=== PATIENT | female | born 1930 | race Caucasian/White ===

== ENCOUNTER 2018-07-12 09:43 | Inpatient (IN) | payer OTHER ==
[2018-07-12] MEDS ORDERED: NA CHLORIDE 0.9% 1,000 ML ONE (10:12)
[2018-07-12] MEDS ORDERED: FENTANYL CITR 100 MCG/2 ML ONE (10:12)
[2018-07-12] MEDS ORDERED: ONDANSETRON 4 MG/2 ML VIAL ONE (10:13)
--- NOTE | 2018-07-12 10:37 | RAD REPORT ---
EXAM DESCRIPTION: CT - Head C Spine Cap Wo Con - 07/12/2018 10:21 am CLINICAL HISTORY: Trauma, head and neck injury. Chest, abdomen and pelvis pain. PAIN COMPARISON: Abdomen Pelvis W Contrast dated 11/04/2017; CT ABDOMEN PELVIS WO CONTRAST dated 5 TECHNIQUE: CT head without contrast. CT cervical spine without contrast with coronal and sagittal reformatted images. CT chest, abdomen and pelvis without contrast with coronal and sagittal reformatted images of the spi ne. All CT scans are performed using dose optimization technique as appropriate and may include automated exposure control or mA/KV adjustment according to patient size. FINDINGS: CT HEAD WITHOUT CONTRAST: No intracranial hemorrhage, hydrocephalus or extra-axial fluid collection. Advanced generalized brai n atrophy is present with advanced periventricular and deep white matter chronic microvascular ischem ic changes. Gliosis is present in the left posterior parietal lobe compatible with remote infarct. Ad ditional gliosis medial right cerebellum also seen likely related to additional area previous infarct ion. The paranasal sinuses and mastoids are clear. The calvarium is intact. CT CERVICAL SPINE WITHOUT CONTRAST: No fracture or subluxation. Multilevel degenerative changes are present. Findings are most prominent at C3-4 and C5-6. The prevertebral soft tissues are normal in thickness. CT CHEST, ABDOMEN, PELVIS WITHOUT CONTRAST: NOTE: Lack of contrast is a significant limitation in the assessment of trauma related findings. Spec ifically, solid organ, vascular and bowel evaluation is significantly limited. Emphysematous changes are present throughout the lungs. 17 x 16 mm right lower lobe pulmonary nodule is seen.No pneumothorax or pericardial/pleural fluid. No evidence of intra-abdominal visceral injury, free fluid or free air is seen within the above detai led limitations. Large irregular mass is again noted in the cecum measuring 5.5 x 4.2 cm, almost certainly neoplastic in origin. Sigmoid diverticulosis is present. Significant fecal retention in the rectum seen. Intratrochanteric fracture of the proximal left femur is seen with mild varus angulation. IMPRESSION: Intratrochanteric fracture of proximal left femur is noted. Large mass in the cecum is again noted, similar to comparative study, and likely neoplastic in origin . 17 mm spiculated right lower lobe nodule is present likely also neoplastic in origin. PET-CT follow-u p could be obtained if further assessment is clinically desired.
[2018-07-12 11:13] LABS: Protime INR 1.12
--- NOTE | 2018-07-12 11:25 | ER ---
Nurse's Notes [facility] Name: Destinee Dickinson Age: 88 yrs Sex: Female : 1930 Arrival Date: 07/12/2018 Time: 09:46 Bed 4 Private MD: Jonathan Santos V Diagnosis: Fall due to bumping against object;Displaced intertrochanteric fracture of left femur;Abdominal tenderness-large 5.5x 4.2 cm cecal mass;Solitary pulmonary nodule-17 mm , spiculated;End stage renal disease Presentation: 07/12 09:47 Presenting complaint: EMS states: pt had a fall last night, unknown time, crawled into iw the bathroom and laid there throughout the night, pt denies hitting head, A\T\OX3, left leg is shortened with outward rotation. Care prior to arrival: Mechanism of Injury: Fall from standing position. Trauma event details: Injury occurred in the [facility], Injury occurred: at home. Injury occurred: July 11, 2018. 09:47 Acuity: CLEMENT 2 iw 09:47 Method Of Arrival: EMS: [facility] iw 09:54 Transition of care: patient was not received from another setting of care. Onset of iw symptoms was July 12, 2018. Risk Assessment: Do you want to hurt yourself or someone else? Patient reports no desire to harm self or others. Initial Sepsis Screen: Does the patient meet any 2 criteria? No. Patient's initial sepsis screen is negative. Does the patient have a suspected source of infection? No. Patient's initial sepsis screen is negative. Trauma Activation: Alert Physician: ED Physician; Name: Dr. Mckeon; Notified At: 09:40; Arrived At: 09:40 Physician: General Surgeon; Name: N/A; Notified At: 09:39; Arrived At: Specialty not needed Physician: Radiology; Name: Rachel; Notified At: 09:39; Arrived At: 09:40 Physician: Respiratory; Name: N/A; Notified At: 09:39; Arrived At: Specialty not needed Physician: Lab; Name: N/A; Notified At: 09:39; Arrived At: Specialty not needed Historical: - Allergies: 09:53 No Known Allergies; iw - PMHx: 09:52 GERD; Hyperlipidemia; Hypertension; Hypothyroidism; Renal Disease; Dialysis; iw 09:53 CVA; stomach cancer; iw - PSHx: 09:52 Cholecystectomy; Hysterectomy; iw - Immunization history: Last tetanus immunization: unknown. - Ebola Screening: : Patient negative for fever greater than or equal to 101.5 degrees Fahrenheit, and additional compatible Ebola Virus Disease symptoms Patient denies exposure to infectious person Patient denies travel to an Ebola-affected area in the 21 days before illness onset No symptoms or risks identified at this time. - Social history:: Smoking status: Patient/guardian denies using tobacco. Screenin:54 Abuse screen: Denies threats or abuse. Denies injuries from another. Tuberculosis iw screening: No symptoms or risk factors identified. 10:16 Nutritional screening: No deficits noted. Fall Risk Fall in past 12 months (25 points). ch Secondary diagnosis (15 points) IV access (20 points). Ambulatory Aid- Crutches/Cane/Walker (15 pts). Gait- Weak (10 pts.). Mental Status- Overestimates/Forgets Limitations (15 pts.). Total Lezama Fall Scale indicates High Risk Score (45 or more points). Fall prevention measures have been instituted. Side Rails Up X 2 Frequent Obs/Assessments Occuring Family Present and informed to notify staff if the need to leave the bedside As available patient and family educated on Fall Prevention Program and Strategies. Primary Survey: 09:51 A: Airway: patent. Breathing/Chest: Respiratory pattern: regular. Circulation: Cardiac iw rhythm: Heart tones present. Pulses: palpable right radial artery, right dorsalis pedis artery, left radial artery, left dorsalis pedis artery, left carotid pulse and right carotid pulse. Skin color: pink. Disability Alert. 10:12 Reassessment Airway Airway Patent Breathing/Chest Respiratory pattern Regular ch Respiratory effort Spontaneous Unlabored Breath sounds Clear Chest inspection Symmetrical. Secondary Survey: 10:12 HEENT: Head Other pt c/o headache, has bruising on her neck. : No signs and/or ch symptoms were reported regarding the genitourinary system. Musculoskeletal: Capillary refill < 3 seconds, in bilateral fingers. toes. Range of motion: limited in left hip and left knee pt L leg is shortened and externally rotated Reports pain in left leg and left upper thigh and left inner thigh and left gluteal fold and left hip. Assessment: 10:12 General: Appears in no apparent distress. comfortable, Behavior is calm, cooperative, ch appropriate for age. Pain: Complains of pain in left leg and left upper thigh and left inner thigh and left hip Pain currently is 8 out of 10 on a pain scale. Pain began suddenly, 1 day ago. Neuro: Level of Consciousness is awake, alert, obeys commands, confused, Oriented to person. Respiratory: Airway is patent Respiratory effort is even, unlabored. 10:16 Reassessment: Patient appears in no apparent distress at this time. 11:27 Reassessment: Patient appears in no apparent distress at this time. No changes from previously documented assessment. Patient and/or family updated on plan of care and expected duration. Pain level reassessed. pt still oriented to person only. pt verb understanding of fx of hip. awaiting family return to review results with family. family not found in the lobby. awaiting lab results. 12:24 Reassessment: Patient appears in no apparent distress at this time. No changes from previously documented assessment. Patient and/or family updated on plan of care and expected duration. Pain level reassessed. 12:25 Reassessment: Patient appears in no apparent distress at this time. ALL ER ORDERS COMPLETED, AWAITING FLOOR ROOM ASSIGNMENT. DR GUTIERREZ HAS BEEN CONTACTED BY DR MCKEON, BUT HAS NOT SEEN THE PT YET. ORDERS ARE IN THE COMPUTER. 12:42 Reassessment: Patient appears in no apparent distress at this time. Patient is alert/active/playful, equal unlabored respirations, skin warm/dry/pink. DR GUTIERREZ AT BEDSIDE. 12:48 Reassessment: Patient appears in no apparent distress at this time. No changes from previously documented assessment. Patient and/or family updated on plan of care and expected duration. Pain level reassessed. Patient is alert/active/playful, equal unlabored respirations, skin warm/dry/pink. i ATTEMPT TO CALL REPORT NOW. . 13:01 Reassessment: Patient appears in no apparent distress at this time. REPORT GIVEN TO layla LÓPEZ, AWAITING DR BINGHAM TO SEE PT PRIOR TO TRANSFER. Vital Signs: 09:52 Pulse 81; Resp 19; Pulse Ox 100% on R/A; iw 10:16 BP 133 / 57; Pulse 76; Resp 14 S; ch 11:27 BP 129 / 56; Pulse 74; Resp 16; Temp 98.3; Pulse Ox 97% on R/A; Pain 4/10; ch 12:24 BP 126 / 78; Pulse 80; Resp 18; Temp 98.8; Pulse Ox 99% on R/A; ch Deyvi Coma Score: 09:53 Eye Response: spontaneous(4). Verbal Response: oriented(5). Motor Response: obeys iw commands(6). Total: 15. Trauma Score (Adult): 09:53 Eye Response: spontaneous(1); Verbal Response: oriented(1); Motor Response: obeys iw commands(2); Systolic BP: > 89 mm Hg(4); Respiratory Rate: 10 to 29 per min(4); Boxford Score: 15; Trauma Score: 12 10:12 Eye Response: spontaneous(1); Verbal Response: confused(1); Motor Response: obeys ch commands(2); Systolic BP: > 89 mm Hg(4); Respiratory Rate: 10 to 29 per min(4); Deyvi Score: 14; Trauma Score: 12 ED Course: 09:46 Patient arrived in ED. iw 09:48 Dm Mckeon MD is Attending Physician. echo 09:51 Triage completed. iw 09:51 Izabel Fine, RN is Primary Nurse. ch 09:54 Patient has correct armband on for positive identification. Placed in gown. Bed in low iw position. 09:54 Arm band placed on. iw 10:12 Patient maintains SpO2 saturation greater than 95% on room air. ch 10:12 Inserted saline lock: 22 gauge in right wrist, using aseptic technique. Missed ch attempt(s): 22 gauge in right forearm. Patient maintains SpO2 saturation greater than 95% on room air. Thermoregulation: warm blanket given to patient. 10:16 CT completed. Patient tolerated procedure well. Patient moved to CT via stretcher. sj 10:16 No apparent distress. Resting quietly. ch 10:16 nurse monitoring on. Pulse ox on. NIBP on. Warm blanket given. ch 10:17 Patient moved to radiology. sj 10:21 CT Traumagram (Head C Spine CAP wo con) In Process Unspecified. EDMS 10:45 XRAY Chest (1 view) In Process Unspecified. EDMS 10:45 Pelvis XRAY In Process Unspecified. EDMS 10:45 Hip Left 2 View XRAY In Process Unspecified. EDMS 10:53 Initial lab(s) drawn, by me, sent to lab. Inserted saline lock: 22 gauge in right dh3 antecubital area, using aseptic technique. Blood collected. 10:57 EKG done, by industrial electrical technician. reviewed by Dm Mckeon MD. at1 11:14 Chou cath inserted, using sterile technique, 16 Fr., by me, balloon inflated, returned dh3 clear yellow urine. Patient tolerated well. 11:22 Jonathan Santos MD is Private Physician. bd 11:22 Jimmie Jean-Baptiste MD is Hospitalizing Provider. echo 11:24 Hospitalizing Provider role handed off by Jimmie Jean-Baptiste MD echo 11:24 Jonathan Santos MD is Hospitalizing Provider. echo 11:40 Urine collected: Chou catheter specimen, clear. dh3 12:35 EKG done, by industrial electrical technician. reviewed by Dm Mckeon MD. 3 19:26 No provider procedures requiring assistance completed. Patient admitted, IV remains in ch place. Administered Medications: 10:10 Drug: fentaNYL (PF) 25 mcg Route: IVP; Site: right wrist; ch 12:04 Follow up: Response: No adverse reaction ch 10:10 Drug: Zofran 4 mg Route: IVP; Site: right forearm; ch 12:03 Follow up: Response: No adverse reaction ch 11:25 Drug: NS 0.9% 1000 ml Route: IV; Rate: 125 ml/hr; Site: right wrist; ch 12:04 Follow up: IV Status: Infusion continued upon admission; IV Intake: 250ml Intake: 10:12 PO: 0ml; Total: 0ml. ch 12:04 IV: 250ml; Total: 250ml. Outcome: 11:24 Decision to Hospitalize by Provider. echo 13:40 Admitted to Med/surg accompanied by nurse, via stretcher. 13:40 Condition: stable 13:40 Instructed on the need for admit. 13:51 Patient left the ED. Signatures: Dispatcher [employer] EDMS Stefany Olea Christina, RN RN ch Anderson, Corey, MD MD cha Jones, Susan sj Williams, Irene, RN RN iw Gonzales, Amanda, associate teacher EKG Tat1 Sams, Lita 3 Martha Hope sm3 Corrections: (The following items were deleted from the chart) 11:25 11:24 Chou cath inserted, using sterile technique, 16 Fr., by ks, balloon inflated, dh3 returned clear yellow urine. Patient tolerated well. 3
--- NOTE | 2018-07-12 11:25 | EDPHYS ---
Physician Documentation [facility] Name: Destinee Dickinson Age: 88 yrs Sex: Female : 1930 Arrival Date: 07/12/2018 Time: 09:46 Bed 4 Private MD: Jonathan Santos V ED Physician Dm Miguel HPI: 07/12 09:53 This 88 yrs old Female presents to ER via EMS with complaints of Fall Injury, echo Hip Injury. 09:53 Details of fall: The patient fell from an upright position, while walking. Onset: The echo symptoms/episode began/occurred last night. Associated injuries: The patient sustained left hip, left gluteal fold, left inner thigh and left upper thigh, decreased range of motion, obvious fracture. Severity of symptoms: At their worst the symptoms were moderate, in the emergency department the symptoms are unchanged. Unable to obtain HPI due to baseline dementia. The patient has not experienced similar symptoms in the past. Historical: - Allergies: 09:53 No Known Allergies; iw - PMHx: 09:52 GERD; Hyperlipidemia; Hypertension; Hypothyroidism; Renal Disease; Dialysis; iw 09:53 CVA; stomach cancer; iw - PSHx: 09:52 Cholecystectomy; Hysterectomy; iw - Immunization history: Last tetanus immunization: unknown. - Ebola Screening: : Patient negative for fever greater than or equal to 101.5 degrees Fahrenheit, and additional compatible Ebola Virus Disease symptoms Patient denies exposure to infectious person Patient denies travel to an Ebola-affected area in the 21 days before illness onset No symptoms or risks identified at this time. - Social history:: Smoking status: Patient/guardian denies using tobacco. ROS: 09:54 Constitutional: Negative for fever, chills, and weight loss, Eyes: Negative for injury, echo pain, redness, and discharge, ENT: Negative for injury, pain, and discharge, Neck: Negative for injury, pain, and swelling, Cardiovascular: Negative for chest pain, palpitations, and edema, Respiratory: Negative for shortness of breath, cough, wheezing, and pleuritic chest pain, Abdomen/GI: Negative for abdominal pain, nausea, vomiting, diarrhea, and constipation, Back: Negative for injury and pain, : Negative for injury, bleeding, discharge, and swelling, Skin: Negative for injury, rash, and discoloration, Neuro: Negative for headache, weakness, numbness, tingling, and seizure, Psych: Negative for depression, anxiety, suicide ideation, homicidal ideation, and hallucinations, Allergy/Immunology: Negative for hives, rash, and allergies, Endocrine: Negative for neck swelling, polydipsia, polyuria, polyphagia, and marked weight changes, Hematologic/Lymphatic: Negative for swollen nodes, abnormal bleeding, and unusual bruising. 09:54 MS/extremity: Positive for injury or acute deformity, decreased range of motion, pain, of the left hip, left gluteal fold, left inner thigh and left upper thigh. Exam: 09:54 Constitutional: This is a well developed, well nourished patient who is awake, alert, echo and in no acute distress. Head/Face: Normocephalic, atraumatic. Eyes: Pupils equal round and reactive to light, extra-ocular motions intact. Lids and lashes normal. Conjunctiva and sclera are non-icteric and not injected. Cornea within normal limits. Periorbital areas with no swelling, redness, or edema. ENT: Nares patent. No nasal discharge, no septal abnormalities noted. Tympanic membranes are normal and external auditory canals are clear. Oropharynx with no redness, swelling, or masses, exudates, or evidence of obstruction, uvula midline. Mucous membranes moist. Neck: Trachea midline, no thyromegaly or masses palpated, and no cervical lymphadenopathy. Supple, full range of motion without nuchal rigidity, or vertebral point tenderness. No Meningismus. Chest/axilla: Normal chest wall appearance and motion. Nontender with no deformity. No lesions are appreciated. Cardiovascular: Regular rate and rhythm with a normal S1 and S2. No gallops, murmurs, or rubs. Normal PMI, no JVD. No pulse deficits. Respiratory: Lungs have equal breath sounds bilaterally, clear to auscultation and percussion. No rales, rhonchi or wheezes noted. No increased work of breathing, no retractions or nasal flaring. Abdomen/GI: Soft, non-tender, with normal bowel sounds. No distension or tympany. No guarding or rebound. No evidence of tenderness throughout. Back: No spinal tenderness. No costovertebral tenderness. Full range of motion. Skin: Warm, dry with normal turgor. Normal color with no rashes, no lesions, and no evidence of cellulitis. Neuro: Awake and alert, GCS 15, oriented to person, place, time, and situation. Cranial nerves II-XII grossly intact. Motor strength 5/5 in all extremities. Sensory grossly intact. Cerebellar exam normal. Normal gait. Psych: Awake, alert, with orientation to person, place and time. Behavior, mood, and affect are within normal limits. 09:54 Musculoskeletal/extremity: ROM: limited active range of motion, limited passive range of motion, limited active range of motion due to pain, limited passive range of motion due to pain, Circulation is intact in all extremities. Compartment Syndrome exam of affected extremity: is normal. DVT Exam: no swelling, negative Homans' sign noted on exam, no appreciated bluish discoloration, no erythema, no increased warmth, pain, tenderness. Vital Signs: 09:52 Pulse 81; Resp 19; Pulse Ox 100% on R/A; iw 10:16 BP 133 / 57; Pulse 76; Resp 14 S; ch 11:27 BP 129 / 56; Pulse 74; Resp 16; Temp 98.3; Pulse Ox 97% on R/A; Pain 4/10; ch 12:24 BP 126 / 78; Pulse 80; Resp 18; Temp 98.8; Pulse Ox 99% on R/A; ch Coleman Coma Score: 09:53 Eye Response: spontaneous(4). Verbal Response: oriented(5). Motor Response: obeys iw commands(6). Total: 15. Trauma Score (Adult): 09:53 Eye Response: spontaneous(1); Verbal Response: oriented(1); Motor Response: obeys iw commands(2); Systolic BP: > 89 mm Hg(4); Respiratory Rate: 10 to 29 per min(4); Deyvi Score: 15; Trauma Score: 12 10:12 Eye Response: spontaneous(1); Verbal Response: confused(1); Motor Response: obeys commands(2); Systolic BP: > 89 mm Hg(4); Respiratory Rate: 10 to 29 per min(4); Deyvi Score: 14; Trauma Score: 12 MDM: 09:48 Patient medically screened. [facility] 09:55 Data reviewed: vital signs, nurses notes, lab test result(s), EKG, radiologic studies, [facility] CT scan, plain films. 07/12 09:49 Order name: Basic Metabolic Panel [facility] 07/12 09:49 Order name: CBC with Diff [facility] 07/12 09:49 Order name: LFT's [facility] 07/12 09:49 Order name: Magnesium; Complete Time: 11:32 [facility] 07/12 09:49 Order name: NT PRO-BNP; Complete Time: 11:32 [facility] 07/12 09:49 Order name: PT-INR [facility] 07/12 09:49 Order name: Troponin (emerg Dept Use Only); Complete Time: 11:32 [facility] 07/12 09:50 Order name: Basic Metabolic Panel; Complete Time: 11:32 EDNM 07/12 09:50 Order name: CBC with Automated Diff EDNM 07/12 09:50 Order name: Liver (Hepatic) Function; Complete Time: 11:32 EDNM 07/12 09:52 Order name: Urine Culture [facility] 07/12 11:49 Order name: Basic Metabolic Panel EDNM 07/12 11:49 Order name: Basic Metabolic Panel [facility] 07/12 11:50 Order name: CBC with Automated Diff EDNM 07/12 09:49 Order name: XRAY Chest (1 view) [facility] 07/12 09:49 Order name: EKG; Complete Time: 09:50 [facility] 07/12 09:49 Order name: Pelvis XRAY [facility] 07/12 09:49 Order name: Hip Left 2 View XRAY [facility] 07/12 09:52 Order name: CT Traumagram (Head C Spine CAP wo con); Complete Time: 11:17 [facility] 07/12 11:50 Order name: CBC with Automated Diff [facility] 07/12 11:50 Order name: Chest Single View EDNM 07/12 11:50 Order name: Chest Single View [facility] 07/12 12:08 Order name: Urine Dipstick--Ancillary (enter results) 07/12 12:44 Order name: Urine Dipstick-Ancillary [facility] 07/12 12:51 Order name: CBC Smear Scan EDNM 07/12 12:53 Order name: Type And Screen iw 07/12 09:49 Order name: Cardiac monitoring; Complete Time: 10:11 [facility] 07/12 09:49 Order name: EKG - Nurse/Tech; Complete Time: 10:59 [facility] 07/12 09:49 Order name: IV Saline Lock; Complete Time: 10:11 [facility] 07/12 09:49 Order name: Labs collected and sent; Complete Time: 10:11 [facility] 07/12 09:49 Order name: O2 Per Protocol; Complete Time: 10:11 [facility] 07/12 09:49 Order name: O2 Sat Monitoring; Complete Time: 10:11 [facility] 07/12 09:52 Order name: Chou; Complete Time: 11:25 [facility] 07/12 09:53 Order name: Urine Dipstick-Ancillary (obtain specimen); Complete Time: 11:40 [facility] 07/12 11:49 Order name: CONS Physician Consult [facility] 07/12 11:49 Order name: CONS Physician Consult [facility] 07/12 11:49 Order name: NPO [facility] 07/12 11:49 Order name: EKG Electrocardiogram [facility] 07/12 11:49 Order name: EKG Electrocardiogram [facility] 07/12 12:27 Order name: Diet Renal; Complete Time: 12:27 ch Administered Medications: 10:10 Drug: fentaNYL (PF) 25 mcg Route: IVP; Site: right wrist; ch 12:04 Follow up: Response: No adverse reaction ch 10:10 Drug: Zofran 4 mg Route: IVP; Site: right forearm; ch 12:03 Follow up: Response: No adverse reaction 11:25 Drug: NS 0.9% 1000 ml Route: IV; Rate: 125 ml/hr; Site: right wrist; ch 12:04 Follow up: IV Status: Infusion continued upon admission; IV Intake: 250ml ch Disposition: 07/12/18 11:24 Hospitalization ordered by Jonathan Santos for Inpatient Admission. Preliminary diagnosis are Fall due to bumping against object, Displaced intertrochanteric fracture of left femur, Abdominal tenderness - large 5.5x 4.2 cm cecal mass, Solitary pulmonary nodule - 17 mm , spiculated, End stage renal disease. - Bed requested for Telemetry/MedSurg (observation). - Status is Inpatient Admission. ch - Condition is Stable. - Problem is new. - Symptoms have improved. UTI on Admission? No Signatures: Dispatcher [employer] EDNM Izabel Fine RN RN ch Anderson, Corey, MD MD cha Williams, Irene, RN RN iw Fitzgerald, Diane, RN RN df Corrections: (The following items were deleted from the chart) 11:24 11:24 Hospitalization Ordered by Jimmie Jean-Baptiste MD for Inpatient Admission. Preliminary [facility] diagnosis is Fall due to bumping against object; Displaced intertrochanteric fracture of left femur. Bed requested for Telemetry/MedSurg (observation). Status is Inpatient Admission. Condition is Stable. Problem is new. Symptoms have improved. UTI on Admission? No. echo 11:25 11:24 07/12/2018 11:24 Hospitalization Ordered by Jonathan Santos MD for Inpatient echo Admission. Preliminary diagnosis is Fall due to bumping against object; Displaced intertrochanteric fracture of left femur. Bed requested for Telemetry/MedSurg (observation). Status is Inpatient Admission. Condition is Stable. Problem is new. Symptoms have improved. UTI on Admission? No. echo 11:35 11:25 07/12/2018 11:24 Hospitalization Ordered by Jonathan Santos MD for Inpatient echo Admission. Preliminary diagnosis is Fall due to bumping against object; Displaced intertrochanteric fracture of left femur; Abdominal tenderness - large 17 cm pelvic mass. Bed requested for Telemetry/MedSurg (observation). Status is Inpatient Admission. Condition is Stable. Problem is new. Symptoms have improved. UTI on Admission? No. echo 11:36 11:35 07/12/2018 11:24 Hospitalization Ordered by Jonathan Santos MD for Inpatient echo Admission. Preliminary diagnosis is Fall due to bumping against object; Displaced intertrochanteric fracture of left femur; Abdominal tenderness - large 5.5x 4.2 cm cecal mass; Solitary pulmonary nodule. Bed requested for Telemetry/MedSurg (observation). Status is Inpatient Admission. Condition is Stable. Problem is new. Symptoms have improved. UTI on Admission? No. [facility] 12:29 11:36 07/12/2018 11:24 Hospitalization Ordered by Jonathna Santos MD for Inpatient echo Admission. Preliminary diagnosis is Fall due to bumping against object; Displaced intertrochanteric fracture of left femur; Abdominal tenderness - large 5.5x 4.2 cm cecal mass; Solitary pulmonary nodule - 17 mm , spiculated. Bed requested for Telemetry/MedSurg (observation). Status is Inpatient Admission. Condition is Stable. Problem is new. Symptoms have improved. UTI on Admission? No. echo 12:36 12:29 07/12/2018 11:24 Hospitalization Ordered by Jonathan Santos MD for Inpatient df Admission. Preliminary diagnosis is Fall due to bumping against object; Displaced intertrochanteric fracture of left femur; Abdominal tenderness - large 5.5x 4.2 cm cecal mass; Solitary pulmonary nodule - 17 mm , spiculated; End stage renal disease. Bed requested for Telemetry/MedSurg (observation). Status is Inpatient Admission. Condition is Stable. Problem is new. Symptoms have improved. UTI on Admission? No. echo 13:51 12:36 07/12/2018 11:24 Hospitalization Ordered by Jonathan Santos MD for Inpatient Admission. Preliminary diagnosis is Fall due to bumping against object; Displaced intertrochanteric fracture of left femur; Abdominal tenderness - large 5.5x 4.2 cm cecal mass; Solitary pulmonary nodule - 17 mm , spiculated; End stage renal disease. Bed requested for Telemetry/MedSurg (observation). Status is Inpatient Admission. Condition is Stable. Problem is new. Symptoms have improved. UTI on Admission? No. df
[2018-07-12 11:29] LABS: Albumin 3.1 g/dL (3.4-5.0); Bilirubin Direct 0.2 mg/dL (0-0.2); Bilirubin Total 0.5 mg/dL (0.2-1.0); Magnesium 2.2 mg/dL (1.8-2.4); Protein, Total 7.2 g/dL (6.4-8.2); Troponin (Emerg Dept Use Only) 0.05 ng/mL (0.0-0.045)
[2018-07-12 11:44] LABS: Absolute Lymphocytes (CBC) 0.9 K/uL (0.7-4.9); Basophils % 0.9 % (0-1.3); Hematocrit 28.2 % (36.0-45.0); Lymphocytes % 6.5 % (15.3-44.8); MCH 30.5 pg (27.0-35.0); MCV 91.4 fL (80-100); MPV 8.7 fL (7.6-11.3); Monocytes % 7.2 % (3.3-12.3); RBC Red Blood Cell Count 3.08 M/uL (3.86-4.86)
[2018-07-12] MEDS ORDERED: ACETAMINOPHEN 500 MG TAB PO PRN (11:45)
--- NOTE | 2018-07-12 11:53 | RAD REPORT ---
EXAM DESCRIPTION: RAD - Pelvis - 07/12/2018 10:44 am CLINICAL HISTORY: PAIN Fall COMPARISON: Pelvis dated 12/14/2015; Hip Left 2 View dated 07/12/2018 FINDINGS: Intratrochanteric fracture the proximal left femur is noted with varus angulation. No disl ocation is evident.
--- NOTE | 2018-07-12 11:54 | RAD REPORT ---
EXAM DESCRIPTION: RAD - Chest Single View - 07/12/2018 10:43 am CLINICAL HISTORY: COUGH Chest pain. COMPARISON: Chest Single View dated 12/14/2015; CHEST PA AND LAT 2 VIEW dated 06/15/2015; CHEST SINGL E VIEW dated 04/25/2015; CHEST SINGLE VIEW dated 06/30/2013 FINDINGS: Portable technique limits examination quality. The lungs are grossly clear. The heart is normal in size. No displaced fractures.Cholecystectomy clip s. IMPRESSION: No acute intrathoracic process suspected.
[2018-07-12] MEDS: NA CHLORIDE 0.9% 1,000 ML IV SCH ×2 (12:00→20:56)
--- NOTE | 2018-07-12 12:40 | RAD REPORT ---
EXAM DESCRIPTION: RAD - Hip Left 2 View - 07/12/2018 10:44 am CLINICAL HISTORY: PAIN Fall COMPARISON: Pelvis dated 12/14/2015; Hip Left 2 View dated 07/12/2018 FINDINGS: Intratrochanteric fracture the proximal left femur is noted with varus angulation. No disl ocation is evident.
[2018-07-12 12:44] LABS: Urine Blood 2+ (NEG); Urine Glucose TRACE (NEG); Urine Protein 2+ (NEG); Urine Specific Gravity 1.015 (1.005-1.030); Urine pH 8.5 (5.0-7.0)
[2018-07-12 12:50] LABS: Blood Morphology Comment NOT SEEN (NOT SEEN); Platelet Estimate ADEQ; Urine White Blood Cell Casts OK
[2018-07-12] MEDS: MORPHINE 2 MG/ML SYR IV PRN (14:32)
--- NOTE | 2018-07-12 21:22 | P.HP ---
Certification for Inpatient Patient admitted to: Inpatient With expected LOS: >2 Midnights Practitioner: I am a practitioner with admitting privileges, knowledge of patient current condition, hospital course, and medical plan of care. 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 SHE AT NIGHT FELL IN BATHROOM AND BROKE HER L HIP. FAMILY AND I HAD DISCUSSION ABOUT THIS BEFORE THAT I DON'T FEEL COMFORTABLE LETTING HER LIVE ALONE WITH PARTIAL HELP BUT SHE DID NOT WANT TO LEAVE HER HOME. SHE HAS A PELVIC MASS ALSO FOR WHICH SHE HAS DECIDED NOT TO ANYTHING. Allergies No Known Allergies Allergy (Verified 07/12/18 21:56) Home Medications: Clopidogrel Bisulfate [Plavix*] 75 mg PO DAILY 07/12/18 Levothyroxine [Synthroid*] 0.125 mg PO DAILY 07/12/18 Omeprazole [Prilosec] 40 mg PO DAILY 07/12/18 Simvastatin 40 mg PO BEDTIME 07/12/18 - Past Medical/Surgical History Has patient received pneumonia vaccine in the past: No Diabetic: No -: HTN -: Hyperlipidemia -: Hx of mild stroke -: Kidney Disease -: CVA -: 3 strokes ([id number]) -: Anemia/bleeding ulcer, 2006 -: Hysterectomy, 1973 -: Tummy tuck (elective), 1998 -: Fistula(left arm) - Family History Mother -: Hypertension, Diabetes Father -: Cancer - Social History Smoking Status: Former smoker Alcohol use: No CD- Drugs: No Caffeine use: Yes Place of Residence: Home Review of Systems 10-point ROS is otherwise unremarkable General: Weakness, Malaise Musculoskeletal: As per HPI Physical Examination - Vital Signs Temperature: 99 F Blood Pressure: 130/64 Pulse: 75 Respirations: 18 Pulse Ox (%): 99 - Physical Exam General: Alert, Cachectic, Moderate distress HEENT: Atraumatic, PERRLA, Mucous membr. moist/pink, EOMI, Sclerae nonicteric Neck: Supple, 2+ carotid pulse no bruit, No LAD, Without JVD or thyroid abnormality Respiratory: Clear to auscultation bilaterally, Normal air movement Cardiovascular: Regular rate/rhythm, Normal S1 S2 Gastrointestinal: Normal bowel sounds, No tenderness Musculoskeletal: Other (L HIP PAIN) Integumentary: No rashes Neurological: Normal gait, Normal speech, Normal strength at 5/5 x4 extr, Normal tone, Normal affect Lymphatics: No axilla or inguinal lymphadenopathy - Studies Laboratory Data (last 24 hrs) 07/12/18 10:53: PT 13.2 H, INR 1.12 07/12/18 10:53: WBC 14.1 H, Hgb 9.4 L, Hct 28.2 L, Plt Count 242 07/12/18 10:53: Sodium 138, Potassium 4.0, BUN 34 H, Creatinine 2.70 H, Glucose 120 H, Magnesium 2.2, Total Bilirubin 0.5, AST 28, ALT 18, Alkaline Phosphatase 99 Assessment and Plan - Problems (Diagnosis) (1) Closed left hip fracture Current Visit: Yes Status: Acute (2) CKD (chronic kidney disease) requiring chronic dialysis Current Visit: Yes Status: Chronic Plan: 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 (3) GI malignancy Current Visit: Yes Status: Chronic Plan: DR. SONG HAS DONE THE TESTING. HE HAS NOT SENT ME ANY REPORTS. PATIENT HAS DECIDED NOT TO DO ANY CHEMO OR SURGERY FOR THIS MASS SHE IS FRAIL ON HD AND CACHECTIC. - Advance Directives Does patient have a Living Will: Yes Does patient have a Durable POA for Healthcare: Yes
[2018-07-12] MEDS ORDERED: NA CHLORIDE 0.9% 1,000 ML IV SCH (22:00)
--- NOTE | 2018-07-12 22:07 | EKG ---
Test Date: 2018-07-12 Test Time: 10:44:05 Real Time Analyst: YANET MEASUREMENT RESULTS: Intervals: Rate: 74 SC: 138 QRSD: 70 QT: 402 QTc: 446 [place]: P: 42 SC: 138 QRS: -6 T: 22 INTERPRETIVE STATEMENTS: Sinus rhythm with premature atrial complexes Nonspecific ST and T wave abnormality Abnormal ECG Compared to ECG 12/14/2015 13:05:40 Atrial premature complex(es) now present ST (T wave) deviation now present T-wave abnormality no longer present Electronically Signed On 07-12-18 22:06:42 IT SUPPORT MANAGER by Willy Boone
--- NOTE | 2018-07-12 22:09 | RAD REPORT ---
EXAM DESCRIPTION: RAD - Femur Left - 07/12/2018 9:53 pm CLINICAL HISTORY: pain, preop planning Trauma, fracture COMPARISON: No comparisons FINDINGS: Intratrochanteric fracture the proximal left femur is seen with varus angulation. No dislo cation evident.
--- NOTE | 2018-07-12 23:37 | CON ---
Date of Consultation: 07/12/2018 Additional Consulting Physician: Emanuel Swanson MD Reason For Consultation: Left hip pain. History Of Present Illness: Ms. Dickinson is an 88-year-old female who presented to the ER after sustaining a fall onto her left side. She reports immediate pain to her left hip and inability to bear weight. Prior to the fall, patient states that she was mobilizing without the use of assist devices. The patient does report history of GI cancer. The patient and her son stated this time that she has not undergone any treatment for her cancer based on her personal preference. Past Medical History: Gastroesophageal reflux disease, hyperlipidemia, hypertension, hypothyroidism, end-stage renal disease, history of stroke, and GI cancer. Past Surgical History: Includes cholecystectomy, hysterectomy. Allergies: NO KNOWN DRUG ALLERGIES. Medications: Plavix, Synthroid, Prilosec, Simvastatin Physical Examination: General: No apparent distress. HEENT: Normocephalic, atraumatic. Neck: Supple. Cardiovascular: Brisk cap refill to all digits. Chest: Nonlabored breathing. Abdomen: Nondistended. Psychiatric: Responds to exam. Musculoskeletal: Bilateral upper extremities functional range of motion without pain. No gross deformities. No obvious dislocations. Right lower extremity functional range of motion without pain. No gross deformities. No obvious dislocations. Left lower extremity pain with range of motion of the left hip. Tenderness to palpation over the left hip. No skin abrasions noted. No tenderness to palpation over the knee, tibia, or ankle. Neurovascularly intact distally. X-rays: X-rays of the left hip demonstrate a left intertrochanteric femur fracture. I discussed with the patient at length risks and benefits associated with operative and nonoperative treatment. She expressed understanding. We will proceed with intramedullary nailing of her left intertrochanteric femur fracture. With her history of GI cancer, I discussed with the patient that we will obtain reamings of her left hip intraoperatively to rule out any metastatic disease process. Dr. Santos will admit the patient and the patient will likely have dialysis prior to surgery tomorrow if she is cleared medically. CV/MODL Voice ID: [id number] Report ID: [id number] VERONICA
--- NOTE | 2018-07-13 00:05 | CON ---
Date of Consultation: 07/12/2018 Chief Complaint: End-stage renal disease on dialysis 3 times per week. History Of Present Illness: The patient is on dialysis for end-stage renal disease. She has been di alyzed on Thursday. The patient came to the hospital because of status post fall. She was found to have hip fracture and needs to have a surgery. She had the hip fracture sustained today fall and pre viously she was found to have pelvic mass, but she decided not to do any procedure for pelvic mass. Review of Systems: Constitutional: Denies fever, chills. Eyes: Denies vision changes. Ears, Nose, Mouth, and Throat: Denies sore throat, earache. Respiratory: Denies PND, orthopnea. Cardiovascular: Denies chest pain, palpitation. GI: Denies nausea, vomiting. : Denies dysuria, hematuria. Musculoskeletal: Denies muscle pain. The patient is complaining of hip pain. All other systems reviewed and all are negative. Past Medical History: End-stage renal disease, hypertension, hyperlipidemia, history of TIA, CVA. S he developed 3 strokes over 2002 and 2003 year, anemia secondary to ulcer bleeding in 2006, hysterect susan. Family History: Mother hypertension, diabetes. Father cancer. Social History: Denies tobacco, alcohol, illicit drugs. Physical Examination: Vital Signs: Blood pressure 130/64, heart rate 75, temperature 99, respiratory rate 18, SpO2 99%. General: The patient is awake, alert, follows commands. Eyes: Anicteric sclerae. EOMI. Ears, Nose, Mouth, and Throat: Oral mucosa moist. No pallor. Neck: Supple. No JVD. No bruits. Lungs: Clear to auscultation bilaterally. Heart: S1, S2. No pericardial friction rub. Abdomen: Soft, benign, nontender. Extremities: No edema, no clubbing, no cyanosis. Laboratory Work: Hemoglobin 9.4, WBC 14.1, platelet count is 242,000. Sodium 138, potassium 4.0, ch loride 102, CO2 25, BUN 34, creatinine 2.7, calcium 8.9, magnesium 2.2, total bilirubin normal. Impression And Plan: 1.End-stage renal disease. The patient is to have a surgery for hip fracture and procedure is sched uled for tomorrow. Plan is to provide dialysis first thing in the morning. I discussed case with juliocesar kapoor nurse. 2.Anemia in chronic kidney disease. Continue FANI. 3.Renal osteodystrophy. Continue renal diet and binders. 4.Hypertension. Blood pressure control. Continue blood pressure medication. ONEAL/KJ Voice ID: [id number] Report ID: [id number]
[2018-07-13] MEDS: D5 0.9 NS 1,000 ML IV SCH (05:36)
[2018-07-13 06:04] LABS: Absolute Lymphocytes (CBC) 1.4 K/uL (0.7-4.9); Absolute Monocytes 1.1 K/uL (0.1-1.3); Absolute Neutrophil 12.3 K/uL (1.8-8.0); Basophils % 0.3 % (0-1.3); Eosinophils % 0.3 % (0-4.4); Lymphocytes % 9.7 % (15.3-44.8); MCH 30.5 pg (27.0-35.0); MCV 93.1 fL (80-100); MPV 8.5 fL (7.6-11.3); Monocytes % 7.1 % (3.3-12.3); Potassium 4.3 mmol/L (3.5-5.1); RBC Red Blood Cell Count 3.01 M/uL (3.86-4.86)
--- NOTE | 2018-07-13 09:01 | RAD REPORT ---
EXAM DESCRIPTION: RAD - Chest Single View - 07/13/2018 6:27 am CLINICAL HISTORY: Follow up admission chest Xray Chest pain. COMPARISON: Chest Single View dated 07/12/2018; Chest Single View dated 12/14/2015; CHEST PA AND LAT 2 VIEW dated 06/15/2015; CHEST SINGLE VIEW dated 04/25/2015 FINDINGS: Portable technique limits examination quality. The lungs are grossly clear. The heart is normal in size. No displaced fractures. IMPRESSION: No acute intrathoracic process suspected.
[2018-07-13] MEDS: MORPHINE 2 MG/ML SYR IV PRN (16:04)
[2018-07-13] MEDS: ONDANSETRON 4 MG/2 ML VIAL IV PRN (16:06)
--- NOTE | 2018-07-13 16:16 | P.PN ---
Subjective Date of Service: 07/13/18 Chief Complaint: left hip pain pain controlled; received dialysis this morning Physical Examination - Vital Signs Temperature: 98.8 F Blood Pressure: 134/62 Pulse: 100 Respirations: 20 Pulse Ox (%): 96 - Physical Exam General: Alert, In no apparent distress Musculoskeletal: Other (LLE: NVI distally; pain with ROM of the left hip; ttp over the left hip) Assessment And Plan - Plan January is an 88 yo female with a left IT femur fracture -will plan on surgery for 07/14 as patient last received Plavix on 07/11 to minimize bleeding risk -NPO p MN -PT to mobilize postoperatively
--- NOTE | 2018-07-13 19:51 | P.PN ---
Subjective Date of Service: 07/13/18 Chief Complaint: left hip pain SURGERY IN AM. Review of Systems 10-point ROS is otherwise unremarkable Physical Examination - Vital Signs Temperature: 98.8 F Blood Pressure: 134/62 Pulse: 100 Respirations: 20 Pulse Ox (%): 96 - Physical Exam General: Cachectic, Moderate distress, Confused HEENT: Atraumatic, PERRLA, EOMI Neck: Supple, JVD not distended Respiratory: Clear to auscultation bilaterally, Normal air movement Cardiovascular: Regular rate/rhythm, Normal S1 S2 Gastrointestinal: Normal bowel sounds, No tenderness Musculoskeletal: No tenderness Integumentary: No rashes Neurological: Normal speech, Normal tone, Normal affect Lymphatics: No axilla or inguinal lymphadenopathy - Studies Medications List Reviewed: Yes Assessment And Plan - Current Problems (Diagnosis) (1) Closed left hip fracture Onset Date: 07/13/18 Current Visit: Yes Status: Acute Plan: SURGERY IN AM DR GUTIERREZ MEDICALLY POOR RISK. NO OTHER CHOICE FAMILY IS AWARE MAY QUALIFY FOR HOSPICE IF DOES NOT RECOVER FROM SURGERY. 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 (3) GI malignancy Onset Date: 07/13/18 Current Visit: Yes Status: Chronic Plan: DR. SONG HAS DONE THE TESTING. HE HAS NOT SENT ME ANY REPORTS. PATIENT HAS DECIDED NOT TO DO ANY CHEMO OR SURGERY FOR THIS MASS SHE IS FRAIL ON HD AND CACHECTIC.
--- NOTE | 2018-07-13 20:02 | P.PN ---
Subjective Date of Service: 07/13/18 Chief Complaint: left hip pain Subjective: No new changes pt wit ESRD TTsat , S/P fall found to have Lt hip fractute plan for surgery tomorrow Physical Examination - Vital Signs Temperature: 98.8 F Blood Pressure: 134/62 Pulse: 100 Respirations: 20 Pulse Ox (%): 96 - Physical Exam General: Alert HEENT: Atraumatic Neck: Without JVD or thyroid abnormality Respiratory: Clear to auscultation bilaterally, Normal air movement Cardiovascular: No edema, Regular rate/rhythm, Normal S1 S2, No murmurs Gastrointestinal: Normal bowel sounds, Soft and benign - Studies Medications List Reviewed: Yes Assessment And Plan - Current Problems (Diagnosis) (1) ESRD (end stage renal disease) Current Visit: Yes Status: Chronic (2) GI malignancy Onset Date: 07/13/18 Current Visit: Yes Status: Chronic - Plan Impression And Plan: 1.End-stage renal disease. HD TTsat renal diet renal dose all meds 2.Anemia in chronic kidney disease. Continue FANI. 3.Renal osteodystrophy. Continue renal diet and binders. 4.Hypertension. Blood pressure control. Continue blood pressure medication. 5. Lt hip Fracture Plan for surgery 07/14 6.Leuckocytosis Likely stress induced 7.hypothyrodism restart synthroid 8.colon Ca followed by GI as an OP not candidate for chemo or surgical intervention
[2018-07-14] MEDS: D5 0.9 NS 1,000 ML IV SCH ×2 (00:19→21:20)
[2018-07-14] MEDS: MORPHINE 2 MG/ML SYR IV PRN ×3 (01:02→21:20)
[2018-07-14] MEDS ORDERED: PNEUMOCOCCAL VACCINE 0.5 ML IMVAC ONE (07:00)
[2018-07-14] MEDS ORDERED: NA CHLORIDE 0.9% 1,000 ML ONE (08:43)
[2018-07-14] MEDS ORDERED: FENTANYL CITR 100 MCG/2 ML ONE (08:51)
[2018-07-14] MEDS ORDERED: PROPOFOL 200 MG/20 ML VIAL IV ONE (08:51)
[2018-07-14] MEDS ORDERED: LIDOCAINE 2% MPF 5 ML VIAL ONE (08:51)
[2018-07-14] MEDS ORDERED: CEFAZOLIN/SWI 1gm 1 GM/10 ML SYR ONE (09:51)
[2018-07-14] MEDS ORDERED: EPHEDRINE SULF 50 MG/10 ML SYR ONE (10:13)
--- NOTE | 2018-07-14 11:40 | P.BOP ---
Preoperative diagnosis: left intertrochanteric femur fracture Postoperative diagnosis: same Primary procedure: cephalomedullary fixation of the left intertrochanteric femur fracture Secondary procedure: none Safety Spec: NONE,NONE Estimated blood loss: 50 cc Specimen: left femur reamings Findings: see dictation Anesthesia: General Complications: None Drain(s): Urinary catheter Implants: [id number] 130 degree biomet hip nail; 80 mm lag screw Fluids & blood products: per anesthesia Transferred to: Recovery Room Condition: Good
[2018-07-14] MEDS ORDERED: DOCUSATE NA 100 MG CAP PO PRN (12:00)
[2018-07-14 12:26] LABS: Hematocrit 30.2 % (36.0-45.0)
--- NOTE | 2018-07-14 12:32 | RAD REPORT ---
EXAM DESCRIPTION: RAD - Hip In Or - 07/14/2018 12:25 pm CLINICAL HISTORY: Left femoral fracture FINDINGS: Multiple intraoperative fluoroscopic spot image is submitted. Compression screw and intramedullary cindy affix a femoral fracture in good alignment. Procedure perfor med by Dr. Swanson. Fluoroscopy time 1 minutes 8 seconds. Fifteen fluoroscopic spot images obtained
--- NOTE | 2018-07-14 13:05 | RAD REPORT ---
EXAM DESCRIPTION: RAD - Femur Left - 07/14/2018 12:59 pm CLINICAL HISTORY: post op Femur pain COMPARISON: Femur Left dated 07/12/2018 FINDINGS: Intramedullary rodding is noted in the left femur. Hardware positioning and alignment is i s suspected. Mild soft tissue gas is present laterally. Skin chip are noted.
--- NOTE | 2018-07-14 13:41 | P.PN ---
Subjective Date of Service: 07/14/18 Chief Complaint: SURGERY L HIP DONE Subjective: Improving SURGERY IN AM. STABLE AFTER SURGERY. Review of Systems 10-point ROS is otherwise unremarkable General: Weakness, Malaise Physical Examination - Vital Signs Temperature: 97.4 F Blood Pressure: 129/50 Pulse: 90 Respirations: 16 Pulse Ox (%): 93 - Physical Exam General: Alert, Cachectic, Mild distress, Confused HEENT: Atraumatic, PERRLA, EOMI Neck: Supple, JVD not distended Respiratory: Clear to auscultation bilaterally, Normal air movement Cardiovascular: Regular rate/rhythm, Normal S1 S2 Gastrointestinal: Normal bowel sounds, No tenderness Musculoskeletal: No tenderness Integumentary: No rashes Neurological: Normal speech, Normal tone, Normal affect Lymphatics: No axilla or inguinal lymphadenopathy - Studies Microbiology Data (last 24 hrs): 07/12/18 11:36 Catheterized Urine [place] Count - Final <10,000 CFU/ML. 07/12/18 11:36 Catheterized Urine - Final Medications List Reviewed: Yes Assessment And Plan - Current Problems (Diagnosis) (1) Closed left hip fracture Onset Date: 07/13/18 Current Visit: Yes Status: Acute Plan: SURGERY IN AM DR GUTIERREZ MEDICALLY POOR RISK. NO OTHER CHOICE FAMILY IS AWARE MAY QUALIFY FOR HOSPICE IF DOES NOT RECOVER FROM SURGERY. [facility] FOR PT AND HD. SHE WILL NOT QUALIFY FOR INTENSIVE INPATIENT REHAB. 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 (3) GI malignancy Onset Date: 07/13/18 Current Visit: Yes Status: Chronic Plan: DR. SONG HAS DONE THE TESTING. HE HAS NOT SENT ME ANY REPORTS. PATIENT HAS DECIDED NOT TO DO ANY CHEMO OR SURGERY FOR THIS MASS SHE IS FRAIL ON HD AND CACHECTIC.
[2018-07-14] MEDS: CEFAZOLIN/SWI 1gm 1 GM/10 ML SYR IV SCH ×3 (14:16→23:57)
--- NOTE | 2018-07-14 22:58 | OP ---
Date of Procedure: 07/14/2018 Surgeon: Emanuel Swanson MD Preoperative Diagnosis: Left intertrochanteric femur fracture. Postoperative Diagnosis: Left intertrochanteric femur fracture. Procedure Performed: Cephalomedullary fixation of left intertrochanteric femur fracture. Anesthesia: General LMA. Fluids: Per Anesthesia record. Ebl: 50 cc. Implants: A 9 x 320 mm 130 degree Biomet hip nail with an 80 mm lag screw. Complications: None. Indication For Procedure: Destinee is an 88-year-old female who presented to the ER after sustaining a fall onto her left side with subsequent pain and inability to bear weight. X-rays in the emergency room demonstrated left intertrochanteric femur fracture. Risks and benefits associated with procedure were discussed with the patient and the family at length and they expressed understanding and elected to proceed with operative treatment. Description Of Procedure: After informed consent was obtained, the patient was identified in the preoperative holding area. The left lower extremity was marked. The patient was then taken back to the operating room, transferred to the operating table in supine fashion, placed under general LMA anesthesia. She was placed on the fracture table with her extremities well padded, and placed on the fracture table where the left hip was reduced. Fluoroscopy was used to confirm reduction of the intertrochanteric femur fracture. Once reduction was obtained, the left lower extremity was then prepped and draped in usual sterile fashion. A time-out was initiated. The correct patient and procedure were confirmed and identified. The patient had received her preoperative prophylactic antibiotics and approximately a 5 cm longitudinal incision was made just proximal to the greater trochanter. Dissection was taken down the greater trochanter. Guide pin was then introduced on the tip of the greater trochanter, was placed in a center-center position, and the tip of the greater trochanter was confirmed using fluoroscopy. It was passed down the proximal femur in antegrade fashion, and once in proper position, it was over- reamed with an entry reamer. A ball-tipped guidewire was then placed down the femoral canal in an antegrade fashion to the physeal scar distally. Proper position was confirmed using fluoroscopy at the knee. Length of the nail was then selected to 320 mm. Preoperatively, using x-rays, size of the nail was selected to be 9 mm. Over the guidewire, a canal reamer was then placed beginning at a size 8 mm to a size 10.5 mm with good chatter noted at 10.5. Reamings were sent to pathology to rule out metastatic disease given her history of GI cancer. A size 9 mm nail was confirmed. It was then placed down the femoral shaft in an antegrade fashion into proper position and proper length and position was confirmed using fluoroscopy. Using the jig, a triple sleeve was placed through the jig for placement of the guide pin into the femoral head. Guide pin was placed in a center-center position and measured to a size 80 mm lag screw. The drill was drilled over the guide wire and a size 80 mm lag screw was placed. There was some mild distraction of the fracture site and it was compressed using the jig. There was good overall compression noted at the fracture site. The screw was locked into position using perfect chemehuevi technique distally. A single interlocking screw was placed in a bicortical fashion. Proper position of the screw was then confirmed using fluoroscopy. The wounds were then irrigated thoroughly with normal saline. Subcutaneous tissue was approximated using a 2-0 Vicryl. Skin was approximated using chip. The patient was awakened and transferred to PACU in stable condition. Postoperative Plan: She will be weightbearing as tolerated. Physical therapy was consulted to aid with mobilization. MIGUEL/KJ Voice ID: [id number] Report ID: [id number] VERONICA
--- NOTE | 2018-07-14 23:43 | PN ---
Date of Progress Note: 07/14/2018 History Of Present Illness: The patient underwent hip replacement. The patient tolerated the proced ure. Physical Examination: Vital Signs: Blood pressure 129/50, pulse of 90, afebrile. Chest: Clear to auscultation. Heart: S1, S2. Regular. Abdomen: Soft, nontender. Extremities: No edema. Laboratory Data: H and H 06/22.2. Sodium 136, potassium , bicarb 22, BUN 40, creatinine 3 .5, calcium 8.3. Current Medications: The patient on include hydrocodone, cefazolin, Lovenox, Epogen, Zofran. Assessment And Plan: 1.End-stage renal disease stable hemodynamically, status post dialysis yesterday. I am going to go ahead and arrange for dialysis tomorrow. 2.Hypertension, controlled, optimal. Continue current treatment. 3.Anemia of chronic kidney disease. We will resume Epogen. 4.Secondary hyperparathyroidism, stable. Continue current medication. 5.Hip fracture, status post repair. We will follow up with Ortho. FERDINAND/KJ Voice ID: [id number] Report ID: [id number]
[2018-07-15] MEDS: MORPHINE 2 MG/ML SYR IV PRN ×4 (04:08→22:35)
[2018-07-15 05:33] LABS: Absolute Lymphocytes (CBC) 0.8 K/uL (0.7-4.9); Absolute Monocytes 1.3 K/uL (0.1-1.3); Absolute Neutrophil 9.4 K/uL (1.8-8.0); Basophils % 0.4 % (0-1.3); Eosinophils % 1.4 % (0-4.4); Hematocrit 27.2 % (36.0-45.0); Lymphocytes % 7.1 % (15.3-44.8); MCH 30.6 pg (27.0-35.0); MPV 8.5 fL (7.6-11.3); Monocytes % 10.9 % (3.3-12.3); RBC Red Blood Cell Count 2.93 M/uL (3.86-4.86)
[2018-07-15 05:50] LABS: Potassium 4.3 mmol/L (3.5-5.1)
[2018-07-15] MEDS: ENOXAPARIN 30 MG/0.3 ML SQ SCH (08:39)
--- NOTE | 2018-07-15 09:42 | P.PN ---
Subjective Date of Service: 07/15/18 Chief Complaint: SURGERY L HIP DONE Subjective: Improving SURGERY IN AM. STABLE AFTER SURGERY. NO CHEST PAIN, NO FEVER SHE HAS SIGNIFICANT PAIN ON SITTING, FIRST TIME TODAY WITH HELP OF THERAPISTS. Review of Systems 10-point ROS is otherwise unremarkable General: Weakness Musculoskeletal: As per HPI Physical Examination - Vital Signs Temperature: 97.9 F Blood Pressure: 125/60 Pulse: 102 Respirations: 16 Pulse Ox (%): 95 - Physical Exam General: Alert, Moderate distress HEENT: Atraumatic, PERRLA, EOMI Neck: Supple, JVD not distended Respiratory: Clear to auscultation bilaterally, Normal air movement Cardiovascular: Regular rate/rhythm, Normal S1 S2 Gastrointestinal: Normal bowel sounds, No tenderness Musculoskeletal: Tenderness (HIP) Integumentary: No rashes Neurological: Normal speech, Normal tone, Normal affect Lymphatics: No axilla or inguinal lymphadenopathy - Studies Microbiology Data (last 24 hrs): 07/12/18 11:36 Catheterized Urine [place] Count - Final <10,000 CFU/ML. 07/12/18 11:36 Catheterized Urine - Final Medications List Reviewed: Yes Assessment And Plan - Current Problems (Diagnosis) (1) Closed left hip fracture Onset Date: 07/13/18 Current Visit: Yes Status: Acute Plan: SURGERY IN AM DR GUTIERREZ MEDICALLY POOR RISK. NO OTHER CHOICE FAMILY IS AWARE MAY QUALIFY FOR HOSPICE IF DOES NOT RECOVER FROM SURGERY. [facility] FOR PT AND HD. SHE WILL NOT QUALIFY FOR INTENSIVE INPATIENT REHAB. STABLE AND I TALKED TO FAMILY TO LOOK FOR NH BY THURSDAY. SHE SHOULD BE READY FOR NH. 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 (3) GI malignancy Onset Date: 07/13/18 Current Visit: Yes Status: Chronic Plan: DR. SONG HAS DONE THE TESTING. HE HAS NOT SENT ME ANY REPORTS. PATIENT HAS DECIDED NOT TO DO ANY CHEMO OR SURGERY FOR THIS MASS SHE IS FRAIL ON HD AND CACHECTIC.
[2018-07-15] MEDS ORDERED: EPOETIN ALFA 10,000 UNIT/ML VIAL SQ SCH (10:00)
--- NOTE | 2018-07-15 10:08 | P.PN ---
Subjective Date of Service: 07/15/18 Chief Complaint: s/p IMN left hip pain controlled; stood with PT this AM Physical Examination - Vital Signs Temperature: 97.9 F Blood Pressure: 125/60 Pulse: 102 Respirations: 16 Pulse Ox (%): 95 - Physical Exam General: Alert, In no apparent distress Musculoskeletal: Other (LLE: dressing c/d/i; +NVI distally) - Studies Microbiology Data (last 24 hrs): 07/12/18 11:36 Catheterized Urine [place] Count - Final <10,000 CFU/ML. 07/12/18 11:36 Catheterized Urine - Final Medications List Reviewed: Yes Assessment And Plan - Plan January is an 88 yo female with a left IT femur fracture s/p IMN POD #1 -PT to mobilize; WBAT LLE -lovenox for DVT prophylaxis
[2018-07-15] MEDS ORDERED: EPOETIN ALFA 4000 UNIT/1 ML VIAL SQ SCH (15:00)
[2018-07-15] MEDS: ONDANSETRON 4 MG/2 ML VIAL IV PRN (15:35)
[2018-07-15] MEDS ORDERED: NA CHLORIDE 0.9% 1,000 ML IV PRN (19:24)
[2018-07-15] MEDS ORDERED: ALBUMIN HUMAN 25% 50 ML IV ONE (20:30)
[2018-07-15] MEDS: ALBUMIN HUMAN 25% 50 ML IV SCH (20:38)
--- NOTE | 2018-07-15 20:58 | P.PN ---
Subjective Date of Service: 07/15/18 Chief Complaint: s/p IMN left hip Subjective: No new changes pt wit ESRD TTsat , S/P fall found to have Lt hip fractute S/P surgical intervention HD TTsat Physical Examination - Vital Signs Temperature: 98.2 F Blood Pressure: 136/68 Pulse: 96 Respirations: 20 Pulse Ox (%): 100 - Physical Exam General: Alert HEENT: Atraumatic Neck: Supple, Without JVD or thyroid abnormality Respiratory: Clear to auscultation bilaterally Cardiovascular: No edema, Regular rate/rhythm, Normal S1 S2, Abnormal S3 Gastrointestinal: Normal bowel sounds - Studies Medications List Reviewed: Yes Assessment And Plan - Current Problems (Diagnosis) (1) ESRD (end stage renal disease) Current Visit: Yes Status: Chronic (2) GI malignancy Onset Date: 07/13/18 Current Visit: Yes Status: Chronic - Plan Impression And Plan: 1.End-stage renal disease. HD TTsat renal diet renal dose all meds 2.Anemia in chronic kidney disease. Continue FANI. 3.Renal osteodystrophy. Continue renal diet and binders. 4.Hypertension. Blood pressure control. Continue blood pressure medication. 5. Lt hip Fracture S/P Surgical intervention 6.Leuckocytosis Likely stress induced 7.hypothyrodism restart synthroid 8.colon Ca followed by GI as an OP not candidate for chemo or surgical intervention
[2018-07-16 04:44] LABS: Absolute Lymphocytes (CBC) 0.8 K/uL (0.7-4.9); Absolute Monocytes 1.2 K/uL (0.1-1.3); Absolute Neutrophil 8.7 K/uL (1.8-8.0); Basophils % 0.4 % (0-1.3); Eosinophils % 1.9 % (0-4.4); Hematocrit 24.6 % (36.0-45.0); Lymphocytes % 7.5 % (15.3-44.8); MCH 30.7 pg (27.0-35.0); MCV 91.1 fL (80-100); MPV 8.5 fL (7.6-11.3); Monocytes % 10.7 % (3.3-12.3); RBC Red Blood Cell Count 2.69 M/uL (3.86-4.86)
[2018-07-16] MEDS: MORPHINE 2 MG/ML SYR IV PRN ×2 (05:10→21:44)
[2018-07-16 05:12] LABS: Potassium 3.4 mmol/L (3.5-5.1)
[2018-07-16] MEDS: ENOXAPARIN 30 MG/0.3 ML SQ SCH (08:56)
[2018-07-16] MEDS ORDERED: EPOETIN ALFA 4000 UNIT/1 ML VIAL SQ SCH (09:15)
--- NOTE | 2018-07-16 10:55 | P.PN ---
Subjective Date of Service: 07/16/18 Chief Complaint: s/p IMN left hip pt wit ESRD TTsat , S/P fall found to have Lt hip fractute S/P surgical intervention Hb dropped , vitals stable Cont to monitor CBC and F/U with Ortho Restart Synthroid Physical Examination - Vital Signs Temperature: 98.9 F Blood Pressure: 122/58 Pulse: 96 Respirations: 20 Pulse Ox (%): 97 - Physical Exam General: Alert HEENT: Atraumatic Neck: Without JVD or thyroid abnormality Respiratory: Clear to auscultation bilaterally Cardiovascular: No edema, Normal S1 S2, No murmurs Integumentary: No rashes - Studies Medications List Reviewed: Yes Assessment And Plan - Current Problems (Diagnosis) (1) ESRD (end stage renal disease) Current Visit: Yes Status: Chronic (2) GI malignancy Onset Date: 07/13/18 Current Visit: Yes Status: Chronic - Plan Impression And Plan: 1.End-stage renal disease. HD TTsat renal diet renal dose all meds 2.Anemia in chronic kidney disease. Continue FANI. Hb dropped Need Ortho f/u to evaluate surgical site 3.Renal osteodystrophy. Continue renal diet and binders. 4.Hypertension. BP med on hold as BP was on borderline 5. Lt hip Fracture S/P Surgical intervention 6.Leuckocytosis Likely stress induced 7.hypothyrodism restart synthroid 8.colon Ca followed by GI as an OP not candidate for chemo or surgical intervention
[2018-07-16] MEDS: ONDANSETRON 4 MG/2 ML VIAL IV PRN (11:23)
[2018-07-16] MEDS: HYDROCODONE/APAP 7.5/325 MG TAB PO PRN ×2 (13:08→17:08)
--- NOTE | 2018-07-16 13:28 | P.PN ---
Subjective Date of Service: 07/16/18 Chief Complaint: s/p IMN left hip Subjective: No new changes SURGERY IN AM. STABLE AFTER SURGERY. NO CHEST PAIN, NO FEVER SHE HAS SIGNIFICANT PAIN ON SITTING, FIRST TIME TODAY WITH HELP OF THERAPISTS. SHE HAS TOO MUCH PAIN AND HAS BEEN STIFF EVEN BEFORE SHE FELL. FAMILY WANTS TO SEE IF SHE CAN COME HERE FOR REHAB ON . Review of Systems 10-point ROS is otherwise unremarkable General: Weakness, Malaise Musculoskeletal: As per HPI Physical Examination - Vital Signs Temperature: 98.9 F Blood Pressure: 122/58 Pulse: 96 Respirations: 20 Pulse Ox (%): 97 - Physical Exam General: Alert, Cachectic HEENT: Atraumatic, PERRLA, EOMI Neck: Supple, JVD not distended Respiratory: Clear to auscultation bilaterally, Normal air movement Cardiovascular: Regular rate/rhythm, Normal S1 S2 Gastrointestinal: Normal bowel sounds, No tenderness Musculoskeletal: Other (SEVERE PAIN WITH ANY MOVEMENT OF THE LEG.) Integumentary: No rashes Neurological: Normal speech, Normal tone, Normal affect Lymphatics: No axilla or inguinal lymphadenopathy - Studies Medications List Reviewed: Yes Assessment And Plan - Current Problems (Diagnosis) (1) Closed left hip fracture Onset Date: 07/13/18 Current Visit: Yes Status: Acute Plan: SURGERY IN AM DR GUTIERREZ MEDICALLY POOR RISK. NO OTHER CHOICE FAMILY IS AWARE MAY QUALIFY FOR HOSPICE IF DOES NOT RECOVER FROM SURGERY. [facility] FOR PT AND HD. SHE WILL NOT QUALIFY FOR INTENSIVE INPATIENT REHAB. STABLE AND I TALKED TO FAMILY TO LOOK FOR NH BY THURSDAY. SHE SHOULD BE READY FOR NH. FAMILY WANTING REHAB EVAL. I SUSPECT 3 HOURS OF INTENSE THERAPY WHAT IS NEEDED FOR MEDICARE TO APPROVE REHAB STAY IS NOT POSSIBLE. SHE CAN BARELY SIT AT THIS POINT. HOTEL BREAKFAST ATTENDANT ON THE CASE GUIDING THE FAMILY. 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 (3) GI malignancy Onset Date: 07/13/18 Current Visit: Yes Status: Chronic Plan: DR. SONG HAS DONE THE TESTING. HE HAS NOT SENT ME ANY REPORTS. PATIENT HAS DECIDED NOT TO DO ANY CHEMO OR SURGERY FOR THIS MASS SHE IS FRAIL ON HD AND CACHECTIC.
[2018-07-17] MEDS: HYDROCODONE/APAP 7.5/325 MG TAB PO PRN ×3 (01:06→23:52)
[2018-07-17 04:15] LABS: HBsAG Nonreactive (Nonreactive)
[2018-07-17 05:43] LABS: Absolute Lymphocytes (CBC) 1.4 K/uL (0.7-4.9); Absolute Monocytes 1.1 K/uL (0.1-1.3); Absolute Neutrophil 6.8 K/uL (1.8-8.0); Basophils % 0.7 % (0-1.3); Eosinophils % 2.7 % (0-4.4); Hematocrit 24.5 % (36.0-45.0); Lymphocytes % 14.3 % (15.3-44.8); MCH 30.3 pg (27.0-35.0); MCV 91.7 fL (80-100); MPV 8.7 fL (7.6-11.3); Monocytes % 11.7 % (3.3-12.3); RBC Red Blood Cell Count 2.67 M/uL (3.86-4.86)
[2018-07-17 05:48] LABS: Potassium 3.5 mmol/L (3.5-5.1)
[2018-07-17] MEDS: ENOXAPARIN 30 MG/0.3 ML SQ SCH (08:44)
--- NOTE | 2018-07-17 09:42 | P.PN ---
Subjective Date of Service: 07/17/18 Chief Complaint: s/p IMN left hip pain controlled; ambulating with PT this AM Physical Examination - Vital Signs Temperature: 96.5 F Blood Pressure: 90/52 Pulse: 71 Respirations: 16 Pulse Ox (%): 99 - Physical Exam General: Alert, In no apparent distress Musculoskeletal: Other (ambulating with PT during visit; NVI distally) - Studies Medications List Reviewed: Yes Assessment And Plan - Plan January is an 88 yo female with a left IT femur fracture s/p IMN POD #3 -H/H stabilizing; acute expected blood loss anemia on top of chronic anemia -PT to mobilize; WBAT LLE -lovenox for DVT prophylaxis
[2018-07-17] MEDS ORDERED: EPOETIN ALFA 10,000 UNIT/ML VIAL SQ SCH (12:30)
--- NOTE | 2018-07-17 12:37 | P.PN ---
Subjective Date of Service: 07/17/18 Chief Complaint: s/p IMN left hip Subjective: No C/O voiced SURGERY IN AM. STABLE AFTER SURGERY. NO CHEST PAIN, NO FEVER SHE HAS SIGNIFICANT PAIN ON SITTING, FIRST TIME TODAY WITH HELP OF THERAPISTS. SHE HAS TOO MUCH PAIN AND HAS BEEN STIFF EVEN BEFORE SHE FELL. FAMILY WANTS TO SEE IF SHE CAN COME HERE FOR REHAB ON . ON HD TODAY. NO CHEST PAIN, NO BLEEDING ETC. Review of Systems 10-point ROS is otherwise unremarkable General: Weakness, Malaise Physical Examination - Vital Signs Temperature: 96.2 F Blood Pressure: 106/53 Pulse: 74 Respirations: 16 Pulse Ox (%): 97 - Physical Exam General: Alert, Cachectic, Mild distress HEENT: Atraumatic, PERRLA, EOMI Neck: Supple, JVD not distended Respiratory: Clear to auscultation bilaterally, Normal air movement Cardiovascular: Regular rate/rhythm, Normal S1 S2 Gastrointestinal: Normal bowel sounds, No tenderness Musculoskeletal: Other (HIP FRACTURE SP SURGERY) Integumentary: No rashes Neurological: Normal speech, Normal tone, Normal affect Lymphatics: No axilla or inguinal lymphadenopathy - Studies Medications List Reviewed: Yes Assessment And Plan - Current Problems (Diagnosis) (1) Closed left hip fracture Onset Date: 07/13/18 Current Visit: Yes Status: Acute Plan: SURGERY IN AM DR GUTIERREZ MEDICALLY POOR RISK. NO OTHER CHOICE FAMILY IS AWARE MAY QUALIFY FOR HOSPICE IF DOES NOT RECOVER FROM SURGERY. ADVISE [facility] FOR PT AND HD. SHE WILL NOT QUALIFY FOR INTENSIVE INPATIENT REHAB. STABLE AND I TALKED TO FAMILY TO LOOK FOR NH BY THURSDAY. SHE SHOULD BE READY FOR NH. FAMILY WANTING REHAB EVAL. I SUSPECT 3 HOURS OF INTENSE THERAPY WHAT IS NEEDED FOR MEDICARE TO APPROVE REHAB STAY IS NOT POSSIBLE. SHE CAN BARELY SIT AT THIS POINT. DAY CARE DIRECTOR ON THE CASE GUIDING THE FAMILY. WAITING FOR REHAB ANSWER. 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 (3) GI malignancy Onset Date: 07/13/18 Current Visit: Yes Status: Chronic Plan: DR. SONG HAS DONE THE TESTING. HE HAS NOT SENT ME ANY REPORTS. PATIENT HAS DECIDED NOT TO DO ANY CHEMO OR SURGERY FOR THIS MASS SHE IS FRAIL ON HD AND CACHECTIC. (4) Anemia Current Visit: Yes Status: Chronic Plan: POST OP. MAY NEED BLOOD IF LOWER THAN 8. TODAY IS 8.1 GM
[2018-07-17] MEDS: ALBUMIN HUMAN 25% 50 ML IV SCH ×2 (12:51→13:42)
--- NOTE | 2018-07-17 13:52 | P.PN ---
Subjective Date of Service: 07/17/18 Chief Complaint: s/p IMN left hip pt wit ESRD TTsat , S/P fall found to have Lt hip fractute S/P surgical intervention seen and examined in HD unit today Hb dropped but stable now , vitals stable Seen by ortho HD today Bp was low earlier but ok now leg edema will aim for more UF Restart Synthroid Physical Examination - Vital Signs Temperature: 96.2 F Blood Pressure: 106/53 Pulse: 74 Respirations: 16 Pulse Ox (%): 97 - Physical Exam HEENT: Atraumatic Neck: Supple, Without JVD or thyroid abnormality Respiratory: Clear to auscultation bilaterally Cardiovascular: Edema - Studies Medications List Reviewed: Yes Assessment And Plan - Current Problems (Diagnosis) (1) ESRD (end stage renal disease) Current Visit: Yes Status: Chronic (2) GI malignancy Onset Date: 07/13/18 Current Visit: Yes Status: Chronic - Plan Impression And Plan: 1.End-stage renal disease. HD TTsat renal diet renal dose all meds 2.Anemia in chronic kidney disease. Continue FANI. Hb dropped but stable now evaluated by ortho 3.Renal osteodystrophy. Continue renal diet and binders. 4.Hypertension. BP med on hold as BP was on borderline 5. Lt hip Fracture S/P Surgical intervention 6.Leuckocytosis Likely stress induced 7.hypothyrodism restart synthroid 8.colon Ca followed by GI as an OP not candidate for chemo or surgical intervention
[2018-07-17] MEDS: MORPHINE 2 MG/ML SYR IV PRN (21:32)
[2018-07-18 05:29] LABS: Absolute Lymphocytes (CBC) 0.7 K/uL (0.7-4.9); Absolute Neutrophil 7.2 K/uL (1.8-8.0); Basophils % 0.4 % (0-1.3); Eosinophils % 2.9 % (0-4.4); Hematocrit 23.7 % (36.0-45.0); Lymphocytes % 8.1 % (15.3-44.8); MCH 30.4 pg (27.0-35.0); MPV 8.4 fL (7.6-11.3); Monocytes % 11.2 % (3.3-12.3); RBC Red Blood Cell Count 2.55 M/uL (3.86-4.86)
[2018-07-18 05:41] LABS: Potassium 3.6 mmol/L (3.5-5.1)
[2018-07-18] MEDS: ENOXAPARIN 30 MG/0.3 ML SQ SCH (08:56)
[2018-07-18] MEDS ORDERED: EPOETIN ALFA 10,000 UNIT/ML VIAL SQ SCH (09:45)
[2018-07-18] MEDS ORDERED: NA CHLORIDE 0.9% 250 ML ONE (09:58)
[2018-07-18 10:10] LABS: Urine Appearance CLOUDY; Urine Bilirubin NEGATIVE (NEG); Urine Blood 3+ (NEG); Urine Color YELLOW; Urine Glucose TRACE (NEG); Urine Protein 2+ (NEG); Urine Specific Gravity 1.015 (1.005-1.030)
[2018-07-18 10:17] LABS: Urine Microscopic Reflex ORDER UMIC
[2018-07-18 10:25] LABS: Urine Bacteria >50 /HPF (<20); Urine Culture Reflex Order NOT NEEDED; Urine RBC <5 /HPF (NONE SEEN)
--- NOTE | 2018-07-18 11:32 | P.PN ---
Subjective Date of Service: 07/18/18 Chief Complaint: s/p IMN left hip pt wit ESRD TTsat , S/P fall found to have Lt hip fractute S/P surgical intervention seen and examined in HD unit today Hb slightly dropping, 7.8 today transfuse 1 PRBC Seen by ortho PT/OT Physical Examination - Vital Signs Temperature: 97.4 F Blood Pressure: 135/63 Pulse: 75 Respirations: 16 Pulse Ox (%): 100 - Physical Exam General: Alert, In no apparent distress HEENT: Atraumatic Neck: Supple, Without JVD or thyroid abnormality Respiratory: Clear to auscultation bilaterally Cardiovascular: No edema, Regular rate/rhythm, Normal S1 S2, No rubs, No murmurs , Edema - Studies Medications List Reviewed: Yes Assessment And Plan - Current Problems (Diagnosis) (1) ESRD (end stage renal disease) Current Visit: Yes Status: Chronic (2) GI malignancy Onset Date: 07/13/18 Current Visit: Yes Status: Chronic - Plan Assessment And Plan: 1.End-stage renal disease. HD TTsat renal diet renal dose all meds 2.Anemia in chronic kidney disease. Continue FANI. Hb trending down after the surgery evaluated by ortho will transfuse 1 PRBC today 3.Renal osteodystrophy. Continue renal diet and binders. 4.Hypertension. BP med on hold as BP was on borderline 5. Lt hip Fracture S/P Surgical intervention 6.Leuckocytosis , resolved Likely stress induced 7.hypothyrodism synthroid 8.colon Ca followed by GI as an OP not candidate for chemo or surgical intervention
[2018-07-18] MEDS: HYDROCODONE/APAP 7.5/325 MG TAB PO PRN ×3 (12:16→20:56)
[2018-07-18 14:46] LABS: Hematocrit 30.9 % (36.0-45.0)
[2018-07-19 06:35] LABS: Absolute Lymphocytes (CBC) 1.1 K/uL (0.7-4.9); Absolute Monocytes 1.1 K/uL (0.1-1.3); Absolute Neutrophil 8.1 K/uL (1.8-8.0); Basophils % 0.7 % (0-1.3); Eosinophils % 2.2 % (0-4.4); Hematocrit 33.1 % (36.0-45.0); Lymphocytes % 10.3 % (15.3-44.8); MCH 30.1 pg (27.0-35.0); MCV 91.3 fL (80-100); MPV 8.3 fL (7.6-11.3); Monocytes % 10.5 % (3.3-12.3); RBC Red Blood Cell Count 3.63 M/uL (3.86-4.86)
[2018-07-19 06:45] LABS: Phosphorus 3.1 mg/dL (2.5-4.9); Potassium 3.6 mmol/L (3.5-5.1)
[2018-07-19 06:50] VITALS: BMI 22.4
[2018-07-19] MEDS: ENOXAPARIN 30 MG/0.3 ML SQ SCH (08:48)
[2018-07-19] MEDS: HYDROCODONE/APAP 7.5/325 MG TAB PO PRN ×2 (08:49→22:06)
[2018-07-19] MEDS ORDERED: SODIUM CHLORIDE 0.9% 10ML INJ IV PRN (11:26)
[2018-07-19] MEDS: PANTOPRAZOLE 40 MG INJ IVP SCH (11:38)
[2018-07-19] MEDS: ONDANSETRON 4 MG/2 ML VIAL IV PRN (11:40)
--- NOTE | 2018-07-19 14:00 | RAD REPORT ---
EXAM DESCRIPTION: RAD - Abdomen W Erect - 07/19/2018 1:45 pm CLINICAL HISTORY: Abdominal pain, vomiting COMPARISON: None. TECHNIQUE: Supine and upright views of the abdomen were obtained. FINDINGS: Multiple air filled nondilated small bowel loops are present. Colon is mostly decompressed . No free air or pneumatosis. No suspicious calcifications. There is no free air under the diaphragm. IMPRESSION: Prominent small bowel pattern favoring ileus over obstruction. No free air or other emergent finding.
--- NOTE | 2018-07-19 14:01 | RAD REPORT ---
EXAM DESCRIPTION: RAD - Chest Single View - 07/19/2018 1:45 pm CLINICAL HISTORY: Abdominal pain, vomiting COMPARISON: July 13 TECHNIQUE: AP portable chest image was obtained 1256 hours . FINDINGS: No focal lung parenchymal process. Lung markings are not substantially different from comp arison. Right hemidiaphragm elevation is present. Heart and vasculature are normal. No measurable ple ural effusion and no pneumothorax. No acute bony abnormality seen. No acute aortic findings suspected . IMPRESSION: No acute lung parenchymal process. Right hemidiaphragm elevation.
--- NOTE | 2018-07-19 16:28 | RAD REPORT ---
EXAM DESCRIPTION: CT - Abdomen W Contrast - 07/19/2018 4:01 pm CLINICAL HISTORY: Abdominal pain, nausea and vomiting COMPARISON: CT abdomen and pelvis October 2017 TECHNIQUE: Biphasic, helical CT imaging of the abdomen was performed following 100 ml non-ionic IV c ontrast. All CT scans are performed using dose optimization technique as appropriate and may include automated exposure control or mA/KV adjustment according to patient size. FINDINGS: Small right pleural effusion and right base atelectasis are present not fully assessed on this study. No pericardial thickening or effusion. Small pleural fluid in the medial left base. The liver, spleen, and pancreas show no suspicious findings. Cholecystectomy clips are present. No bi liary tree dilatation. Renal function is symmetric but delayed. This is believed to be from cardiac function. No hydronephro sis. No obstructive process seen. There is no pyelonephritis or acute renal parenchymal process. No a drenal abnormalities. No dilated bowel loops or bowel wall thickening. No free air, free fluid or inflammatory stranding. No hernia, mass or bulky lymphadenopathy. Bony degenerative changes are present. Vascular calcifications are seen. October 2017 imaging showed a large mass of the cecum. That portion of the pelvis was not imaged on thi s CT abdomen study. IMPRESSION: CT abdomen imaging shows no suspicious finding. Small bilateral pleural effusions and right base atelectasis. October 2017 imaging showed a large mass of the cecum. This portion of the pelvis is not imaged on this study.
--- NOTE | 2018-07-19 17:50 | P.PN ---
Subjective Date of Service: 07/19/18 Chief Complaint: ABDOMEN PAIN. SURGERY IN AM. STABLE AFTER SURGERY. NO CHEST PAIN, NO FEVER SHE HAS SIGNIFICANT PAIN ON SITTING, FIRST TIME TODAY WITH HELP OF THERAPISTS. SHE HAS TOO MUCH PAIN AND HAS BEEN STIFF EVEN BEFORE SHE FELL. FAMILY WANTS TO SEE IF SHE CAN COME HERE FOR REHAB ON . ON HD TODAY. NO CHEST PAIN, NO BLEEDING ETC. MS. WALSH HAD VOMITNG TODAY PER NURSE IT WAS LIKE FECAL MATERIAL. SHE HAS NO FEVER. Review of Systems 10-point ROS is otherwise unremarkable General: Weakness, Malaise Gastrointestinal: Abdominal Pain, No Distention Physical Examination - Vital Signs Temperature: 98 F Blood Pressure: 144/64 Pulse: 83 Respirations: 18 Pulse Ox (%): 100 - Physical Exam General: Alert, Mild distress HEENT: Atraumatic, PERRLA, EOMI Neck: Supple, JVD not distended Respiratory: Clear to auscultation bilaterally, Normal air movement Cardiovascular: Regular rate/rhythm, Normal S1 S2 Gastrointestinal: Normal bowel sounds, Non-distended, No tenderness Musculoskeletal: No tenderness Integumentary: No rashes Neurological: Normal speech, Normal tone, Normal affect Lymphatics: No axilla or inguinal lymphadenopathy - Studies Medications List Reviewed: Yes Assessment And Plan - Current Problems (Diagnosis) (1) Closed left hip fracture Onset Date: 07/13/18 Current Visit: Yes Status: Acute Plan: SURGERY IN AM DR GUTIERREZ MEDICALLY POOR RISK. NO OTHER CHOICE FAMILY IS AWARE MAY QUALIFY FOR HOSPICE IF DOES NOT RECOVER FROM SURGERY. [facility]ISE [facility] FOR PT AND HD. SHE WILL NOT QUALIFY FOR INTENSIVE INPATIENT REHAB. STABLE AND I TALKED TO FAMILY TO LOOK FOR NH BY THURSDAY. SHE SHOULD BE READY FOR NH. FAMILY WANTING REHAB EVAL. I SUSPECT 3 HOURS OF INTENSE THERAPY WHAT IS NEEDED FOR MEDICARE TO APPROVE REHAB STAY IS NOT POSSIBLE. SHE CAN BARELY SIT AT THIS POINT. JUMPBASTING CANVAS BASTER ON THE CASE GUIDING THE FAMILY. WAITING FOR REHAB ANSWER. (2) CKD (chronic kidney disease) requiring chronic dialysis Onset Date: 07/13/18 Current Visit: Yes Status: Chronic Plan: RENAL MD STABLE HAND. 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 (3) GI malignancy Onset Date: 07/13/18 Current Visit: Yes Status: Chronic Plan: DR. SONG HAS DONE THE TESTING. HE HAS NOT SENT ME ANY REPORTS. PATIENT HAS DECIDED NOT TO DO ANY CHEMO OR SURGERY FOR THIS MASS SHE IS FRAIL ON HD AND CACHECTIC. (4) Anemia Current Visit: Yes Status: Resolved Plan: POST OP. MAY NEED BLOOD IF LOWER THAN 8. TODAY IS 8.1 GM (5) Abdominal pain Onset Date: 04/26/15 Current Visit: No Status: Acute Plan: ABD AND PELVIS WITH CONTRAST CT SCAN. ORDER GIVEN TO ZUNILDA. THEY DID ONLY ABDOMEN. I CALLED SECOND FLOOR TALKED TO JARRETT TO CALL TO RADIOLOGY AND FINISH PELVIS ALSO.
--- NOTE | 2018-07-19 19:17 | RAD REPORT ---
EXAM DESCRIPTION: CT - Pelvis Wo Cont - 07/19/2018 6:44 pm CLINICAL HISTORY: Abdominal pain, pelvic pain, history of fracture left femur, history of mass of th e cecum COMPARISON: CT abdomen imaging same date, CT trauma study July 12, 2018, CT abdomen and pelvis arch 2017 TECHNIQUE: Axial 5 millimeter thick images of the pelvis were obtained. No oral or IV contrast admin istered. Patient received IV contrast earlier in the day. FINDINGS: Finding in the abdomen are separately reported on earlier study. Bowel loops from mid abdomen into the pelvis show no obstructive dilatation. Patient has prominent si gmoid diverticulosis. No diverticulitis findings. Previously detailed 5 centimeter mass at the cecum has not changed. No evidence for perforation or obstruction. There are several small adjacent lymph n odes. Moderate stool volume is present in the colon. Rectum is mildly dilated by retained stool. Urinary bladder is fully contracted limiting assessment. No free air or pneumatosis. Air densities in the subcutaneous fat of the abdomen related to medication administration. There is c ontusion or fluid retention changes in the subcutaneous fatty tissues. More prominent stranding of th e subcu fat is present related to left femur fracture repair. No abnormal hematoma or soft tissue fin ding. No sacral ala fracture. No new or unexpected fracture finding. IMPRESSION: Known large cecum mass has not changed in size. There is no bowel obstruction related to this mass. No abscess, extravasation of contrast or other surgically emergent finding. Postsurgical changes are present related to left femur fracture repair. No unexpected hematoma or mas s.
[2018-07-19 19:48] LABS: Potassium 3.8 mmol/L (3.5-5.1)
--- NOTE | 2018-07-19 20:21 | P.PN ---
Subjective Date of Service: 07/19/18 Chief Complaint: s/p IMN left hip Subjective: Working w/ PT pain controlled; ambulating with PT Physical Examination - Vital Signs Temperature: 98 F Blood Pressure: 144/64 Pulse: 83 Respirations: 18 Pulse Ox (%): 100 - Physical Exam General: Alert, In no apparent distress Musculoskeletal: Other (LLE: dressing c/d/i; NVI distally) - Studies Medications List Reviewed: Yes Assessment And Plan - Plan January is an 88 yo female with a left IT femur fracture s/p IMN POD #5 -H/H stabilized post transfusion; acute expected blood loss anemia on top of chronic anemia -PT to mobilize; WBAT LLE -reamings from left femur negative for metastatic disease -lovenox for DVT prophylaxis
[2018-07-19] MEDS ORDERED: ATORVASTATIN 20 MG TAB PO SCH (21:00)
[2018-07-19] MEDS ORDERED: POLYETHYL GLY 3350 17 GM/DOSE PO PRN (21:44)
--- NOTE | 2018-07-20 03:40 | PN ---
Date of Progress Note: 07/19/2018 Chief Complaint: End-stage renal disease, on dialysis. Subjective: The patient had dialysis done on Thursday. The patient developed some nausea and vomiting and she is to have CT scan with IV contrast. Subsequently potassium level will be re-evaluated after IV contrast exposure and the patient will have dialysis afterwards tomorrow morning. If potassium is unstable, the patient will need emergent dialysis. Review of Systems: The patient is lethargic, cannot provide review of systems. She denies fever, syncope. She is complaining of abdominal pain. No abdominal distention. The patient does not remember if she had bowel movement. Physical Examination: Lungs: Clear to auscultation bilaterally. Heart: S1, S2. Abdomen: Somewhat this distended. There is no tenderness. Normal bowel sounds. Vital Signs: Blood pressure 144/64, heart rate 83, respiratory rate 18, and SpO2 100%. Lab Work: Hemoglobin is 10.9, WBC 10.7, and platelet count is 234,000. Sodium is 136, potassium 3.6, chloride 99, CO2 26, BUN 36, creatinine 3.2, calcium 8.2 , and phosphorus 3.1. After IV contrast exposure, potassium 3.8, sodium 136, chloride 98, BUN is 39 and CO2 27, creatinine 3.8. Impression And Plan: End-stage renal disease. Dialysis will be done tomorrow. Potassium level is stable. CT scan of the abdomen and pelvis was ordered with IV contrast in view of persistent abdominal pain, nausea, and vomiting. It showed large cecal mass has not changed in size. There is no bowel obstruction. There is prominent sigmoid diverticulosis. Previously, the 5-cm mass at the cecum has not changed. There is no evidence of obstruction or perforation. 1. End-stage renal disease. Dialysis will be done tomorrow. 2. Status post surgery. The patient had surgery for left femur fracture, underwent repair. A CT scan did not show hematoma or mass. 3. Abdominal pain, cecal mass. Recommend further workup with GI and Surgery. 4. Renal osteodystrophy. Monitor phosphorus level. 5. Malnutrition. The patient may need TPN. 6. Anemia in chronic kidney disease. Monitor hemoglobin level and adjust FANI. I spent total 36 min including 25 min to coordinate care plan. ONEAL/KJ Voice ID: [id number] Report ID: [id number] MTDD
[2018-07-20] MEDS ORDERED: LEVOTHYROXINE SOD 0.125 MG TAB PO SCH (06:30)
[2018-07-20 07:03] LABS: Potassium 3.8 mmol/L (3.5-5.1)
[2018-07-20 07:51] LABS: Absolute Lymphocytes (CBC) 0.9 K/uL (0.7-4.9); Absolute Monocytes 1.2 K/uL (0.1-1.3); Basophils % 0.5 % (0-1.3); Eosinophils % 2.1 % (0-4.4); Hematocrit 31.6 % (36.0-45.0); Lymphocytes % 8.4 % (15.3-44.8); MCH 30.7 pg (27.0-35.0); MPV 8.7 fL (7.6-11.3); Monocytes % 11.6 % (3.3-12.3); RBC Red Blood Cell Count 3.44 M/uL (3.86-4.86)
[2018-07-20] MEDS: PANTOPRAZOLE 40 MG INJ IVP SCH (08:21)
[2018-07-20] MEDS: ENOXAPARIN 30 MG/0.3 ML SQ SCH (08:21)
[2018-07-20] MEDS ORDERED: CLOPIDOGREL 75 MG TABLET PO SCH (09:00)
[2018-07-20 09:05] VITALS: O2SAT 97
[2018-07-20 13:44] VITALS: BP 129/55; TEMP 97
--- NOTE | 2018-07-20 20:57 | P.DS ---
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 SHE AT NIGHT FELL IN BATHROOM AND BROKE HER L HIP. FAMILY AND I HAD DISCUSSION ABOUT THIS BEFORE THAT I DON'T FEEL COMFORTABLE LETTING HER LIVE ALONE WITH PARTIAL HELP BUT SHE DID NOT WANT TO LEAVE HER HOME. SHE HAS A PELVIC MASS ALSO FOR WHICH SHE HAS DECIDED NOT TO ANYTHING. MS. WALSH HAS RENAL FAILURE , A LARGE CECAL MASS FOR WHICH FAMILY HAS AVOIDED SURGERY SHE IS VERY FRAIL. SHE BROKE HER HIP AND REHAB HAS ACCEPTED HER. SHE MOST LIKELY WILL NOT BE ABLE TO DO 3 HOURS OF PT. Vital Signs/Physical Exam: Temp Pulse Resp BP Pulse Ox 97.0 F 66 18 129/55 L 92 07/20/18 12:00 07/20/18 12:00 07/20/18 12:00 07/20/18 12:00 07/20/18 12:00 Laboratory Data at Discharge: WBC 10.3 K/uL (4.3-10.9) 07/20/18 06:05 Hgb 10.6 g/dL (12.0-15.0) L 07/20/18 06:05 Hct 31.6 % (36.0-45.0) L 07/20/18 06:05 Plt Count 266 K/uL (152-406) 07/20/18 06:05 PT 13.2 SECONDS (9.5-12.5) H 07/12/18 10:53 INR 1.12 07/12/18 10:53 Sodium 135 mmol/L (136-145) L 07/20/18 06:05 Potassium 3.8 mmol/L (3.5-5.1) 07/20/18 06:05 BUN 43 mg/dL (7-18) H 07/20/18 06:05 Creatinine 3.90 mg/dL (0.55-1.3) H 07/20/18 06:05 Glucose 79 mg/dL (74-106) 07/20/18 06:05 Phosphorus 3.1 mg/dL (2.5-4.9) 07/19/18 06:10 Magnesium 2.2 mg/dL (1.8-2.4) 07/12/18 10:53 Total Bilirubin 0.5 mg/dL (0.2-1.0) 07/12/18 10:53 AST 28 U/L (15-37) 07/12/18 10:53 ALT 18 U/L (12-78) 07/12/18 10:53 Alkaline Phosphatase 99 U/L (45-117) 07/12/18 10:53 Home Medications: Clopidogrel Bisulfate [Plavix*] 75 mg PO DAILY 07/12/18 Levothyroxine [Synthroid*] 0.125 mg PO DAILY 07/12/18 Omeprazole [Prilosec] 40 mg PO DAILY 07/12/18 Simvastatin 40 mg PO BEDTIME 07/12/18
--- NOTE | 2018-07-21 01:23 | PN ---
Date of Progress Note: 07/20/2018 Subjective: The patient was admitted with hip fracture, status post repair. Tolerated the procedure very well. The patient seen on dialysis. Physical Examination: Vital Signs: When I saw the patient, blood pressure 129/55, pulse of 66. Chest: Clear to auscultation. Heart: S1, S2. Systolic murmur. Abdomen: Soft, nontender. Extremities: No edema. Laboratory Data: H and H 10.6/31.6. Sodium 135, potassium 3.8, bicarb 21, BUN 23, creatinine 3.9, c alcium 8.4. PTH of 95. Assessment And Plan: 1.End-stage renal disease. Normal volume. We will continue dialysis Thursday, Thursday, Thursday and including today. 2.Hypertension, controlled, optimal. Continue current treatment. 3.Anemia of chronic kidney disease. Continue Epogen, status post transfusion. 4.Secondary hyperparathyroidism, stable on the goal. No need for binder. 5.Hip fracture, status post repair. We will follow up with the primary. RIVAS Voice ID: [id number] Report ID: [id number]
[2018-07-21] MEDS ORDERED: PANTOPRAZOLE 40MG TABLET PO SCH (06:30)
--- NOTE | 2018-07-22 13:05 | P.PN ---
Subjective Date of Service: 07/22/18 Chief Complaint: s/p IMN left hip pt wit ESRD TTsat , S/P fall found to have Lt hip fractute S/P surgical intervention Hb stable for now HD Ttsat PT/OT Physical Examination - Vital Signs Temperature: 97.0 F Blood Pressure: 129/55 Pulse: 66 Respirations: 18 Pulse Ox (%): 92 - Physical Exam General: Alert HEENT: Atraumatic Neck: Supple, Without JVD or thyroid abnormality Respiratory: Clear to auscultation bilaterally, Normal air movement Cardiovascular: No edema, Regular rate/rhythm, Normal S1 S2, Edema (Trcae Rt leg edema ) - Studies Medications List Reviewed: Yes Assessment And Plan - Current Problems (Diagnosis) (1) ESRD (end stage renal disease) Status: Chronic (2) GI malignancy Onset Date: 07/13/18 Status: Chronic - Plan Assessment And Plan: 1.End-stage renal disease. HD TTsat renal diet renal dose all meds 2.Anemia in chronic kidney disease. Continue FANI. 3.Renal osteodystrophy. Continue renal diet and binders. 4.Hypertension. BP med on hold as BP was on borderline 5. Lt hip Fracture S/P Surgical intervention 6.colon Ca followed by GI as an OP not candidate for chemo or surgical intervention
[2018-07-23] MEDS ORDERED: EPOETIN ALFA 10,000 UNIT/ML VIAL SQ SCH (10:00)
== END 2018-07-20 14:56 | DRG 480 ==
LOC: ER 09:43 → ERHOLD 11:37 → 2ND 13:06
PROVIDERS: ADMIT Internal Medicine; ATTEND Internal Medicine
PROC: 0T9B70Z Drainage of Bladder with Drainage Device, Via Natural or Artificial Opening (ICD-10-PCS; 2018-07-12)
PROC: 5A1D70Z Performance of Urinary Filtration, Intermittent, Less than 6 Hours Per Day (ICD-10-PCS; 2018-07-13)
PROC: 0QS736Z Reposition Left Upper Femur with Intramedullary Internal Fixation Device, Percutaneous Approach (ICD-10-PCS; principal; 2018-07-14 09:45)
PROC: 5A1D70Z Performance of Urinary Filtration, Intermittent, Less than 6 Hours Per Day (ICD-10-PCS; 2018-07-15)
PROC: 5A1D70Z Performance of Urinary Filtration, Intermittent, Less than 6 Hours Per Day (ICD-10-PCS; 2018-07-17)
PROC: 5A1D70Z Performance of Urinary Filtration, Intermittent, Less than 6 Hours Per Day (ICD-10-PCS; 2018-07-20)
DX: S72.142A Displaced intertrochanteric fracture of left femur, initial encounter for closed fracture (principal); N18.6 End stage renal disease; I12.0 Hypertensive chronic kidney disease with stage 5 chronic kidney disease or end stage renal disease; R64 Cachexia; C18.9 Malignant neoplasm of colon, unspecified; N25.81 Secondary hyperparathyroidism of renal origin; D62 Acute posthemorrhagic anemia; E46 Unspecified protein-calorie malnutrition; E78.5 Hyperlipidemia, unspecified; K21.9 Gastro-esophageal reflux disease without esophagitis; D63.1 Anemia in chronic kidney disease; N25.0 Renal osteodystrophy; Z99.2 Dependence on renal dialysis; Z87.891 Personal history of nicotine dependence; Z68.22 Body mass index [BMI] 22.0-22.9, adult; Z28.21 Immunization not carried out because of patient refusal
CPT/HCPCS: 36415; 51702; 70450; 71045; 71250; 72125; 72170; 72192; 73530; 74019; 74160; 80048; 80076; 81003; 81015; 83735; 83880; 83970; 84100; 84484; 85014; 85018; 85025; 85610; 86317; 86850; 86900; 86901; 87086; 87088; 87340; 88304; 90935; 93005; 97163; 99285; C9113; J0690; J1650; J2270; J2405; J2704; J3010; J7030; P9016; P9047; Q4081; Q9967

== ENCOUNTER 2018-07-19 13:08 | Inpatient (IN) | payer OTHER ==
--- NOTE | 2018-07-19 14:50 | R.PREADM ---
SCREENING DATE AND TIME 07/19/2018 13:12 (RESPITE COORDINATOR) ANTICIPATED REHAB ADMISSION DATE 07/21/2018 REFERRING FACILITY [facility] REFERRAL DATE AND TIME 07/19/2018 13:12 (RESPITE COORDINATOR) REFERRAL ROOM# 206 ACUTE ADMIT DATE 07/12/2018 Previous Rehabilitation(s): No. ACUTE MALARIOLOGIST/DC TIER LIFT OPERATOR Kezia De Leon REFERRING PHYSICIAN Jonathan Santos REHAB FACILITY [facility] CLINICAL LIAISON Brendan Clay PHYSICIAN REVIEWER Dr. Joselo Diaz M.D. MR# [id number] NAME NICO, JANUARY ADDRESS [address] [place] [address] PHONE [facility] [id number] DATE OF 1930 AGE 88 SSN# [id number] GENDER female MARITAL STATUS RACE white ADMIT FROM 02 - [facility] PRE-HOSPITAL LIVING SETTING 01 - Home (private home/apt. board/care, assisted living, retirement, transitional living) HOME TYPE AND DETAILS Type of home: single family house # of levels in the residence: 1 # of steps within the residence: 0 # of steps to enter the residence: 0 PRE-HOSPITAL LIVING WITH Alone FAMILY SUPPORT Yes PRIMARY FAMILY CONTACT NAME JORGE CHAPARRO PRIMARY FAMILY CONTACT PHONE PRIMARY FAMILY CONTACT RELATIONSHIP Daughter PHONE PRIMARY FAMILY CONTACT ON ADM.? no IS PRIMARY FAMILY CONTACT AUTH. REP.? no 1ST EMERGENCY CONTACT JORGE CHAPARRO 1ST CONTACT PHONE 1ST CONTACT RELATIONSHIP Daughter PHONE 1ST CONTACT ON ADM. no IS 1ST CONTACT AUTH. REP.? no PHONE 2ND CONTACT ON ADM.? no PATIENT EMPLOYMENT STATUS Retired (for age) PATIENT EMPLOYER No Employer PAYOR INFORMATION: 1ST PAYOR NAME MEDICARE 1ST PAYOR PHONE [phone] 1ST PAYOR INJURY/ILLNESS DUE TO ACCIDENT? No ANOTHER [employer] RESPONSIBLE? No PRIMARY REHAB/ACUTE DIAGNOSIS: LEFT INTERTROCHANTERIC FEMUR FRACTURE ONSET DATE 07/12/2018 REHAB IMPAIRMENT CATEGORY (CARO): 07 Fracture of LE (FracLE) MEETS 60% rule AFFECTED EXTREMITIES: LLE PRIMARY DIAGNOSIS-RELATED SURGERIES: CEPHALOMEDULLARY FIXATION OF LEFT INTERTROCHANTERIC FEMUR FRACTURE - performed by CHARLIE GUTIERREZ on 09/13/2017 COMORBID REHAB/ACUTE DIAGNOSES: - Tier 1 Dependence on renal dialysis (Z99.2) - N/A HYPERTENSION HYPERLIPIDEMIA MILD STROKE CHRONIC KIDNEY DISEASE CVA ANEMIA INTERVENTIONS: - Hypertension Fluid management Medications VS RISK FOR COMPLICATIONS: - Hypertension CVA Hypotension MN TIA SUMMARY OF ACUTE HOSPITALIZATION: Pt. is a 88 yo Right-handed white female. Her impairment category is Orthopaedic Disorders 08 - Unilateral Hip Fracture (08.11). Pre-morbidly, Pt. was independent/mod-I in Transfers Control, Communication, Social Cognition, Self-C are, Locomotion, and Sphincter Control; and she had good Sphincter Control. Currently, she has deficits of Transfers Control, Balance, Self-Care, Locomotion, Endurance, and Safe ty Awareness. Pt. is now referred to [facility] for acute in-patient rehabilitation in order to maximize patient's functional independence in activities of daily living, strength, ROM, and mobi lity. Patient has realistic goal of being discharged at assistance level 6-[place] to reside at Home with Fam kinjal/Relatives. Ms Destinee Dickinson is an 88 year old female that lives in a 1 dot house. She goes to dialysis [facility] times a week. On 07/12/2018, Ms Dickinson fell and had left intertrochanteric femur fracture and was admitted to [facility] and treated. She is now medically stable but in need of 24-hour nursing, doctor supervision and oversite while receiving acti ve and ongoing intensive (PT, reasonably expected to participate in 3hours of therapy a day/15 hours per week and receive care with an intensive interdisciplinary approach. PAST MEDICAL HISTORY ANEMIA CVA Dependence on renal dialysis (Z99.2) HYPERLIPIDEMIA HYPERTENSION CHRONIC KIDNEY DISEASE MILD STROKE PAST SURGICAL HISTORY: Hysterectomy TUMMY TUCK FISTULA LEFT ARM MEDICATION ALLERGIES: No Known Drug Allergies (NKDA) ENVIRONMENTAL ALLERGIES: None Known - Substance Allergies None Known - Other Allergies None Known CODE STATUS: Full code WEIGHT/HEIGHT/BMI: WEIGHT 111 lbs HEIGHT 4' 11" BMI 22.4 DIET: - Diet Type Regular - Diet - Solid Texture Regular - Diet - Liquid Texture Regular - Tube Feed N/A SKIN DIAGRAM: Incision on Left upper leg; extent - small; stage - NS(Not Stageable). Treatment - Per Physician's Or ders. REVIEW OF SYSTEMS: - Gen Alert and awake Lying in bed No apparent distress Oriented to: person, time, and place - Vital Signs Temperature: 97.6 F SBP/DBP: 156/70 Pulse: 73 Resp: 18 Vital signs stable, afebrile - CVS RRR VITAL SIGNS Temperature: 97.6 F SBP/DBP: 156/70 Pulse: 73 Resp: 18 Vital signs stable, afebrile CURRENT SPHINCTER CONTROL: Pre-hospital bladder status: continent # of bladder accidents in the last 7 days prior to screenin Pre-hospital bowel status: continent # of bowel accidents in the last 7 days prior to screenin Last Bowel Movement Date: 07/19/2018 DETAILED CURRENT FUNCTIONAL STATUS: - Bladder accident frequency: Ind - No accidents in the past 7 days - Bowel accident frequency: Ind - No accidents in the past 7 days - Walking score based on distance walked: 1(<=50ft) - Wheelchair score based on distance traveled: 0(N/A) FUNCTIONAL STATUS: - Self-Care A. Eating Ind sup B. Grooming Ind sup C. Bathing Ind Jackie D. Dressing - Upper Ind Jackie E. Dressing - Lower Ind Jackie F. Toileting Ind Jackie - Sphincter Control G: Bladder control Ind Ind H: Bowel control Ind Ind - Transfers Control I. Bed/Chair/Wheelchair Ind maxA J. Toilet Ind maxA K. Tub/Shower Ind Ind - Locomotion L. Walk/Wheelchair (C) Ind modA L. Walk/Wheelchair (W) Ind modA M. Stairs Ind ADNO - Communication N. Comprehension (B) Ind Malika O. Expression (B) Ind Malika - Social Cognition P. Social Interaction Ind Malika Q. Problem Solving Ind Malika R. Memory Ind Malika - Endurance Fair - Balance Fair - Safety Awareness Fair CURRENT FUNC. DEFICITS: Transfers Control, Balance, Self-Care, Locomotion, Endurance, and Safety Awareness THERAPY NOTES FROM ACUTE CARE: Attached. SPECIAL NEEDS: - Safety Concerns Skin breakdown precautions needed due to skin breakdown risk PRECAUTIONS: - Posterior Hip Precaution No adduction across midline No external rotation No hip flexion >90 degrees No internal rotation No wheel chair propulsion - Weight Bearing Precaution WBAT left LE PATIENT NEEDS ACTIVE AND ONGOING THERAPEUTIC INTERVENTION OF MULTIPLE THERAPY DISCIPLINES, INCLUDING: - Occupational Therapy Evaluate and Treat. - Physical Therapy Evaluate and Treat. PATIENT NEEDS CLOSE MEDICAL SUPERVISION BY A REHABILITATION PHYSICIAN FOR: Bowel and Bladder Management Coordination of Treatment Team Medical and Co-Morbidity Management Wound Care Pain Management DVT Management PATIENT REQUIRES 24X7 REHAB NURSING FOR MEDICAL AND FUNCTIONAL MGT. OF THE FOLLOWING DEFICITS: ADL's Ambulation Bowel and Bladder Management Cognition Communication Disease Management Medication Management Patient/Family Education Providing Safe Environment Skin Integrity Transfers Pain Management PATIENT REQUIRES INTENSIVE, COORDINATED INTERDISCIPLINARY APPROACH TO REHAB: Arranging Home Equipment/Services Discharge Planning Family Intervention/Training Visualization Developer/Case Management PATIENT REHAB POTENTIAL: Expected level of measurable improvement will be of a practical value to patient's functional capacit y or adaptations to impairments Has a viable Discharge Plan Medically appropriate; condition is sufficiently stable to participate in intensive rehab program Patient is able and expected to receive 3 hours of individualized therapy daily on at least 5 of ever y 7 days Patient's prognosis for significant practical improvement within a reasonable period of time appears Good DISCHARGE PLAN: - Estimated Length of Stay (days) 14. - Consensus on plan Discharge plan has been discussed with primary caregiver. Patient/Family is in agreement with the christiano n. Primary caregiver is in agreement with the plan. - Patient/Family Goals Return home with assistance. - Planned Living Setting Upon Discharge Home, to live with Family/Relatives. RECOMMENDED CARE LEVEL: IRF RECOMMENDATION DETAILS: Recommended Admission to Comprehensive Rehabilitation Program to Increase Functional Britt SCREENER'S COMPLETENESS CONFIRMATION: - Screening Confirmation The patient data collection on this preadmission screening form is finished PHYSICIANS REVIEW AND ADMISSION DETERMINATION Admit - Based on my review of the Pre-Admission Screening results, in my medical judgment and experie nce, I concur with the findings and recommend admission to [facility], as this patient requires an IRF level of care. SIGNATURE PANEL: Clinical Liaison - [electronically] signed by Brendan Clay on 07/19/2018 at 13:52 (RESPITE COORDINATOR) Physician Reviewer - [electronically] signed by Dr. Joselo Diaz M.D. on 07/19/2018 at 14:50 (RESPITE COORDINATOR )
[2018-07-20] MEDS ORDERED: DOCUSATE NA/SENNA CONC 1 TAB PO PRN (15:15)
[2018-07-20 15:19] VITALS: BMI 22.4
[2018-07-20] MEDS ORDERED: APIXABAN 2.5 MG TABLET PO SCH (20:00)
[2018-07-20] MEDS: ATORVASTATIN 20 MG TAB PO SCH (20:15)
[2018-07-20] MEDS: GABAPENTIN 100 MG CAP PO SCH (20:15)
[2018-07-20] MEDS: HEPARIN 5000 UNIT/ML 1 ML VIAL SQ SCH (20:15)
[2018-07-21 01:07] LABS: Urine Appearance CLOUDY; Urine Bilirubin NEGATIVE (NEG); Urine Blood 2+ (NEG); Urine Color YELLOW; Urine Glucose TRACE (NEG); Urine Protein 2+ (NEG); Urine Urobilinogen 0.2 mg/dL (0.2-1.0)
--- NOTE | 2018-07-21 01:49 | FAST ---
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 Joselo Diaz M.D. ADMISSION DIAGNOSIS: - Orthopaedic Disorders 08 - Unilateral Hip Fracture (08.11) LEFT INTERTROCHANTERIC FEMUR FRACTURE. EATING: Activity did not occur on this shift EATING - SCORE: 0-UNK GROOMING: Activity did not occur on this shift GROOMING - SCORE: 0-UNK BATHING: Activity did not occur on this shift BATHING - SCORE: 0-UNK DRESSING - UPPER BODY: Patient is not dressing in public clothing ARTICLES SCORE Total number of steps: 0 DRESSING - UPPER BODY - SCORE: 0-UNK DRESSING - LOWER BODY: Patient is not dressing in public clothing ARTICLES SCORE Total number of steps: 0 DRESSING - LOWER BODY - SCORE: 0-UNK TOILETING: TOILETING - STEP 1: Does the patient require the assistance of a person or device, or need extra time with toileting? Yes . TOILETING - STEP 2: Does the patient require the assistance of a helper? Yes. TOILETING - STEP 3: How much assistance does the patient require from the helper? Hands-on assistance from the helper TOILETING - STEP 4: Of the 3 tasks: 1) Adjusting clothing prior to use, 2) Cleansing of perineal area, 3) Adjusting clot luz marina after use; How many tasks does the patient perform WITHOUT assistance of the helper? No tasks; h elper performs all three tasks TOILETING - SCORE: 1-DEP BLADDER MANAGEMENT: [place] removes incontinent device (Depends, pull ups, etc.); cleans the patient after accident / inco ntinent episode; and, applies new incontinent device. BLADDER MANAGEMENT - SCORE: 1-DEP BLADDER MANAGEMENT - FREQUENCY OF ACCIDENTS: BLADDER MANAGEMENT(FA) - STEP 1: How many accidents has the patient had during the current shift? 1 BOWEL MANAGEMENT: Activity did not occur on this shift BOWEL MANAGEMENT - SCORE: 7-IND TRANSFERS: BED, CHAIR, WHEELCHAIR: TRANSFERS: BED, CHAIR, WHEELCHAIR - STEP 1: Does the patient require assitance of a person or device, or need extra time with bed, chair, or whee lchair transfers? Yes. TRANSFERS: BED, CHAIR, WHEELCHAIR - STEP 2: Does the patient require the assistance of a helper? Yes. TRANSFERS: BED, CHAIR, WHEELCHAIR - STEP 3: How much assistance does the patient require from the helper? Lifting of the patient TRANSFERS: BED, CHAIR, WHEELCHAIR - STEP 4: Does the helper lift the patient ONLY up? ONLY down? Up AND Down? ONLY up. TRANSFERS: BED, CHAIR, WHEELCHAIR - SCORE: 3-MOD TRANSFERS: TOILET: TRANSFERS: TOILET - STEP 1: Does the patient require the assistance of a person or device, or need extra time with toilet transfe rs? Yes. TRANSFERS: TOILET - STEP 2: Does the patient require the assistance of a helper? Yes. TRANSFERS: TOILET - STEP 3: How much assistance does the patient require from the helper? Patient performs less than half of the transferring tasks TRANSFERS: TOILET - STEP 4: Does the patient require total assistance for the toilet transfer such as the helper doing basically all the lifting? Yes. TRANSFERS: TOILET - SCORE: 1-DEP TRANSFERS: SHOWER: Activity did not occur on this shift TRANSFERS: SHOWER - SCORE: 0-UNK TRANSFERS: TUB: Activity did not occur on this shift TRANSFERS: TUB - SCORE: 0-UNK LOCOMOTION: WALK: Activity did not occur on this shift LOCOMOTION: WALK - SCORE: 0-UNK LOCOMOTION: WHEELCHAIR: Activity did not occur on this shift LOCOMOTION: WHEELCHAIR - SCORE: 0-UNK COMPREHENSION: COMPREHENSION: TYPE: Both COMPREHENSION - STEP 1: Does the patient require help from a person or device, or need extra time to understand complex and a bstract ideas (such as current events, finances, discharge planning, medical issues, relationships, e tc)? Yes. COMPREHENSION - STEP 2: Does the patient require help to understand questions or statements about basic needs or ideas (such as hunger, thirst, sleep, safety, daily schedule, room location, or discomfort) half or more of the t chris? Yes. COMPREHENSION - STEP 3: Is the patient basically able to understand and respond appropriately and consistently? No, patient i s basically UNABLE to understand, OR responds inappropriately/inconsistently despite prompting COMPREHENSION - SCORE: 1-DEP EXPRESSION EXPRESSION: TYPE: Both EXPRESSION - STEP 1: Does the patient require help from a person or device, or need extra time expressing complex and abst ract ideas (such as current events, finances, discharge planning, medical issues, relationships, etc) ? Yes. EXPRESSION - STEP 2: Does the patient require help to express basic necessities or ideas (such as hunger, thirst, sleep, s afety, daily schedule, room location, or discomfort) half or more of the time? Yes. EXPRESSION - STEP 3: Is the patient basically unable to express or does s/he express inappropriately or inconsistently nida pite prompting? Yes. Patient is basically unable to express. EXPRESSION - SCORE: 1-DEP SOCIAL INTERACTION: SOCIAL INTERACTION - STEP 1: Does the patient require a helper to interact with others in social and therapeutic situations? Yes. SOCIAL INTERACTION - STEP 2: Does the patient interact appropriately half or more of the time? No. SOCIAL INTERACTION - STEP 3: How often does the patient interact appropriately? Less than 25% of the time SOCIAL INTERACTION - SCORE: 1-DEP PROBLEM SOLVING: PROBLEM SOLVING - STEP 1: Does the patient need help from a person or device, or need extra time to solve complex problems such as managing a checking account or confronting interpersonal problems? Yes. PROBLEM SOLVING - STEP 2: Does the patient solve basic routine problems half or more of the time? No. PROBLEM SOLVING - STEP 3: Does the patient need help to solve problems all the time or is s/he unable to solve problems? Yes. P atient needs help to solve problems all the time or is unable to solve problems PROBLEM SOLVING - SCORE: 1-DEP MEMORY: MEMORY - STEP 1: Does the patient need help from a person or device, or need extra time to remember frequently encount ered people, daily routines, and executing requests? Yes. MEMORY - STEP 2: How often does the patient need help to remember frequently encountered people, daily routines, and e xecuting requests? More than 50% of the time MEMORY - STEP 3: Does the patient need help to remember all of the time OR does s/he not effectively recognize and rem ember? Yes. Patient needs help to remember ALL the time OR does not effectively recognize and remembe r MEMORY - SCORE: 1-DEP SIGNATURE PANEL: The following modified sections: Eating - Score, Grooming - Score, Dressing - Upper Body - Score, Sameer ssing - Lower Body - Score, Toileting - Score, Bladder Management - Score, Bowel Management - Score, Transfers: Bed, Chair, Wheelchair - Score, Transfers: Toilet - Score, Transfers: Shower - Score, Bustillo sfers: Tub - Score, Locomotion: Walk - Score, Locomotion: Wheelchair - Score, Comprehension - Score, Expression - Score, Social Interaction - Score, Problem Solving - Score, Memory - Score were [electro nically] signed by Shaunna Jennings CNA on ThuJul 21 2018 01:48:26 GMT-0600 (Central Standard Time)
[2018-07-21 03:55] LABS: Urine Amorphous Sediment 1+ /HPF (NONE SEEN); Urine Bacteria 20-50 /HPF (<20); Urine Culture Reflex Order NOT NEEDED; Urine RBC <5 /HPF (NONE SEEN)
[2018-07-21] MEDS: HYDROCODONE/APAP 5/325 MG TAB PO PRN ×2 (05:39→14:18)
[2018-07-21 06:29] LABS: Absolute Monocytes 1.1 K/uL (0.1-1.3); Absolute Neutrophil 6.3 K/uL (1.8-8.0); Basophils % 0.5 % (0-1.3); Eosinophils % 1.9 % (0-4.4); Lymphocytes % 11.8 % (15.3-44.8); MCV 91.5 fL (80-100); MPV 8.3 fL (7.6-11.3); Monocytes % 12.7 % (3.3-12.3); RBC Red Blood Cell Count 3.28 M/uL (3.86-4.86)
[2018-07-21 06:34] LABS: Albumin 2.3 g/dL (3.4-5.0); Magnesium 2.2 mg/dL (1.8-2.4); Potassium 3.7 mmol/L (3.5-5.1); Prealbumin 11.1 mg/dL (20-40)
[2018-07-21] MEDS: LEVOTHYROXINE SOD 0.125 MG TAB PO SCH (07:26)
[2018-07-21] MEDS: PANTOPRAZOLE 40MG TABLET PO SCH (08:05)
[2018-07-21] MEDS: CLOPIDOGREL 75 MG TABLET PO SCH (08:05)
[2018-07-21] MEDS: GABAPENTIN 100 MG CAP PO SCH (08:05)
[2018-07-21] MEDS: HEPARIN 5000 UNIT/ML 1 ML VIAL SQ SCH ×2 (08:52→21:00)
[2018-07-21] MEDS: TRAMADOL HCL 50 MG TAB PO PRN (10:49)
[2018-07-21] MEDS ORDERED: FORMULATION-R RECTAL 30GM PR PRN (11:18)
--- NOTE | 2018-07-21 13:32 | FAST ---
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 Joselo Diaz M.D. ADMISSION DIAGNOSIS: - Orthopaedic Disorders 08 - Unilateral Hip Fracture (08.11) LEFT INTERTROCHANTERIC FEMUR FRACTURE. EATING: Activity did not occur on this shift EATING - SCORE: 0-UNK GROOMING: Activity did not occur on this shift GROOMING - SCORE: 0-UNK BATHING: Activity did not occur on this shift BATHING - SCORE: 0-UNK DRESSING - UPPER BODY: Activity did not occur on this shift Patient is not dressing in public clothing ARTICLES SCORE Total number of steps: 0 DRESSING - UPPER BODY - SCORE: 0-UNK DRESSING - LOWER BODY: Activity did not occur on this shift Patient is not dressing in public clothing ARTICLES SCORE Total number of steps: 0 DRESSING - LOWER BODY - SCORE: 0-UNK TOILETING: Activity did not occur on this shift TOILETING - SCORE: 0-UNK BLADDER MANAGEMENT: Activity did not occur on this shift BLADDER MANAGEMENT - SCORE: 7-IND BOWEL MANAGEMENT: Activity did not occur on this shift BOWEL MANAGEMENT - SCORE: 7-IND TRANSFERS: BED, CHAIR, WHEELCHAIR: TRANSFERS: BED, CHAIR, WHEELCHAIR - STEP 1: Does the patient require assitance of a person or device, or need extra time with bed, chair, or whee lchair transfers? Yes. TRANSFERS: BED, CHAIR, WHEELCHAIR - STEP 2: Does the patient require the assistance of a helper? Yes. TRANSFERS: BED, CHAIR, WHEELCHAIR - STEP 3: How much assistance does the patient require from the helper? Lifting of the legs TRANSFERS: BED, CHAIR, WHEELCHAIR - STEP 4: How many legs does the patient require the helper to lift? both legs TRANSFERS: BED, CHAIR, WHEELCHAIR - SCORE: 3-MOD TRANSFERS: TOILET: Activity did not occur on this shift TRANSFERS: TOILET - SCORE: 0-UNK TRANSFERS: SHOWER: Activity did not occur on this shift TRANSFERS: SHOWER - SCORE: 0-UNK TRANSFERS: TUB: Activity did not occur on this shift TRANSFERS: TUB - SCORE: 0-UNK LOCOMOTION: WALK: LOCOMOTION: WALK - STEP 1: Does the patient need help from a person or device, or need extra time to walk 150 feet? Yes. LOCOMOTION: WALK - STEP 2: How much assistance does the patient require to walk a minimum of 150 feet? Patient walks less than 1 50 feet - but more than 50 feet - with the assistance of only one helper LOCOMOTION: WALK - SCORE: 2-MAX LOCOMOTION: WHEELCHAIR: LOCOMOTION: WHEELCHAIR - STEP 1: Does the patient need help to go 150 feet in a wheelchair? Yes. LOCOMOTION: WHEELCHAIR - STEP 2: How much assistance does the patient need from the helper? Patient goes less than 150 feet - but more than 50 feet - with the assistance of only one helper LOCOMOTION: WHEELCHAIR - SCORE: 2-MAX LOCOMOTION: STAIRS: Activity did not occur on this shift LOCOMOTION: STAIRS - SCORE: 0-UNK COMPREHENSION: COMPREHENSION - SCORE: 0-UNK EXPRESSION EXPRESSION - SCORE: 0-UNK SOCIAL INTERACTION: SOCIAL INTERACTION - SCORE: 0-UNK PROBLEM SOLVING: PROBLEM SOLVING - SCORE: 0-UNK MEMORY: MEMORY - SCORE: 0-UNK SIGNATURE PANEL: The following modified sections: Transfers: Bed, Chair, Wheelchair - Score, Transfers: Toilet - Score , Locomotion: Walk - Score, Locomotion: Wheelchair - Score, Locomotion: Stairs - Score were [electron akosua] signed by Ross Gottlieb PT on ThuJul 21 2018 13:31:53 GMT-0600 (Central Standard Time)
--- NOTE | 2018-07-21 14:05 | FAST ---
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 Joselo Diaz M.D. ADMISSION DIAGNOSIS: - Orthopaedic Disorders 08 - Unilateral Hip Fracture (08.11) LEFT INTERTROCHANTERIC FEMUR FRACTURE. EATING: EATING - STEP 1: Does the patient require the assistance of a person or device, or need extra time when eating? Yes. EATING - STEP 2: Does the patient require the assistance of a helper? Yes. EATING - STEP 3: Does the patient perform half or more of the eating tasks? Yes. EATING - STEP 4: Does the patient need only supervision, cuing, coaxing OR help to apply an orthosis OR help to cut fo od, open containers, pour liquids, or butter bread? Yes. EATING - SCORE: 5-SUP GROOMING: Comb/brush hair Wash, rinse, and dry face Wash, rinse, and dry hands GROOMING - STEP 1: Does the patient require the assistance of a person or device, or need extra time when grooming? Yes. GROOMING - STEP 2: Does the patient require the assistance of a helper? Yes. GROOMING - STEP 3: How much assistance does the patient require from the helper? Only prior equipment preparation/set up from the helper GROOMING - SCORE: 5-SUP BATHING: Activity did not occur on this shift BATHING - SCORE: 0-UNK DRESSING - UPPER BODY: Patient is not dressing in public clothing ARTICLES SCORE Total number of steps: 0 DRESSING - UPPER BODY - SCORE: 0-UNK DRESSING - LOWER BODY: Patient is not dressing in public clothing ARTICLES SCORE Total number of steps: 0 DRESSING - LOWER BODY - SCORE: 0-UNK TOILETING: TOILETING - STEP 1: Does the patient require the assistance of a person or device, or need extra time with toileting? Yes . TOILETING - STEP 2: Does the patient require the assistance of a helper? Yes. TOILETING - STEP 3: How much assistance does the patient require from the helper? Hands-on assistance from the helper TOILETING - STEP 4: Of the 3 tasks: 1) Adjusting clothing prior to use, 2) Cleansing of perineal area, 3) Adjusting clot luz marina after use; How many tasks does the patient perform WITHOUT assistance of the helper? No tasks; h elper performs all three tasks TOILETING - SCORE: 1-DEP BLADDER MANAGEMENT: [place] removes incontinent device (Depends, pull ups, etc.); cleans the patient after accident / inco ntinent episode; and, applies new incontinent device. BLADDER MANAGEMENT - SCORE: 1-DEP BLADDER MANAGEMENT - FREQUENCY OF ACCIDENTS: BLADDER MANAGEMENT(FA) - STEP 1: How many accidents has the patient had during the current shift? 1 BOWEL MANAGEMENT: BOWEL MANAGEMENT - STEP 1: Does the patient control bowels completely and intentionally without equipment devices or medications AND is always continent? No. BOWEL MANAGEMENT - STEP 2: Does the patient require the assistance of a helper? Yes. BOWEL MANAGEMENT - STEP 3: How much assistance does the patient require from the helper? Patient requires moderate assistance - performs 50% to 74% of bowel management tasks BOWEL MANAGEMENT - SCORE: 3-MOD BOWEL MANAGEMENT - FREQUENCY OF ACCIDENTS: BOWEL MANAGEMENT(FA) - STEP 1: How many accidents has the patient had during the current shift? 0 TRANSFERS: BED, CHAIR, WHEELCHAIR: TRANSFERS: BED, CHAIR, WHEELCHAIR - STEP 1: Does the patient require assitance of a person or device, or need extra time with bed, chair, or whee lchair transfers? Yes. TRANSFERS: BED, CHAIR, WHEELCHAIR - STEP 2: Does the patient require the assistance of a helper? Yes. TRANSFERS: BED, CHAIR, WHEELCHAIR - STEP 3: How much assistance does the patient require from the helper? Steadying/guiding assistance TRANSFERS: BED, CHAIR, WHEELCHAIR - SCORE: 4-MIN TRANSFERS: TOILET: TRANSFERS: TOILET - STEP 1: Does the patient require the assistance of a person or device, or need extra time with toilet transfe rs? Yes. TRANSFERS: TOILET - STEP 2: Does the patient require the assistance of a helper? Yes. TRANSFERS: TOILET - STEP 3: How much assistance does the patient require from the helper? Patient performs half or more of the tr ansferring tasks TRANSFERS: TOILET - STEP 4: Does the patient need only incidental help such as contact guard or steadying during toilet transfer? Yes. TRANSFERS: TOILET - SCORE: 4-MIN TRANSFERS: SHOWER: Activity did not occur on this shift TRANSFERS: SHOWER - SCORE: 0-UNK TRANSFERS: TUB: Activity did not occur on this shift TRANSFERS: TUB - SCORE: 0-UNK LOCOMOTION: WALK: Activity did not occur on this shift LOCOMOTION: WALK - SCORE: 0-UNK LOCOMOTION: WHEELCHAIR: Activity did not occur on this shift LOCOMOTION: WHEELCHAIR - SCORE: 0-UNK COMPREHENSION: COMPREHENSION: TYPE: Both COMPREHENSION - STEP 1: Does the patient require help from a person or device, or need extra time to understand complex and a bstract ideas (such as current events, finances, discharge planning, medical issues, relationships, e tc)? Yes. COMPREHENSION - STEP 2: Does the patient require help to understand questions or statements about basic needs or ideas (such as hunger, thirst, sleep, safety, daily schedule, room location, or discomfort) half or more of the t chris? No. COMPREHENSION - STEP 3: How often does the patient need help to understand directions and conversation about basic needs? Les s than 10% of the time COMPREHENSION - SCORE: 5-SUP EXPRESSION EXPRESSION: TYPE: Both EXPRESSION - STEP 1: Does the patient require help from a person or device, or need extra time expressing complex and abst ract ideas (such as current events, finances, discharge planning, medical issues, relationships, etc) ? No. EXPRESSION - STEP 2: Does the patient need extra time, require an assistive device (such as augmentive communication syste m or a communication board), OR does s/he have mild difficulty expressing complex and abstract ideas (including mild dysarthria or mild word-find problems)? Yes. EXPRESSION - SCORE: 6-SAMREEN SOCIAL INTERACTION: SOCIAL INTERACTION - STEP 1: Does the patient require a helper to interact with others in social and therapeutic situations? No. SOCIAL INTERACTION - STEP 2: Does the patient need extra time in social situations, OR does s/he interact with staff, other patien ts, and family members ONLY in structured environments, OR does s/he require medication for social in teraction? No. SOCIAL INTERACTION - SCORE: 7-IND PROBLEM SOLVING: PROBLEM SOLVING - STEP 1: Does the patient need help from a person or device, or need extra time to solve complex problems such as managing a checking account or confronting interpersonal problems? No. PROBLEM SOLVING - STEP 2: Does the patient require extra time to make decisions or solve problems, OR does s/he have slight dif ficulty reading, initiating, or self-correcting in unfamiliar situations? Yes, patient needs extra ti me. PROBLEM SOLVING - SCORE: 6-SAMREEN MEMORY: MEMORY - STEP 1: Does the patient need help from a person or device, or need extra time to remember frequently encount ered people, daily routines, and executing requests? No. MEMORY - STEP 2: Does the patient have slight difficulty recognizing frequently encountered people, daily routines, or executing requests without the need for repetition or using self-initiated or environmental cues to remember? Yes. MEMORY - SCORE: 6-SAMREEN SIGNATURE PANEL: The following modified sections: Eating - Score, Grooming - Score, Bathing - Score, Dressing - Upper Body - Score, Dressing - Lower Body - Score, Toileting - Score, Bladder Management - Score, Bowel Man agement - Score, Transfers: Bed, Chair, Wheelchair - Score, Transfers: Toilet - Score, Transfers: Mora wer - Score, Transfers: Tub - Score, Locomotion: Walk - Score, Locomotion: Wheelchair - Score, Compre hension - Score, Expression - Score, Social Interaction - Score, Problem Solving - Score, Memory - Sc ore were [electronically] signed by Neha Sanderson C.N.A. on ThuJul 21 2018 14:04:17 GMT-0600 (Cent[place] Standard Time)
--- NOTE | 2018-07-21 16:31 | R.HP ---
FACILITY: [facility] ENCOUNTER DATE AND TIME: 07/21/2018 16:23 (REINFORCER) MR#: [id number] NAME DESTINEE WALSH ADDRESS: [address] [place] [address] CITY: [place] ZIP [id number] PHONE: DATE OF : 1930 AGE: 88 SSN# [id number] GENDER: Female DEXTERITY Right-handed MARITAL STATUS RACE White PRE-HOSPITAL LIVING SETTING 01 - Home (private home/apt. board/care, assisted living, fci, transitional living) PRE-HOSPITAL LIVING WITH Alone ENCOUNTER PHYSICIAN: Dr. Joselo Diaz M.D. 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 is a 88 yo Right-handed white female. Her impairment category is Orthopaedic Disorders 08 - Unilateral Hip Fracture (08.11). Pre-morbidly, Pt. was independent/mod-I in Transfers Control, Communication, Social Cognition, Self-C are, Locomotion, and Sphincter Control; and she had good Sphincter Control. Currently, she has deficits of Transfers Control, Balance, Self-Care, Locomotion, Endurance, and Safe ty Awareness. Pt. is now referred to [facility] for acute in-patient rehabilitation in order to maximize patient's functional independence in activities of daily living, strength, ROM, and mobi lity. Patient has realistic goal of being discharged at assistance level 6-Malika to reside at Home with Fam kinjal/Relatives. Ms Destinee Walsh is an 88 year old female that lives in a 1 dot house. She goes to dialysis [facility] times a week. On 07/12/2018, Ms Walsh fell and had left intertrochanteric femur fracture and was admitted to [facility] and treated. She is now medically stable but in need of 24-hour nursing, doctor supervision and oversite while receiving acti ve and ongoing intensive (PT, reasonably expected to participate in 3hours of therapy a day/15 hours per week and receive care with an intensive interdisciplinary approach. MEDICATION ALLERGIES: No Known Drug Allergies (NKDA) ENVIRONMENTAL ALLERGIES: None Known - Substance Allergies None Known - Other Allergies None Known PAST MEDICAL HISTORY: ANEMIA CVA Dependence on renal dialysis (Z99.2) HYPERLIPIDEMIA HYPERTENSION CHRONIC KIDNEY DISEASE MILD STROKE PAST SURGICAL HISTORY: Hysterectomy TUMMY TUCK FISTULA LEFT ARM FAMILY HISTORY: Family history is not contributory. SOCIAL HISTORY: - Home Living Alone REVIEW OF SYSTEMS: - Gen No Chills Fatigue No Fever - Eyes No Double Vision No itchiness - ENMT No Difficulty Swallowing - CVS No Chest Discomfort No Chest Pain Fatigue No Weight Gain - Resp No Cough No Shortness of Breath - GI Continent No Abdominal Pain No Constipation No Diarrhea - Continent No Kidney Pain No Painful Urination No Urinary Urgency - MSK Joint Pain Muscle Cramps Stiffness - Skin No Itching No Rash No Suspicious Lesions - Neuro Coordination Difficulty No Difficulty with Concentration No Memory Loss No Seizures Weakness - Psych No Anxiety No Depression No HIV Exposure No Persistent Infections No Seasonal Allergies - Endo No Cold/Heat Intolerance No Excessive Hunger No Excessive Thirst No Excessive Urination PHYSICAL EXAM - Gen Alert and awake Lying in bed No apparent distress Oriented to: person, time, and place - Skin No breakdown No abnormalities - Eyes No abnormalities - ENMT No abnormalities - Neck No abnormalities - CVS RRR - Chest Clear - Abd + bowel sounds - GI nondistended Deferred - No abnormalities - Ext Left hip surgical site has good hemostasis. - MSK 4+/5 weakness in left lower extremity - Neuro 4/5 strength left lower extremity. - Psych No abnormalities VITAL SIGNS Temperature: 97.6 F SBP/DBP: 140/79 Pulse: 73 Resp: 18 NURSING: - Shower allowing shower - Skin care per protocol PRECAUTIONS: - Posterior Hip Precaution No adduction across midline No external rotation No hip flexion >90 degrees No internal rotation No wheel chair propulsion - Weight Bearing Precaution WBAT left LE ACTIVITIES OOB only with supervision FUNCTIONAL STATUS: - Self-Care A. Eating Ind sup B. Grooming Ind sup C. Bathing Ind Jackie D. Dressing - Upper Ind Jackie E. Dressing - Lower Ind Jackie F. Toileting Ind Jackie - Sphincter Control G: Bladder control Ind Ind H: Bowel control Ind Ind - Transfers Control I. Bed/Chair/Wheelchair Ind maxA J. Toilet Ind maxA K. Tub/Shower Ind Ind - Locomotion L. Walk/Wheelchair (C) Ind modA L. Walk/Wheelchair (W) Ind modA M. Stairs Ind ADNO - Communication N. Comprehension (B) Ind Malika O. Expression (B) Ind Malika - Social Cognition P. Social Interaction Ind Malika Q. Problem Solving Ind Mlaika R. Memory Ind Malika - Endurance Fair - Balance Fair - Safety Awareness Fair CURRENT FUNC. DEFICITS: Transfers Control, Balance, Self-Care, Locomotion, Endurance, and Safety Awareness ASSESSMENT: Pt. is a 88 yo Right-handed white female.Her impairment category is Orthopaedic Disorders 08 - Unila teral Hip Fracture (04.03).Pre-morbidly, Pt. was independent/mod-I in Transfers Control, Communicatio n, Social Cognition, Self-Care, Locomotion, and Sphincter Control; and she had good Sphincter Control .Currently, she has deficits of Transfers Control, Balance, Self-Care, Locomotion, Endurance, and Saf ety Awareness.Pt. is now referred to [facility] for acute in-patient rehabilit ation in order to maximize patient's functional independence in activities of daily living, strength, ROM, and mobility.- Rehab Goal Patient has realistic goal of being discharged at assistance level 6-Malika to reside at Home with Fam kinjal/Relatives. Ms Destinee Walsh is an 88 year old female that lives in a 1 dot house. She goes to dialysis [facility] times a week. On 07/12/2018, Ms Walsh fell and had left intertrochanteric femur fracture and was admitted to [facility] and treated. She is now medically stable but in need of 24-hour nursing, doctor supervision and oversite while receiving acti ve and ongoing intensive (PT, reasonably expected to participate in 3hours of therapy a day/15 hours per week and receive care with an intensive interdisciplinary approach.REHAB PLAN: - Physical Therapy Decreased range of motion - to improve, our physical therapists will perform initial evaluation of pt 's status upon admission and devise an individualized program for increasing patient's Range of Motio n. Gait dysfunction - to improve, our physical therapists will perform initial evaluation of pt's status upon admission and devise an individualized program for Gait Training, and Wheel Chair mobility Inability to transfer - to improve, our physical therapists will perform initial evaluation of pt's s tatus upon admission and devise an individualized program for Bed mobility Need for home safety evaluation - to improve, our physical therapists will perform initial evaluation of pt's status upon admission and devise an individualized program for Home Evaluation Need in caregiver upon discharge - to improve, our physical therapists will perform initial evaluatio n of pt's status upon admission and devise an individualized program for Caregiver Training New precaution - to improve, our physical therapists will perform initial evaluation of pt's status u kavon admission and devise an individualized program for Patient precaution education Poor balance - to improve, our physical therapists will perform initial evaluation of pt's status upo n admission and devise an individualized program for Balance Training Poor endurance - to improve, our physical therapists will perform initial evaluation of pt's status u kavon admission and devise an individualized program for Endurance Training Weakness - to improve, our physical therapists will perform initial evaluation of pt's status upon ad mission and devise an individualized program for Aquatic Therapy, Neuromuscular Reeducation, and Stre ngthening Achieving independence - to improve, our physical therapists will perform initial evaluation of pt's status upon admission and devise an individualized program for Community Reintegration Activities - Occupational Therapy ADL deficits - to improve, our occupation therapists will perform initial evaluation of pt's status u kavon admission and devise an individualized program for Bathing, Bed mobility, Community Reintegration , Cooking, Dressing, Eating, Fine Motor Skills, Grooming, Homemaking, Kitchen Mobility, Laundry, Erin ent Education, Safety Awareness, Splinting - Positioning, Transfers(Toilet, Tub, Shower), and Wheel C hair Management Need for healthcare science specialist - to improve, our occupation therapists will perform initial evaluation of pt's s tatus upon admission and devise an individualized program for Caregiver Training Weakness - to improve, our occupation therapists will perform initial evaluation of pt's status upon admission and devise an individualized program for Aquatic Therapy, Balance, Endurance, UE ROM, and U E strengthening MEDICAL PLAN: - Anterior Hip Precaution No abduction No active extension No adduction across midline No external rotation No hip flexion >90 degrees No internal rotation - Diet - Liquid Texture Start Regular - Tube Feed Start N/A - Diet Type Start Regular - Posterior Hip Precaution No adduction across midline No external rotation No hip flexion >90 degrees No internal rotation No wheel chair propulsion - Weight Bearing Precaution WBAT left LE - Skin care per protocol - Diet - Solid Texture Regular - Shower shower DISCHARGE PLAN: - Estimated Length of Stay (days) 14. - Consensus on plan Discharge plan has been discussed with primary caregiver. Patient/Family is in agreement with the christiano n. Primary caregiver is in agreement with the plan. - Patient/Family Goals Return home with assistance. - Planned Living Setting Upon Discharge Home, to live with Family/Relatives. SIGNATURE PANEL: (REINFORCER)
--- NOTE | 2018-07-21 16:33 | PAPE ---
PATIENT: [facility] MR# [id number] REFERRING DOCTOR wanda Santos EVALUATION DATE AND TIME 07/21/2018 16:30 (SOCIOLOGY PROFESSOR) NAME LOGNA WALSH DATE OF 1930 AGE 88 PHONE N# [id number] GENDER female EVALUATING PHYSICIAN Dr. Joselo Diaz M.D. 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 PATIENT NEEDS CLOSE MEDICAL SUPERVISION BY A REHABILITATION PHYSICIAN FOR: Bowel and Bladder Management Coordination of Treatment Team Medical and Co-Morbidity Management Wound Care Pain Management DVT Management PATIENT REQUIRES 24X7 REHAB NURSING FOR MEDICAL AND FUNCTIONAL MGT. OF THE FOLLOWING DEFICITS: ADL's Ambulation Bowel and Bladder Management Cognition Communication Disease Management Medication Management Patient/Family Education Providing Safe Environment Skin Integrity Transfers Pain Management PATIENT REQUIRES INTENSIVE, COORDINATED INTERDISCIPLINARY APPROACH TO REHAB: Arranging Home Equipment/Services Discharge Planning Family Intervention/Training Tool Maker Apprentice/Case Management LIST OF IDENTIFIED AND POTENTIAL PROBLEMS: Alteration in leisure activities Bladder, Incontinence Blood Pressure, Hypertension/hypotension Issues Bowel, Incontinence Infection, Actual or Potential Mobility Impaired Pain, Alteration in Comfort Self Care Deficit Skin Integrity, Actual or Potential Urinary Tract Infection (UTI), Actual or Potential RISK FOR COMPLICATIONS - Hypertension CVA. Hypotension. FL. TIA. INTERVENTIONS - Hypertension PATIENT COULD BE AT RISK FOR COMPLICATIONS FROM ADVERSE MEDICAL CONDITIONS DUE TO HIS/HER COMORBIDITI ES AND THE RIGORS OF THE INTENSIVE REHABILLITATION PROGRAM. METHODS OR INTERVENTIONS TO AVOID COMPLIC ATIONS INCLUDE: - Deep Vein Thrombosis (DVT) Prophylaxis therapy for prevention . Sequential Compression Device (SCD). TE D Hose. - Bleeding Assess lab values and manage abnormalities. Nursing to teach precautions for anti-coagulation therapy . Stroke patients assessed for lethargy or change in status. Wound to be assessed every shift. - Infection Clinical staff to assess and manage the signs and symptoms of infection including fever, redness, war mth, etc. - Urinary Tract Infection - Aspiration Clinical staff will assess and manage coughing, drooling, congestion. - Falls Patient will be evaluated for Fall Precautions and will be placed on Fall Precautions as indicated pe r protocol. - Skin Breakdown Nursing will assess skin daily using assessment tool and will place on Skin Breakdown Precautions as indicated per protocol. - Pain Clinical staff may employ non-medication methods such as massage, distraction, decrease stimulus, etc . as needed. Clinical staff will assess patient's pain level every shift per protocol to assess and e nsure pain management effectiveness. Medications will be given and the pain level re-assessed. PRELIMINARY PLAN OF CARE: - Physical Therapy Patient needs Physical Therapy for a daily minimum of 1.5 hours at least 5 out of 7 days, to improve: Mobility, Strengthening, Transfers, Stretching, ROM, Endurance, Ability to manage stairs, Gait, and Balance. - Speech Therapy Patient needs Speech Therapy for a daily minimum of 0.5 hours at least 5 out of 7 days, to improve: S wallowing, Cognition, Language Skills, and Compensatory Strategies. - Rehabilitation Nursing Patient requires 24x7 Rehabilitation Nursing for: Pain Issues, Identifying and preventing risk factor s, Monitoring and reporting current medical conditions, Assisting with ambulation and transfer, [place] ting with all ADL-s, Teaching patients about disease process and medications, Family teaching, Provid ing safe environment, Bowel and Bladder Issues, Skin Integrity, and Medication Management. Patient needs Tool Maker Apprentice and/or Case Management for: Discharge Planning, Arranging Home Equipmen t or Services, and Family Interventions. - Dietary and Nutrition Services Patient needs Dietary and Nutrition Services for: Adequate Nutrition, Nutritional Supplements, and Nu tritional Education. - Occupational Therapy Patient needs Occupational Therapy for a daily minimum of 1.5 hours at least 5 out of 7 days, to impr ove Activities of Daily Living, including: Eating, Grooming, Bathing, Dressing, Toileting, Toilet Tra nsfers, Community Reintegration, Higher functional activities, Adaptive Equipment, Splinting, Househo ld Tasks, and Other activities as determined. POTENTIAL FUNCTIONAL GOALS FOR PATIENT TO ACHIEVE BY DISCHARGE: - Safety Precaution Patient will remain free from falls or injury at time of discharge. - Bed Mobility Patient will perform bed mobility at 4-Jackie level of assistance. - Transfers Patient will complete transfers from bed to chair at 4-Jackie level of assistance. - Mobility Patient will ambulate 150 ft with 4-Jackie level of assistance with RW. PATIENT REHAB POTENTIAL Expected level of measurable improvement will be of a practical value to patient's functional capacit y or adaptations to impairments Has a viable Discharge Plan Medically appropriate; condition is sufficiently stable to participate in intensive rehab program Patient is able and expected to receive 3 hours of individualized therapy daily on at least 5 of ever y 7 days Patient's prognosis for significant practical improvement within a reasonable period of time appears Good DISCHARGE PLAN: - Estimated Length of Stay (days) 14. - Consensus on plan Discharge plan has been discussed with primary caregiver. Patient/Family is in agreement with the christiano n. Primary caregiver is in agreement with the plan. - Patient/Family Goals Return home with assistance. - Planned Living Setting Upon Discharge Home, to live with Family/Relatives. CONCLUSION ON REHABILITATION NECESSITY: I have evaluated patient's pre-admission functional status and, comparing it to the patient's post-ad mission functional status now, I conclude that the pre-admission assessment was accurate. Patient's c ondition on admission supports the medical necessity of admission to IRF. It is safe to proceed with patient's therapy program. 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
[2018-07-21] MEDS: LIDOCAINE 5% PATCH TOP SCH (16:58)
[2018-07-21] MEDS: ATORVASTATIN 20 MG TAB PO SCH (21:23)
[2018-07-21] MEDS: GABAPENTIN 300 MG CAP PO SCH (21:23)
[2018-07-21] MEDS: DOCUSATE NA/SENNA CONC 1 TAB PO SCH (21:23)
[2018-07-21] MEDS: MELATONIN 3 MG TABLET PO PRN (21:23)
[2018-07-21] MEDS: NEPRO SHAKE 237 ML CAN PO SCH (21:24)
[2018-07-21] MEDS: PROMOD 30 ML DOSE PO SCH (21:24)
--- NOTE | 2018-07-21 21:49 | P.PN ---
Subjective Date of Service: 07/21/18 Chief Complaint: HIP FRACTURE Subjective: Improving FRAIL LADY WITH ESRD ON HD, AND WITH A LARGE CECUM MASS, BROKE HER HIP. SHE IS NOW IN REHAB FOR PT. Review of Systems 10-point ROS is otherwise unremarkable General: Weakness, Malaise Physical Examination - Vital Signs Temperature: 97.0 F Blood Pressure: 138/53 Pulse: 64 Respirations: 16 Pulse Ox (%): 96 - Physical Exam General: Alert, Cachectic, Moderate distress HEENT: Atraumatic, PERRLA, EOMI Neck: Supple, JVD not distended Respiratory: Clear to auscultation bilaterally, Normal air movement Cardiovascular: Regular rate/rhythm, Normal S1 S2 Gastrointestinal: Normal bowel sounds, No tenderness Musculoskeletal: Tenderness Integumentary: No rashes Neurological: Normal speech, Normal tone, Normal affect Lymphatics: No axilla or inguinal lymphadenopathy - Studies Laboratory Data (last 24 hrs) 07/21/18 06:00: Sodium 137, Potassium 3.7, BUN 20 H D, Creatinine 2.50 H D, Glucose 86, Magnesium 2.2 07/21/18 06:00: WBC 8.6 D, Hgb 10.2 L, Hct 30.0 L, Plt Count 273 Medications List Reviewed: Yes Assessment And Plan - Current Problems (Diagnosis) (1) Closed left hip fracture Onset Date: 07/13/18 Current Visit: No Status: Acute Plan: PT CONSULT DVT PROPHYLAXIS HAD ANEMIA SP SURGERY WILL TRY ORAL AC AGAIN. Qualifiers: Encounter type: subsequent encounter (2) Renal failure Onset Date: 04/26/15 Current Visit: No Status: Acute Qualifiers: Renal failure chronicity: chronic Chronic kidney disease stage: on chronic dialysis Qualified Code(s): N18.6 - End stage renal disease; Z99.2 - Dependence on renal dialysis
[2018-07-22] MEDS: HYDROCODONE/APAP 5/325 MG TAB PO PRN ×2 (02:27→12:34)
--- NOTE | 2018-07-22 02:53 | CON ---
Date of Consultation: 07/21/2018 Additional Consulting Physician: Joselo Diaz M.D. Reason For Consultation: Elevated BUN and creatinine, hemodialysis, hypertension. History Of Present Illness: This is a pleasant 88-year-old female, well known to me from the [facility] with significant past medical history of end-stage renal disease, patient on dialysis at [facility] on Hemod[facility] Center TTS through AV fistula; hypertension; hyperlipidemia; CVA; TIA. The patient c tisha to the hospital with hip fracture, status post repair. The patient was transferred to the rehab to continue PT and OT. The patient was dialyzed yesterday, tolerated the dialysis very well. Past Medical History: Include, 1.Hypertension. 2.Hyperlipidemia. 3.CVA. 4.TIA. 5.Hip fracture. 6.End-stage renal disease, on hemodialysis, TTS. Family History: Positive for hypertension, diabetes, and cancer. Social History: Lives alone. Denies smoking. Denies drinking. Denies drug abuse. Past Surgical History: Include, 1.Hysterectomy. 2.AV fistula creation. 3.PermaCath placement. 4.Hip replacement. Review of Systems: Head and Neck: No red eye. No ear pain. GI: No nausea, no vomiting. : No polyuria, no dysuria, no hematuria. DROP WORKER: No vaginal discharge. Respiratory: No shortness of breath. Cardiovascular: No chest pain. Endocrine: No polydipsia. Skin: No rash. Neuro: Has neuropathy. Musculoskeletal: Has hip pain. Physical Examination: General: When I saw the patient, the patient was sitting in chair. Vital Signs: Blood pressure 138/53, pulse of 64. Chest: Clear to auscultation. Heart: S1, S2 regular. Abdomen: Soft, nontender. Extremities: No edema. Laboratory Data: H and H 10./30. Sodium 137, potassium 3.7, bicarb 26, BUN 20, creatinine 2.5, jonnathan cium 8.1, magnesium 2.2. Current Medications: Current medications the patient is on include, 1.Plavix. 2.Ferrous sulfate. 3.Atorvastatin. 4.Gabapentin. 5.Levothyroxine. 6.Pantoprazole. 7.Melatonin. 8.Tramadol. 9.Hydrocodone. Laboratory Data: Sodium 137, potassium 3.7, bicarb 26, BUN 20, creatinine 2.5, calcium 8.2, H and H 10.2/30. Physical Examination: Vital Signs: Blood pressure of 138/53, pulse of 64. Chest: Clear to auscultation. Heart: S1, S2. Systolic murmur. Abdomen: Soft, nontender. Extremities: No edema. Neurological: Alert and oriented. Nonfocal. Assessment And Plan: 1.End-stage renal disease. We will continue the patient on dialysis. We will arrange for dialysis tomorrow. 2.Hypertension, controlled, optimal, continue current medication. 3.Anemia of chronic kidney disease. We will resume Epogen. 4.Secondary hyperparathyroid, stable. We will follow up phosphor level. 5.Hip fracture. Continue PT/OT. FERDINAND/KJ Voice ID: [id number] Report ID: [id number]
[2018-07-22] MEDS: LEVOTHYROXINE SOD 0.125 MG TAB PO SCH (05:29)
[2018-07-22 06:54] LABS: Albumin 2.3 g/dL (3.4-5.0); Potassium 3.4 mmol/L (3.5-5.1); Prealbumin 10.5 mg/dL (20-40)
[2018-07-22 07:05] LABS: Absolute Lymphocytes (CBC) 0.9 K/uL (0.7-4.9); Absolute Neutrophil 4.8 K/uL (1.8-8.0); Basophils % 0.7 % (0-1.3); Eosinophils % 2.3 % (0-4.4); Hematocrit 28.2 % (36.0-45.0); Lymphocytes % 13.4 % (15.3-44.8); MCH 30.8 pg (27.0-35.0); MCV 91.4 fL (80-100); MPV 8.7 fL (7.6-11.3); Monocytes % 14.4 % (3.3-12.3); RBC Red Blood Cell Count 3.08 M/uL (3.86-4.86)
[2018-07-22] MEDS: CLOPIDOGREL 75 MG TABLET PO SCH (08:04)
[2018-07-22] MEDS: PANTOPRAZOLE 40MG TABLET PO SCH (08:04)
[2018-07-22] MEDS: FE SULF/FA/VIT B COMP & C TAB PO SCH (08:04)
[2018-07-22] MEDS: LIDOCAINE 5% PATCH TOP SCH (08:04)
[2018-07-22] MEDS: PROMOD 30 ML DOSE PO SCH ×2 (08:05→20:11)
[2018-07-22] MEDS: GABAPENTIN 300 MG CAP PO SCH ×2 (08:05→20:11)
[2018-07-22] MEDS: FERROUS SULFATE 325 MG TAB PO SCH (08:05)
[2018-07-22] MEDS: TRAMADOL HCL 50 MG TAB PO PRN (08:05)
[2018-07-22] MEDS: NEPRO SHAKE 237 ML CAN PO SCH ×2 (08:06→20:12)
[2018-07-22] MEDS: HEPARIN 5000 UNIT/ML 1 ML VIAL SQ SCH ×2 (08:11→20:10)
--- NOTE | 2018-07-22 13:49 | FAST ---
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 Joselo Diaz M.D. ADMISSION DIAGNOSIS: - Orthopaedic Disorders 08 - Unilateral Hip Fracture (08.11) LEFT INTERTROCHANTERIC FEMUR FRACTURE. EATING: Activity did not occur on this shift EATING - SCORE: 0-UNK GROOMING: Activity did not occur on this shift GROOMING - SCORE: 0-UNK BATHING: Activity did not occur on this shift BATHING - SCORE: 0-UNK DRESSING - UPPER BODY: Activity did not occur on this shift Patient is not dressing in public clothing ARTICLES SCORE Total number of steps: 0 DRESSING - UPPER BODY - SCORE: 0-UNK DRESSING - LOWER BODY: Activity did not occur on this shift Patient is not dressing in public clothing ARTICLES SCORE Total number of steps: 0 DRESSING - LOWER BODY - SCORE: 0-UNK TOILETING: Activity did not occur on this shift TOILETING - SCORE: 0-UNK BLADDER MANAGEMENT: Activity did not occur on this shift BLADDER MANAGEMENT - SCORE: 7-IND BOWEL MANAGEMENT: Activity did not occur on this shift BOWEL MANAGEMENT - SCORE: 7-IND TRANSFERS: BED, CHAIR, WHEELCHAIR: TRANSFERS: BED, CHAIR, WHEELCHAIR - STEP 1: Does the patient require assitance of a person or device, or need extra time with bed, chair, or whee lchair transfers? Yes. TRANSFERS: BED, CHAIR, WHEELCHAIR - STEP 2: Does the patient require the assistance of a helper? Yes. TRANSFERS: BED, CHAIR, WHEELCHAIR - STEP 3: How much assistance does the patient require from the helper? Lifting of the patient TRANSFERS: BED, CHAIR, WHEELCHAIR - STEP 4: Does the helper lift the patient ONLY up? ONLY down? Up AND Down? ONLY up. TRANSFERS: BED, CHAIR, WHEELCHAIR - SCORE: 3-MOD TRANSFERS: TOILET: Activity did not occur on this shift TRANSFERS: TOILET - SCORE: 0-UNK TRANSFERS: SHOWER: Activity did not occur on this shift TRANSFERS: SHOWER - SCORE: 0-UNK TRANSFERS: TUB: Activity did not occur on this shift TRANSFERS: TUB - SCORE: 0-UNK LOCOMOTION: WALK: LOCOMOTION: WALK - STEP 1: Does the patient need help from a person or device, or need extra time to walk 150 feet? Yes. LOCOMOTION: WALK - STEP 2: How much assistance does the patient require to walk a minimum of 150 feet? Patient walks less than 1 50 feet - but more than 50 feet - with the assistance of only one helper LOCOMOTION: WALK - SCORE: 2-MAX LOCOMOTION: WHEELCHAIR: Patient propels wheelchair less than 50 ft LOCOMOTION: WHEELCHAIR - SCORE: 1-DEP LOCOMOTION: STAIRS: Activity did not occur on this shift LOCOMOTION: STAIRS - SCORE: 0-UNK COMPREHENSION: COMPREHENSION - SCORE: 0-UNK EXPRESSION EXPRESSION - SCORE: 0-UNK SOCIAL INTERACTION: SOCIAL INTERACTION - SCORE: 0-UNK PROBLEM SOLVING: PROBLEM SOLVING - SCORE: 0-UNK MEMORY: MEMORY - SCORE: 0-UNK SIGNATURE PANEL: The following modified sections: Transfers: Bed, Chair, Wheelchair - Score, Transfers: Toilet - Score , Locomotion: Walk - Score, Locomotion: Wheelchair - Score, Locomotion: Stairs - Score were [electron akosua] signed by Ross Gottlieb PT on ThuJul 22 2018 13:49:11 GMT-0600 (Central Standard Time)
--- NOTE | 2018-07-22 14:44 | FAST ---
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 Joselo Diaz M.D. ADMISSION DIAGNOSIS: - Orthopaedic Disorders 08 - Unilateral Hip Fracture (08.11) LEFT INTERTROCHANTERIC FEMUR FRACTURE. EATING: EATING - STEP 1: Does the patient require the assistance of a person or device, or need extra time when eating? Yes. EATING - STEP 2: Does the patient require the assistance of a helper? Yes. EATING - STEP 3: Does the patient perform half or more of the eating tasks? Yes. EATING - STEP 4: Does the patient need only supervision, cuing, coaxing OR help to apply an orthosis OR help to cut fo od, open containers, pour liquids, or butter bread? Yes. EATING - SCORE: 5-SUP GROOMING: Comb/brush hair Wash, rinse, and dry face Wash, rinse, and dry hands GROOMING - STEP 1: Does the patient require the assistance of a person or device, or need extra time when grooming? Yes. GROOMING - STEP 2: Does the patient require the assistance of a helper? No. The patient only requires an assistive devic e, OR takes more than reasonable time to groom, OR there is a concern for safety as the patient groom s GROOMING - SCORE: 6-SAMREEN BATHING: Activity did not occur on this shift BATHING - SCORE: 0-UNK DRESSING - UPPER BODY: T-shirt/pullover shirt (four steps) ARTICLES SCORE Total number of steps: 4 DRESSING - UPPER BODY - STEP 1: Does the patient require help from a person or device, or need extra time when dressing above the concepcion st? Yes. DRESSING - UPPER BODY - STEP 2: Does the patient require the assistance of a helper? Yes. DRESSING - UPPER BODY - STEP 3: Does the helper touch the patient while dressing? No. DRESSING - UPPER BODY - SCORE: 5-SUP DRESSING - LOWER BODY: Elastic waist pants (three steps) ARTICLES SCORE Total number of steps: 3 DRESSING - LOWER BODY - STEP 1: Does the patient require help from a person or device, or need extra time when dressing below the concepcion st? Yes. DRESSING - LOWER BODY - STEP 2: Does the patient require the assistance of a helper? Yes. DRESSING - LOWER BODY - STEP 3: Does the helper touch the patient while dressing? Yes. DRESSING - LOWER BODY - STEP 4: How many of the total steps does the patient complete on his/her own? 0 DRESSING - LOWER BODY - STEP 5: Does patient require total assistance for dressing below the waist such as the helper holding clothin g and performing basically all the activities? Yes. DRESSING - LOWER BODY - SCORE: 1-DEP TOILETING: TOILETING - STEP 1: Does the patient require the assistance of a person or device, or need extra time with toileting? Yes . TOILETING - STEP 2: Does the patient require the assistance of a helper? Yes. TOILETING - STEP 3: How much assistance does the patient require from the helper? Hands-on assistance from the helper TOILETING - STEP 4: Of the 3 tasks: 1) Adjusting clothing prior to use, 2) Cleansing of perineal area, 3) Adjusting clot luz marina after use; How many tasks does the patient perform WITHOUT assistance of the helper? No tasks; h ashleyper performs all three tasks TOILETING - SCORE: 1-DEP BLADDER MANAGEMENT: Kyburz removes incontinent device (Depends, pull ups, etc.); cleans the patient after accident / inco ntinent episode; and, applies new incontinent device. BLADDER MANAGEMENT - SCORE: 1-DEP BLADDER MANAGEMENT - FREQUENCY OF ACCIDENTS: BLADDER MANAGEMENT(FA) - STEP 1: How many accidents has the patient had during the current shift? 1 BOWEL MANAGEMENT: BOWEL MANAGEMENT - STEP 1: Does the patient control bowels completely and intentionally without equipment devices or medications AND is always continent? No. BOWEL MANAGEMENT - STEP 2: Does the patient require the assistance of a helper? Yes. BOWEL MANAGEMENT - STEP 3: How much assistance does the patient require from the helper? Patient requires moderate assistance - performs 50% to 74% of bowel management tasks BOWEL MANAGEMENT - SCORE: 3-MOD BOWEL MANAGEMENT - FREQUENCY OF ACCIDENTS: BOWEL MANAGEMENT(FA) - STEP 1: How many accidents has the patient had during the current shift? 0 TRANSFERS: BED, CHAIR, WHEELCHAIR: TRANSFERS: BED, CHAIR, WHEELCHAIR - STEP 1: Does the patient require assitance of a person or device, or need extra time with bed, chair, or whee lchair transfers? Yes. TRANSFERS: BED, CHAIR, WHEELCHAIR - STEP 2: Does the patient require the assistance of a helper? Yes. TRANSFERS: BED, CHAIR, WHEELCHAIR - STEP 3: How much assistance does the patient require from the helper? Lifting of the legs TRANSFERS: BED, CHAIR, WHEELCHAIR - STEP 4: How many legs does the patient require the helper to lift? both legs TRANSFERS: BED, CHAIR, WHEELCHAIR - SCORE: 3-MOD TRANSFERS: TOILET: TRANSFERS: TOILET - STEP 1: Does the patient require the assistance of a person or device, or need extra time with toilet transfe rs? Yes. TRANSFERS: TOILET - STEP 2: Does the patient require the assistance of a helper? Yes. TRANSFERS: TOILET - STEP 3: How much assistance does the patient require from the helper? Patient performs half or more of the tr ansferring tasks TRANSFERS: TOILET - STEP 4: Does the patient need only incidental help such as contact guard or steadying during toilet transfer? Yes. TRANSFERS: TOILET - SCORE: 4-MIN TRANSFERS: SHOWER: Activity did not occur on this shift TRANSFERS: SHOWER - SCORE: 0-UNK TRANSFERS: TUB: Activity did not occur on this shift TRANSFERS: TUB - SCORE: 0-UNK LOCOMOTION: WALK: Activity did not occur on this shift LOCOMOTION: WALK - SCORE: 0-UNK LOCOMOTION: WHEELCHAIR: Activity did not occur on this shift LOCOMOTION: WHEELCHAIR - SCORE: 0-UNK COMPREHENSION: COMPREHENSION: TYPE: Both COMPREHENSION - STEP 1: Does the patient require help from a person or device, or need extra time to understand complex and a bstract ideas (such as current events, finances, discharge planning, medical issues, relationships, e tc)? Yes. COMPREHENSION - STEP 2: Does the patient require help to understand questions or statements about basic needs or ideas (such as hunger, thirst, sleep, safety, daily schedule, room location, or discomfort) half or more of the t chris? No. COMPREHENSION - STEP 3: How often does the patient need help to understand directions and conversation about basic needs? Les s than 10% of the time COMPREHENSION - SCORE: 5-SUP EXPRESSION EXPRESSION: TYPE: Both EXPRESSION - STEP 1: Does the patient require help from a person or device, or need extra time expressing complex and abst ract ideas (such as current events, finances, discharge planning, medical issues, relationships, etc) ? No. EXPRESSION - STEP 2: Does the patient need extra time, require an assistive device (such as augmentive communication syste m or a communication board), OR does s/he have mild difficulty expressing complex and abstract ideas (including mild dysarthria or mild word-find problems)? Yes. EXPRESSION - SCORE: 6-SAMREEN SOCIAL INTERACTION: SOCIAL INTERACTION - STEP 1: Does the patient require a helper to interact with others in social and therapeutic situations? No. SOCIAL INTERACTION - STEP 2: Does the patient need extra time in social situations, OR does s/he interact with staff, other patien ts, and family members ONLY in structured environments, OR does s/he require medication for social in teraction? No. SOCIAL INTERACTION - SCORE: 7-IND PROBLEM SOLVING: PROBLEM SOLVING - STEP 1: Does the patient need help from a person or device, or need extra time to solve complex problems such as managing a checking account or confronting interpersonal problems? No. PROBLEM SOLVING - STEP 2: Does the patient require extra time to make decisions or solve problems, OR does s/he have slight dif ficulty reading, initiating, or self-correcting in unfamiliar situations? Yes, patient needs extra ti me. PROBLEM SOLVING - SCORE: 6-SAMREEN MEMORY: MEMORY - STEP 1: Does the patient need help from a person or device, or need extra time to remember frequently encount ered people, daily routines, and executing requests? No. MEMORY - STEP 2: Does the patient have slight difficulty recognizing frequently encountered people, daily routines, or executing requests without the need for repetition or using self-initiated or environmental cues to remember? Yes. MEMORY - SCORE: 6-SAMREEN SIGNATURE PANEL: The following modified sections: Eating - Score, Grooming - Score, Bathing - Score, Dressing - Upper Body - Score, Toileting - Score, Bladder Management - Score, Bowel Management - Score, Transfers: Bed , Chair, Wheelchair - Score, Transfers: Toilet - Score, Transfers: Shower - Score, Transfers: Tub - S core, Locomotion: Walk - Score, Locomotion: Wheelchair - Score, Comprehension - Score, Expression - S core, Social Interaction - Score, Problem Solving - Score, Memory - Score, Dressing - Lower Body - Sc ore were [electronically] signed by Neha Sanderson C.N.A. on ThuJul 22 2018 14:42:58 GMT-0600 (Cent[place] Standard Time)
--- NOTE | 2018-07-22 15:38 | RAD REPORT ---
EXAM DESCRIPTION: [facility]07/22/2018 3:08 pm CLINICAL HISTORY: left leg pain. COMPARISON: None. FINDINGS: Left common femoral, superficial femoral, popliteal and posterior tibial veins are compre ssible and demonstrate augmentation. Doppler demonstrates good flow. IMPRESSION: No evidence of deep venous thrombosis involving the left lower extremity.
--- NOTE | 2018-07-22 17:50 | P.PN ---
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 SHE IS NOW IN REHAB FOR PT. CHR PAIN. HIP FRACTURE. Review of Systems 10-point ROS is otherwise unremarkable Physical Examination - Vital Signs Temperature: 96.5 F Blood Pressure: 123/58 Pulse: 64 Respirations: 16 Pulse Ox (%): 98 - Physical Exam General: Alert, Mild distress HEENT: Atraumatic, PERRLA, EOMI Neck: Supple, JVD not distended Respiratory: Clear to auscultation bilaterally, Normal air movement Cardiovascular: Regular rate/rhythm, Normal S1 S2 Gastrointestinal: Normal bowel sounds, No tenderness Musculoskeletal: No tenderness Integumentary: No rashes Neurological: Normal speech, Normal tone, Normal affect Lymphatics: No axilla or inguinal lymphadenopathy - Studies Laboratory Data (last 24 hrs) 07/22/18 06:00: Sodium 136, Potassium 3.4 L, BUN 31 H, Creatinine 3.20 H, Glucose 121 H 07/22/18 06:00: WBC 7.0 D, Hgb 9.5 L, Hct 28.2 L, Plt Count 270 Medications List Reviewed: Yes Assessment And Plan - Current Problems (Diagnosis) (1) Closed left hip fracture Onset Date: 07/13/18 Current Visit: No Status: Acute Plan: PT CONSULT DVT PROPHYLAXIS HAD ANEMIA SP SURGERY WILL TRY ORAL AC AGAIN. PT RESUME. 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 STABLE HD TEAM BUSY IN ICU. HD WILL BE DONE TODAY. FAMILY AWARE. Qualifiers: Renal failure chronicity: chronic Chronic kidney disease stage: on chronic dialysis Qualified Code(s): N18.6 - End stage renal disease; Z99.2 - Dependence on renal dialysis
--- NOTE | 2018-07-22 18:03 | R.PN ---
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 SUBJECTIVE: Pt denied any depression. Pt denied any Shortness of Breath. Ambulated 200' with contact guard assistance using a rolling walker. VITAL SIGNS Temperature: 97.6 F SBP/DBP: 123/58 Pulse: 64 Resp: 16 MEDICATION ALLERGIES: No Known Drug Allergies (NKDA) ENVIRONMENTAL ALLERGIES: None Known - Substance Allergies None Known - Other Allergies None Known NURSING: - Shower allowing shower - Skin care per protocol PRECAUTIONS: - Posterior Hip Precaution No adduction across midline No external rotation No hip flexion >90 degrees No internal rotation No wheel chair propulsion - Weight Bearing Precaution WBAT left LE ACTIVITIES OOB only with supervision THERAPIES: - Occupational Therapy Evaluate and Treat. - Physical Therapy Evaluate and Treat. PHYSICAL EXAM - Gen Alert and awake Lying in bed No apparent distress Oriented to: person, time, and place - Skin No breakdown No abnormalities - Eyes No abnormalities - ENMT No abnormalities - Neck No abnormalities - CVS RRR - Chest Clear - Abd + bowel sounds - GI nondistended Deferred - No abnormalities - Ext Left hip surgical site has good hemostasis. - MSK 4+/5 weakness in left lower extremity - Neuro 4/5 strength left lower extremity. - Psych No abnormalities ASSESSMENT: Pt. is a 88 yo Right-handed white female.Her impairment category is Orthopaedic Disorders 08 - Unila teral Hip Fracture (08.11).Pre-morbidly, Pt. was independent/mod-I in Transfers Control, Communicatio n, Social Cognition, Self-Care, Locomotion, and Sphincter Control; and she had good Sphincter Control .Currently, she has deficits of Transfers Control, Balance, Self-Care, Locomotion, Endurance, and Saf ety Awareness.Pt. is now referred to [facility] for acute in-patient rehabilit ation in order to maximize patient's functional independence in activities of daily living, strength, ROM, and mobility.- Rehab Goal Patient has realistic goal of being discharged at assistance level 6-Malika to reside at Home with Fam kinjal/Relatives. MDM/PLAN: - Physical Therapy Decreased range of motion - to improve, our physical therapists will perform initial evaluation of p t's status upon admission and devise an individualized program for increasing patient's Range of Luis Manuel on. Gait dysfunction - to improve, our physical therapists will perform initial evaluation of pt's statu s upon admission and devise an individualized program for Gait Training, and Wheel Chair mobility Inability to transfer - to improve, our physical therapists will perform initial evaluation of pt's status upon admission and devise an individualized program for Bed mobility Need for home safety evaluation - to improve, our physical therapists will perform initial evaluatio n of pt's status upon admission and devise an individualized program for Home Evaluation Need in caregiver upon discharge - to improve, our physical therapists will perform initial evaluati on of pt's status upon admission and devise an individualized program for Caregiver Training New precaution - to improve, our physical therapists will perform initial evaluation of pt's status upon admission and devise an individualized program for Patient precaution education Poor balance - to improve, our physical therapists will perform initial evaluation of pt's status up on admission and devise an individualized program for Balance Training Poor endurance - to improve, our physical therapists will perform initial evaluation of pt's status upon admission and devise an individualized program for Endurance Training Weakness - to improve, our physical therapists will perform initial evaluation of pt's status upon a dmission and devise an individualized program for Aquatic Therapy, Neuromuscular Reeducation, and Str engthening Achieving independence - to improve, our physical therapists will perform initial evaluation of pt's status upon admission and devise an individualized program for Community Reintegration Activities - Occupational Therapy ADL deficits - to improve, our occupation therapists will perform initial evaluation of pt's status upon admission and devise an individualized program for Bathing, Bed mobility, Community Reintegratio n, Cooking, Dressing, Eating, Fine Motor Skills, Grooming, Homemaking, Kitchen Mobility, Laundry, Pat ient Education, Safety Awareness, Splinting - Positioning, Transfers(Toilet, Tub, Shower), and Wheel Chair Management Need for managed care coordinator - to improve, our occupation therapists will perform initial evaluation of pt's status upon admission and devise an individualized program for Caregiver Training Weakness - to improve, our occupation therapists will perform initial evaluation of pt's status upon admission and devise an individualized program for Aquatic Therapy, Balance, Endurance, UE ROM, and UE strengthening - Anterior Hip Precaution No abduction No active extension No adduction across midline No external rotation No hip flexion >90 degrees No internal rotation - Diet - Liquid Texture Continue Regular - Tube Feed Continue N/A - Diet Type Continue Regular - Posterior Hip Precaution No adduction across midline No external rotation No hip flexion >90 degrees No internal rotation No wheel chair propulsion - Weight Bearing Precaution WBAT left LE - Skin care per protocol - Diet - Solid Texture Continue Regular - Shower allowing shower FUNCTIONAL STATUS: UPDATED AT WEEKLY TEAM CONFERENCE - Bladder Same accident frequency: 7-Ind - No accidents in the past 7 days - Bowel Same accident frequency: 7-Ind - No accidents in the past 7 days - Walking Same score based on distance walked: 1(<=50ft) - Wheelchair Same score based on distance traveled: 0(N/A) FUNCTIONAL STATUS: - Self-Care A. Eating sup B. Grooming sup C. Bathing Jackie D. Dressing - Upper Jackie E. Dressing - Lower Jackie F. Toileting Jackie - Sphincter Control G: Bladder control Ind H: Bowel control Ind - Transfers Control I. Bed/Chair/Wheelchair maxA J. Toilet maxA K. Tub/Shower Ind - Locomotion L. Walk/Wheelchair (C) modA L. Walk/Wheelchair (W) modA M. Stairs ADNO - Communication N. Comprehension (B) Malika O. Expression (B) Malika - Social Cognition P. Social Interaction Malika Q. Problem Solving Malika R. Memory Malika - Endurance Fair - Balance Fair - Safety Awareness Fair CURRENT FUNC. 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
[2018-07-22] MEDS: DOCUSATE NA/SENNA CONC 1 TAB PO SCH (20:10)
[2018-07-22] MEDS: MELATONIN 3 MG TABLET PO PRN (20:11)
[2018-07-22] MEDS: ATORVASTATIN 20 MG TAB PO SCH (20:11)
[2018-07-23] MEDS: HYDROCODONE/APAP 5/325 MG TAB PO PRN ×2 (03:42→08:16)
[2018-07-23] MEDS: LEVOTHYROXINE SOD 0.125 MG TAB PO SCH (05:39)
[2018-07-23] MEDS: LIDOCAINE 5% PATCH TOP SCH (08:15)
[2018-07-23] MEDS: HEPARIN 5000 UNIT/ML 1 ML VIAL SQ SCH ×2 (08:16→20:00)
[2018-07-23] MEDS: NEPRO SHAKE 237 ML CAN PO SCH ×2 (08:17→19:28)
[2018-07-23] MEDS: CLOPIDOGREL 75 MG TABLET PO SCH (08:17)
[2018-07-23] MEDS: FERROUS SULFATE 325 MG TAB PO SCH (08:17)
[2018-07-23] MEDS: FE SULF/FA/VIT B COMP & C TAB PO SCH (08:17)
[2018-07-23] MEDS: PANTOPRAZOLE 40MG TABLET PO SCH (08:17)
[2018-07-23] MEDS: GABAPENTIN 300 MG CAP PO SCH ×2 (08:17→19:27)
[2018-07-23] MEDS: PROMOD 30 ML DOSE PO SCH ×2 (08:18→19:28)
--- NOTE | 2018-07-23 09:27 | P.RH.PN ---
Estimated Length of Stay: 14 Expected Discharge Date: 08/02/18 Discharge Disposition Plan: Home Family Support: Yes Fdc Goal: Mobility, Transfers, Self Care Vital Signs: Last Vital Signs Temp 97 F 07/23/18 06:43 Pulse 69 07/23/18 06:43 Resp 16 07/23/18 06:43 BP 133/64 07/23/18 06:43 Pulse Ox 97 07/23/18 06:43 Laboratory: Laboratory Last Values WBC 7.0 K/uL (4.3-10.9) D 07/22/18 06:00 RBC 3.08 M/uL (3.86-4.86) L 07/22/18 06:00 Hgb 9.5 g/dL (12.0-15.0) L 07/22/18 06:00 Hct 28.2 % (36.0-45.0) L 07/22/18 06:00 MCV 91.4 fL (80-100) 07/22/18 06:00 MCH 30.8 pg (27.0-35.0) 07/22/18 06:00 MCHC 33.7 g/dL (32.0-36.0) 07/22/18 06:00 RDW 15.3 % (12.1-15.2) H 07/22/18 06:00 Plt Count 270 K/uL (152-406) 07/22/18 06:00 MPV 8.7 fL (7.6-11.3) 07/22/18 06:00 Neutrophils % 69.2 % (41.7-73.7) 07/22/18 06:00 Lymphocytes % 13.4 % (15.3-44.8) L 07/22/18 06:00 Monocytes % 14.4 % (3.3-12.3) H 07/22/18 06:00 Eosinophils % 2.3 % (0-4.4) 07/22/18 06:00 Basophils % 0.7 % (0-1.3) 07/22/18 06:00 Absolute Neutrophils 4.8 K/uL (1.8-8.0) 07/22/18 06:00 Absolute Lymphocytes 0.9 K/uL (0.7-4.9) 07/22/18 06:00 Absolute Monocytes 1.0 K/uL (0.1-1.3) 07/22/18 06:00 Absolute Eosinophils 0.2 K/uL (0-0.5) 07/22/18 06:00 Absolute Basophils 0.0 K/uL (0-0.5) 07/22/18 06:00 Sodium 136 mmol/L (136-145) 07/22/18 06:00 Potassium 3.4 mmol/L (3.5-5.1) L 07/22/18 06:00 Chloride 100 mmol/L (98-107) 07/22/18 06:00 Carbon Dioxide 26 mmol/L (21-32) 07/22/18 06:00 BUN 31 mg/dL (7-18) H 07/22/18 06:00 Creatinine 3.20 mg/dL (0.55-1.3) H 07/22/18 06:00 Estimated GFR 14 mL/min (=/>90) L 07/22/18 06:00 Glucose 121 mg/dL (74-106) H 07/22/18 06:00 Calcium 8.0 mg/dL (8.5-10.1) L 07/22/18 06:00 Magnesium 2.2 mg/dL (1.8-2.4) 07/21/18 06:00 Albumin 2.3 g/dL (3.4-5.0) L 07/22/18 06:00 Prealbumin 10.5 mg/dL (20-40) L 07/22/18 06:00 Urine Color Yellow 07/21/18 00:10 Urine Appearance Cloudy 07/21/18 00:10 Urine pH 8.0 (5.0-7.0) H 07/21/18 00:10 Ur Specific [place] 1.010 (1.005-1.030) 07/21/18 00:10 Urine Ketones 1+ (NEG) H 07/21/18 00:10 Urine Blood 2+ (NEG) H 07/21/18 00:10 Urine Nitrite Negative (NEG) 07/21/18 00:10 Urine Bilirubin Negative (NEG) 07/21/18 00:10 Urine Urobilinogen 0.2 mg/dL (0.2-1.0) 07/21/18 00:10 Ur Leukocyte Esterase 3+ (NEG) H 07/21/18 00:10 Urine RBC <5 /HPF (NONE SEEN) 07/21/18 00:10 Urine WBC 5-10 /HPF (<5) H 07/21/18 00:10 Ur Squamous Epith Cells <5 /HPF (NONE SEEN) 07/21/18 00:10 Amorphous Sediment 1+ /HPF (NONE SEEN) 07/21/18 00:10 Urine Bacteria 20-50 /HPF (<20) H 07/21/18 00:10 Urine Culture Reflexed Not needed 07/21/18 00:10 Urine Glucose Trace (NEG) 07/21/18 00:10 Urine Total Protein 2+ (NEG) H 07/21/18 00:10 Weight: 111 lb Wound Present: No Closed Surgical Incision Present: Yes Negative Pressure Wound Therapy Present: No Physician Update: Her labs have been reviewed. Hgb 9.5, prelabumin 10.5. Her UA and urine cultures appear positive, taken on admission. She has significant cognitive symptoms of confusion, disorientation for date, month, year, location suggesting a clinical UTI. Increase fluids, cranberry 400 mg twice daily, Cipro 500 mg bid for 7 days. She is doing poorly with speech, occupational and physical therapy. She was up all last night due to late dialysis. Medication Issues: DVT Prophylaxis - Heparin 5,000 unit SQ Q12H Pain Issues: [place]re 5/325mg Q4H PRN. Lidoderm patch 5% Daily. Tramadol 50mg Q6H PRN Functional Improvement Occupational Therapy: CONTINUES WITH SHORT TERM MEMORY DIFFICULTIES AND WORD FINDING. Summary: Patient's care plan and fdc goals have been reviewed and revised as necessary. Please see the Rehabilitation Signature page for all necessary signatures.
[2018-07-23] MEDS: TRAMADOL HCL 50 MG TAB PO PRN (11:36)
[2018-07-23] MEDS ORDERED: BISACODYL 10 MG RECTAL SUPP PR PRN (13:21)
--- NOTE | 2018-07-23 13:24 | FAST ---
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 Joselo Diaz M.D. ADMISSION DIAGNOSIS: - Orthopaedic Disorders 08 - Unilateral Hip Fracture (08.11) LEFT INTERTROCHANTERIC FEMUR FRACTURE. EATING: EATING - STEP 1: Does the patient require the assistance of a person or device, or need extra time when eating? Yes. EATING - STEP 2: Does the patient require the assistance of a helper? Yes. EATING - STEP 3: Does the patient perform half or more of the eating tasks? Yes. EATING - STEP 4: Does the patient need only supervision, cuing, coaxing OR help to apply an orthosis OR help to cut fo od, open containers, pour liquids, or butter bread? Yes. EATING - SCORE: 5-SUP GROOMING: Comb/brush hair Wash, rinse, and dry face GROOMING - STEP 1: Does the patient require the assistance of a person or device, or need extra time when grooming? Yes. GROOMING - STEP 2: Does the patient require the assistance of a helper? No. The patient only requires an assistive devic e, OR takes more than reasonable time to groom, OR there is a concern for safety as the patient groom s GROOMING - SCORE: 6-SAMREEN BATHING: Activity did not occur on this shift BATHING - SCORE: 0-UNK DRESSING - UPPER BODY: Sweater (four steps) ARTICLES SCORE Total number of steps: 4 DRESSING - UPPER BODY - STEP 1: Does the patient require help from a person or device, or need extra time when dressing above the concepcion st? Yes. DRESSING - UPPER BODY - STEP 2: Does the patient require the assistance of a helper? Yes. DRESSING - UPPER BODY - STEP 3: Does the helper touch the patient while dressing? Yes. DRESSING - UPPER BODY - STEP 4: How many of the total steps does the patient complete on his/her own? 4 DRESSING - UPPER BODY - SCORE: 4-MIN DRESSING - LOWER BODY: Elastic waist pants (three steps) ARTICLES SCORE Total number of steps: 3 DRESSING - LOWER BODY - STEP 1: Does the patient require help from a person or device, or need extra time when dressing below the concepcion st? Yes. DRESSING - LOWER BODY - STEP 2: Does the patient require the assistance of a helper? Yes. DRESSING - LOWER BODY - STEP 3: Does the helper touch the patient while dressing? Yes. DRESSING - LOWER BODY - STEP 4: How many of the total steps does the patient complete on his/her own? 0 DRESSING - LOWER BODY - STEP 5: Does patient require total assistance for dressing below the waist such as the helper holding clothin g and performing basically all the activities? Yes. DRESSING - LOWER BODY - SCORE: 1-DEP TOILETING: TOILETING - STEP 1: Does the patient require the assistance of a person or device, or need extra time with toileting? Yes . TOILETING - STEP 2: Does the patient require the assistance of a helper? Yes. TOILETING - STEP 3: How much assistance does the patient require from the helper? Hands-on assistance from the helper TOILETING - STEP 4: Of the 3 tasks: 1) Adjusting clothing prior to use, 2) Cleansing of perineal area, 3) Adjusting clot luz marina after use; How many tasks does the patient perform WITHOUT assistance of the helper? No tasks; h sharath performs all three tasks TOILETING - SCORE: 1-DEP BLADDER MANAGEMENT: [place] removes incontinent device (Depends, pull ups, etc.); cleans the patient after accident / inco ntinent episode; and, applies new incontinent device. BLADDER MANAGEMENT - SCORE: 1-DEP BLADDER MANAGEMENT - FREQUENCY OF ACCIDENTS: BLADDER MANAGEMENT(FA) - STEP 1: How many accidents has the patient had during the current shift? 1 BOWEL MANAGEMENT: Activity did not occur on this shift BOWEL MANAGEMENT - SCORE: 7-IND BOWEL MANAGEMENT - FREQUENCY OF ACCIDENTS: BOWEL MANAGEMENT(FA) - STEP 1: How many accidents has the patient had during the current shift? 0 TRANSFERS: BED, CHAIR, WHEELCHAIR: TRANSFERS: BED, CHAIR, WHEELCHAIR - STEP 1: Does the patient require assitance of a person or device, or need extra time with bed, chair, or whee lchair transfers? Yes. TRANSFERS: BED, CHAIR, WHEELCHAIR - STEP 2: Does the patient require the assistance of a helper? Yes. TRANSFERS: BED, CHAIR, WHEELCHAIR - STEP 3: How much assistance does the patient require from the helper? Lifting of the patient TRANSFERS: BED, CHAIR, WHEELCHAIR - STEP 4: Does the helper lift the patient ONLY up? ONLY down? Up AND Down? Up AND Down. TRANSFERS: BED, CHAIR, WHEELCHAIR - SCORE: 2-MAX TRANSFERS: TOILET: TRANSFERS: TOILET - STEP 1: Does the patient require the assistance of a person or device, or need extra time with toilet transfe rs? Yes. TRANSFERS: TOILET - STEP 2: Does the patient require the assistance of a helper? Yes. TRANSFERS: TOILET - STEP 3: How much assistance does the patient require from the helper? Patient performs half or more of the tr ansferring tasks TRANSFERS: TOILET - STEP 4: Does the patient need only incidental help such as contact guard or steadying during toilet transfer? No. Patient needs more than incidental help TRANSFERS: TOILET - SCORE: 3-MOD TRANSFERS: SHOWER: Activity did not occur on this shift TRANSFERS: SHOWER - SCORE: 0-UNK TRANSFERS: TUB: Activity did not occur on this shift TRANSFERS: TUB - SCORE: 0-UNK LOCOMOTION: WALK: Activity did not occur on this shift LOCOMOTION: WALK - SCORE: 0-UNK LOCOMOTION: WHEELCHAIR: Activity did not occur on this shift LOCOMOTION: WHEELCHAIR - SCORE: 0-UNK COMPREHENSION: COMPREHENSION: TYPE: Both COMPREHENSION - STEP 1: Does the patient require help from a person or device, or need extra time to understand complex and a bstract ideas (such as current events, finances, discharge planning, medical issues, relationships, e tc)? Yes. COMPREHENSION - STEP 2: Does the patient require help to understand questions or statements about basic needs or ideas (such as hunger, thirst, sleep, safety, daily schedule, room location, or discomfort) half or more of the t chris? Yes. COMPREHENSION - STEP 3: Is the patient basically able to understand and respond appropriately and consistently? Yes. COMPREHENSION - SCORE: 2-MAX EXPRESSION EXPRESSION: TYPE: Both EXPRESSION - STEP 1: Does the patient require help from a person or device, or need extra time expressing complex and abst ract ideas (such as current events, finances, discharge planning, medical issues, relationships, etc) ? Yes. EXPRESSION - STEP 2: Does the patient require help to express basic necessities or ideas (such as hunger, thirst, sleep, s afety, daily schedule, room location, or discomfort) half or more of the time? No. EXPRESSION - STEP 3: How often does the patient need help to express directions and conversation about basic needs? 10-24% of the time EXPRESSION - SCORE: 4-MIN SOCIAL INTERACTION: SOCIAL INTERACTION - STEP 1: Does the patient require a helper to interact with others in social and therapeutic situations? No. SOCIAL INTERACTION - STEP 2: Does the patient need extra time in social situations, OR does s/he interact with staff, other patien ts, and family members ONLY in structured environments, OR does s/he require medication for social in teraction? Yes, patient needs extra time SOCIAL INTERACTION - SCORE: 6-SAMREEN PROBLEM SOLVING: PROBLEM SOLVING - STEP 1: Does the patient need help from a person or device, or need extra time to solve complex problems such as managing a checking account or confronting interpersonal problems? Yes. PROBLEM SOLVING - STEP 2: Does the patient solve basic routine problems half or more of the time? Yes. PROBLEM SOLVING - STEP 3: How often does the patient need help to solve basic routine problems? 10%-24% of the time PROBLEM SOLVING - SCORE: 4-MIN MEMORY: MEMORY - STEP 1: Does the patient need help from a person or device, or need extra time to remember frequently encount ered people, daily routines, and executing requests? Yes. MEMORY - STEP 2: How often does the patient need help to remember frequently encountered people, daily routines, and e xecuting requests? 10% - 24% of the time MEMORY - SCORE: 4-MIN SIGNATURE PANEL: The following modified sections: Eating - Score, Grooming - Score, Bathing - Score, Dressing - Upper Body - Score, Dressing - Lower Body - Score, Toileting - Score, Bladder Management - Score, Bowel Man agement - Score, Transfers: Bed, Chair, Wheelchair - Score, Transfers: Toilet - Score, Transfers: Mora wer - Score, Transfers: Tub - Score, Locomotion: Walk - Score, Locomotion: Wheelchair - Score, Compre hension - Score, Expression - Score, Social Interaction - Score, Problem Solving - Score, Memory - Sc ore were [electronically] signed by Neha Sanderson C.N.A. on ThuJul 23 2018 13:23:55 T-0600 (Cent[facility] Standard Time)
--- NOTE | 2018-07-23 13:28 | P.PN ---
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 SHE IS NOW IN REHAB FOR PT. CHR PAIN. HIP FRACTURE. BILAT SWELLING. CONSTIPATION BETTER. Review of Systems 10-point ROS is otherwise unremarkable General: Weakness, Malaise Physical Examination - Vital Signs Temperature: 97 F Blood Pressure: 133/64 Pulse: 69 Respirations: 16 Pulse Ox (%): 97 - Physical Exam General: Alert, Mild distress HEENT: Atraumatic, PERRLA, EOMI Neck: Supple, JVD not distended Respiratory: Clear to auscultation bilaterally, Normal air movement Cardiovascular: Edema Gastrointestinal: Normal bowel sounds, No tenderness Musculoskeletal: No tenderness Integumentary: No rashes Neurological: Normal speech, Normal tone, Normal affect Lymphatics: No axilla or inguinal lymphadenopathy - Studies Microbiology Data (last 24 hrs): 07/21/18 00:10 Clean Catch Urine [place] Count - Final >100,000 CFU/ML. 07/21/18 00:10 Clean Catch Urine - Final Escherichia Coli Medications List Reviewed: Yes Assessment And Plan - Current Problems (Diagnosis) (1) Closed left hip fracture Onset Date: 07/13/18 Current Visit: No Status: Acute Plan: PT CONSULT DVT PROPHYLAXIS HAD ANEMIA SP SURGERY WILL TRY ORAL AC AGAIN. PT RESUME. 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 STABLE HD TEAM BUSY IN ICU. HD WILL BE DONE TODAY. FAMILY AWARE. HD DONE LATE LAST NIGHT. Qualifiers: Renal failure chronicity: chronic Chronic kidney disease stage: on chronic dialysis Qualified Code(s): N18.6 - End stage renal disease; Z99.2 - Dependence on renal dialysis
[2018-07-23] MEDS: CIPROFLOXACIN HCL 500 MG TAB PO SCH (19:27)
[2018-07-23] MEDS: CRANBERRY FRUIT EXTRACT 200 MG CAP PO SCH (19:28)
[2018-07-23] MEDS ORDERED: MAGNESIUM OXIDE 400 MG TAB PO SCH (20:00)
[2018-07-23] MEDS: DOCUSATE NA/SENNA CONC 1 TAB PO SCH (20:16)
[2018-07-23] MEDS: ATORVASTATIN 20 MG TAB PO SCH (20:16)
--- NOTE | 2018-07-23 20:38 | P.PN ---
Subjective Date of Service: 07/22/18 Chief Complaint: HIP FRACTURE Subjective: No new changes, Improving No new complaints participating in PT/OT pain control Cont HD ttsat Physical Examination - Vital Signs Temperature: 97.6 F Blood Pressure: 127/61 Pulse: 74 Respirations: 16 Pulse Ox (%): 95 - Physical Exam General: Oriented x3 HEENT: Atraumatic Neck: Supple, Without JVD or thyroid abnormality Respiratory: Clear to auscultation bilaterally, Normal air movement Cardiovascular: Edema Gastrointestinal: Normal bowel sounds, Soft and benign, Non-distended - Studies Microbiology Data (last 24 hrs): 07/21/18 00:10 Clean Catch Urine [place] Count - Final >100,000 CFU/ML. 07/21/18 00:10 Clean Catch Urine - Final Escherichia Coli Medications List Reviewed: Yes Assessment And Plan - Current Problems (Diagnosis) (1) Closed left hip fracture Onset Date: 07/13/18 Current Visit: No Status: Acute Qualifiers: Encounter type: subsequent encounter (2) ESRD (end stage renal disease) Current Visit: No Status: Chronic (3) GI malignancy Onset Date: 07/13/18 Current Visit: No Status: Chronic - Plan 1.End-stage renal disease. HD TTsat renal diet renal dose all meds 2.Anemia in chronic kidney disease. Continue FANI. 3.Renal osteodystrophy. Continue renal diet and binders. 4.Hypertension. BP med on hold as BP was on borderline 5. Lt hip Fracture S/P Surgical intervention 6.hypothyrodism restart synthroid 7.colon Ca followed by GI as an OP not candidate for chemo or surgical intervention
--- NOTE | 2018-07-23 20:44 | P.PN ---
Subjective Date of Service: 07/22/18 Chief Complaint: HIP FRACTURE No new complaints participating in PT/OT will cont HD TTsat Cont FANI Physical Examination - Vital Signs Temperature: 97.6 F Blood Pressure: 127/61 Pulse: 74 Respirations: 16 Pulse Ox (%): 95 - Physical Exam General: Oriented x3 HEENT: Atraumatic Neck: Without JVD or thyroid abnormality Respiratory: Clear to auscultation bilaterally, Normal air movement Cardiovascular: No edema, Normal S1 S2 Gastrointestinal: Normal bowel sounds - Studies Microbiology Data (last 24 hrs): 07/21/18 00:10 Clean Catch Urine [place] Count - Final >100,000 CFU/ML. 07/21/18 00:10 Clean Catch Urine - Final Escherichia Coli Medications List Reviewed: Yes Assessment And Plan - Current Problems (Diagnosis) (1) Closed left hip fracture Onset Date: 07/13/18 Current Visit: No Status: Acute Qualifiers: Encounter type: subsequent encounter (2) ESRD (end stage renal disease) Current Visit: No Status: Chronic (3) GI malignancy Onset Date: 07/13/18 Current Visit: No Status: Chronic - Plan 1.End-stage renal disease. HD TTsat renal diet renal dose all meds 2.Anemia in chronic kidney disease. Continue FANI. 3.Renal osteodystrophy. Continue renal diet and binders. 4.Hypertension. BP med on hold as BP was on borderline 5. Lt hip Fracture S/P Surgical intervention 6.hypothyrodism restart synthroid 7.colon Ca followed by GI as an OP not candidate for chemo or surgical intervention
[2018-07-24] MEDS: PANTOPRAZOLE 40MG TABLET PO SCH (07:17)
[2018-07-24] MEDS: LEVOTHYROXINE SOD 0.125 MG TAB PO SCH (07:19)
[2018-07-24] MEDS: FE SULF/FA/VIT B COMP & C TAB PO SCH (08:14)
[2018-07-24] MEDS: POLYETHYL GLY 3350 17 GM/DOSE PO SCH (08:14)
[2018-07-24] MEDS: CIPROFLOXACIN HCL 500 MG TAB PO SCH ×2 (08:14→22:30)
[2018-07-24] MEDS: LIDOCAINE 5% PATCH TOP SCH (08:14)
[2018-07-24] MEDS: GABAPENTIN 300 MG CAP PO SCH ×2 (08:14→22:30)
[2018-07-24] MEDS: CLOPIDOGREL 75 MG TABLET PO SCH (08:14)
[2018-07-24] MEDS: CRANBERRY FRUIT EXTRACT 200 MG CAP PO SCH ×2 (08:14→22:30)
[2018-07-24] MEDS: FERROUS SULFATE 325 MG TAB PO SCH (08:14)
[2018-07-24] MEDS: HYDROCODONE/APAP 5/325 MG TAB PO PRN ×2 (08:14→22:29)
[2018-07-24] MEDS: NEPRO SHAKE 237 ML CAN PO SCH ×2 (08:15→20:00)
[2018-07-24] MEDS: PROMOD 30 ML DOSE PO SCH ×2 (08:15→22:29)
[2018-07-24] MEDS: HEPARIN 5000 UNIT/ML 1 ML VIAL SQ SCH ×2 (08:39→22:30)
--- NOTE | 2018-07-24 09:29 | FAST ---
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 Joselo Diaz M.D. ADMISSION DIAGNOSIS: - Orthopaedic Disorders 08 - Unilateral Hip Fracture (08.11) LEFT INTERTROCHANTERIC FEMUR FRACTURE. EATING: EATING - STEP 1: Does the patient require the assistance of a person or device, or need extra time when eating? Yes. EATING - STEP 2: Does the patient require the assistance of a helper? Yes. EATING - STEP 3: Does the patient perform half or more of the eating tasks? Yes. EATING - STEP 4: Does the patient need only supervision, cuing, coaxing OR help to apply an orthosis OR help to cut fo od, open containers, pour liquids, or butter bread? Yes. EATING - SCORE: 5-SUP GROOMING: Comb/brush hair Oral care Wash, rinse, and dry face Wash, rinse, and dry hands GROOMING - STEP 1: Does the patient require the assistance of a person or device, or need extra time when grooming? Yes. GROOMING - STEP 2: Does the patient require the assistance of a helper? Yes. GROOMING - STEP 3: How much assistance does the patient require from the helper? Only prior equipment preparation/set up from the helper GROOMING - SCORE: 5-SUP BATHING: Activity did not occur on this shift BATHING - SCORE: 0-UNK DRESSING - UPPER BODY: Bra (three steps) T-shirt/pullover shirt (four steps) ARTICLES SCORE Total number of steps: 7 DRESSING - UPPER BODY - STEP 1: Does the patient require help from a person or device, or need extra time when dressing above the concepcion st? Yes. DRESSING - UPPER BODY - STEP 2: Does the patient require the assistance of a helper? Yes. DRESSING - UPPER BODY - STEP 3: Does the helper touch the patient while dressing? Yes. DRESSING - UPPER BODY - STEP 4: How many of the total steps does the patient complete on his/her own? 4 DRESSING - UPPER BODY - SCORE: 3-MOD DRESSING - LOWER BODY: ARTICLES SCORE Total number of steps: 3 DRESSING - LOWER BODY - STEP 1: Does the patient require help from a person or device, or need extra time when dressing below the concepcion st? Yes. DRESSING - LOWER BODY - STEP 2: Does the patient require the assistance of a helper? Yes. DRESSING - LOWER BODY - STEP 3: Does the helper touch the patient while dressing? Yes. DRESSING - LOWER BODY - STEP 4: How many of the total steps does the patient complete on his/her own? 2 DRESSING - LOWER BODY - SCORE: 3-MOD TOILETING: TOILETING - STEP 1: Does the patient require the assistance of a person or device, or need extra time with toileting? Yes . TOILETING - STEP 2: Does the patient require the assistance of a helper? Yes. TOILETING - STEP 3: How much assistance does the patient require from the helper? Hands-on assistance from the helper TOILETING - STEP 4: Of the 3 tasks: 1) Adjusting clothing prior to use, 2) Cleansing of perineal area, 3) Adjusting clot luz marina after use; How many tasks does the patient perform WITHOUT assistance of the helper? One task TOILETING - SCORE: 2-MAX BLADDER MANAGEMENT: BLADDER MANAGEMENT - STEP 1: Does the patient control the bladder completely and intentionally without equipment or devices or med ications, and is always continent? No. BLADDER MANAGEMENT - STEP 2: Does the patient require the assistance of a helper? No, patient requires and independently uses an a ssistive device, such as a urinal, bedpan, bedside commode, catheter, absorbent pad, or collecting de vice BLADDER MANAGEMENT - SCORE: 6-SAMREEN BLADDER MANAGEMENT - FREQUENCY OF ACCIDENTS: BLADDER MANAGEMENT(FA) - STEP 1: How many accidents has the patient had during the current shift? 1 BOWEL MANAGEMENT: Activity did not occur on this shift BOWEL MANAGEMENT - SCORE: 7-IND TRANSFERS: BED, CHAIR, WHEELCHAIR: TRANSFERS: BED, CHAIR, WHEELCHAIR - STEP 1: Does the patient require assitance of a person or device, or need extra time with bed, chair, or whee lchair transfers? Yes. TRANSFERS: BED, CHAIR, WHEELCHAIR - STEP 2: Does the patient require the assistance of a helper? Yes. TRANSFERS: BED, CHAIR, WHEELCHAIR - STEP 3: How much assistance does the patient require from the helper? Lifting of the patient TRANSFERS: BED, CHAIR, WHEELCHAIR - STEP 4: Does the helper lift the patient ONLY up? ONLY down? Up AND Down? Up AND Down. TRANSFERS: BED, CHAIR, WHEELCHAIR - SCORE: 2-MAX TRANSFERS: TOILET: TRANSFERS: TOILET - STEP 1: Does the patient require the assistance of a person or device, or need extra time with toilet transfe rs? Yes. TRANSFERS: TOILET - STEP 2: Does the patient require the assistance of a helper? Yes. TRANSFERS: TOILET - STEP 3: How much assistance does the patient require from the helper? Patient performs less than half of the transferring tasks TRANSFERS: TOILET - STEP 4: Does the patient require total assistance for the toilet transfer such as the helper doing basically all the lifting? No. TRANSFERS: TOILET - SCORE: 2-MAX TRANSFERS: SHOWER: Activity did not occur on this shift TRANSFERS: SHOWER - SCORE: 0-UNK TRANSFERS: TUB: Activity did not occur on this shift TRANSFERS: TUB - SCORE: 0-UNK LOCOMOTION: WALK: Activity did not occur on this shift LOCOMOTION: WALK - SCORE: 0-UNK LOCOMOTION: WHEELCHAIR: Activity did not occur on this shift LOCOMOTION: WHEELCHAIR - SCORE: 0-UNK COMPREHENSION: COMPREHENSION: TYPE: Both COMPREHENSION - STEP 1: Does the patient require help from a person or device, or need extra time to understand complex and a bstract ideas (such as current events, finances, discharge planning, medical issues, relationships, e tc)? Yes. COMPREHENSION - STEP 2: Does the patient require help to understand questions or statements about basic needs or ideas (such as hunger, thirst, sleep, safety, daily schedule, room location, or discomfort) half or more of the t chris? No. COMPREHENSION - STEP 3: How often does the patient need help to understand directions and conversation about basic needs? 25% - 49% of the time COMPREHENSION - SCORE: 3-MOD EXPRESSION EXPRESSION: TYPE: Both EXPRESSION - STEP 1: Does the patient require help from a person or device, or need extra time expressing complex and abst ract ideas (such as current events, finances, discharge planning, medical issues, relationships, etc) ? Yes. EXPRESSION - STEP 2: Does the patient require help to express basic necessities or ideas (such as hunger, thirst, sleep, s afety, daily schedule, room location, or discomfort) half or more of the time? No. EXPRESSION - STEP 3: How often does the patient need help to express directions and conversation about basic needs? 25-49% of the time EXPRESSION - SCORE: 3-MOD SOCIAL INTERACTION: SOCIAL INTERACTION - STEP 1: Does the patient require a helper to interact with others in social and therapeutic situations? Yes. SOCIAL INTERACTION - STEP 2: Does the patient interact appropriately half or more of the time? Yes. SOCIAL INTERACTION - STEP 3: How often does the patient need help to interact appropriately? 25-49% of the time SOCIAL INTERACTION - SCORE: 3-MOD PROBLEM SOLVING: PROBLEM SOLVING - STEP 1: Does the patient need help from a person or device, or need extra time to solve complex problems such as managing a checking account or confronting interpersonal problems? Yes. PROBLEM SOLVING - STEP 2: Does the patient solve basic routine problems half or more of the time? No. PROBLEM SOLVING - STEP 3: Does the patient need help to solve problems all the time or is s/he unable to solve problems? No. Emiliano sandoval can sometimes solve problems PROBLEM SOLVING - SCORE: 2-MAX MEMORY: MEMORY - STEP 1: Does the patient need help from a person or device, or need extra time to remember frequently encount ered people, daily routines, and executing requests? Yes. MEMORY - STEP 2: How often does the patient need help to remember frequently encountered people, daily routines, and e xecuting requests? More than 50% of the time MEMORY - STEP 3: Does the patient need help to remember all of the time OR does s/he not effectively recognize and rem ember? No. Patient does not need help all the time MEMORY - SCORE: 2-MAX SIGNATURE PANEL: The following modified sections: Eating - Score, Grooming - Score, Bathing - Score, Dressing - Upper Body - Score, Dressing - Lower Body - Score, Toileting - Score, Bladder Management - Score, Bowel Man agement - Score, Transfers: Bed, Chair, Wheelchair - Score, Transfers: Toilet - Score, Transfers: Mora wer - Score, Transfers: Tub - Score, Locomotion: Walk - Score, Locomotion: Wheelchair - Score, Compre hension - Score, Expression - Score, Social Interaction - Score, Problem Solving - Score, Memory - Sc ore were [electronically] signed by Skyler Novak on Sat Jul 24 2018 09:28:35 GMT-0600 (Central Standard Time)
--- NOTE | 2018-07-24 10:03 | FAST ---
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 Joselo Diaz M.D. ADMISSION DIAGNOSIS: - Orthopaedic Disorders 08 - Unilateral Hip Fracture (08.) LEFT INTERTROCHANTERIC FEMUR FRACTURE. EATING: EATING - STEP 1: Does the patient require the assistance of a person or device, or need extra time when eating? No. EATING - SCORE: 7-IND GROOMING: GROOMING - STEP 1: Does the patient require the assistance of a person or device, or need extra time when grooming? Yes. GROOMING - STEP 2: Does the patient require the assistance of a helper? Yes. GROOMING - STEP 3: How much assistance does the patient require from the helper? Only prior equipment preparation/set up from the helper GROOMING - SCORE: 5-SUP BATHING: Abdomen Buttocks Chest Left arm Left lower leg and foot Left upper leg Perineal area Right arm Right lower leg and foot Right upper leg BATHING - STEP 1: Does the patient require the assistance of a person or device, or need extra time when bathing? Yes. BATHING - STEP 2: Does the patient require the assistance of a helper? Yes. BATHING - STEP 3: How much assistance does the patient require from the helper? More than just incidental help BATHING - STEP 4: What percent of the body parts did the patient bathe WITHOUT the helper? Half or more of the body par ts BATHING - SCORE: 3-MOD DRESSING - UPPER BODY: T-shirt/pullover shirt (four steps) ARTICLES SCORE Total number of steps: 4 DRESSING - UPPER BODY - STEP 1: Does the patient require help from a person or device, or need extra time when dressing above the concepcion st? Yes. DRESSING - UPPER BODY - STEP 2: Does the patient require the assistance of a helper? Yes. DRESSING - UPPER BODY - STEP 3: Does the helper touch the patient while dressing? No. DRESSING - UPPER BODY - SCORE: 5-SUP DRESSING - LOWER BODY: Elastic waist pants (three steps) Sock - Left foot (one step) Sock - Right foot (one step) Underwear (three steps) ARTICLES SCORE Total number of steps: 8 DRESSING - LOWER BODY - STEP 1: Does the patient require help from a person or device, or need extra time when dressing below the concepcion st? Yes. DRESSING - LOWER BODY - STEP 2: Does the patient require the assistance of a helper? Yes. DRESSING - LOWER BODY - STEP 3: Does the helper touch the patient while dressing? Yes. DRESSING - LOWER BODY - STEP 4: How many of the total steps does the patient complete on his/her own? 0 DRESSING - LOWER BODY - STEP 5: Does patient require total assistance for dressing below the waist such as the helper holding clothin g and performing basically all the activities? Yes. DRESSING - LOWER BODY - SCORE: 1-DEP TOILETING: Activity did not occur on this shift TOILETING - SCORE: 0-UNK BLADDER MANAGEMENT: Activity did not occur on this shift BLADDER MANAGEMENT - SCORE: 7-IND BOWEL MANAGEMENT: Activity did not occur on this shift BOWEL MANAGEMENT - SCORE: 7-IND TRANSFERS: BED, CHAIR, WHEELCHAIR: Activity did not occur on this shift TRANSFERS: BED, CHAIR, WHEELCHAIR - SCORE: 0-UNK TRANSFERS: TOILET: Activity did not occur on this shift TRANSFERS: TOILET - SCORE: 0-UNK TRANSFERS: SHOWER: TRANSFERS: SHOWER - STEP 1: Does the patient require the assistance of a person or device, or need extra time with shower transfe rs? Yes. TRANSFERS: SHOWER - STEP 2: Does the patient require the assistance of a helper? Yes. TRANSFERS: SHOWER - STEP 3: How much assistance does the patient require from the helper? More than incidental help TRANSFERS: SHOWER - STEP 4: How much more help does the patient require from the helper? Lifting the patient up AND down from the wheelchair onto the shower chair TRANSFERS: SHOWER - SCORE: 2-MAX TRANSFERS: TUB: Activity did not occur on this shift TRANSFERS: TUB - SCORE: 0-UNK LOCOMOTION: WALK: Activity did not occur on this shift LOCOMOTION: WALK - SCORE: 0-UNK LOCOMOTION: WHEELCHAIR: Activity did not occur on this shift LOCOMOTION: WHEELCHAIR - SCORE: 0-UNK LOCOMOTION: STAIRS: Activity did not occur on this shift LOCOMOTION: STAIRS - SCORE: 0-UNK COMPREHENSION: COMPREHENSION: TYPE: Both COMPREHENSION - STEP 1: Does the patient require help from a person or device, or need extra time to understand complex and a bstract ideas (such as current events, finances, discharge planning, medical issues, relationships, e tc)? Yes. COMPREHENSION - STEP 2: Does the patient require help to understand questions or statements about basic needs or ideas (such as hunger, thirst, sleep, safety, daily schedule, room location, or discomfort) half or more of the t chris? No. COMPREHENSION - STEP 3: How often does the patient need help to understand directions and conversation about basic needs? 25% - 49% of the time COMPREHENSION - SCORE: 3-MOD EXPRESSION EXPRESSION: TYPE: Both EXPRESSION - STEP 1: Does the patient require help from a person or device, or need extra time expressing complex and abst ract ideas (such as current events, finances, discharge planning, medical issues, relationships, etc) ? Yes. EXPRESSION - STEP 2: Does the patient require help to express basic necessities or ideas (such as hunger, thirst, sleep, s afety, daily schedule, room location, or discomfort) half or more of the time? No. EXPRESSION - STEP 3: How often does the patient need help to express directions and conversation about basic needs? 25-49% of the time EXPRESSION - SCORE: 3-MOD SOCIAL INTERACTION: SOCIAL INTERACTION - STEP 1: Does the patient require a helper to interact with others in social and therapeutic situations? Yes. SOCIAL INTERACTION - STEP 2: Does the patient interact appropriately half or more of the time? Yes. SOCIAL INTERACTION - STEP 3: How often does the patient need help to interact appropriately? Less than 10% of the time SOCIAL INTERACTION - SCORE: 5-SUP PROBLEM SOLVING: PROBLEM SOLVING - STEP 1: Does the patient need help from a person or device, or need extra time to solve complex problems such as managing a checking account or confronting interpersonal problems? Yes. PROBLEM SOLVING - STEP 2: Does the patient solve basic routine problems half or more of the time? Yes. PROBLEM SOLVING - STEP 3: How often does the patient need help to solve basic routine problems? 25%-49% of the time PROBLEM SOLVING - SCORE: 3-MOD MEMORY: MEMORY - STEP 1: Does the patient need help from a person or device, or need extra time to remember frequently encount ered people, daily routines, and executing requests? Yes. MEMORY - STEP 2: How often does the patient need help to remember frequently encountered people, daily routines, and e xecuting requests? 25% - 49% of the time MEMORY - SCORE: 3-MOD SIGNATURE PANEL: The following modified sections: Eating - Score, Grooming - Score, Bathing - Score, Dressing - Upper Body - Score, Dressing - Lower Body - Score, Toileting - Score, Transfers: Bed, Chair, Wheelchair - S core, Transfers: Toilet - Score, Transfers: Tub - Score, Transfers: Shower - Score, Comprehension - S core, Expression - Score, Social Interaction - Score, Problem Solving - Score, Memory - Score were [e lectronically] signed by Alexandra Diamond OT on ThuJul 24 2018 10:02:52 GMT-0600 (Central Standard T chris)
--- NOTE | 2018-07-24 10:20 | P.PN ---
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 SHE IS NOW IN REHAB FOR PT. CHR PAIN. HIP FRACTURE. BILAT SWELLING. CONSTIPATION BETTER. STABLE IN REHAB. NO NEW ISSUES. Review of Systems 10-point ROS is otherwise unremarkable General: Weakness, Malaise Cardiovascular: Edema, Other Physical Examination - Vital Signs Temperature: 97.6 F Blood Pressure: 153/74 Pulse: 91 Respirations: 16 Pulse Ox (%): 96 - Physical Exam General: Alert, Mild distress HEENT: Atraumatic, PERRLA, EOMI Neck: Supple, JVD not distended Respiratory: Clear to auscultation bilaterally, Normal air movement Cardiovascular: Edema Gastrointestinal: Normal bowel sounds, No tenderness Musculoskeletal: No tenderness Integumentary: No rashes Neurological: Normal speech, Normal tone, Normal affect Lymphatics: No axilla or inguinal lymphadenopathy - Studies Microbiology Data (last 24 hrs): 07/21/18 00:10 Clean Catch Urine [place] Count - Final >100,000 CFU/ML. 07/21/18 00:10 Clean Catch Urine - Final Escherichia Coli Medications List Reviewed: Yes Assessment And Plan - Current Problems (Diagnosis) (1) Closed left hip fracture Onset Date: 07/13/18 Current Visit: No Status: Acute Plan: PT CONSULT DVT PROPHYLAXIS HAD ANEMIA SP SURGERY WILL TRY ORAL AC AGAIN. PT RESUME. 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 STABLE HD TEAM BUSY IN ICU. HD WILL BE DONE TODAY. FAMILY AWARE. HD DONE LATE LAST NIGHT. LOW K MANAGED BY RENAL MD. Qualifiers: Renal failure chronicity: chronic Chronic kidney disease stage: on chronic dialysis Qualified Code(s): N18.6 - End stage renal disease; Z99.2 - Dependence on renal dialysis (3) Edema Current Visit: Yes Status: Chronic Plan: VENOUS DOPPLER NEGATIVE. RESUME COMPRESSION.
[2018-07-24] MEDS: DOCUSATE NA/SENNA CONC 1 TAB PO SCH (22:30)
[2018-07-24] MEDS: MELATONIN 3 MG TABLET PO PRN (22:30)
[2018-07-24] MEDS: ATORVASTATIN 20 MG TAB PO SCH (22:30)
--- NOTE | 2018-07-25 01:18 | PN ---
Date of Progress Note: 07/24/2018 Subjective: Patient status post repair. Tolerated the surgery. Patient in rehab. Patient is statu s post dialysis. Objective: VITAL SIGNS: Blood pressure 153/74, pulse of 91. CHEST: Clear to auscultation. HEART: S1, S2. Systolic murmur. ABDOMEN: Soft, nontender. EXTREMITIES: No edema. Laboratory Data: H and H 9.5/28. Sodium 136, potassium 3.4, bicarb 26, BUN 31, creatinine 3.2, calc ium 8. Current Medications: 1.Hydrocodone. 2.Plavix. 3.Cipro. 4.Ferrous sulfate. 5.Levothyroxine. 6.Multivitamin. 7.Tramadol. Assessment And Plan: 1.End-stage renal disease. Normal volume. We will continue the patient on dialysis Thursday, , and Thursday. 2.Secondary hyperparathyroid, stable. No need for binder. 3.Anemia of chronic kidney disease. Continue Epogen. 4.Hip fracture. Continue PT, OT. 5.Hypertension, controlled, optimal. Continue current treatment. RIVAS Voice ID: [id number] Report ID: [id number]
--- NOTE | 2018-07-25 01:21 | FAST ---
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 Joselo Diaz M.D. ADMISSION DIAGNOSIS: - Orthopaedic Disorders 08 - Unilateral Hip Fracture (08.11) LEFT INTERTROCHANTERIC FEMUR FRACTURE. EATING: Activity did not occur on this shift EATING - SCORE: 0-UNK GROOMING: Activity did not occur on this shift GROOMING - SCORE: 0-UNK BATHING: Activity did not occur on this shift BATHING - SCORE: 0-UNK DRESSING - UPPER BODY: Patient is not dressing in public clothing ARTICLES SCORE Total number of steps: 0 DRESSING - UPPER BODY - SCORE: 0-UNK DRESSING - LOWER BODY: Patient is not dressing in public clothing ARTICLES SCORE Total number of steps: 0 DRESSING - LOWER BODY - SCORE: 0-UNK TOILETING: TOILETING - STEP 1: Does the patient require the assistance of a person or device, or need extra time with toileting? Yes . TOILETING - STEP 2: Does the patient require the assistance of a helper? Yes. TOILETING - STEP 3: How much assistance does the patient require from the helper? Hands-on assistance from the helper TOILETING - STEP 4: Of the 3 tasks: 1) Adjusting clothing prior to use, 2) Cleansing of perineal area, 3) Adjusting clot luz marina after use; How many tasks does the patient perform WITHOUT assistance of the helper? One task TOILETING - SCORE: 2-MAX BLADDER MANAGEMENT: [place] removes incontinent device (Depends, pull ups, etc.); cleans the patient after accident / inco ntinent episode; and, applies new incontinent device. BLADDER MANAGEMENT - SCORE: 1-DEP BOWEL MANAGEMENT: Activity did not occur on this shift BOWEL MANAGEMENT - SCORE: 7-IND TRANSFERS: BED, CHAIR, WHEELCHAIR: TRANSFERS: BED, CHAIR, WHEELCHAIR - STEP 1: Does the patient require assitance of a person or device, or need extra time with bed, chair, or whee lchair transfers? Yes. TRANSFERS: BED, CHAIR, WHEELCHAIR - STEP 2: Does the patient require the assistance of a helper? Yes. TRANSFERS: BED, CHAIR, WHEELCHAIR - STEP 3: How much assistance does the patient require from the helper? Lifting of the legs TRANSFERS: BED, CHAIR, WHEELCHAIR - STEP 4: How many legs does the patient require the helper to lift? both legs TRANSFERS: BED, CHAIR, WHEELCHAIR - SCORE: 3-MOD TRANSFERS: TOILET: TRANSFERS: TOILET - STEP 1: Does the patient require the assistance of a person or device, or need extra time with toilet transfe rs? Yes. TRANSFERS: TOILET - STEP 2: Does the patient require the assistance of a helper? Yes. TRANSFERS: TOILET - STEP 3: How much assistance does the patient require from the helper? Patient performs half or more of the tr ansferring tasks TRANSFERS: TOILET - STEP 4: Does the patient need only incidental help such as contact guard or steadying during toilet transfer? No. Patient needs more than incidental help TRANSFERS: TOILET - SCORE: 3-MOD TRANSFERS: SHOWER: Activity did not occur on this shift TRANSFERS: SHOWER - SCORE: 0-UNK TRANSFERS: TUB: Activity did not occur on this shift TRANSFERS: TUB - SCORE: 0-UNK LOCOMOTION: WALK: Activity did not occur on this shift LOCOMOTION: WALK - SCORE: 0-UNK LOCOMOTION: WHEELCHAIR: Activity did not occur on this shift LOCOMOTION: WHEELCHAIR - SCORE: 0-UNK COMPREHENSION: COMPREHENSION: TYPE: Both COMPREHENSION - STEP 1: Does the patient require help from a person or device, or need extra time to understand complex and a bstract ideas (such as current events, finances, discharge planning, medical issues, relationships, e tc)? Yes. COMPREHENSION - STEP 2: Does the patient require help to understand questions or statements about basic needs or ideas (such as hunger, thirst, sleep, safety, daily schedule, room location, or discomfort) half or more of the t chris? Yes. COMPREHENSION - STEP 3: Is the patient basically able to understand and respond appropriately and consistently? No, patient i s basically UNABLE to understand, OR responds inappropriately/inconsistently despite prompting COMPREHENSION - SCORE: 1-DEP EXPRESSION EXPRESSION: TYPE: Both EXPRESSION - STEP 1: Does the patient require help from a person or device, or need extra time expressing complex and abst ract ideas (such as current events, finances, discharge planning, medical issues, relationships, etc) ? Yes. EXPRESSION - STEP 2: Does the patient require help to express basic necessities or ideas (such as hunger, thirst, sleep, s afety, daily schedule, room location, or discomfort) half or more of the time? Yes. EXPRESSION - STEP 3: Is the patient basically unable to express or does s/he express inappropriately or inconsistently nida pite prompting? Yes. Patient is basically unable to express. EXPRESSION - SCORE: 1-DEP SOCIAL INTERACTION: SOCIAL INTERACTION - STEP 1: Does the patient require a helper to interact with others in social and therapeutic situations? Yes. SOCIAL INTERACTION - STEP 2: Does the patient interact appropriately half or more of the time? No. SOCIAL INTERACTION - STEP 3: How often does the patient interact appropriately? More than 25% of the time SOCIAL INTERACTION - SCORE: 2-MAX PROBLEM SOLVING: PROBLEM SOLVING - STEP 1: Does the patient need help from a person or device, or need extra time to solve complex problems such as managing a checking account or confronting interpersonal problems? Yes. PROBLEM SOLVING - STEP 2: Does the patient solve basic routine problems half or more of the time? No. PROBLEM SOLVING - STEP 3: Does the patient need help to solve problems all the time or is s/he unable to solve problems? No. Emiliano sandoval can sometimes solve problems PROBLEM SOLVING - SCORE: 2-MAX MEMORY: MEMORY - STEP 1: Does the patient need help from a person or device, or need extra time to remember frequently encount ered people, daily routines, and executing requests? Yes. MEMORY - STEP 2: How often does the patient need help to remember frequently encountered people, daily routines, and e xecuting requests? More than 50% of the time MEMORY - STEP 3: Does the patient need help to remember all of the time OR does s/he not effectively recognize and rem ember? Yes. Patient needs help to remember ALL the time OR does not effectively recognize and remembe r MEMORY - SCORE: 1-DEP SIGNATURE PANEL: The following modified sections: Eating - Score, Grooming - Score, Dressing - Upper Body - Score, Sameer ssing - Lower Body - Score, Toileting - Score, Bladder Management - Score, Bowel Management - Score, Transfers: Bed, Chair, Wheelchair - Score, Transfers: Toilet - Score, Transfers: Shower - Score, Bustillo sfers: Tub - Score, Locomotion: Walk - Score, Locomotion: Wheelchair - Score, Comprehension - Score, Expression - Score, Social Interaction - Score, Problem Solving - Score, Memory - Score were [electro nically] signed by Shaunna Jennings CNA on ThuJul 25 2018 01:21:13 GMT-0600 (Central Standard Time)
[2018-07-25] MEDS: PANTOPRAZOLE 40MG TABLET PO SCH (06:53)
[2018-07-25] MEDS: LEVOTHYROXINE SOD 0.125 MG TAB PO SCH (06:53)
[2018-07-25] MEDS: HEPARIN 5000 UNIT/ML 1 ML VIAL SQ SCH (07:49)
[2018-07-25] MEDS: LIDOCAINE 5% PATCH TOP SCH (08:00)
[2018-07-25] MEDS: CLOPIDOGREL 75 MG TABLET PO SCH (08:32)
[2018-07-25] MEDS: GABAPENTIN 300 MG CAP PO SCH ×2 (08:32→19:58)
[2018-07-25] MEDS: CIPROFLOXACIN HCL 500 MG TAB PO SCH (08:32)
[2018-07-25] MEDS: CRANBERRY FRUIT EXTRACT 200 MG CAP PO SCH ×2 (08:32→19:58)
[2018-07-25] MEDS: FE SULF/FA/VIT B COMP & C TAB PO SCH (08:32)
[2018-07-25] MEDS: HYDROCODONE/APAP 5/325 MG TAB PO PRN ×2 (08:32→22:49)
[2018-07-25] MEDS: FERROUS SULFATE 325 MG TAB PO SCH (08:32)
[2018-07-25] MEDS: POLYETHYL GLY 3350 17 GM/DOSE PO SCH (08:32)
[2018-07-25] MEDS: NEPRO SHAKE 237 ML CAN PO SCH ×2 (08:33→19:58)
[2018-07-25] MEDS: PROMOD 30 ML DOSE PO SCH ×2 (08:33→19:57)
[2018-07-25] MEDS ORDERED: POLYETHYL GLY 3350 17 GM/DOSE PO PRN (10:11)
[2018-07-25 10:58] LABS: Absolute Lymphocytes (CBC) 1.2 K/uL (0.7-4.9); Absolute Neutrophil 6.4 K/uL (1.8-8.0); Basophils % 0.5 % (0-1.3); Eosinophils % 2.2 % (0-4.4); Hematocrit 29.5 % (36.0-45.0); Lymphocytes % 13.1 % (15.3-44.8); MCH 30.8 pg (27.0-35.0); MCV 92.5 fL (80-100); MPV 8.4 fL (7.6-11.3); Monocytes % 11.2 % (3.3-12.3); RBC Red Blood Cell Count 3.19 M/uL (3.86-4.86)
[2018-07-25 11:15] LABS: Potassium 4.2 mmol/L (3.5-5.1)
[2018-07-25 11:53] LABS: Urine Appearance CLEAR; Urine Bilirubin NEGATIVE (NEG); Urine Blood NEGATIVE (NEG); Urine Color YELLOW; Urine Glucose NEGATIVE (NEG); Urine Protein 1+ (NEG); Urine Specific Gravity <=1.005 (1.005-1.030); Urine Urobilinogen 0.2 mg/dL (0.2-1.0)
[2018-07-25 12:32] LABS: Urine Bacteria NONE SEEN /HPF (<20); Urine Culture Reflex Order NOT NEEDED; Urine RBC <5 /HPF (NONE SEEN)
--- NOTE | 2018-07-25 14:41 | P.PN ---
Subjective Date of Service: 07/25/18 Chief Complaint: FEELS WELL. 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 SHE IS NOW IN REHAB FOR PT. CHR PAIN. HIP FRACTURE. BILAT SWELLING. CONSTIPATION BETTER. STABLE IN REHAB. NO NEW ISSUES. SHE IS STABLE. NO CONSTIPATION. NO UTI SS. Review of Systems 10-point ROS is otherwise unremarkable Physical Examination - Vital Signs Temperature: 97.6 F Blood Pressure: 125/50 Pulse: 69 Respirations: 14 Pulse Ox (%): 100 - Physical Exam General: Alert, Mild distress HEENT: Atraumatic, PERRLA, EOMI Neck: Supple, JVD not distended Respiratory: Clear to auscultation bilaterally, Normal air movement Cardiovascular: Regular rate/rhythm, Normal S1 S2 Gastrointestinal: Normal bowel sounds, No tenderness Musculoskeletal: No tenderness Integumentary: No rashes Neurological: Normal speech, Normal tone, Normal affect Lymphatics: No axilla or inguinal lymphadenopathy - Studies Laboratory Data (last 24 hrs) 07/25/18 10:45: Sodium 136, Potassium 4.2, BUN 23 H, Creatinine 2.20 H D, Glucose 116 H 07/25/18 10:45: WBC 8.8 D, Hgb 9.8 L, Hct 29.5 L, Plt Count 280 Medications List Reviewed: Yes Assessment And Plan - Current Problems (Diagnosis) (1) Closed left hip fracture Onset Date: 07/13/18 Current Visit: No Status: Acute Plan: PT CONSULT DVT PROPHYLAXIS HAD ANEMIA SP SURGERY WILL TRY ORAL AC AGAIN. PT RESUME. 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 STABLE HD TEAM BUSY IN ICU. HD WILL BE DONE TODAY. FAMILY AWARE. HD DONE LATE LAST NIGHT. LOW K MANAGED BY RENAL MD. Qualifiers: Renal failure chronicity: chronic Chronic kidney disease stage: on chronic dialysis Qualified Code(s): N18.6 - End stage renal disease; Z99.2 - Dependence on renal dialysis (3) Edema Current Visit: Yes Status: Chronic Plan: VENOUS DOPPLER NEGATIVE. RESUME COMPRESSION. (4) Abnormal urinalysis Current Visit: Yes Status: Suspected Plan: SHE HAS NO SYMPTOMS. IGNORE ALL UA AND UCS SHE HAS NO SS. THIS IS THE GUIDELINE. REPEAT ST. CATH UA IS TOTALLY NORMAL. CIPRO STOPPED. UNNECESSARY USE OF ANTIBIOTICS IS HARMFUL TO PATIENT.
--- NOTE | 2018-07-25 14:45 | FAST ---
SHIFT START DATE/TIME: 07/25/2018 07:00 (ESL PROFESSOR) SHIFT END DATE/TIME: 07/25/2018 19:00 (ESL PROFESSOR) NAME LOGAN WALSH DATE OF : 1930 DATE OF ADMISSION: 07/20/2018 14:59 (ESL PROFESSOR) PHONE: AGE: 88 N# [id number] GENDER: Female ENCOUNTER PHYSICIAN: Dr. Joselo Diaz M.D. ADMISSION DIAGNOSIS: - Orthopaedic Disorders 08 - Unilateral Hip Fracture (08.11) LEFT INTERTROCHANTERIC FEMUR FRACTURE. EATING: EATING - STEP 1: Does the patient require the assistance of a person or device, or need extra time when eating? Yes. EATING - STEP 2: Does the patient require the assistance of a helper? Yes. EATING - STEP 3: Does the patient perform half or more of the eating tasks? Yes. EATING - STEP 4: Does the patient need only supervision, cuing, coaxing OR help to apply an orthosis OR help to cut fo od, open containers, pour liquids, or butter bread? Yes. EATING - SCORE: 5-SUP GROOMING: Activity did not occur on this shift GROOMING - SCORE: 0-UNK BATHING: Activity did not occur on this shift BATHING - SCORE: 0-UNK DRESSING - UPPER BODY: Activity did not occur on this shift ARTICLES SCORE Total number of steps: 0 DRESSING - UPPER BODY - SCORE: 0-UNK DRESSING - LOWER BODY: Activity did not occur on this shift ARTICLES SCORE Total number of steps: 0 DRESSING - LOWER BODY - SCORE: 0-UNK TOILETING: TOILETING - STEP 1: Does the patient require the assistance of a person or device, or need extra time with toileting? Yes . TOILETING - STEP 2: Does the patient require the assistance of a helper? Yes. TOILETING - STEP 3: How much assistance does the patient require from the helper? Hands-on assistance from the helper TOILETING - STEP 4: Of the 3 tasks: 1) Adjusting clothing prior to use, 2) Cleansing of perineal area, 3) Adjusting clot luz marina after use; How many tasks does the patient perform WITHOUT assistance of the helper? One task TOILETING - SCORE: 2-MAX BLADDER MANAGEMENT: BLADDER MANAGEMENT - STEP 1: Does the patient control the bladder completely and intentionally without equipment or devices or med ications, and is always continent? No. BLADDER MANAGEMENT - STEP 2: Does the patient require the assistance of a helper? No, patient requires and independently uses an a ssistive device, such as a urinal, bedpan, bedside commode, catheter, absorbent pad, or collecting de vice BLADDER MANAGEMENT - SCORE: 6-SAMREEN BOWEL MANAGEMENT: Activity did not occur on this shift BOWEL MANAGEMENT - SCORE: 7-IND TRANSFERS: BED, CHAIR, WHEELCHAIR: TRANSFERS: BED, CHAIR, WHEELCHAIR - STEP 1: Does the patient require assitance of a person or device, or need extra time with bed, chair, or whee lchair transfers? Yes. TRANSFERS: BED, CHAIR, WHEELCHAIR - STEP 2: Does the patient require the assistance of a helper? Yes. TRANSFERS: BED, CHAIR, WHEELCHAIR - STEP 3: How much assistance does the patient require from the helper? Lifting of the patient TRANSFERS: BED, CHAIR, WHEELCHAIR - STEP 4: Does the helper lift the patient ONLY up? ONLY down? Up AND Down? Up AND Down. TRANSFERS: BED, CHAIR, WHEELCHAIR - SCORE: 2-MAX TRANSFERS: TOILET: TRANSFERS: TOILET - STEP 1: Does the patient require the assistance of a person or device, or need extra time with toilet transfe rs? Yes. TRANSFERS: TOILET - STEP 2: Does the patient require the assistance of a helper? Yes. TRANSFERS: TOILET - STEP 3: How much assistance does the patient require from the helper? Patient performs less than half of the transferring tasks TRANSFERS: TOILET - STEP 4: Does the patient require total assistance for the toilet transfer such as the helper doing basically all the lifting? No. TRANSFERS: TOILET - SCORE: 2-MAX TRANSFERS: SHOWER: Activity did not occur on this shift TRANSFERS: SHOWER - SCORE: 0-UNK TRANSFERS: TUB: Activity did not occur on this shift TRANSFERS: TUB - SCORE: 0-UNK LOCOMOTION: WALK: Activity did not occur on this shift LOCOMOTION: WALK - SCORE: 0-UNK LOCOMOTION: WHEELCHAIR: Activity did not occur on this shift LOCOMOTION: WHEELCHAIR - SCORE: 0-UNK COMPREHENSION: COMPREHENSION: TYPE: Both COMPREHENSION - STEP 1: Does the patient require help from a person or device, or need extra time to understand complex and a bstract ideas (such as current events, finances, discharge planning, medical issues, relationships, e tc)? Yes. COMPREHENSION - STEP 2: Does the patient require help to understand questions or statements about basic needs or ideas (such as hunger, thirst, sleep, safety, daily schedule, room location, or discomfort) half or more of the t chris? No. COMPREHENSION - STEP 3: How often does the patient need help to understand directions and conversation about basic needs? 25% - 49% of the time COMPREHENSION - SCORE: 3-MOD EXPRESSION EXPRESSION: TYPE: Both EXPRESSION - STEP 1: Does the patient require help from a person or device, or need extra time expressing complex and abst ract ideas (such as current events, finances, discharge planning, medical issues, relationships, etc) ? Yes. EXPRESSION - STEP 2: Does the patient require help to express basic necessities or ideas (such as hunger, thirst, sleep, s afety, daily schedule, room location, or discomfort) half or more of the time? No. EXPRESSION - STEP 3: How often does the patient need help to express directions and conversation about basic needs? 25-49% of the time EXPRESSION - SCORE: 3-MOD SOCIAL INTERACTION: SOCIAL INTERACTION - STEP 1: Does the patient require a helper to interact with others in social and therapeutic situations? Yes. SOCIAL INTERACTION - STEP 2: Does the patient interact appropriately half or more of the time? Yes. SOCIAL INTERACTION - STEP 3: How often does the patient need help to interact appropriately? 10-24% of the time SOCIAL INTERACTION - SCORE: 4-MIN PROBLEM SOLVING: PROBLEM SOLVING - STEP 1: Does the patient need help from a person or device, or need extra time to solve complex problems such as managing a checking account or confronting interpersonal problems? Yes. PROBLEM SOLVING - STEP 2: Does the patient solve basic routine problems half or more of the time? Yes. PROBLEM SOLVING - STEP 3: How often does the patient need help to solve basic routine problems? 25%-49% of the time PROBLEM SOLVING - SCORE: 3-MOD MEMORY: MEMORY - STEP 1: Does the patient need help from a person or device, or need extra time to remember frequently encount ered people, daily routines, and executing requests? Yes. MEMORY - STEP 2: How often does the patient need help to remember frequently encountered people, daily routines, and e xecuting requests? 25% - 49% of the time MEMORY - SCORE: 3-MOD SIGNATURE PANEL: The following modified sections: Eating - Score, Grooming - Score, Bathing - Score, Dressing - Upper Body - Score, Dressing - Lower Body - Score, Toileting - Score, Bladder Management - Score, Bowel Man agement - Score, Transfers: Bed, Chair, Wheelchair - Score, Transfers: Toilet - Score, Transfers: Mora wer - Score, Transfers: Tub - Score, Locomotion: Walk - Score, Locomotion: Wheelchair - Score, Compre hension - Score, Expression - Score, Social Interaction - Score, Problem Solving - Score, Memory - Sc ore were [electronically] signed by Skyler Novak on ThuJul 25 2018 14:44:55 GMT-0600 (Central Standard Time)
[2018-07-25] MEDS: ATORVASTATIN 20 MG TAB PO SCH (19:59)
[2018-07-25] MEDS: MELATONIN 3 MG TABLET PO PRN (23:38)
--- NOTE | 2018-07-26 02:32 | FAST ---
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 Joselo Diaz M.D. ADMISSION DIAGNOSIS: - Orthopaedic Disorders 08 - Unilateral Hip Fracture (08.11) LEFT INTERTROCHANTERIC FEMUR FRACTURE. EATING: Activity did not occur on this shift EATING - SCORE: 0-UNK GROOMING: Activity did not occur on this shift GROOMING - SCORE: 0-UNK BATHING: Activity did not occur on this shift BATHING - SCORE: 0-UNK DRESSING - UPPER BODY: Patient is not dressing in public clothing ARTICLES SCORE Total number of steps: 0 DRESSING - UPPER BODY - SCORE: 0-UNK DRESSING - LOWER BODY: Patient is not dressing in public clothing ARTICLES SCORE Total number of steps: 0 DRESSING - LOWER BODY - SCORE: 0-UNK TOILETING: TOILETING - STEP 1: Does the patient require the assistance of a person or device, or need extra time with toileting? Yes . TOILETING - STEP 2: Does the patient require the assistance of a helper? Yes. TOILETING - STEP 3: How much assistance does the patient require from the helper? Hands-on assistance from the helper TOILETING - STEP 4: Of the 3 tasks: 1) Adjusting clothing prior to use, 2) Cleansing of perineal area, 3) Adjusting clot luz marina after use; How many tasks does the patient perform WITHOUT assistance of the helper? No tasks; h elper performs all three tasks TOILETING - SCORE: 1-DEP BLADDER MANAGEMENT: Lamar removes incontinent device (Depends, pull ups, etc.); cleans the patient after accident / inco ntinent episode; and, applies new incontinent device. BLADDER MANAGEMENT - SCORE: 1-DEP BOWEL MANAGEMENT: BOWEL MANAGEMENT - STEP 1: Does the patient control bowels completely and intentionally without equipment devices or medications AND is always continent? No. BOWEL MANAGEMENT - STEP 2: Does the patient require the assistance of a helper? No, patient requires medication for control such as stool softeners, suppositories, laxatives, enemas, or OTC medications BOWEL MANAGEMENT - SCORE: 6-SAMREEN TRANSFERS: BED, CHAIR, WHEELCHAIR: TRANSFERS: BED, CHAIR, WHEELCHAIR - STEP 1: Does the patient require assitance of a person or device, or need extra time with bed, chair, or whee lchair transfers? Yes. TRANSFERS: BED, CHAIR, WHEELCHAIR - STEP 2: Does the patient require the assistance of a helper? Yes. TRANSFERS: BED, CHAIR, WHEELCHAIR - STEP 3: How much assistance does the patient require from the helper? Lifting of the patient TRANSFERS: BED, CHAIR, WHEELCHAIR - STEP 4: Does the helper lift the patient ONLY up? ONLY down? Up AND Down? Up AND Down. TRANSFERS: BED, CHAIR, WHEELCHAIR - SCORE: 2-MAX TRANSFERS: TOILET: TRANSFERS: TOILET - STEP 1: Does the patient require the assistance of a person or device, or need extra time with toilet transfe rs? Yes. TRANSFERS: TOILET - STEP 2: Does the patient require the assistance of a helper? Yes. TRANSFERS: TOILET - STEP 3: How much assistance does the patient require from the helper? Patient performs half or more of the tr ansferring tasks TRANSFERS: TOILET - STEP 4: Does the patient need only incidental help such as contact guard or steadying during toilet transfer? No. Patient needs more than incidental help TRANSFERS: TOILET - SCORE: 3-MOD TRANSFERS: SHOWER: Activity did not occur on this shift TRANSFERS: SHOWER - SCORE: 0-UNK TRANSFERS: TUB: Activity did not occur on this shift TRANSFERS: TUB - SCORE: 0-UNK LOCOMOTION: WALK: Activity did not occur on this shift LOCOMOTION: WALK - SCORE: 0-UNK LOCOMOTION: WHEELCHAIR: Activity did not occur on this shift LOCOMOTION: WHEELCHAIR - SCORE: 0-UNK COMPREHENSION: COMPREHENSION: TYPE: Both COMPREHENSION - STEP 1: Does the patient require help from a person or device, or need extra time to understand complex and a bstract ideas (such as current events, finances, discharge planning, medical issues, relationships, e tc)? Yes. COMPREHENSION - STEP 2: Does the patient require help to understand questions or statements about basic needs or ideas (such as hunger, thirst, sleep, safety, daily schedule, room location, or discomfort) half or more of the t chris? Yes. COMPREHENSION - STEP 3: Is the patient basically able to understand and respond appropriately and consistently? No, patient i s basically UNABLE to understand, OR responds inappropriately/inconsistently despite prompting COMPREHENSION - SCORE: 1-DEP EXPRESSION EXPRESSION: TYPE: Both EXPRESSION - STEP 1: Does the patient require help from a person or device, or need extra time expressing complex and abst ract ideas (such as current events, finances, discharge planning, medical issues, relationships, etc) ? Yes. EXPRESSION - STEP 2: Does the patient require help to express basic necessities or ideas (such as hunger, thirst, sleep, s afety, daily schedule, room location, or discomfort) half or more of the time? Yes. EXPRESSION - STEP 3: Is the patient basically unable to express or does s/he express inappropriately or inconsistently nida pite prompting? Yes. Patient is basically unable to express. EXPRESSION - SCORE: 1-DEP SOCIAL INTERACTION: SOCIAL INTERACTION - STEP 1: Does the patient require a helper to interact with others in social and therapeutic situations? Yes. SOCIAL INTERACTION - STEP 2: Does the patient interact appropriately half or more of the time? No. SOCIAL INTERACTION - STEP 3: How often does the patient interact appropriately? Less than 25% of the time SOCIAL INTERACTION - SCORE: 1-DEP PROBLEM SOLVING: PROBLEM SOLVING - STEP 1: Does the patient need help from a person or device, or need extra time to solve complex problems such as managing a checking account or confronting interpersonal problems? Yes. PROBLEM SOLVING - STEP 2: Does the patient solve basic routine problems half or more of the time? No. PROBLEM SOLVING - STEP 3: Does the patient need help to solve problems all the time or is s/he unable to solve problems? Yes. P atient needs help to solve problems all the time or is unable to solve problems PROBLEM SOLVING - SCORE: 1-DEP MEMORY: MEMORY - STEP 1: Does the patient need help from a person or device, or need extra time to remember frequently encount ered people, daily routines, and executing requests? Yes. MEMORY - STEP 2: How often does the patient need help to remember frequently encountered people, daily routines, and e xecuting requests? More than 50% of the time MEMORY - STEP 3: Does the patient need help to remember all of the time OR does s/he not effectively recognize and rem ember? Yes. Patient needs help to remember ALL the time OR does not effectively recognize and remembe r MEMORY - SCORE: 1-DEP SIGNATURE PANEL: The following modified sections: Eating - Score, Grooming - Score, Dressing - Upper Body - Score, Sameer ssing - Lower Body - Score, Toileting - Score, Bladder Management - Score, Bowel Management - Score, Transfers: Bed, Chair, Wheelchair - Score, Transfers: Toilet - Score, Transfers: Shower - Score, Bustillo sfers: Tub - Score, Locomotion: Walk - Score, Locomotion: Wheelchair - Score, Comprehension - Score, Expression - Score, Social Interaction - Score, Problem Solving - Score, Memory - Score were [electro nically] signed by Shaunna Jennings CNA on ThuJul 26 2018 02:31:38 GMT-0600 (Central Standard Time)
[2018-07-26] MEDS: LEVOTHYROXINE SOD 0.125 MG TAB PO SCH (06:45)
[2018-07-26] MEDS: PANTOPRAZOLE 40MG TABLET PO SCH (06:45)
[2018-07-26 07:03] LABS: Absolute Lymphocytes (CBC) 1.8 K/uL (0.7-4.9); Absolute Monocytes 0.9 K/uL (0.1-1.3); Absolute Neutrophil 5.3 K/uL (1.8-8.0); Basophils % 0.7 % (0-1.3); Eosinophils % 2.7 % (0-4.4); Hematocrit 33.4 % (36.0-45.0); Lymphocytes % 21.6 % (15.3-44.8); MCH 30.7 pg (27.0-35.0); Monocytes % 11.2 % (3.3-12.3); RBC Red Blood Cell Count 3.56 M/uL (3.86-4.86)
[2018-07-26] MEDS: LIDOCAINE 5% PATCH TOP SCH (07:48)
[2018-07-26] MEDS: HYDROCODONE/APAP 5/325 MG TAB PO PRN ×2 (07:49→16:29)
[2018-07-26] MEDS: GABAPENTIN 300 MG CAP PO SCH ×2 (07:49→20:25)
[2018-07-26] MEDS: CLOPIDOGREL 75 MG TABLET PO SCH (07:49)
[2018-07-26] MEDS: FERROUS SULFATE 325 MG TAB PO SCH (07:49)
[2018-07-26] MEDS: POLYETHYL GLY 3350 17 GM/DOSE PO SCH (07:49)
[2018-07-26] MEDS: CRANBERRY FRUIT EXTRACT 200 MG CAP PO SCH ×2 (07:49→20:25)
[2018-07-26] MEDS: FE SULF/FA/VIT B COMP & C TAB PO SCH (07:49)
[2018-07-26] MEDS: HEPARIN 5000 UNIT/ML 1 ML VIAL SQ SCH ×2 (07:50→20:00)
[2018-07-26] MEDS: PROMOD 30 ML DOSE PO SCH ×2 (07:50→20:25)
[2018-07-26] MEDS: NEPRO SHAKE 237 ML CAN PO SCH ×2 (07:50→20:26)
--- NOTE | 2018-07-26 10:27 | FAST ---
ENCOUNTER DATE AND TIME: 07/26/2018 08:00 (REEL MAN) NAME NICO LOGAN DATE OF : 1930 DATE OF ADMISSION: 07/20/2018 14:59 (REEL MAN) PHONE: AGE: 88 N# [id number] GENDER: Female ENCOUNTER PHYSICIAN: Dr. Joselo Diaz M.D. ADMISSION DIAGNOSIS: - Orthopaedic Disorders 08 - Unilateral Hip Fracture (08.11) LEFT INTERTROCHANTERIC FEMUR FRACTURE. EATING: Activity did not occur on this shift EATING - SCORE: 0-UNK GROOMING: Comb/brush hair Wash, rinse, and dry face Wash, rinse, and dry hands GROOMING - STEP 1: Does the patient require the assistance of a person or device, or need extra time when grooming? Yes. GROOMING - STEP 2: Does the patient require the assistance of a helper? Yes. GROOMING - STEP 3: How much assistance does the patient require from the helper? Cuing, coaxing, instructions, or encour agement for completion of grooming GROOMING - SCORE: 5-SUP BATHING: Abdomen Buttocks Chest Left arm Left lower leg and foot Left upper leg Perineal area Right arm Right lower leg and foot Right upper leg BATHING - STEP 1: Does the patient require the assistance of a person or device, or need extra time when bathing? Yes. BATHING - STEP 2: Does the patient require the assistance of a helper? Yes. BATHING - STEP 3: How much assistance does the patient require from the helper? Only incidental help such as placement of a wash cloth in his/her hand a few times as s/he bathes OR help to bathe just one or two areas of the body BATHING - SCORE: 4-MIN DRESSING - UPPER BODY: Bra (three steps) T-shirt/pullover shirt (four steps) ARTICLES SCORE Total number of steps: 7 DRESSING - UPPER BODY - STEP 1: Does the patient require help from a person or device, or need extra time when dressing above the concepcion st? Yes. DRESSING - UPPER BODY - STEP 2: Does the patient require the assistance of a helper? Yes. DRESSING - UPPER BODY - STEP 3: Does the helper touch the patient while dressing? Yes. DRESSING - UPPER BODY - STEP 4: How many of the total steps does the patient complete on his/her own? 6 DRESSING - UPPER BODY - SCORE: 4-MIN DRESSING - LOWER BODY: Sock - Left foot (one step) Sock - Right foot (one step) Underwear (three steps) Zippered pants (four steps) ARTICLES SCORE Total number of steps: 9 DRESSING - LOWER BODY - STEP 1: Does the patient require help from a person or device, or need extra time when dressing below the concepcion st? Yes. DRESSING - LOWER BODY - STEP 2: Does the patient require the assistance of a helper? Yes. DRESSING - LOWER BODY - STEP 3: Does the helper touch the patient while dressing? Yes. DRESSING - LOWER BODY - STEP 4: How many of the total steps does the patient complete on his/her own? 2 DRESSING - LOWER BODY - STEP 5: Does patient require total assistance for dressing below the waist such as the helper holding clothin g and performing basically all the activities? No. DRESSING - LOWER BODY - SCORE: 2-MAX TOILETING: Activity did not occur on this shift TOILETING - SCORE: 0-UNK BLADDER MANAGEMENT: Activity did not occur on this shift BLADDER MANAGEMENT - SCORE: 7-IND BOWEL MANAGEMENT: Activity did not occur on this shift BOWEL MANAGEMENT - SCORE: 7-IND TRANSFERS: BED, CHAIR, WHEELCHAIR: Activity did not occur on this shift TRANSFERS: BED, CHAIR, WHEELCHAIR - SCORE: 0-UNK TRANSFERS: TOILET: Activity did not occur on this shift TRANSFERS: TOILET - SCORE: 0-UNK TRANSFERS: SHOWER: TRANSFERS: SHOWER - STEP 1: Does the patient require the assistance of a person or device, or need extra time with shower transfe rs? Yes. TRANSFERS: SHOWER - STEP 2: Does the patient require the assistance of a helper? Yes. TRANSFERS: SHOWER - STEP 3: How much assistance does the patient require from the helper? Only incidental help such as contact gu arding or steadying during shower transfers, or help to lift one leg into the shower TRANSFERS: SHOWER - SCORE: 4-MIN TRANSFERS: TUB: Activity did not occur on this shift TRANSFERS: TUB - SCORE: 0-UNK LOCOMOTION: WALK: Activity did not occur on this shift LOCOMOTION: WALK - SCORE: 0-UNK LOCOMOTION: WHEELCHAIR: Activity did not occur on this shift LOCOMOTION: WHEELCHAIR - SCORE: 0-UNK LOCOMOTION: STAIRS: Activity did not occur on this shift LOCOMOTION: STAIRS - SCORE: 0-UNK COMPREHENSION: COMPREHENSION: TYPE: Visual COMPREHENSION - STEP 1: Does the patient require help from a person or device, or need extra time to understand complex and a bstract ideas (such as current events, finances, discharge planning, medical issues, relationships, e tc)? Yes. COMPREHENSION - STEP 2: Does the patient require help to understand questions or statements about basic needs or ideas (such as hunger, thirst, sleep, safety, daily schedule, room location, or discomfort) half or more of the t chris? No. COMPREHENSION - STEP 3: How often does the patient need help to understand directions and conversation about basic needs? 10% - 24% of the time COMPREHENSION - SCORE: 4-MIN EXPRESSION EXPRESSION: TYPE: Non-Vocal EXPRESSION - STEP 1: Does the patient require help from a person or device, or need extra time expressing complex and abst ract ideas (such as current events, finances, discharge planning, medical issues, relationships, etc) ? Yes. EXPRESSION - STEP 2: Does the patient require help to express basic necessities or ideas (such as hunger, thirst, sleep, s afety, daily schedule, room location, or discomfort) half or more of the time? No. EXPRESSION - STEP 3: How often does the patient need help to express directions and conversation about basic needs? 10-24% of the time EXPRESSION - SCORE: 4-MIN SOCIAL INTERACTION: SOCIAL INTERACTION - STEP 1: Does the patient require a helper to interact with others in social and therapeutic situations? Yes. SOCIAL INTERACTION - STEP 2: Does the patient interact appropriately half or more of the time? Yes. SOCIAL INTERACTION - STEP 3: How often does the patient need help to interact appropriately? Less than 10% of the time SOCIAL INTERACTION - SCORE: 5-SUP PROBLEM SOLVING: PROBLEM SOLVING - STEP 1: Does the patient need help from a person or device, or need extra time to solve complex problems such as managing a checking account or confronting interpersonal problems? Yes. PROBLEM SOLVING - STEP 2: Does the patient solve basic routine problems half or more of the time? Yes. PROBLEM SOLVING - STEP 3: How often does the patient need help to solve basic routine problems? 25%-49% of the time PROBLEM SOLVING - SCORE: 3-MOD MEMORY: MEMORY - STEP 1: Does the patient need help from a person or device, or need extra time to remember frequently encount ered people, daily routines, and executing requests? Yes. MEMORY - STEP 2: How often does the patient need help to remember frequently encountered people, daily routines, and e xecuting requests? 25% - 49% of the time MEMORY - SCORE: 3-MOD SIGNATURE PANEL: The following modified sections: Eating - Score, Grooming - Score, Bathing - Score, Dressing - Upper Body - Score, Dressing - Lower Body - Score, Toileting - Score, Transfers: Bed, Chair, Wheelchair - S core, Transfers: Toilet - Score, Transfers: Shower - Score, Transfers: Tub - Score, Comprehension - S core, Expression - Score, Social Interaction - Score, Problem Solving - Score, Memory - Score were [e lectronically] signed by JOSEPH Pardo on ThuJul 26 2018 10:26:20 T-0600 (Central [place] Time)
--- NOTE | 2018-07-26 14:34 | FAST ---
SHIFT START DATE/TIME: 07/26/2018 07:00 (TONG SETTER) SHIFT END DATE/TIME: 07/26/2018 19:00 (TONG SETTER) NAME LOGAN WALSH DATE OF : 1930 DATE OF ADMISSION: 07/20/2018 14:59 (TONG SETTER) PHONE: AGE: 88 SSN# [id number] GENDER: Female ENCOUNTER PHYSICIAN: Dr. Joselo Diaz M.D. ADMISSION DIAGNOSIS: - Orthopaedic Disorders 08 - Unilateral Hip Fracture (08.11) LEFT INTERTROCHANTERIC FEMUR FRACTURE. EATING: EATING - STEP 1: Does the patient require the assistance of a person or device, or need extra time when eating? Yes. EATING - STEP 2: Does the patient require the assistance of a helper? Yes. EATING - STEP 3: Does the patient perform half or more of the eating tasks? Yes. EATING - STEP 4: Does the patient need only supervision, cuing, coaxing OR help to apply an orthosis OR help to cut fo od, open containers, pour liquids, or butter bread? Yes. EATING - SCORE: 5-SUP GROOMING: Comb/brush hair Wash, rinse, and dry face Wash, rinse, and dry hands GROOMING - STEP 1: Does the patient require the assistance of a person or device, or need extra time when grooming? Yes. GROOMING - STEP 2: Does the patient require the assistance of a helper? Yes. GROOMING - STEP 3: How much assistance does the patient require from the helper? Only prior equipment preparation/set up from the helper GROOMING - SCORE: 5-SUP BATHING: Activity did not occur on this shift BATHING - SCORE: 0-UNK DRESSING - UPPER BODY: T-shirt/pullover shirt (four steps) ARTICLES SCORE Total number of steps: 4 DRESSING - UPPER BODY - STEP 1: Does the patient require help from a person or device, or need extra time when dressing above the concepcion st? Yes. DRESSING - UPPER BODY - STEP 2: Does the patient require the assistance of a helper? Yes. DRESSING - UPPER BODY - STEP 3: Does the helper touch the patient while dressing? No. DRESSING - UPPER BODY - SCORE: 5-SUP DRESSING - LOWER BODY: Elastic waist pants (three steps) Sock - Left foot (one step) Sock - Right foot (one step) Underwear (three steps) ARTICLES SCORE Total number of steps: 8 DRESSING - LOWER BODY - STEP 1: Does the patient require help from a person or device, or need extra time when dressing below the concepcion st? Yes. DRESSING - LOWER BODY - STEP 2: Does the patient require the assistance of a helper? Yes. DRESSING - LOWER BODY - STEP 3: Does the helper touch the patient while dressing? Yes. DRESSING - LOWER BODY - STEP 4: How many of the total steps does the patient complete on his/her own? 0 DRESSING - LOWER BODY - STEP 5: Does patient require total assistance for dressing below the waist such as the helper holding clothin g and performing basically all the activities? Yes. DRESSING - LOWER BODY - SCORE: 1-DEP TOILETING: TOILETING - STEP 1: Does the patient require the assistance of a person or device, or need extra time with toileting? Yes . TOILETING - STEP 2: Does the patient require the assistance of a helper? Yes. TOILETING - STEP 3: How much assistance does the patient require from the helper? Hands-on assistance from the helper TOILETING - STEP 4: Of the 3 tasks: 1) Adjusting clothing prior to use, 2) Cleansing of perineal area, 3) Adjusting clot luz marina after use; How many tasks does the patient perform WITHOUT assistance of the helper? One task TOILETING - SCORE: 2-MAX BLADDER MANAGEMENT: BLADDER MANAGEMENT - STEP 1: Does the patient control the bladder completely and intentionally without equipment or devices or med ications, and is always continent? No. BLADDER MANAGEMENT - STEP 2: Does the patient require the assistance of a helper? Yes. BLADDER MANAGEMENT - STEP 3: How much assistance does the patient require from the helper? Only set-up of equipment - such as plac ing it within reach of the patient or emptying a device - to maintain either satisfactory voiding pat tern or managing an external device, such as an absorbent pad, ileal device, or catheter BLADDER MANAGEMENT - SCORE: 5-SUP BLADDER MANAGEMENT - FREQUENCY OF ACCIDENTS: BLADDER MANAGEMENT(FA) - STEP 1: How many accidents has the patient had during the current shift? 0 BOWEL MANAGEMENT: BOWEL MANAGEMENT - STEP 1: Does the patient control bowels completely and intentionally without equipment devices or medications AND is always continent? No. BOWEL MANAGEMENT - STEP 2: Does the patient require the assistance of a helper? No, patient requires medication for control such as stool softeners, suppositories, laxatives, enemas, or OTC medications BOWEL MANAGEMENT - SCORE: 6-SAMREEN BOWEL MANAGEMENT - FREQUENCY OF ACCIDENTS: BOWEL MANAGEMENT(FA) - STEP 1: How many accidents has the patient had during the current shift? 0 TRANSFERS: BED, CHAIR, WHEELCHAIR: TRANSFERS: BED, CHAIR, WHEELCHAIR - STEP 1: Does the patient require assitance of a person or device, or need extra time with bed, chair, or whee lchair transfers? Yes. TRANSFERS: BED, CHAIR, WHEELCHAIR - STEP 2: Does the patient require the assistance of a helper? Yes. TRANSFERS: BED, CHAIR, WHEELCHAIR - STEP 3: How much assistance does the patient require from the helper? Lifting of the patient TRANSFERS: BED, CHAIR, WHEELCHAIR - STEP 4: Does the helper lift the patient ONLY up? ONLY down? Up AND Down? Up AND Down. TRANSFERS: BED, CHAIR, WHEELCHAIR - SCORE: 2-MAX TRANSFERS: TOILET: TRANSFERS: TOILET - STEP 1: Does the patient require the assistance of a person or device, or need extra time with toilet transfe rs? Yes. TRANSFERS: TOILET - STEP 2: Does the patient require the assistance of a helper? Yes. TRANSFERS: TOILET - STEP 3: How much assistance does the patient require from the helper? Patient performs half or more of the tr ansferring tasks TRANSFERS: TOILET - STEP 4: Does the patient need only incidental help such as contact guard or steadying during toilet transfer? Yes. TRANSFERS: TOILET - SCORE: 4-MIN TRANSFERS: SHOWER: Activity did not occur on this shift TRANSFERS: SHOWER - SCORE: 0-UNK TRANSFERS: TUB: Activity did not occur on this shift TRANSFERS: TUB - SCORE: 0-UNK LOCOMOTION: WALK: Activity did not occur on this shift LOCOMOTION: WALK - SCORE: 0-UNK LOCOMOTION: WHEELCHAIR: Activity did not occur on this shift LOCOMOTION: WHEELCHAIR - SCORE: 0-UNK COMPREHENSION: COMPREHENSION: TYPE: Both COMPREHENSION - STEP 1: Does the patient require help from a person or device, or need extra time to understand complex and a bstract ideas (such as current events, finances, discharge planning, medical issues, relationships, e tc)? Yes. COMPREHENSION - STEP 2: Does the patient require help to understand questions or statements about basic needs or ideas (such as hunger, thirst, sleep, safety, daily schedule, room location, or discomfort) half or more of the t chris? No. COMPREHENSION - STEP 3: How often does the patient need help to understand directions and conversation about basic needs? 10% - 24% of the time COMPREHENSION - SCORE: 4-MIN EXPRESSION EXPRESSION: TYPE: Both EXPRESSION - STEP 1: Does the patient require help from a person or device, or need extra time expressing complex and abst ract ideas (such as current events, finances, discharge planning, medical issues, relationships, etc) ? Yes. EXPRESSION - STEP 2: Does the patient require help to express basic necessities or ideas (such as hunger, thirst, sleep, s afety, daily schedule, room location, or discomfort) half or more of the time? Yes. EXPRESSION - STEP 3: Is the patient basically unable to express or does s/he express inappropriately or inconsistently nida pite prompting? Yes. Patient is basically unable to express. EXPRESSION - SCORE: 1-DEP SOCIAL INTERACTION: SOCIAL INTERACTION - STEP 1: Does the patient require a helper to interact with others in social and therapeutic situations? Yes. SOCIAL INTERACTION - STEP 2: Does the patient interact appropriately half or more of the time? Yes. SOCIAL INTERACTION - STEP 3: How often does the patient need help to interact appropriately? 25-49% of the time SOCIAL INTERACTION - SCORE: 3-MOD PROBLEM SOLVING: PROBLEM SOLVING - STEP 1: Does the patient need help from a person or device, or need extra time to solve complex problems such as managing a checking account or confronting interpersonal problems? Yes. PROBLEM SOLVING - STEP 2: Does the patient solve basic routine problems half or more of the time? Yes. PROBLEM SOLVING - STEP 3: How often does the patient need help to solve basic routine problems? 25%-49% of the time PROBLEM SOLVING - SCORE: 3-MOD MEMORY: MEMORY - STEP 1: Does the patient need help from a person or device, or need extra time to remember frequently encount ered people, daily routines, and executing requests? Yes. MEMORY - STEP 2: How often does the patient need help to remember frequently encountered people, daily routines, and e xecuting requests? 25% - 49% of the time MEMORY - SCORE: 3-MOD SIGNATURE PANEL: The following modified sections: Eating - Score, Grooming - Score, Bathing - Score, Dressing - Upper Body - Score, Dressing - Lower Body - Score, Toileting - Score, Bladder Management - Score, Bowel Man agement - Score, Transfers: Bed, Chair, Wheelchair - Score, Transfers: Toilet - Score, Transfers: Mora wer - Score, Transfers: Tub - Score, Locomotion: Walk - Score, Locomotion: Wheelchair - Score, Compre hension - Score, Expression - Score, Social Interaction - Score, Problem Solving - Score, Memory - Sc ore were [electronically] signed by Jessica [email or web address] on ThuJul 26 2018 14:33:24 GMT-0600 ([place] Standard Time)
--- NOTE | 2018-07-26 17:26 | R.PN ---
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 SUBJECTIVE: Pt denied any depression. Pt denied any Shortness of Breath. Ambulated 200' with contact guard assistance using a rolling walker. VITAL SIGNS Temperature: 97.6 F SBP/DBP: 132/52 Pulse: 63 Resp: 16 MEDICATION ALLERGIES: No Known Drug Allergies (NKDA) ENVIRONMENTAL ALLERGIES: None Known - Substance Allergies None Known - Other Allergies None Known NURSING: - Shower allowing shower - Skin care per protocol PRECAUTIONS: - Posterior Hip Precaution No adduction across midline No external rotation No hip flexion >90 degrees No internal rotation No wheel chair propulsion - Weight Bearing Precaution WBAT left LE ACTIVITIES OOB only with supervision THERAPIES: - Occupational Therapy Evaluate and Treat. - Physical Therapy Evaluate and Treat. PHYSICAL EXAM - Gen Alert and awake Lying in bed No apparent distress Oriented to: person, time, and place - Skin No breakdown No abnormalities - Eyes No abnormalities - ENMT No abnormalities - Neck No abnormalities - CVS RRR - Chest Clear - Abd + bowel sounds - GI nondistended Deferred - No abnormalities - Ext Left hip surgical site has good hemostasis. - MSK 4+/5 weakness in left lower extremity - Neuro 4/5 strength left lower extremity. - Psych No abnormalities ASSESSMENT: Pt. is a 88 yo Right-handed white female.Her impairment category is Orthopaedic Disorders 08 - Unila teral Hip Fracture (08.11).Pre-morbidly, Pt. was independent/mod-I in Transfers Control, Communicatio n, Social Cognition, Self-Care, Locomotion, and Sphincter Control; and she had good Sphincter Control .Currently, she has deficits of Transfers Control, Balance, Self-Care, Locomotion, Endurance, and Saf ety Awareness.Pt. is now referred to [facility] for acute in-patient rehabilit ation in order to maximize patient's functional independence in activities of daily living, strength, ROM, and mobility.- Rehab Goal Patient has realistic goal of being discharged at assistance level 6-Malika to reside at Home with Fam kinjal/Relatives. MDM/PLAN: - Physical Therapy Decreased range of motion - to improve, our physical therapists will perform initial evaluation of p t's status upon admission and devise an individualized program for increasing patient's Range of Luis Manuel on. Gait dysfunction - to improve, our physical therapists will perform initial evaluation of pt's statu s upon admission and devise an individualized program for Gait Training, and Wheel Chair mobility Inability to transfer - to improve, our physical therapists will perform initial evaluation of pt's status upon admission and devise an individualized program for Bed mobility Need for home safety evaluation - to improve, our physical therapists will perform initial evaluatio n of pt's status upon admission and devise an individualized program for Home Evaluation Need in caregiver upon discharge - to improve, our physical therapists will perform initial evaluati on of pt's status upon admission and devise an individualized program for Caregiver Training New precaution - to improve, our physical therapists will perform initial evaluation of pt's status upon admission and devise an individualized program for Patient precaution education Poor balance - to improve, our physical therapists will perform initial evaluation of pt's status up on admission and devise an individualized program for Balance Training Poor endurance - to improve, our physical therapists will perform initial evaluation of pt's status upon admission and devise an individualized program for Endurance Training Weakness - to improve, our physical therapists will perform initial evaluation of pt's status upon a dmission and devise an individualized program for Aquatic Therapy, Neuromuscular Reeducation, and Str engthening Achieving independence - to improve, our physical therapists will perform initial evaluation of pt's status upon admission and devise an individualized program for Community Reintegration Activities - Occupational Therapy ADL deficits - to improve, our occupation therapists will perform initial evaluation of pt's status upon admission and devise an individualized program for Bathing, Bed mobility, Community Reintegratio n, Cooking, Dressing, Eating, Fine Motor Skills, Grooming, Homemaking, Kitchen Mobility, Laundry, Pat ient Education, Safety Awareness, Splinting - Positioning, Transfers(Toilet, Tub, Shower), and Wheel Chair Management Need for career advisor - to improve, our occupation therapists will perform initial evaluation of pt's status upon admission and devise an individualized program for Caregiver Training Weakness - to improve, our occupation therapists will perform initial evaluation of pt's status upon admission and devise an individualized program for Aquatic Therapy, Balance, Endurance, UE ROM, and UE strengthening - Anterior Hip Precaution No abduction No active extension No adduction across midline No external rotation No hip flexion >90 degrees No internal rotation - Diet - Liquid Texture Continue Regular - Tube Feed Continue N/A - Diet Type Continue Regular - Posterior Hip Precaution No adduction across midline No external rotation No hip flexion >90 degrees No internal rotation No wheel chair propulsion - Weight Bearing Precaution WBAT left LE - Skin care per protocol - Diet - Solid Texture Continue Regular - Shower allowing shower FUNCTIONAL STATUS: UPDATED AT WEEKLY TEAM CONFERENCE - Bladder Same accident frequency: 7-Ind - No accidents in the past 7 days - Bowel Same accident frequency: 7-Ind - No accidents in the past 7 days - Walking Same score based on distance walked: 1(<=50ft) - Wheelchair Same score based on distance traveled: 0(N/A) FUNCTIONAL STATUS: - Self-Care A. Eating sup B. Grooming sup C. Bathing Jackie D. Dressing - Upper Jackie E. Dressing - Lower Jackie F. Toileting Jackie - Sphincter Control G: Bladder control Ind H: Bowel control Ind - Transfers Control I. Bed/Chair/Wheelchair maxA J. Toilet maxA K. Tub/Shower Ind - Locomotion L. Walk/Wheelchair (C) modA L. Walk/Wheelchair (W) modA M. Stairs ADNO - Communication N. Comprehension (B) Malika O. Expression (B) Malika - Social Cognition P. Social Interaction Malika Q. Problem Solving Malika R. Memory [place] - Endurance Fair - Balance Fair - Safety Awareness Fair CURRENT FUNC. DEFICITS: Transfers Control, Balance, Self-Care, Locomotion, Endurance, and Safety Awareness SIGNATURE PANEL: (SUGAR SAMPLER)
--- NOTE | 2018-07-26 20:19 | P.PN ---
Subjective Date of Service: 07/26/18 Chief Complaint: FEELS WELL. 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 SHE IS NOW IN REHAB FOR PT. CHR PAIN. HIP FRACTURE. BILAT SWELLING. CONSTIPATION BETTER. STABLE IN REHAB. NO NEW ISSUES. SHE IS STABLE. NO CONSTIPATION. NO UTI SS. SHE IS STABLE, STILL HAS PAIN IN L LEG. Review of Systems 10-point ROS is otherwise unremarkable General: Weakness Physical Examination - Vital Signs Temperature: 97.8 F Blood Pressure: 158/65 Pulse: 83 Respirations: 18 Pulse Ox (%): 100 - Physical Exam General: Mild distress HEENT: Atraumatic, PERRLA, EOMI Neck: Supple, JVD not distended Respiratory: Clear to auscultation bilaterally, Normal air movement Cardiovascular: Regular rate/rhythm, Normal S1 S2, Edema Gastrointestinal: Normal bowel sounds, No tenderness Musculoskeletal: No tenderness Integumentary: No rashes Neurological: Normal speech, Normal tone, Normal affect Lymphatics: No axilla or inguinal lymphadenopathy - Studies Laboratory Data (last 24 hrs) 07/26/18 06:00: WBC 8.2, Hgb 10.9 L, Hct 33.4 L, Plt Count 325 Medications List Reviewed: Yes Assessment And Plan - Current Problems (Diagnosis) (1) Closed left hip fracture Onset Date: 07/13/18 Current Visit: No Status: Acute Plan: PT CONSULT DVT PROPHYLAXIS HAD ANEMIA SP SURGERY WILL TRY ORAL AC AGAIN. PT RESUME. 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 STABLE HD TEAM BUSY IN ICU. HD WILL BE DONE TODAY. FAMILY AWARE. HD DONE LATE LAST NIGHT. LOW K MANAGED BY RENAL MD. Qualifiers: Renal failure chronicity: chronic Chronic kidney disease stage: on chronic dialysis Qualified Code(s): N18.6 - End stage renal disease; Z99.2 - Dependence on renal dialysis (3) Edema Current Visit: Yes Status: Chronic Plan: VENOUS DOPPLER NEGATIVE. RESUME COMPRESSION. (4) Abnormal urinalysis Current Visit: Yes Status: Suspected Plan: SHE HAS NO SYMPTOMS. IGNORE ALL UA AND UCS SHE HAS NO SS. THIS IS THE GUIDELINE. REPEAT ST. CATH UA IS TOTALLY NORMAL. CIPRO STOPPED. UNNECESSARY USE OF ANTIBIOTICS IS HARMFUL TO PATIENT. SHE HAS NO UTI SYMPTOMS. UA IS CLEAR.
[2018-07-26] MEDS: ATORVASTATIN 20 MG TAB PO SCH (20:25)
[2018-07-27] MEDS: HYDROCODONE/APAP 5/325 MG TAB PO PRN ×2 (00:56→08:30)
--- NOTE | 2018-07-27 02:05 | FAST ---
SHIFT START DATE/TIME: 07/26/2018 19:00 (EXAMINING CHAIR ASSEMBLER) SHIFT END DATE/TIME: 07/27/2018 07:00 (EXAMINING CHAIR ASSEMBLER) NAME LOGAN WALSH DATE OF : 1930 DATE OF ADMISSION: 07/20/2018 14:59 (EXAMINING CHAIR ASSEMBLER) PHONE: AGE: 88 N# [id number] GENDER: Female ENCOUNTER PHYSICIAN: Dr. Joselo Diaz M.D. ADMISSION DIAGNOSIS: - Orthopaedic Disorders 08 - Unilateral Hip Fracture (08.11) LEFT INTERTROCHANTERIC FEMUR FRACTURE. EATING: Activity did not occur on this shift EATING - SCORE: 0-UNK GROOMING: Activity did not occur on this shift GROOMING - SCORE: 0-UNK BATHING: Activity did not occur on this shift BATHING - SCORE: 0-UNK DRESSING - UPPER BODY: Patient is not dressing in public clothing ARTICLES SCORE Total number of steps: 0 DRESSING - UPPER BODY - SCORE: 0-UNK DRESSING - LOWER BODY: Patient is not dressing in public clothing ARTICLES SCORE Total number of steps: 0 DRESSING - LOWER BODY - SCORE: 0-UNK TOILETING: TOILETING - STEP 1: Does the patient require the assistance of a person or device, or need extra time with toileting? Yes . TOILETING - STEP 2: Does the patient require the assistance of a helper? Yes. TOILETING - STEP 3: How much assistance does the patient require from the helper? Hands-on assistance from the helper TOILETING - STEP 4: Of the 3 tasks: 1) Adjusting clothing prior to use, 2) Cleansing of perineal area, 3) Adjusting clot luz marina after use; How many tasks does the patient perform WITHOUT assistance of the helper? No tasks; dorian early performs all three tasks TOILETING - SCORE: 1-DEP BLADDER MANAGEMENT: BLADDER MANAGEMENT - STEP 1: Does the patient control the bladder completely and intentionally without equipment or devices or med ications, and is always continent? No. BLADDER MANAGEMENT - STEP 2: Does the patient require the assistance of a helper? Yes. BLADDER MANAGEMENT - STEP 3: How much assistance does the patient require from the helper? Only set-up of equipment - such as plac ing it within reach of the patient or emptying a device - to maintain either satisfactory voiding pat tern or managing an external device, such as an absorbent pad, ileal device, or catheter BLADDER MANAGEMENT - SCORE: 5-SUP BOWEL MANAGEMENT: BOWEL MANAGEMENT - STEP 1: Does the patient control bowels completely and intentionally without equipment devices or medications AND is always continent? No. BOWEL MANAGEMENT - STEP 2: Does the patient require the assistance of a helper? Yes. BOWEL MANAGEMENT - STEP 3: How much assistance does the patient require from the helper? Patient requires supervision, stand by, cueing, coaxing, or setup of equipment - placing within reach of patient and emptying device / bedpa nd or BSC bucket - to maintain either satisfactory bowel pattern or managing an external device such as an absorbent pad, colostomy bag / ileostomy bag BOWEL MANAGEMENT - SCORE: 5-SUP TRANSFERS: BED, CHAIR, WHEELCHAIR: TRANSFERS: BED, CHAIR, WHEELCHAIR - STEP 1: Does the patient require assitance of a person or device, or need extra time with bed, chair, or whee lchair transfers? Yes. TRANSFERS: BED, CHAIR, WHEELCHAIR - STEP 2: Does the patient require the assistance of a helper? Yes. TRANSFERS: BED, CHAIR, WHEELCHAIR - STEP 3: How much assistance does the patient require from the helper? Lifting of the patient TRANSFERS: BED, CHAIR, WHEELCHAIR - STEP 4: Does the helper lift the patient ONLY up? ONLY down? Up AND Down? Up AND Down. TRANSFERS: BED, CHAIR, WHEELCHAIR - SCORE: 2-MAX TRANSFERS: TOILET: TRANSFERS: TOILET - STEP 1: Does the patient require the assistance of a person or device, or need extra time with toilet transfe rs? Yes. TRANSFERS: TOILET - STEP 2: Does the patient require the assistance of a helper? Yes. TRANSFERS: TOILET - STEP 3: How much assistance does the patient require from the helper? Patient performs half or more of the tr ansferring tasks TRANSFERS: TOILET - STEP 4: Does the patient need only incidental help such as contact guard or steadying during toilet transfer? No. Patient needs more than incidental help TRANSFERS: TOILET - SCORE: 3-MOD TRANSFERS: SHOWER: Activity did not occur on this shift TRANSFERS: SHOWER - SCORE: 0-UNK TRANSFERS: TUB: Activity did not occur on this shift TRANSFERS: TUB - SCORE: 0-UNK LOCOMOTION: WALK: Activity did not occur on this shift LOCOMOTION: WALK - SCORE: 0-UNK LOCOMOTION: WHEELCHAIR: Activity did not occur on this shift LOCOMOTION: WHEELCHAIR - SCORE: 0-UNK COMPREHENSION: COMPREHENSION: TYPE: Both COMPREHENSION - STEP 1: Does the patient require help from a person or device, or need extra time to understand complex and a bstract ideas (such as current events, finances, discharge planning, medical issues, relationships, e tc)? Yes. COMPREHENSION - STEP 2: Does the patient require help to understand questions or statements about basic needs or ideas (such as hunger, thirst, sleep, safety, daily schedule, room location, or discomfort) half or more of the t chris? Yes. COMPREHENSION - STEP 3: Is the patient basically able to understand and respond appropriately and consistently? No, patient i s basically UNABLE to understand, OR responds inappropriately/inconsistently despite prompting COMPREHENSION - SCORE: 1-DEP EXPRESSION EXPRESSION: TYPE: Both EXPRESSION - STEP 1: Does the patient require help from a person or device, or need extra time expressing complex and abst ract ideas (such as current events, finances, discharge planning, medical issues, relationships, etc) ? Yes. EXPRESSION - STEP 2: Does the patient require help to express basic necessities or ideas (such as hunger, thirst, sleep, s afety, daily schedule, room location, or discomfort) half or more of the time? Yes. EXPRESSION - STEP 3: Is the patient basically unable to express or does s/he express inappropriately or inconsistently nida pite prompting? Yes. Patient is basically unable to express. EXPRESSION - SCORE: 1-DEP SOCIAL INTERACTION: SOCIAL INTERACTION - STEP 1: Does the patient require a helper to interact with others in social and therapeutic situations? Yes. SOCIAL INTERACTION - STEP 2: Does the patient interact appropriately half or more of the time? No. SOCIAL INTERACTION - STEP 3: How often does the patient interact appropriately? Less than 25% of the time SOCIAL INTERACTION - SCORE: 1-DEP PROBLEM SOLVING: PROBLEM SOLVING - STEP 1: Does the patient need help from a person or device, or need extra time to solve complex problems such as managing a checking account or confronting interpersonal problems? Yes. PROBLEM SOLVING - STEP 2: Does the patient solve basic routine problems half or more of the time? Yes. PROBLEM SOLVING - STEP 3: How often does the patient need help to solve basic routine problems? 25%-49% of the time PROBLEM SOLVING - SCORE: 3-MOD MEMORY: MEMORY - STEP 1: Does the patient need help from a person or device, or need extra time to remember frequently encount ered people, daily routines, and executing requests? Yes. MEMORY - STEP 2: How often does the patient need help to remember frequently encountered people, daily routines, and e xecuting requests? More than 50% of the time MEMORY - STEP 3: Does the patient need help to remember all of the time OR does s/he not effectively recognize and rem ember? Yes. Patient needs help to remember ALL the time OR does not effectively recognize and remembe r MEMORY - SCORE: 1-DEP SIGNATURE PANEL: The following modified sections: Eating - Score, Grooming - Score, Dressing - Upper Body - Score, Sameer ssing - Lower Body - Score, Toileting - Score, Bladder Management - Score, Bowel Management - Score, Transfers: Bed, Chair, Wheelchair - Score, Transfers: Toilet - Score, Transfers: Shower - Score, Bustillo sfers: Tub - Score, Locomotion: Walk - Score, Locomotion: Wheelchair - Score, Comprehension - Score, Expression - Score, Social Interaction - Score, Problem Solving - Score, Memory - Score were [electro nically] signed by Shaunna Jennings CNA on ThuJul 27 2018 02:04:55 GMT-0600 (Central Standard Time)
--- NOTE | 2018-07-27 03:56 | PN ---
Date of Progress Note: 07/26/2018 Chief Complaint: End-stage renal disease, on dialysis. Subjective: The patient has multiple medical problems. Currently, she is undergoing rehab, advancin g with physical therapy. Review of Systems: The patient denies fever, chills. Physical Examination: Lungs: Clear to auscultation bilaterally, Heart: S1, S2. Abdomen: Soft, benign, and nontender. Extremities: Minimal edema. Lab Work: Sodium 136, potassium 3.4, bicarbonate 26, BUN 31, and creatinine 3.2. Impression And Plan: 1.End-stage renal disease. The patient is tolerating p.o. intake. The patient does not have overt fluid overload. Continue p.o. fluid restriction and renal diet. 2.The patient will continue dialysis 3 times per week. 3.Secondary hyperparathyroidism, stable. The patient has good control of phosphorus without binders . 4.Anemia of chronic kidney disease. Continue Epogen. 5.Hip fracture. Continue PT, OT. 6.Hypertension. Optimal blood pressure control. Monitor blood pressure and continue medication. ONEAL/KJ Voice ID: [id number] Report ID: [id number]
[2018-07-27] MEDS: LEVOTHYROXINE SOD 0.125 MG TAB PO SCH (06:50)
[2018-07-27] MEDS: PROMOD 30 ML DOSE PO SCH ×2 (08:00→21:13)
[2018-07-27] MEDS: NEPRO SHAKE 237 ML CAN PO SCH ×2 (08:00→21:13)
[2018-07-27] MEDS: HEPARIN 5000 UNIT/ML 1 ML VIAL SQ SCH ×2 (08:00→21:13)
[2018-07-27] MEDS: LIDOCAINE 5% PATCH TOP SCH (08:00)
[2018-07-27] MEDS: POLYETHYL GLY 3350 17 GM/DOSE PO SCH (08:29)
[2018-07-27] MEDS: FERROUS SULFATE 325 MG TAB PO SCH (08:30)
[2018-07-27] MEDS: FE SULF/FA/VIT B COMP & C TAB PO SCH (08:30)
[2018-07-27] MEDS: GABAPENTIN 300 MG CAP PO SCH ×2 (08:30→21:13)
[2018-07-27] MEDS: CRANBERRY FRUIT EXTRACT 200 MG CAP PO SCH ×2 (08:30→21:12)
[2018-07-27] MEDS: PANTOPRAZOLE 40MG TABLET PO SCH (08:30)
[2018-07-27] MEDS: CLOPIDOGREL 75 MG TABLET PO SCH (08:31)
--- NOTE | 2018-07-27 14:51 | FAST ---
ENCOUNTER DATE AND TIME: 07/27/2018 08:00 (CARDIAC CATH TECHNICIAN) NAME NICO JANUARY DATE OF : 1930 DATE OF ADMISSION: 07/20/2018 14:59 (CARDIAC CATH TECHNICIAN) PHONE: AGE: 88 N# [id number] GENDER: Female ENCOUNTER PHYSICIAN: Dr. Joselo Diaz M.D. ADMISSION DIAGNOSIS: - Orthopaedic Disorders 08 - Unilateral Hip Fracture (08.11) LEFT INTERTROCHANTERIC FEMUR FRACTURE. EATING: Activity did not occur on this shift EATING - SCORE: 0-UNK GROOMING: Activity did not occur on this shift GROOMING - SCORE: 0-UNK BATHING: Activity did not occur on this shift BATHING - SCORE: 0-UNK DRESSING - UPPER BODY: Activity did not occur on this shift Patient is not dressing in public clothing ARTICLES SCORE Total number of steps: 0 DRESSING - UPPER BODY - SCORE: 0-UNK DRESSING - LOWER BODY: Activity did not occur on this shift Patient is not dressing in public clothing ARTICLES SCORE Total number of steps: 0 DRESSING - LOWER BODY - SCORE: 0-UNK TOILETING: Activity did not occur on this shift TOILETING - SCORE: 0-UNK BLADDER MANAGEMENT: Activity did not occur on this shift BLADDER MANAGEMENT - SCORE: 7-IND BOWEL MANAGEMENT: Activity did not occur on this shift BOWEL MANAGEMENT - SCORE: 7-IND TRANSFERS: BED, CHAIR, WHEELCHAIR: TRANSFERS: BED, CHAIR, WHEELCHAIR - STEP 1: Does the patient require assitance of a person or device, or need extra time with bed, chair, or whee lchair transfers? Yes. TRANSFERS: BED, CHAIR, WHEELCHAIR - STEP 2: Does the patient require the assistance of a helper? Yes. TRANSFERS: BED, CHAIR, WHEELCHAIR - STEP 3: How much assistance does the patient require from the helper? Steadying/guiding assistance TRANSFERS: BED, CHAIR, WHEELCHAIR - SCORE: 4-MIN TRANSFERS: TOILET: Activity did not occur on this shift TRANSFERS: TOILET - SCORE: 0-UNK TRANSFERS: SHOWER: Activity did not occur on this shift TRANSFERS: SHOWER - SCORE: 0-UNK TRANSFERS: TUB: Activity did not occur on this shift TRANSFERS: TUB - SCORE: 0-UNK LOCOMOTION: WALK: LOCOMOTION: WALK - STEP 1: Does the patient need help from a person or device, or need extra time to walk 150 feet? Yes. LOCOMOTION: WALK - STEP 2: How much assistance does the patient require to walk a minimum of 150 feet? Patient walks less than 1 50 feet - but more than 50 feet - with the assistance of only one helper LOCOMOTION: WALK - SCORE: 2-MAX LOCOMOTION: WHEELCHAIR: Patient propels wheelchair less than 50 ft LOCOMOTION: WHEELCHAIR - SCORE: 1-DEP LOCOMOTION: STAIRS: Activity did not occur on this shift LOCOMOTION: STAIRS - SCORE: 0-UNK COMPREHENSION: COMPREHENSION - SCORE: 0-UNK EXPRESSION EXPRESSION - SCORE: 0-UNK SOCIAL INTERACTION: SOCIAL INTERACTION - SCORE: 0-UNK PROBLEM SOLVING: PROBLEM SOLVING - SCORE: 0-UNK MEMORY: MEMORY - SCORE: 0-UNK SIGNATURE PANEL: The following modified sections: Transfers: Bed, Chair, Wheelchair - Score, Transfers: Toilet - Score , Locomotion: Walk - Score, Locomotion: Wheelchair - Score, Locomotion: Stairs - Score were [electron ically] signed by Luis Werner PTA on ThuJul 27 2018 14:50:09 GMT-0600 (Central Standard Time)
--- NOTE | 2018-07-27 14:54 | FAST ---
ENCOUNTER DATE AND TIME: 07/26/2018 08:00 (STATISTICAL CONSULTANT) NAME NICO JANUARY DATE OF : 1930 DATE OF ADMISSION: 07/20/2018 14:59 (STATISTICAL CONSULTANT) PHONE: AGE: 88 N# [id number] GENDER: Female ENCOUNTER PHYSICIAN: Dr. Joselo Diaz M.D. ADMISSION DIAGNOSIS: - Orthopaedic Disorders 08 - Unilateral Hip Fracture (08.11) LEFT INTERTROCHANTERIC FEMUR FRACTURE. EATING: Activity did not occur on this shift EATING - SCORE: 0-UNK GROOMING: Activity did not occur on this shift GROOMING - SCORE: 0-UNK BATHING: Activity did not occur on this shift BATHING - SCORE: 0-UNK DRESSING - UPPER BODY: Activity did not occur on this shift Patient is not dressing in public clothing ARTICLES SCORE Total number of steps: 0 DRESSING - UPPER BODY - SCORE: 0-UNK DRESSING - LOWER BODY: Activity did not occur on this shift Patient is not dressing in public clothing ARTICLES SCORE Total number of steps: 0 DRESSING - LOWER BODY - SCORE: 0-UNK TOILETING: Activity did not occur on this shift TOILETING - SCORE: 0-UNK BLADDER MANAGEMENT: Activity did not occur on this shift BLADDER MANAGEMENT - SCORE: 7-IND BOWEL MANAGEMENT: Activity did not occur on this shift BOWEL MANAGEMENT - SCORE: 7-IND TRANSFERS: BED, CHAIR, WHEELCHAIR: TRANSFERS: BED, CHAIR, WHEELCHAIR - STEP 1: Does the patient require assitance of a person or device, or need extra time with bed, chair, or whee lchair transfers? Yes. TRANSFERS: BED, CHAIR, WHEELCHAIR - STEP 2: Does the patient require the assistance of a helper? Yes. TRANSFERS: BED, CHAIR, WHEELCHAIR - STEP 3: How much assistance does the patient require from the helper? Steadying/guiding assistance TRANSFERS: BED, CHAIR, WHEELCHAIR - SCORE: 4-MIN TRANSFERS: TOILET: Activity did not occur on this shift TRANSFERS: TOILET - SCORE: 0-UNK TRANSFERS: SHOWER: Activity did not occur on this shift TRANSFERS: SHOWER - SCORE: 0-UNK TRANSFERS: TUB: Activity did not occur on this shift TRANSFERS: TUB - SCORE: 0-UNK LOCOMOTION: WALK: LOCOMOTION: WALK - STEP 1: Does the patient need help from a person or device, or need extra time to walk 150 feet? Yes. LOCOMOTION: WALK - STEP 2: How much assistance does the patient require to walk a minimum of 150 feet? Patient walks less than 1 50 feet - but more than 50 feet - with the assistance of only one helper LOCOMOTION: WALK - SCORE: 2-MAX LOCOMOTION: WHEELCHAIR: LOCOMOTION: WHEELCHAIR - STEP 1: Does the patient need help to go 150 feet in a wheelchair? Yes. LOCOMOTION: WHEELCHAIR - STEP 2: How much assistance does the patient need from the helper? Patient goes less than 150 feet - but more than 50 feet - with the assistance of only one helper LOCOMOTION: WHEELCHAIR - SCORE: 2-MAX LOCOMOTION: STAIRS: Activity did not occur on this shift LOCOMOTION: STAIRS - SCORE: 0-UNK COMPREHENSION: COMPREHENSION - SCORE: 0-UNK EXPRESSION EXPRESSION - SCORE: 0-UNK SOCIAL INTERACTION: SOCIAL INTERACTION - SCORE: 0-UNK PROBLEM SOLVING: PROBLEM SOLVING - SCORE: 0-UNK MEMORY: MEMORY - SCORE: 0-UNK SIGNATURE PANEL: The following modified sections: Transfers: Bed, Chair, Wheelchair - Score, Transfers: Toilet - Score , Locomotion: Walk - Score, Locomotion: Wheelchair - Score, Locomotion: Stairs - Score were [electron icagamaliel] signed by Luis Werner PTA on ThuJul 27 2018 14:53:51 GMT-0600 (Central Standard Time)
[2018-07-27] MEDS: EPOETIN ALFA 10,000 UNIT/ML VIAL IV SCH (15:07)
--- NOTE | 2018-07-27 15:20 | FAST ---
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 Joselo Diaz M.D. ADMISSION DIAGNOSIS: - Orthopaedic Disorders 08 - Unilateral Hip Fracture (08.11) LEFT INTERTROCHANTERIC FEMUR FRACTURE. EATING: EATING - STEP 1: Does the patient require the assistance of a person or device, or need extra time when eating? Yes. EATING - STEP 2: Does the patient require the assistance of a helper? Yes. EATING - STEP 3: Does the patient perform half or more of the eating tasks? Yes. EATING - STEP 4: Does the patient need only supervision, cuing, coaxing OR help to apply an orthosis OR help to cut fo od, open containers, pour liquids, or butter bread? Yes. EATING - SCORE: 5-SUP GROOMING: Comb/brush hair Wash, rinse, and dry face Wash, rinse, and dry hands GROOMING - STEP 1: Does the patient require the assistance of a person or device, or need extra time when grooming? Yes. GROOMING - STEP 2: Does the patient require the assistance of a helper? Yes. GROOMING - STEP 3: How much assistance does the patient require from the helper? Only prior equipment preparation/set up from the helper GROOMING - SCORE: 5-SUP BATHING: Activity did not occur on this shift BATHING - SCORE: 0-UNK DRESSING - UPPER BODY: ARTICLES SCORE Total number of steps: 0 DRESSING - UPPER BODY - STEP 1: Does the patient require help from a person or device, or need extra time when dressing above the concepcion st? Yes. DRESSING - UPPER BODY - STEP 2: Does the patient require the assistance of a helper? Yes. DRESSING - UPPER BODY - STEP 3: Does the helper touch the patient while dressing? No. DRESSING - UPPER BODY - SCORE: 5-SUP DRESSING - LOWER BODY: Elastic waist pants (three steps) Underwear (three steps) ARTICLES SCORE Total number of steps: 6 DRESSING - LOWER BODY - STEP 1: Does the patient require help from a person or device, or need extra time when dressing below the concepcion st? Yes. DRESSING - LOWER BODY - STEP 2: Does the patient require the assistance of a helper? Yes. DRESSING - LOWER BODY - STEP 3: Does the helper touch the patient while dressing? Yes. DRESSING - LOWER BODY - STEP 4: How many of the total steps does the patient complete on his/her own? 0 DRESSING - LOWER BODY - STEP 5: Does patient require total assistance for dressing below the waist such as the helper holding clothin g and performing basically all the activities? Yes. DRESSING - LOWER BODY - SCORE: 1-DEP TOILETING: TOILETING - STEP 1: Does the patient require the assistance of a person or device, or need extra time with toileting? Yes . TOILETING - STEP 2: Does the patient require the assistance of a helper? Yes. TOILETING - STEP 3: How much assistance does the patient require from the helper? Hands-on assistance from the helper TOILETING - STEP 4: Of the 3 tasks: 1) Adjusting clothing prior to use, 2) Cleansing of perineal area, 3) Adjusting clot luz marina after use; How many tasks does the patient perform WITHOUT assistance of the helper? One task TOILETING - SCORE: 2-MAX BLADDER MANAGEMENT: BLADDER MANAGEMENT - STEP 1: Does the patient control the bladder completely and intentionally without equipment or devices or med ications, and is always continent? No. BLADDER MANAGEMENT - STEP 2: Does the patient require the assistance of a helper? Yes. BLADDER MANAGEMENT - STEP 3: How much assistance does the patient require from the helper? Only set-up of equipment - such as plac ing it within reach of the patient or emptying a device - to maintain either satisfactory voiding pat tern or managing an external device, such as an absorbent pad, ileal device, or catheter BLADDER MANAGEMENT - SCORE: 5-SUP BLADDER MANAGEMENT - FREQUENCY OF ACCIDENTS: BLADDER MANAGEMENT(FA) - STEP 1: How many accidents has the patient had during the current shift? 0 BOWEL MANAGEMENT: BOWEL MANAGEMENT - STEP 1: Does the patient control bowels completely and intentionally without equipment devices or medications AND is always continent? No. BOWEL MANAGEMENT - STEP 2: Does the patient require the assistance of a helper? No, patient requires extra time BOWEL MANAGEMENT - SCORE: 6-SAMREEN BOWEL MANAGEMENT - FREQUENCY OF ACCIDENTS: BOWEL MANAGEMENT(FA) - STEP 1: How many accidents has the patient had during the current shift? 0 TRANSFERS: BED, CHAIR, WHEELCHAIR: TRANSFERS: BED, CHAIR, WHEELCHAIR - STEP 1: Does the patient require assitance of a person or device, or need extra time with bed, chair, or whee lchair transfers? Yes. TRANSFERS: BED, CHAIR, WHEELCHAIR - STEP 2: Does the patient require the assistance of a helper? Yes. TRANSFERS: BED, CHAIR, WHEELCHAIR - STEP 3: How much assistance does the patient require from the helper? Lifting of the patient TRANSFERS: BED, CHAIR, WHEELCHAIR - STEP 4: Does the helper lift the patient ONLY up? ONLY down? Up AND Down? ONLY up. TRANSFERS: BED, CHAIR, WHEELCHAIR - SCORE: 3-MOD TRANSFERS: TOILET: TRANSFERS: TOILET - STEP 1: Does the patient require the assistance of a person or device, or need extra time with toilet transfe rs? Yes. TRANSFERS: TOILET - STEP 2: Does the patient require the assistance of a helper? Yes. TRANSFERS: TOILET - STEP 3: How much assistance does the patient require from the helper? Patient performs half or more of the tr ansferring tasks TRANSFERS: TOILET - STEP 4: Does the patient need only incidental help such as contact guard or steadying during toilet transfer? Yes. TRANSFERS: TOILET - SCORE: 4-MIN TRANSFERS: SHOWER: Activity did not occur on this shift TRANSFERS: SHOWER - SCORE: 0-UNK TRANSFERS: TUB: Activity did not occur on this shift TRANSFERS: TUB - SCORE: 0-UNK LOCOMOTION: WALK: Activity did not occur on this shift LOCOMOTION: WALK - SCORE: 0-UNK LOCOMOTION: WHEELCHAIR: Activity did not occur on this shift LOCOMOTION: WHEELCHAIR - SCORE: 0-UNK COMPREHENSION: COMPREHENSION: TYPE: Both COMPREHENSION - STEP 1: Does the patient require help from a person or device, or need extra time to understand complex and a bstract ideas (such as current events, finances, discharge planning, medical issues, relationships, e tc)? Yes. COMPREHENSION - STEP 2: Does the patient require help to understand questions or statements about basic needs or ideas (such as hunger, thirst, sleep, safety, daily schedule, room location, or discomfort) half or more of the t chris? No. COMPREHENSION - STEP 3: How often does the patient need help to understand directions and conversation about basic needs? Les s than 10% of the time COMPREHENSION - SCORE: 5-SUP EXPRESSION EXPRESSION: TYPE: Both EXPRESSION - STEP 1: Does the patient require help from a person or device, or need extra time expressing complex and abst ract ideas (such as current events, finances, discharge planning, medical issues, relationships, etc) ? Yes. EXPRESSION - STEP 2: Does the patient require help to express basic necessities or ideas (such as hunger, thirst, sleep, s afety, daily schedule, room location, or discomfort) half or more of the time? Yes. EXPRESSION - STEP 3: Is the patient basically unable to express or does s/he express inappropriately or inconsistently nida pite prompting? No. EXPRESSION - SCORE: 2-MAX SOCIAL INTERACTION: SOCIAL INTERACTION - STEP 1: Does the patient require a helper to interact with others in social and therapeutic situations? Yes. SOCIAL INTERACTION - STEP 2: Does the patient interact appropriately half or more of the time? Yes. SOCIAL INTERACTION - STEP 3: How often does the patient need help to interact appropriately? 25-49% of the time SOCIAL INTERACTION - SCORE: 3-MOD PROBLEM SOLVING: PROBLEM SOLVING - STEP 1: Does the patient need help from a person or device, or need extra time to solve complex problems such as managing a checking account or confronting interpersonal problems? Yes. PROBLEM SOLVING - STEP 2: Does the patient solve basic routine problems half or more of the time? Yes. PROBLEM SOLVING - STEP 3: How often does the patient need help to solve basic routine problems? 25%-49% of the time PROBLEM SOLVING - SCORE: 3-MOD MEMORY: MEMORY - STEP 1: Does the patient need help from a person or device, or need extra time to remember frequently encount ered people, daily routines, and executing requests? Yes. MEMORY - STEP 2: How often does the patient need help to remember frequently encountered people, daily routines, and e xecuting requests? 25% - 49% of the time MEMORY - SCORE: 3-MOD SIGNATURE PANEL: The following modified sections: Eating - Score, Grooming - Score, Bathing - Score, Dressing - Upper Body - Score, Dressing - Lower Body - Score, Toileting - Score, Bladder Management - Score, Bowel Man agement - Score, Transfers: Bed, Chair, Wheelchair - Score, Transfers: Toilet - Score, Transfers: Mora wer - Score, Transfers: Tub - Score, Locomotion: Walk - Score, Locomotion: Wheelchair - Score, Compre hension - Score, Expression - Score, Social Interaction - Score, Problem Solving - Score, Memory - Sc ore were [electronically] signed by Neha Sanderson C.N.A. on ThuJul 27 2018 15:19:05 GMT-0600 ([facility] Time)
--- NOTE | 2018-07-27 17:59 | P.PN ---
Subjective Date of Service: 07/27/18 Chief Complaint: FEELS WELL. 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 SHE IS NOW IN REHAB FOR PT. CHR PAIN. HIP FRACTURE. BILAT SWELLING. CONSTIPATION BETTER. STABLE IN REHAB. NO NEW ISSUES. SHE IS STABLE. NO CONSTIPATION. NO UTI SS. SHE IS STABLE, STILL HAS PAIN IN L LEG. Review of Systems 10-point ROS is otherwise unremarkable General: Malaise Physical Examination - Vital Signs Temperature: 97.6 F Blood Pressure: 133/60 Pulse: 68 Respirations: 16 Pulse Ox (%): 99 - Physical Exam General: Oriented x2, Mild distress HEENT: Atraumatic, PERRLA, EOMI Neck: Supple, JVD not distended Respiratory: Clear to auscultation bilaterally, Normal air movement Cardiovascular: Regular rate/rhythm, Normal S1 S2 Gastrointestinal: Normal bowel sounds, No tenderness Musculoskeletal: No tenderness Integumentary: No rashes Neurological: Normal speech, Normal tone, Normal affect Lymphatics: No axilla or inguinal lymphadenopathy - Studies Microbiology Data (last 24 hrs): 07/25/18 10:45 Catheterized Urine [place] Count - Final 07/25/18 10:45 Catheterized Urine - Final Medications List Reviewed: Yes Assessment And Plan - Current Problems (Diagnosis) (1) Closed left hip fracture Onset Date: 07/13/18 Current Visit: No Status: Acute Plan: PT CONSULT DVT PROPHYLAXIS HAD ANEMIA SP SURGERY WILL TRY ORAL AC AGAIN. PT RESUME. 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 STABLE HD TEAM BUSY IN ICU. HD WILL BE DONE TODAY. FAMILY AWARE. HD DONE LATE LAST NIGHT. LOW K MANAGED BY RENAL MD. Qualifiers: Renal failure chronicity: chronic Chronic kidney disease stage: on chronic dialysis Qualified Code(s): N18.6 - End stage renal disease; Z99.2 - Dependence on renal dialysis (3) Edema Current Visit: Yes Status: Chronic Plan: VENOUS DOPPLER NEGATIVE. RESUME COMPRESSION. (4) Abnormal urinalysis Current Visit: Yes Status: Suspected Plan: SHE HAS NO SYMPTOMS. IGNORE ALL UA AND UCS SHE HAS NO SS. THIS IS THE GUIDELINE. REPEAT ST. CATH UA IS TOTALLY NORMAL. CIPRO STOPPED. UNNECESSARY USE OF ANTIBIOTICS IS HARMFUL TO PATIENT. SHE HAS NO UTI SYMPTOMS. UA IS CLEAR.
[2018-07-27] MEDS: ATORVASTATIN 20 MG TAB PO SCH (21:13)
--- NOTE | 2018-07-28 04:00 | FAST ---
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 Joselo Diaz M.D. ADMISSION DIAGNOSIS: - Orthopaedic Disorders 08 - Unilateral Hip Fracture (08.11) LEFT INTERTROCHANTERIC FEMUR FRACTURE. EATING: Activity did not occur on this shift EATING - SCORE: 0-UNK GROOMING: Activity did not occur on this shift GROOMING - SCORE: 0-UNK BATHING: Activity did not occur on this shift BATHING - SCORE: 0-UNK DRESSING - UPPER BODY: Activity did not occur on this shift ARTICLES SCORE Total number of steps: 0 DRESSING - UPPER BODY - SCORE: 0-UNK DRESSING - LOWER BODY: Activity did not occur on this shift ARTICLES SCORE Total number of steps: 0 DRESSING - LOWER BODY - SCORE: 0-UNK TOILETING: TOILETING - STEP 1: Does the patient require the assistance of a person or device, or need extra time with toileting? Yes . TOILETING - STEP 2: Does the patient require the assistance of a helper? Yes. TOILETING - STEP 3: How much assistance does the patient require from the helper? Hands-on assistance from the helper TOILETING - STEP 4: Of the 3 tasks: 1) Adjusting clothing prior to use, 2) Cleansing of perineal area, 3) Adjusting clot luz marina after use; How many tasks does the patient perform WITHOUT assistance of the helper? One task TOILETING - SCORE: 2-MAX BLADDER MANAGEMENT: BLADDER MANAGEMENT - STEP 1: Does the patient control the bladder completely and intentionally without equipment or devices or med ications, and is always continent? No. BLADDER MANAGEMENT - STEP 2: Does the patient require the assistance of a helper? Yes. BLADDER MANAGEMENT - STEP 3: How much assistance does the patient require from the helper? Patient requires contact assistance fro m the helper BLADDER MANAGEMENT - STEP 4: How much contact assistance does the patient require from the helper? Patient requires maximal assist ance, and only performs 25% to 49% of bladder management tasks BLADDER MANAGEMENT - SCORE: 2-MAX BLADDER MANAGEMENT - FREQUENCY OF ACCIDENTS: BLADDER MANAGEMENT(FA) - STEP 1: How many accidents has the patient had during the current shift? 0 BOWEL MANAGEMENT: BOWEL MANAGEMENT - STEP 1: Does the patient control bowels completely and intentionally without equipment devices or medications AND is always continent? No. BOWEL MANAGEMENT - STEP 2: Does the patient require the assistance of a helper? Yes. BOWEL MANAGEMENT - STEP 3: How much assistance does the patient require from the helper? Patient requires maximal assistance - p erforms 25% to 49 % of bowel management tasks BOWEL MANAGEMENT - SCORE: 2-MAX BOWEL MANAGEMENT - FREQUENCY OF ACCIDENTS: BOWEL MANAGEMENT(FA) - STEP 1: How many accidents has the patient had during the current shift? 0 TRANSFERS: BED, CHAIR, WHEELCHAIR: TRANSFERS: BED, CHAIR, WHEELCHAIR - STEP 1: Does the patient require assitance of a person or device, or need extra time with bed, chair, or whee lchair transfers? Yes. TRANSFERS: BED, CHAIR, WHEELCHAIR - STEP 2: Does the patient require the assistance of a helper? Yes. TRANSFERS: BED, CHAIR, WHEELCHAIR - STEP 3: How much assistance does the patient require from the helper? Lifting of the legs TRANSFERS: BED, CHAIR, WHEELCHAIR - STEP 4: How many legs does the patient require the helper to lift? both legs TRANSFERS: BED, CHAIR, WHEELCHAIR - SCORE: 3-MOD TRANSFERS: TOILET: TRANSFERS: TOILET - STEP 1: Does the patient require the assistance of a person or device, or need extra time with toilet transfe rs? Yes. TRANSFERS: TOILET - STEP 2: Does the patient require the assistance of a helper? Yes. TRANSFERS: TOILET - STEP 3: How much assistance does the patient require from the helper? Patient performs half or more of the tr ansferring tasks TRANSFERS: TOILET - STEP 4: Does the patient need only incidental help such as contact guard or steadying during toilet transfer? No. Patient needs more than incidental help TRANSFERS: TOILET - SCORE: 3-MOD TRANSFERS: SHOWER: Activity did not occur on this shift TRANSFERS: SHOWER - SCORE: 0-UNK TRANSFERS: TUB: Activity did not occur on this shift TRANSFERS: TUB - SCORE: 0-UNK LOCOMOTION: WALK: Activity did not occur on this shift LOCOMOTION: WALK - SCORE: 0-UNK LOCOMOTION: WHEELCHAIR: Activity did not occur on this shift LOCOMOTION: WHEELCHAIR - SCORE: 0-UNK COMPREHENSION: COMPREHENSION: TYPE: Both COMPREHENSION - STEP 1: Does the patient require help from a person or device, or need extra time to understand complex and a bstract ideas (such as current events, finances, discharge planning, medical issues, relationships, e tc)? Yes. COMPREHENSION - STEP 2: Does the patient require help to understand questions or statements about basic needs or ideas (such as hunger, thirst, sleep, safety, daily schedule, room location, or discomfort) half or more of the t chris? Yes. COMPREHENSION - STEP 3: Is the patient basically able to understand and respond appropriately and consistently? Yes. COMPREHENSION - SCORE: 2-MAX EXPRESSION EXPRESSION: TYPE: Both EXPRESSION - STEP 1: Does the patient require help from a person or device, or need extra time expressing complex and abst ract ideas (such as current events, finances, discharge planning, medical issues, relationships, etc) ? Yes. EXPRESSION - STEP 2: Does the patient require help to express basic necessities or ideas (such as hunger, thirst, sleep, s afety, daily schedule, room location, or discomfort) half or more of the time? Yes. EXPRESSION - STEP 3: Is the patient basically unable to express or does s/he express inappropriately or inconsistently nida pite prompting? No. EXPRESSION - SCORE: 2-MAX SOCIAL INTERACTION: SOCIAL INTERACTION - STEP 1: Does the patient require a helper to interact with others in social and therapeutic situations? Yes. SOCIAL INTERACTION - STEP 2: Does the patient interact appropriately half or more of the time? Yes. SOCIAL INTERACTION - STEP 3: How often does the patient need help to interact appropriately? Less than 10% of the time SOCIAL INTERACTION - SCORE: 5-SUP PROBLEM SOLVING: Patient requires bed/chair alarms due to attempts to get up unassisted when helper is needed. PROBLEM SOLVING - STEP 1: How often do the bed/chair alarms go off? Occasionally - the alarms go off about 25% or less PROBLEM SOLVING - SCORE: 4-MIN MEMORY: MEMORY - STEP 1: How often do the bed/chair alarms go off? Occasionally - the alarms go off about 25% of the time or l ess MEMORY - SCORE: 4-MIN SIGNATURE PANEL: The following modified sections: Eating - Score, Grooming - Score, Bathing - Score, Dressing - Upper Body - Score, Dressing - Lower Body - Score, Toileting - Score, Bladder Management - Score, Bowel Man agement - Score, Transfers: Bed, Chair, Wheelchair - Score, Transfers: Toilet - Score, Transfers: Mora wer - Score, Transfers: Tub - Score, Locomotion: Walk - Score, Locomotion: Wheelchair - Score, Compre hension - Score, Expression - Score, Social Interaction - Score, Problem Solving - Score, Memory - Sc ore were [electronically] signed by Carey Syed on ThuJul 28 2018 03:59:20 GMT-0600 ([place])
[2018-07-28] MEDS: LEVOTHYROXINE SOD 0.125 MG TAB PO SCH (05:13)
[2018-07-28] MEDS: PANTOPRAZOLE 40MG TABLET PO SCH (05:13)
[2018-07-28] MEDS: HEPARIN 5000 UNIT/ML 1 ML VIAL SQ SCH ×2 (07:45→20:24)
[2018-07-28] MEDS: POLYETHYL GLY 3350 17 GM/DOSE PO SCH (07:45)
[2018-07-28] MEDS: LIDOCAINE 5% PATCH TOP SCH (07:45)
[2018-07-28] MEDS: PROMOD 30 ML DOSE PO SCH ×2 (07:46→20:23)
[2018-07-28] MEDS: HYDROCODONE/APAP 5/325 MG TAB PO PRN ×2 (07:46→14:59)
[2018-07-28] MEDS: FERROUS SULFATE 325 MG TAB PO SCH (07:46)
[2018-07-28] MEDS: GABAPENTIN 300 MG CAP PO SCH ×2 (07:46→20:24)
[2018-07-28] MEDS: NEPRO SHAKE 237 ML CAN PO SCH ×2 (07:46→20:23)
[2018-07-28] MEDS: FE SULF/FA/VIT B COMP & C TAB PO SCH (07:46)
[2018-07-28] MEDS: CRANBERRY FRUIT EXTRACT 200 MG CAP PO SCH ×2 (07:46→20:24)
[2018-07-28] MEDS: CLOPIDOGREL 75 MG TABLET PO SCH (07:46)
--- NOTE | 2018-07-28 14:52 | FAST ---
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 Joselo Diaz M.D. ADMISSION DIAGNOSIS: - Orthopaedic Disorders 08 - Unilateral Hip Fracture (08.11) LEFT INTERTROCHANTERIC FEMUR FRACTURE. EATING: Activity did not occur on this shift EATING - SCORE: 0-UNK GROOMING: Comb/brush hair Wash, rinse, and dry face Wash, rinse, and dry hands GROOMING - STEP 1: Does the patient require the assistance of a person or device, or need extra time when grooming? Yes. GROOMING - STEP 2: Does the patient require the assistance of a helper? No. The patient only requires an assistive devic e, OR takes more than reasonable time to groom, OR there is a concern for safety as the patient groom s GROOMING - SCORE: 6-SAMREEN BATHING: Abdomen Buttocks Chest Left arm Left lower leg and foot Left upper leg Perineal area Right arm Right lower leg and foot Right upper leg BATHING - STEP 1: Does the patient require the assistance of a person or device, or need extra time when bathing? Yes. BATHING - STEP 2: Does the patient require the assistance of a helper? Yes. BATHING - STEP 3: How much assistance does the patient require from the helper? Only incidental help such as placement of a wash cloth in his/her hand a few times as s/he bathes OR help to bathe just one or two areas of the body BATHING - SCORE: 4-MIN DRESSING - UPPER BODY: Bra (three steps) T-shirt/pullover shirt (four steps) ARTICLES SCORE Total number of steps: 7 DRESSING - UPPER BODY - STEP 1: Does the patient require help from a person or device, or need extra time when dressing above the concepcion st? Yes. DRESSING - UPPER BODY - STEP 2: Does the patient require the assistance of a helper? Yes. DRESSING - UPPER BODY - STEP 3: Does the helper touch the patient while dressing? Yes. DRESSING - UPPER BODY - STEP 4: How many of the total steps does the patient complete on his/her own? 6 DRESSING - UPPER BODY - SCORE: 4-MIN DRESSING - LOWER BODY: Elastic waist pants (three steps) Sock - Left foot (one step) Sock - Right foot (one step) Underwear (three steps) ARTICLES SCORE Total number of steps: 8 DRESSING - LOWER BODY - STEP 1: Does the patient require help from a person or device, or need extra time when dressing below the concepcion st? Yes. DRESSING - LOWER BODY - STEP 2: Does the patient require the assistance of a helper? Yes. DRESSING - LOWER BODY - STEP 3: Does the helper touch the patient while dressing? Yes. DRESSING - LOWER BODY - STEP 4: How many of the total steps does the patient complete on his/her own? 5 DRESSING - LOWER BODY - SCORE: 3-MOD TOILETING: Activity did not occur on this shift TOILETING - SCORE: 0-UNK BLADDER MANAGEMENT: Activity did not occur on this shift BLADDER MANAGEMENT - SCORE: 7-IND BOWEL MANAGEMENT: Activity did not occur on this shift BOWEL MANAGEMENT - SCORE: 7-IND TRANSFERS: BED, CHAIR, WHEELCHAIR: Activity did not occur on this shift TRANSFERS: BED, CHAIR, WHEELCHAIR - SCORE: 0-UNK TRANSFERS: TOILET: Activity did not occur on this shift TRANSFERS: TOILET - SCORE: 0-UNK TRANSFERS: SHOWER: TRANSFERS: SHOWER - STEP 1: Does the patient require the assistance of a person or device, or need extra time with shower transfe rs? Yes. TRANSFERS: SHOWER - STEP 2: Does the patient require the assistance of a helper? Yes. TRANSFERS: SHOWER - STEP 3: How much assistance does the patient require from the helper? Only supervision, cuing, coaxing, or he lp to set out transfer equipment or to lock brakes and/or lift foot rests TRANSFERS: SHOWER - SCORE: 5-SUP TRANSFERS: TUB: Activity did not occur on this shift TRANSFERS: TUB - SCORE: 0-UNK LOCOMOTION: WALK: Activity did not occur on this shift LOCOMOTION: WALK - SCORE: 0-UNK LOCOMOTION: WHEELCHAIR: Activity did not occur on this shift LOCOMOTION: WHEELCHAIR - SCORE: 0-UNK LOCOMOTION: STAIRS: Activity did not occur on this shift LOCOMOTION: STAIRS - SCORE: 0-UNK COMPREHENSION: COMPREHENSION: TYPE: Visual COMPREHENSION - STEP 1: Does the patient require help from a person or device, or need extra time to understand complex and a bstract ideas (such as current events, finances, discharge planning, medical issues, relationships, e tc)? Yes. COMPREHENSION - STEP 2: Does the patient require help to understand questions or statements about basic needs or ideas (such as hunger, thirst, sleep, safety, daily schedule, room location, or discomfort) half or more of the t chris? No. COMPREHENSION - STEP 3: How often does the patient need help to understand directions and conversation about basic needs? 10% - 24% of the time COMPREHENSION - SCORE: 4-MIN EXPRESSION EXPRESSION: TYPE: Non-Vocal EXPRESSION - STEP 1: Does the patient require help from a person or device, or need extra time expressing complex and abst ract ideas (such as current events, finances, discharge planning, medical issues, relationships, etc) ? Yes. EXPRESSION - STEP 2: Does the patient require help to express basic necessities or ideas (such as hunger, thirst, sleep, s afety, daily schedule, room location, or discomfort) half or more of the time? No. EXPRESSION - STEP 3: How often does the patient need help to express directions and conversation about basic needs? 10-24% of the time EXPRESSION - SCORE: 4-MIN SOCIAL INTERACTION: SOCIAL INTERACTION - STEP 1: Does the patient require a helper to interact with others in social and therapeutic situations? No. SOCIAL INTERACTION - STEP 2: Does the patient need extra time in social situations, OR does s/he interact with staff, other patien ts, and family members ONLY in structured environments, OR does s/he require medication for social in teraction? Yes, patient needs extra time SOCIAL INTERACTION - SCORE: 6-SAMREEN PROBLEM SOLVING: PROBLEM SOLVING - STEP 1: Does the patient need help from a person or device, or need extra time to solve complex problems such as managing a checking account or confronting interpersonal problems? Yes. PROBLEM SOLVING - STEP 2: Does the patient solve basic routine problems half or more of the time? Yes. PROBLEM SOLVING - STEP 3: How often does the patient need help to solve basic routine problems? 10%-24% of the time PROBLEM SOLVING - SCORE: 4-MIN MEMORY: MEMORY - STEP 1: Does the patient need help from a person or device, or need extra time to remember frequently encount ered people, daily routines, and executing requests? Yes. MEMORY - STEP 2: How often does the patient need help to remember frequently encountered people, daily routines, and e xecuting requests? 10% - 24% of the time MEMORY - SCORE: 4-MIN SIGNATURE PANEL: The following modified sections: Eating - Score, Grooming - Score, Bathing - Score, Dressing - Upper Body - Score, Dressing - Lower Body - Score, Toileting - Score, Transfers: Bed, Chair, Wheelchair - S core, Transfers: Toilet - Score, Transfers: Shower - Score, Transfers: Tub - Score, Comprehension - S core, Expression - Score, Social Interaction - Score, Problem Solving - Score, Memory - Score were [e lectronically] signed by JOSEPH Pardo on ThuJul 28 2018 14:51:28 T-0600 ([address] [facility])
--- NOTE | 2018-07-28 18:10 | R.PN ---
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 SUBJECTIVE: Pt denied any depression. Pt denied any Shortness of Breath. Ambulated 300' with standby assistance using a rolling walker. VITAL SIGNS Temperature: 97.6 F SBP/DBP: 117/53 Pulse: 82 Resp: 15 MEDICATION ALLERGIES: No Known Drug Allergies (NKDA) ENVIRONMENTAL ALLERGIES: None Known - Substance Allergies None Known - Other Allergies None Known NURSING: - Shower allowing shower - Skin care per protocol PRECAUTIONS: - Posterior Hip Precaution No adduction across midline No external rotation No hip flexion >90 degrees No internal rotation No wheel chair propulsion - Weight Bearing Precaution WBAT left LE ACTIVITIES OOB only with supervision THERAPIES: - Occupational Therapy Evaluate and Treat. - Physical Therapy Evaluate and Treat. PHYSICAL EXAM - Gen Alert and awake Lying in bed No apparent distress Oriented to: person, time, and place - Skin No breakdown No abnormalities - Eyes No abnormalities - ENMT No abnormalities - Neck No abnormalities - CVS RRR - Chest Clear - Abd + bowel sounds - GI nondistended Deferred - No abnormalities - Ext Left hip surgical site has good hemostasis. - MSK 4+/5 weakness in left lower extremity - Neuro 4/5 strength left lower extremity. - Psych No abnormalities ASSESSMENT: Pt. is a 88 yo Right-handed white female.Her impairment category is Orthopaedic Disorders 08 - Unila teral Hip Fracture (08.11).Pre-morbidly, Pt. was independent/mod-I in Transfers Control, Communicatio n, Social Cognition, Self-Care, Locomotion, and Sphincter Control; and she had good Sphincter Control .Currently, she has deficits of Transfers Control, Balance, Self-Care, Locomotion, Endurance, and Saf ety Awareness.Pt. is now referred to [facility] for acute in-patient rehabilit ation in order to maximize patient's functional independence in activities of daily living, strength, ROM, and mobility.- Rehab Goal Patient has realistic goal of being discharged at assistance level 6-Malika to reside at Home with Fam kinjal/Relatives. MDM/PLAN: - Physical Therapy Decreased range of motion - to improve, our physical therapists will perform initial evaluation of p t's status upon admission and devise an individualized program for increasing patient's Range of Luis Manuel on. Gait dysfunction - to improve, our physical therapists will perform initial evaluation of pt's statu s upon admission and devise an individualized program for Gait Training, and Wheel Chair mobility Inability to transfer - to improve, our physical therapists will perform initial evaluation of pt's status upon admission and devise an individualized program for Bed mobility Need for home safety evaluation - to improve, our physical therapists will perform initial evaluatio n of pt's status upon admission and devise an individualized program for Home Evaluation Need in caregiver upon discharge - to improve, our physical therapists will perform initial evaluati on of pt's status upon admission and devise an individualized program for Caregiver Training New precaution - to improve, our physical therapists will perform initial evaluation of pt's status upon admission and devise an individualized program for Patient precaution education Poor balance - to improve, our physical therapists will perform initial evaluation of pt's status up on admission and devise an individualized program for Balance Training Poor endurance - to improve, our physical therapists will perform initial evaluation of pt's status upon admission and devise an individualized program for Endurance Training Weakness - to improve, our physical therapists will perform initial evaluation of pt's status upon a dmission and devise an individualized program for Aquatic Therapy, Neuromuscular Reeducation, and Str engthening Achieving independence - to improve, our physical therapists will perform initial evaluation of pt's status upon admission and devise an individualized program for Community Reintegration Activities - Occupational Therapy ADL deficits - to improve, our occupation therapists will perform initial evaluation of pt's status upon admission and devise an individualized program for Bathing, Bed mobility, Community Reintegratio n, Cooking, Dressing, Eating, Fine Motor Skills, Grooming, Homemaking, Kitchen Mobility, Laundry, Pat ient Education, Safety Awareness, Splinting - Positioning, Transfers(Toilet, Tub, Shower), and Wheel Chair Management Need for urgent care technician - to improve, our occupation therapists will perform initial evaluation of pt's status upon admission and devise an individualized program for Caregiver Training Weakness - to improve, our occupation therapists will perform initial evaluation of pt's status upon admission and devise an individualized program for Aquatic Therapy, Balance, Endurance, UE ROM, and UE strengthening - Anterior Hip Precaution No abduction No active extension No adduction across midline No external rotation No hip flexion >90 degrees No internal rotation - Diet - Liquid Texture Continue Regular - Tube Feed Continue N/A - Diet Type Continue Regular - Posterior Hip Precaution No adduction across midline No external rotation No hip flexion >90 degrees No internal rotation No wheel chair propulsion - Weight Bearing Precaution WBAT left LE - Skin care per protocol - Diet - Solid Texture Continue Regular - Shower allowing shower FUNCTIONAL STATUS: UPDATED AT WEEKLY TEAM CONFERENCE - Bladder Same accident frequency: 7-Ind - No accidents in the past 7 days - Bowel Same accident frequency: 7-Ind - No accidents in the past 7 days - Walking Same score based on distance walked: 1(<=50ft) - Wheelchair Same score based on distance traveled: 0(N/A) FUNCTIONAL STATUS: - Self-Care A. Eating sup B. Grooming sup C. Bathing Jackie D. Dressing - Upper Jackie E. Dressing - Lower Jackie F. Toileting Jackie - Sphincter Control G: Bladder control Ind H: Bowel control Ind - Transfers Control I. Bed/Chair/Wheelchair maxA J. Toilet maxA K. Tub/Shower Ind - Locomotion L. Walk/Wheelchair (C) modA L. Walk/Wheelchair (W) modA M. Stairs ADNO - Communication N. Comprehension (B) Malika O. Expression (B) Malika - Social Cognition P. Social Interaction Malika Q. Problem Solving Malika R. Memory Malika - Endurance Fair - Balance Fair - Safety Awareness Fair CURRENT FUNC. DEFICITS: Transfers Control, Balance, Self-Care, Locomotion, Endurance, and Safety Awareness SIGNATURE PANEL: ([facility])
[2018-07-28] MEDS: ATORVASTATIN 20 MG TAB PO SCH (20:24)
[2018-07-28] MEDS: MELATONIN 3 MG TABLET PO PRN (20:24)
--- NOTE | 2018-07-28 21:14 | P.PN ---
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 SHE IS NOW IN REHAB FOR PT. CHR PAIN. HIP FRACTURE. BILAT SWELLING. CONSTIPATION BETTER. STABLE IN REHAB. NO NEW ISSUES. SHE IS STABLE. NO CONSTIPATION. NO UTI SS. SHE IS STABLE, STILL HAS PAIN IN L LEG. SHE HAS NO NEW ISSUES. Review of Systems 10-point ROS is otherwise unremarkable General: Weakness Cardiovascular: Edema Physical Examination - Vital Signs Temperature: 97.4 F Blood Pressure: 144/66 Pulse: 72 Respirations: 16 Pulse Ox (%): 99 - Physical Exam General: Alert, In no apparent distress HEENT: Atraumatic, PERRLA, EOMI Neck: Supple, JVD not distended Respiratory: Clear to auscultation bilaterally, Normal air movement Cardiovascular: Regular rate/rhythm, Normal S1 S2 Gastrointestinal: Normal bowel sounds, No tenderness Musculoskeletal: No tenderness Integumentary: No rashes Neurological: Normal speech, Normal tone, Normal affect Lymphatics: No axilla or inguinal lymphadenopathy - Studies Medications List Reviewed: Yes Assessment And Plan - Current Problems (Diagnosis) (1) Closed left hip fracture Onset Date: 07/13/18 Current Visit: No Status: Acute Plan: PT CONSULT DVT PROPHYLAXIS HAD ANEMIA SP SURGERY WILL TRY ORAL AC AGAIN. PT RESUME. 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 STABLE HD TEAM BUSY IN ICU. HD WILL BE DONE TODAY. FAMILY AWARE. HD DONE LATE LAST NIGHT. LOW K MANAGED BY RENAL MD. Qualifiers: Renal failure chronicity: chronic Chronic kidney disease stage: on chronic dialysis Qualified Code(s): N18.6 - End stage renal disease; Z99.2 - Dependence on renal dialysis (3) Edema Current Visit: Yes Status: Chronic Plan: VENOUS DOPPLER NEGATIVE. RESUME COMPRESSION. NO CHANGES, ON HD. THIS IS FROM SURGERY. (4) Abnormal urinalysis Current Visit: Yes Status: Suspected Plan: SHE HAS NO SYMPTOMS. IGNORE ALL UA AND UCS SHE HAS NO SS. THIS IS THE GUIDELINE. REPEAT ST. CATH UA IS TOTALLY NORMAL. CIPRO STOPPED. UNNECESSARY USE OF ANTIBIOTICS IS HARMFUL TO PATIENT. SHE HAS NO UTI SYMPTOMS. UA IS CLEAR.
--- NOTE | 2018-07-29 02:12 | FAST ---
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 Joselo Diaz M.D. ADMISSION DIAGNOSIS: - Orthopaedic Disorders 08 - Unilateral Hip Fracture (08.11) LEFT INTERTROCHANTERIC FEMUR FRACTURE. EATING: Activity did not occur on this shift EATING - SCORE: 0-UNK GROOMING: Activity did not occur on this shift GROOMING - SCORE: 0-UNK BATHING: Activity did not occur on this shift BATHING - SCORE: 0-UNK DRESSING - UPPER BODY: Patient is not dressing in public clothing ARTICLES SCORE Total number of steps: 0 DRESSING - UPPER BODY - SCORE: 0-UNK DRESSING - LOWER BODY: Patient is not dressing in public clothing ARTICLES SCORE Total number of steps: 0 DRESSING - LOWER BODY - SCORE: 0-UNK TOILETING: TOILETING - STEP 1: Does the patient require the assistance of a person or device, or need extra time with toileting? Yes . TOILETING - STEP 2: Does the patient require the assistance of a helper? Yes. TOILETING - STEP 3: How much assistance does the patient require from the helper? Hands-on assistance from the helper TOILETING - STEP 4: Of the 3 tasks: 1) Adjusting clothing prior to use, 2) Cleansing of perineal area, 3) Adjusting clot luz marina after use; How many tasks does the patient perform WITHOUT assistance of the helper? No tasks; dorian early performs all three tasks TOILETING - SCORE: 1-DEP BLADDER MANAGEMENT: BLADDER MANAGEMENT - STEP 1: Does the patient control the bladder completely and intentionally without equipment or devices or med ications, and is always continent? No. BLADDER MANAGEMENT - STEP 2: Does the patient require the assistance of a helper? Yes. BLADDER MANAGEMENT - STEP 3: How much assistance does the patient require from the helper? Only set-up of equipment - such as plac ing it within reach of the patient or emptying a device - to maintain either satisfactory voiding pat tern or managing an external device, such as an absorbent pad, ileal device, or catheter BLADDER MANAGEMENT - SCORE: 5-SUP BOWEL MANAGEMENT: BOWEL MANAGEMENT - STEP 1: Does the patient control bowels completely and intentionally without equipment devices or medications AND is always continent? No. BOWEL MANAGEMENT - STEP 2: Does the patient require the assistance of a helper? Yes. BOWEL MANAGEMENT - STEP 3: How much assistance does the patient require from the helper? Patient requires supervision, stand by, cueing, coaxing, or setup of equipment - placing within reach of patient and emptying device / bedpa nd or BSC bucket - to maintain either satisfactory bowel pattern or managing an external device such as an absorbent pad, colostomy bag / ileostomy bag BOWEL MANAGEMENT - SCORE: 5-SUP TRANSFERS: BED, CHAIR, WHEELCHAIR: TRANSFERS: BED, CHAIR, WHEELCHAIR - STEP 1: Does the patient require assitance of a person or device, or need extra time with bed, chair, or whee lchair transfers? Yes. TRANSFERS: BED, CHAIR, WHEELCHAIR - STEP 2: Does the patient require the assistance of a helper? Yes. TRANSFERS: BED, CHAIR, WHEELCHAIR - STEP 3: How much assistance does the patient require from the helper? Lifting of the patient TRANSFERS: BED, CHAIR, WHEELCHAIR - STEP 4: Does the helper lift the patient ONLY up? ONLY down? Up AND Down? Up AND Down. TRANSFERS: BED, CHAIR, WHEELCHAIR - SCORE: 2-MAX TRANSFERS: TOILET: TRANSFERS: TOILET - STEP 1: Does the patient require the assistance of a person or device, or need extra time with toilet transfe rs? Yes. TRANSFERS: TOILET - STEP 2: Does the patient require the assistance of a helper? Yes. TRANSFERS: TOILET - STEP 3: How much assistance does the patient require from the helper? Patient performs half or more of the tr ansferring tasks TRANSFERS: TOILET - STEP 4: Does the patient need only incidental help such as contact guard or steadying during toilet transfer? No. Patient needs more than incidental help TRANSFERS: TOILET - SCORE: 3-MOD TRANSFERS: SHOWER: Activity did not occur on this shift TRANSFERS: SHOWER - SCORE: 0-UNK TRANSFERS: TUB: Activity did not occur on this shift TRANSFERS: TUB - SCORE: 0-UNK LOCOMOTION: WALK: Activity did not occur on this shift LOCOMOTION: WALK - SCORE: 0-UNK LOCOMOTION: WHEELCHAIR: Activity did not occur on this shift LOCOMOTION: WHEELCHAIR - SCORE: 0-UNK COMPREHENSION: COMPREHENSION: TYPE: Both COMPREHENSION - STEP 1: Does the patient require help from a person or device, or need extra time to understand complex and a bstract ideas (such as current events, finances, discharge planning, medical issues, relationships, e tc)? Yes. COMPREHENSION - STEP 2: Does the patient require help to understand questions or statements about basic needs or ideas (such as hunger, thirst, sleep, safety, daily schedule, room location, or discomfort) half or more of the t chris? Yes. COMPREHENSION - STEP 3: Is the patient basically able to understand and respond appropriately and consistently? No, patient i s basically UNABLE to understand, OR responds inappropriately/inconsistently despite prompting COMPREHENSION - SCORE: 1-DEP EXPRESSION EXPRESSION: TYPE: Both EXPRESSION - STEP 1: Does the patient require help from a person or device, or need extra time expressing complex and abst ract ideas (such as current events, finances, discharge planning, medical issues, relationships, etc) ? Yes. EXPRESSION - STEP 2: Does the patient require help to express basic necessities or ideas (such as hunger, thirst, sleep, s afety, daily schedule, room location, or discomfort) half or more of the time? Yes. EXPRESSION - STEP 3: Is the patient basically unable to express or does s/he express inappropriately or inconsistently nida pite prompting? Yes. Patient is basically unable to express. EXPRESSION - SCORE: 1-DEP SOCIAL INTERACTION: SOCIAL INTERACTION - STEP 1: Does the patient require a helper to interact with others in social and therapeutic situations? Yes. SOCIAL INTERACTION - STEP 2: Does the patient interact appropriately half or more of the time? No. SOCIAL INTERACTION - STEP 3: How often does the patient interact appropriately? Less than 25% of the time SOCIAL INTERACTION - SCORE: 1-DEP PROBLEM SOLVING: PROBLEM SOLVING - STEP 1: Does the patient need help from a person or device, or need extra time to solve complex problems such as managing a checking account or confronting interpersonal problems? Yes. PROBLEM SOLVING - STEP 2: Does the patient solve basic routine problems half or more of the time? No. PROBLEM SOLVING - STEP 3: Does the patient need help to solve problems all the time or is s/he unable to solve problems? Yes. P atient needs help to solve problems all the time or is unable to solve problems PROBLEM SOLVING - SCORE: 1-DEP MEMORY: MEMORY - STEP 1: Does the patient need help from a person or device, or need extra time to remember frequently encount ered people, daily routines, and executing requests? Yes. MEMORY - STEP 2: How often does the patient need help to remember frequently encountered people, daily routines, and e xecuting requests? More than 50% of the time MEMORY - STEP 3: Does the patient need help to remember all of the time OR does s/he not effectively recognize and rem ember? Yes. Patient needs help to remember ALL the time OR does not effectively recognize and remembe r MEMORY - SCORE: 1-DEP SIGNATURE PANEL: The following modified sections: Eating - Score, Grooming - Score, Dressing - Upper Body - Score, Sameer ssing - Lower Body - Score, Toileting - Score, Bladder Management - Score, Bowel Management - Score, Transfers: Bed, Chair, Wheelchair - Score, Transfers: Toilet - Score, Transfers: Shower - Score, Bustillo sfers: Tub - Score, Locomotion: Walk - Score, Locomotion: Wheelchair - Score, Comprehension - Score, Expression - Score, Social Interaction - Score, Problem Solving - Score, Memory - Score were [electro nically] signed by Shaunna Jennings CNA on ThuJul 29 2018 02:11:05 GMT-0600 (Central Standard Time)
[2018-07-29] MEDS: PANTOPRAZOLE 40MG TABLET PO SCH (06:23)
[2018-07-29] MEDS: LEVOTHYROXINE SOD 0.125 MG TAB PO SCH (06:23)
[2018-07-29 06:39] LABS: Absolute Lymphocytes (CBC) 1.3 K/uL (0.7-4.9); Absolute Monocytes 1.2 K/uL (0.1-1.3); Absolute Neutrophil 7.6 K/uL (1.8-8.0); Basophils % 0.7 % (0-1.3); Eosinophils % 2.1 % (0-4.4); Lymphocytes % 12.7 % (15.3-44.8); MCH 30.8 pg (27.0-35.0); MCV 93.3 fL (80-100); MPV 8.2 fL (7.6-11.3); Monocytes % 11.2 % (3.3-12.3)
[2018-07-29 07:57] LABS: Albumin 2.3 g/dL (3.4-5.0); Potassium 4.1 mmol/L (3.5-5.1); Prealbumin 16.2 mg/dL (20-40)
[2018-07-29] MEDS: NEPRO SHAKE 237 ML CAN PO SCH ×2 (08:00→22:04)
[2018-07-29] MEDS: PROMOD 30 ML DOSE PO SCH ×2 (08:00→22:04)
[2018-07-29] MEDS: LIDOCAINE 5% PATCH TOP SCH (08:50)
[2018-07-29] MEDS: HYDROCODONE/APAP 5/325 MG TAB PO PRN ×2 (08:51→17:59)
[2018-07-29] MEDS: FE SULF/FA/VIT B COMP & C TAB PO SCH (08:51)
[2018-07-29] MEDS: POLYETHYL GLY 3350 17 GM/DOSE PO SCH (08:51)
[2018-07-29] MEDS: CRANBERRY FRUIT EXTRACT 200 MG CAP PO SCH ×2 (08:51→22:05)
[2018-07-29] MEDS: FERROUS SULFATE 325 MG TAB PO SCH (08:51)
[2018-07-29] MEDS: CLOPIDOGREL 75 MG TABLET PO SCH (08:51)
[2018-07-29] MEDS: GABAPENTIN 300 MG CAP PO SCH ×2 (08:51→22:05)
[2018-07-29] MEDS: HEPARIN 5000 UNIT/ML 1 ML VIAL SQ SCH ×2 (08:51→22:20)
[2018-07-29] MEDS: TRAMADOL HCL 50 MG TAB PO PRN (11:05)
--- NOTE | 2018-07-29 14:24 | FAST ---
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 Joselo Diaz M.D. ADMISSION DIAGNOSIS: - Orthopaedic Disorders 08 - Unilateral Hip Fracture (08.11) LEFT INTERTROCHANTERIC FEMUR FRACTURE. EATING: Activity did not occur on this shift EATING - SCORE: 0-UNK GROOMING: Activity did not occur on this shift GROOMING - SCORE: 0-UNK BATHING: Activity did not occur on this shift BATHING - SCORE: 0-UNK DRESSING - UPPER BODY: Activity did not occur on this shift Patient is not dressing in public clothing ARTICLES SCORE Total number of steps: 0 DRESSING - UPPER BODY - SCORE: 0-UNK DRESSING - LOWER BODY: Activity did not occur on this shift Patient is not dressing in public clothing ARTICLES SCORE Total number of steps: 0 DRESSING - LOWER BODY - SCORE: 0-UNK TOILETING: Activity did not occur on this shift TOILETING - SCORE: 0-UNK BLADDER MANAGEMENT: Activity did not occur on this shift BLADDER MANAGEMENT - SCORE: 7-IND BOWEL MANAGEMENT: Activity did not occur on this shift BOWEL MANAGEMENT - SCORE: 7-IND TRANSFERS: BED, CHAIR, WHEELCHAIR: TRANSFERS: BED, CHAIR, WHEELCHAIR - STEP 1: Does the patient require assitance of a person or device, or need extra time with bed, chair, or whee lchair transfers? Yes. TRANSFERS: BED, CHAIR, WHEELCHAIR - STEP 2: Does the patient require the assistance of a helper? Yes. TRANSFERS: BED, CHAIR, WHEELCHAIR - STEP 3: How much assistance does the patient require from the helper? Steadying/guiding assistance TRANSFERS: BED, CHAIR, WHEELCHAIR - SCORE: 4-MIN TRANSFERS: TOILET: Activity did not occur on this shift TRANSFERS: TOILET - SCORE: 0-UNK TRANSFERS: SHOWER: Activity did not occur on this shift TRANSFERS: SHOWER - SCORE: 0-UNK TRANSFERS: TUB: Activity did not occur on this shift TRANSFERS: TUB - SCORE: 0-UNK LOCOMOTION: WALK: LOCOMOTION: WALK - STEP 1: Does the patient need help from a person or device, or need extra time to walk 150 feet? Yes. LOCOMOTION: WALK - STEP 2: How much assistance does the patient require to walk a minimum of 150 feet? Only supervision, cuing, or coaxing LOCOMOTION: WALK - SCORE: 5-SUP LOCOMOTION: WHEELCHAIR: LOCOMOTION: WHEELCHAIR - STEP 1: Does the patient need help to go 150 feet in a wheelchair? Yes. LOCOMOTION: WHEELCHAIR - STEP 2: How much assistance does the patient need from the helper? Patient goes less than 150 feet - but more than 50 feet - with the assistance of only one helper LOCOMOTION: WHEELCHAIR - SCORE: 2-MAX LOCOMOTION: STAIRS: Activity did not occur on this shift LOCOMOTION: STAIRS - SCORE: 0-UNK COMPREHENSION: COMPREHENSION - SCORE: 0-UNK EXPRESSION EXPRESSION - SCORE: 0-UNK SOCIAL INTERACTION: SOCIAL INTERACTION - SCORE: 0-UNK PROBLEM SOLVING: PROBLEM SOLVING - SCORE: 0-UNK MEMORY: MEMORY - SCORE: 0-UNK SIGNATURE PANEL: The following modified sections: Transfers: Bed, Chair, Wheelchair - Score, Transfers: Toilet - Score , Locomotion: Walk - Score, Locomotion: Wheelchair - Score, Locomotion: Stairs - Score were [electron akosua] signed by Luis Werner PTA on ThuJul 29 2018 14:24:23 GMT-0600 (Central Standard Time)
--- NOTE | 2018-07-29 14:27 | FAST ---
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 Joselo Diaz M.D. ADMISSION DIAGNOSIS: - Orthopaedic Disorders 08 - Unilateral Hip Fracture (08.11) LEFT INTERTROCHANTERIC FEMUR FRACTURE. EATING: Activity did not occur on this shift EATING - SCORE: 0-UNK GROOMING: Activity did not occur on this shift GROOMING - SCORE: 0-UNK BATHING: Activity did not occur on this shift BATHING - SCORE: 0-UNK DRESSING - UPPER BODY: Activity did not occur on this shift Patient is not dressing in public clothing ARTICLES SCORE Total number of steps: 0 DRESSING - UPPER BODY - SCORE: 0-UNK DRESSING - LOWER BODY: Activity did not occur on this shift Patient is not dressing in public clothing ARTICLES SCORE Total number of steps: 0 DRESSING - LOWER BODY - SCORE: 0-UNK TOILETING: Activity did not occur on this shift TOILETING - SCORE: 0-UNK BLADDER MANAGEMENT: Activity did not occur on this shift BLADDER MANAGEMENT - SCORE: 7-IND BOWEL MANAGEMENT: Activity did not occur on this shift BOWEL MANAGEMENT - SCORE: 7-IND TRANSFERS: BED, CHAIR, WHEELCHAIR: TRANSFERS: BED, CHAIR, WHEELCHAIR - STEP 1: Does the patient require assitance of a person or device, or need extra time with bed, chair, or whee lchair transfers? Yes. TRANSFERS: BED, CHAIR, WHEELCHAIR - STEP 2: Does the patient require the assistance of a helper? Yes. TRANSFERS: BED, CHAIR, WHEELCHAIR - STEP 3: How much assistance does the patient require from the helper? Only supervision TRANSFERS: BED, CHAIR, WHEELCHAIR - SCORE: 5-SUP TRANSFERS: TOILET: Activity did not occur on this shift TRANSFERS: TOILET - SCORE: 0-UNK TRANSFERS: SHOWER: Activity did not occur on this shift TRANSFERS: SHOWER - SCORE: 0-UNK TRANSFERS: TUB: Activity did not occur on this shift TRANSFERS: TUB - SCORE: 0-UNK LOCOMOTION: WALK: LOCOMOTION: WALK - STEP 1: Does the patient need help from a person or device, or need extra time to walk 150 feet? Yes. LOCOMOTION: WALK - STEP 2: How much assistance does the patient require to walk a minimum of 150 feet? Only supervision, cuing, or coaxing LOCOMOTION: WALK - SCORE: 5-SUP LOCOMOTION: WHEELCHAIR: LOCOMOTION: WHEELCHAIR - STEP 1: Does the patient need help to go 150 feet in a wheelchair? Yes. LOCOMOTION: WHEELCHAIR - STEP 2: How much assistance does the patient need from the helper? Patient goes less than 150 feet - but more than 50 feet - with the assistance of only one helper LOCOMOTION: WHEELCHAIR - SCORE: 2-MAX LOCOMOTION: STAIRS: Activity did not occur on this shift LOCOMOTION: STAIRS - SCORE: 0-UNK COMPREHENSION: COMPREHENSION - SCORE: 0-UNK EXPRESSION EXPRESSION - SCORE: 0-UNK SOCIAL INTERACTION: SOCIAL INTERACTION - SCORE: 0-UNK PROBLEM SOLVING: PROBLEM SOLVING - SCORE: 0-UNK MEMORY: MEMORY - SCORE: 0-UNK SIGNATURE PANEL: The following modified sections: Transfers: Bed, Chair, Wheelchair - Score, Transfers: Toilet - Score , Locomotion: Walk - Score, Locomotion: Wheelchair - Score, Locomotion: Stairs - Score were [electron akosua] signed by Luis Werner PTA on ThuJul 29 2018 14:26:48 GMT-0600 (Central Standard Time)
--- NOTE | 2018-07-29 16:06 | FAST ---
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 Joselo Diaz M.D. ADMISSION DIAGNOSIS: - Orthopaedic Disorders 08 - Unilateral Hip Fracture (08.11) LEFT INTERTROCHANTERIC FEMUR FRACTURE. EATING: EATING - STEP 1: Does the patient require the assistance of a person or device, or need extra time when eating? Yes. EATING - STEP 2: Does the patient require the assistance of a helper? Yes. EATING - STEP 3: Does the patient perform half or more of the eating tasks? Yes. EATING - STEP 4: Does the patient need only supervision, cuing, coaxing OR help to apply an orthosis OR help to cut fo od, open containers, pour liquids, or butter bread? Yes. EATING - SCORE: 5-SUP GROOMING: Activity did not occur on this shift GROOMING - SCORE: 0-UNK BATHING: Activity did not occur on this shift BATHING - SCORE: 0-UNK DRESSING - UPPER BODY: Activity did not occur on this shift ARTICLES SCORE Total number of steps: 0 DRESSING - UPPER BODY - SCORE: 0-UNK DRESSING - LOWER BODY: Activity did not occur on this shift ARTICLES SCORE Total number of steps: 0 DRESSING - LOWER BODY - SCORE: 0-UNK TOILETING: TOILETING - STEP 1: Does the patient require the assistance of a person or device, or need extra time with toileting? Yes . TOILETING - STEP 2: Does the patient require the assistance of a helper? Yes. TOILETING - STEP 3: How much assistance does the patient require from the helper? Hands-on assistance from the helper TOILETING - STEP 4: Of the 3 tasks: 1) Adjusting clothing prior to use, 2) Cleansing of perineal area, 3) Adjusting clot luz marina after use; How many tasks does the patient perform WITHOUT assistance of the helper? One task TOILETING - SCORE: 2-MAX BLADDER MANAGEMENT: Activity did not occur on this shift BLADDER MANAGEMENT - SCORE: 7-IND BOWEL MANAGEMENT: BOWEL MANAGEMENT - STEP 1: Does the patient control bowels completely and intentionally without equipment devices or medications AND is always continent? No. BOWEL MANAGEMENT - STEP 2: Does the patient require the assistance of a helper? No, patient requires and manages independently a n assistive device such as a bedpan, bedside commode, absorbent pad, incontinent device, or collectin g device BOWEL MANAGEMENT - SCORE: 6-SAMREEN TRANSFERS: BED, CHAIR, WHEELCHAIR: TRANSFERS: BED, CHAIR, WHEELCHAIR - STEP 1: Does the patient require assitance of a person or device, or need extra time with bed, chair, or whee lchair transfers? Yes. TRANSFERS: BED, CHAIR, WHEELCHAIR - STEP 2: Does the patient require the assistance of a helper? Yes. TRANSFERS: BED, CHAIR, WHEELCHAIR - STEP 3: How much assistance does the patient require from the helper? Lifting of the legs TRANSFERS: BED, CHAIR, WHEELCHAIR - STEP 4: How many legs does the patient require the helper to lift? one leg TRANSFERS: BED, CHAIR, WHEELCHAIR - SCORE: 4-MIN TRANSFERS: TOILET: TRANSFERS: TOILET - STEP 1: Does the patient require the assistance of a person or device, or need extra time with toilet transfe rs? Yes. TRANSFERS: TOILET - STEP 2: Does the patient require the assistance of a helper? Yes. TRANSFERS: TOILET - STEP 3: How much assistance does the patient require from the helper? Patient performs half or more of the tr ansferring tasks TRANSFERS: TOILET - STEP 4: Does the patient need only incidental help such as contact guard or steadying during toilet transfer? Yes. TRANSFERS: TOILET - SCORE: 4-MIN TRANSFERS: SHOWER: Activity did not occur on this shift TRANSFERS: SHOWER - SCORE: 0-UNK TRANSFERS: TUB: Activity did not occur on this shift TRANSFERS: TUB - SCORE: 0-UNK LOCOMOTION: WALK: Activity did not occur on this shift LOCOMOTION: WALK - SCORE: 0-UNK LOCOMOTION: WHEELCHAIR: Activity did not occur on this shift LOCOMOTION: WHEELCHAIR - SCORE: 0-UNK COMPREHENSION: COMPREHENSION: TYPE: Both COMPREHENSION - STEP 1: Does the patient require help from a person or device, or need extra time to understand complex and a bstract ideas (such as current events, finances, discharge planning, medical issues, relationships, e tc)? Yes. COMPREHENSION - STEP 2: Does the patient require help to understand questions or statements about basic needs or ideas (such as hunger, thirst, sleep, safety, daily schedule, room location, or discomfort) half or more of the t chris? No. COMPREHENSION - STEP 3: How often does the patient need help to understand directions and conversation about basic needs? Les s than 10% of the time COMPREHENSION - SCORE: 5-SUP EXPRESSION EXPRESSION: TYPE: Both EXPRESSION - STEP 1: Does the patient require help from a person or device, or need extra time expressing complex and abst ract ideas (such as current events, finances, discharge planning, medical issues, relationships, etc) ? Yes. EXPRESSION - STEP 2: Does the patient require help to express basic necessities or ideas (such as hunger, thirst, sleep, s afety, daily schedule, room location, or discomfort) half or more of the time? No. EXPRESSION - STEP 3: How often does the patient need help to express directions and conversation about basic needs? Less t rajan 10% of the time EXPRESSION - SCORE: 5-SUP SOCIAL INTERACTION: SOCIAL INTERACTION - STEP 1: Does the patient require a helper to interact with others in social and therapeutic situations? Yes. SOCIAL INTERACTION - STEP 2: Does the patient interact appropriately half or more of the time? Yes. SOCIAL INTERACTION - STEP 3: How often does the patient need help to interact appropriately? Less than 10% of the time SOCIAL INTERACTION - SCORE: 5-SUP PROBLEM SOLVING: PROBLEM SOLVING - STEP 1: Does the patient need help from a person or device, or need extra time to solve complex problems such as managing a checking account or confronting interpersonal problems? Yes. PROBLEM SOLVING - STEP 2: Does the patient solve basic routine problems half or more of the time? Yes. PROBLEM SOLVING - STEP 3: How often does the patient need help to solve basic routine problems? Less than 10% of the time PROBLEM SOLVING - SCORE: 5-SUP MEMORY: MEMORY - STEP 1: Does the patient need help from a person or device, or need extra time to remember frequently encount ered people, daily routines, and executing requests? Yes. MEMORY - STEP 2: How often does the patient need help to remember frequently encountered people, daily routines, and e xecuting requests? Less than 10% of the time MEMORY - SCORE: 5-SUP SIGNATURE PANEL: The following modified sections: Eating - Score, Grooming - Score, Dressing - Upper Body - Score, Sameer ssing - Lower Body - Score, Toileting - Score, Bladder Management - Score, Bowel Management - Score, Transfers: Bed, Chair, Wheelchair - Score, Bathing - Score, Transfers: Toilet - Score, Transfers: Mora wer - Score, Transfers: Tub - Score, Locomotion: Walk - Score, Locomotion: Wheelchair - Score, Compre hension - Score, Expression - Score, Social Interaction - Score, Problem Solving - Score, Memory - Sc ore were [electronically] signed by Skyler Novak on ThuJul 29 2018 16:05:37 GMT-0600 (Central Standard Time)
--- NOTE | 2018-07-29 18:26 | R.PN ---
ENCOUNTER DATE AND TIME: 07/29/2018 18:24 (MULTIMEDIA SPECIALIST) NAME LOGAN WALSH DATE OF : 1930 DATE OF ADMISSION: 07/20/2018 14:59 (MULTIMEDIA SPECIALIST) LEFT INTERTROCHANTERIC FEMUR FRACTURECHIEF COMPLAINT: Left hip fracture. SUBJECTIVE: Pt denied any depression. Pt denied any Shortness of Breath. Ambulated 250' with standby assistance using a rolling walker. VITAL SIGNS Temperature: 97.6 F SBP/DBP: 132/61 Pulse: 80 Resp: 16 MEDICATION ALLERGIES: No Known Drug Allergies (NKDA) ENVIRONMENTAL ALLERGIES: None Known - Substance Allergies None Known - Other Allergies None Known NURSING: - Shower allowing shower - Skin care per protocol PRECAUTIONS: - Posterior Hip Precaution No adduction across midline No external rotation No hip flexion >90 degrees No internal rotation No wheel chair propulsion - Weight Bearing Precaution WBAT left LE ACTIVITIES OOB only with supervision THERAPIES: - Occupational Therapy Evaluate and Treat. - Physical Therapy Evaluate and Treat. PHYSICAL EXAM - Gen Alert and awake Lying in bed No apparent distress Oriented to: person, time, and place - Skin No breakdown No abnormalities - Eyes No abnormalities - ENMT No abnormalities - Neck No abnormalities - CVS RRR - Chest Clear - Abd + bowel sounds - GI nondistended Deferred - No abnormalities - Ext Left hip surgical site has good hemostasis. - MSK 4+/5 weakness in left lower extremity - Neuro 4/5 strength left lower extremity. - Psych No abnormalities ASSESSMENT: Pt. is a 88 yo Right-handed white female.Her impairment category is Orthopaedic Disorders 08 - Unila teral Hip Fracture (08.11).Pre-morbidly, Pt. was independent/mod-I in Transfers Control, Communicatio n, Social Cognition, Self-Care, Locomotion, and Sphincter Control; and she had good Sphincter Control .Currently, she has deficits of Transfers Control, Balance, Self-Care, Locomotion, Endurance, and Saf ety Awareness.Pt. is now referred to [facility] for acute in-patient rehabilit ation in order to maximize patient's functional independence in activities of daily living, strength, ROM, and mobility.- Rehab Goal Patient has realistic goal of being discharged at assistance level 6-Malika to reside at Home with Fam kinjal/Relatives. MDM/PLAN: - Physical Therapy Decreased range of motion - to improve, our physical therapists will perform initial evaluation of p t's status upon admission and devise an individualized program for increasing patient's Range of Luis Manuel on. Gait dysfunction - to improve, our physical therapists will perform initial evaluation of pt's statu s upon admission and devise an individualized program for Gait Training, and Wheel Chair mobility Inability to transfer - to improve, our physical therapists will perform initial evaluation of pt's status upon admission and devise an individualized program for Bed mobility Need for home safety evaluation - to improve, our physical therapists will perform initial evaluatio n of pt's status upon admission and devise an individualized program for Home Evaluation Need in caregiver upon discharge - to improve, our physical therapists will perform initial evaluati on of pt's status upon admission and devise an individualized program for Caregiver Training New precaution - to improve, our physical therapists will perform initial evaluation of pt's status upon admission and devise an individualized program for Patient precaution education Poor balance - to improve, our physical therapists will perform initial evaluation of pt's status up on admission and devise an individualized program for Balance Training Poor endurance - to improve, our physical therapists will perform initial evaluation of pt's status upon admission and devise an individualized program for Endurance Training Weakness - to improve, our physical therapists will perform initial evaluation of pt's status upon a dmission and devise an individualized program for Aquatic Therapy, Neuromuscular Reeducation, and Str engthening Achieving independence - to improve, our physical therapists will perform initial evaluation of pt's status upon admission and devise an individualized program for Community Reintegration Activities - Occupational Therapy ADL deficits - to improve, our occupation therapists will perform initial evaluation of pt's status upon admission and devise an individualized program for Bathing, Bed mobility, Community Reintegratio n, Cooking, Dressing, Eating, Fine Motor Skills, Grooming, Homemaking, Kitchen Mobility, Laundry, Pat ient Education, Safety Awareness, Splinting - Positioning, Transfers(Toilet, Tub, Shower), and Wheel Chair Management Need for hiv/aids care nurse - to improve, our occupation therapists will perform initial evaluation of pt's status upon admission and devise an individualized program for Caregiver Training Weakness - to improve, our occupation therapists will perform initial evaluation of pt's status upon admission and devise an individualized program for Aquatic Therapy, Balance, Endurance, UE ROM, and UE strengthening - Anterior Hip Precaution No abduction No active extension No adduction across midline No external rotation No hip flexion >90 degrees No internal rotation - Diet - Liquid Texture Continue Regular - Tube Feed Continue N/A - Diet Type Continue Regular - Posterior Hip Precaution No adduction across midline No external rotation No hip flexion >90 degrees No internal rotation No wheel chair propulsion - Weight Bearing Precaution WBAT left LE - Skin care per protocol - Diet - Solid Texture Continue Regular - Shower allowing shower FUNCTIONAL STATUS: UPDATED AT WEEKLY TEAM CONFERENCE - Bladder Same accident frequency: 7-Ind - No accidents in the past 7 days - Bowel Same accident frequency: 7-Ind - No accidents in the past 7 days - Walking Same score based on distance walked: 1(<=50ft) - Wheelchair Same score based on distance traveled: 0(N/A) FUNCTIONAL STATUS: - Self-Care A. Eating sup B. Grooming sup C. Bathing Jackie D. Dressing - Upper Jcakie E. Dressing - Lower Jackie F. Toileting Jackie - Sphincter Control G: Bladder control Ind H: Bowel control Ind - Transfers Control I. Bed/Chair/Wheelchair maxA J. Toilet maxA K. Tub/Shower Ind - Locomotion L. Walk/Wheelchair (C) modA L. Walk/Wheelchair (W) modA M. Stairs ADNO - Communication N. Comprehension (B) Malika O. Expression (B) Malika - Social Cognition P. Social Interaction Malika Q. Problem Solving Malika R. Memory Malika - Endurance Fair - Balance Fair - Safety Awareness Fair CURRENT FUNC. DEFICITS: Transfers Control, Balance, Self-Care, Locomotion, Endurance, and Safety Awareness SIGNATURE PANEL: (MULTIMEDIA SPECIALIST)
--- NOTE | 2018-07-29 19:50 | P.PN ---
Subjective Date of Service: 07/29/18 Chief Complaint: NO CHANGES, NO COMPLAINTS Subjective: Improving FRAIL LADY WITH ESRD ON HD, AND WITH A LARGE CECUM MASS, BROKE HER HIP. SHE IS NOW IN REHAB FOR PT. CHR PAIN. HIP FRACTURE. BILAT SWELLING. CONSTIPATION BETTER. STABLE IN REHAB. NO NEW ISSUES. SHE IS STABLE. NO CONSTIPATION. NO UTI SS. SHE IS STABLE, STILL HAS PAIN IN L LEG. SHE HAS NO NEW ISSUES. Review of Systems 10-point ROS is otherwise unremarkable General: Weakness, Malaise Physical Examination - Vital Signs Temperature: 96.4 F Blood Pressure: 132/61 Pulse: 80 Respirations: 16 Pulse Ox (%): 98 - Physical Exam General: Alert, In no apparent distress HEENT: Atraumatic, PERRLA, EOMI Neck: Supple, JVD not distended Respiratory: Clear to auscultation bilaterally, Normal air movement Cardiovascular: Regular rate/rhythm, Normal S1 S2 Gastrointestinal: Normal bowel sounds, No tenderness Musculoskeletal: No tenderness Integumentary: No rashes Neurological: Normal speech, Normal tone, Normal affect Lymphatics: No axilla or inguinal lymphadenopathy - Studies Laboratory Data (last 24 hrs) 07/29/18 06:12: Sodium 136, Potassium 4.1, BUN 45 H D, Creatinine 3.50 H D, Glucose 118 H 07/29/18 06:12: WBC 10.4 D, Hgb 9.2 L, Hct 28.0 L D, Plt Count 364 Medications List Reviewed: Yes Assessment And Plan - Current Problems (Diagnosis) (1) Closed left hip fracture Onset Date: 07/13/18 Current Visit: No Status: Acute Plan: PT CONSULT DVT PROPHYLAXIS HAD ANEMIA SP SURGERY WILL TRY ORAL AC AGAIN. PT RESUME. no changes continue pt. 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 STABLE HD TEAM BUSY IN ICU. HD WILL BE DONE TODAY. FAMILY AWARE. HD DONE LATE LAST NIGHT. LOW K MANAGED BY RENAL MD. Qualifiers: Renal failure chronicity: chronic Chronic kidney disease stage: on chronic dialysis Qualified Code(s): N18.6 - End stage renal disease; Z99.2 - Dependence on renal dialysis (3) Edema Current Visit: Yes Status: Chronic Plan: VENOUS DOPPLER NEGATIVE. RESUME COMPRESSION. NO CHANGES, ON HD. THIS IS FROM SURGERY. (4) Abnormal urinalysis Current Visit: Yes Status: Suspected Plan: SHE HAS NO SYMPTOMS. IGNORE ALL UA AND UCS SHE HAS NO SS. THIS IS THE GUIDELINE. REPEAT ST. CATH UA IS TOTALLY NORMAL. CIPRO STOPPED. UNNECESSARY USE OF ANTIBIOTICS IS HARMFUL TO PATIENT. SHE HAS NO UTI SYMPTOMS. UA IS CLEAR.
[2018-07-29] MEDS: ATORVASTATIN 20 MG TAB PO SCH (22:04)
[2018-07-29] MEDS: MELATONIN 3 MG TABLET PO PRN (22:05)
--- NOTE | 2018-07-29 23:40 | P.PN ---
Subjective Date of Service: 07/29/18 Chief Complaint: NO CHANGES, NO COMPLAINTS No new complaints HD today, tolerated with no issues Cont HD ttsat Physical Examination - Vital Signs Temperature: 97.4 F Blood Pressure: 146/63 Pulse: 74 Respirations: 16 Pulse Ox (%): 98 - Physical Exam General: In no apparent distress, Oriented x3 HEENT: Atraumatic Neck: Supple, JVD not distended, Without JVD or thyroid abnormality Respiratory: Clear to auscultation bilaterally Cardiovascular: Edema - Studies Laboratory Data (last 24 hrs) 07/29/18 06:12: Sodium 136, Potassium 4.1, BUN 45 H D, Creatinine 3.50 H D, Glucose 118 H 07/29/18 06:12: WBC 10.4 D, Hgb 9.2 L, Hct 28.0 L D, Plt Count 364 Medications List Reviewed: Yes Assessment And Plan - Current Problems (Diagnosis) (1) Closed left hip fracture Onset Date: 07/13/18 Current Visit: No Status: Acute Qualifiers: Encounter type: subsequent encounter (2) ESRD (end stage renal disease) Current Visit: No Status: Chronic (3) GI malignancy Onset Date: 07/13/18 Current Visit: No Status: Chronic - Plan 1.End-stage renal disease. HD TTsat renal diet renal dose all meds 2.Anemia in chronic kidney disease. Continue FANI. 3.Renal osteodystrophy. Continue renal diet and binders. 4.Hypertension. controlled 5. Lt hip Fracture S/P Surgical intervention PT /OT 6.hypothyrodism on synthroid 7.colon Ca followed by GI as an OP not candidate for chemo or surgical intervention
--- NOTE | 2018-07-30 01:06 | FAST ---
SHIFT START DATE/TIME: 07/29/2018 19:00 (BOTTLE WASHER MACHINE) SHIFT END DATE/TIME: 07/30/2018 07:00 (BOTTLE WASHER MACHINE) NAME LOGAN WALSH DATE OF : 1930 DATE OF ADMISSION: 07/20/2018 14:59 (BOTTLE WASHER MACHINE) PHONE: AGE: 88 N# [id number] GENDER: Female ENCOUNTER PHYSICIAN: Dr. Joselo Diaz M.D. ADMISSION DIAGNOSIS: - Orthopaedic Disorders 08 - Unilateral Hip Fracture (08.11) LEFT INTERTROCHANTERIC FEMUR FRACTURE. EATING: Activity did not occur on this shift EATING - SCORE: 0-UNK GROOMING: Activity did not occur on this shift GROOMING - SCORE: 0-UNK BATHING: Activity did not occur on this shift BATHING - SCORE: 0-UNK DRESSING - UPPER BODY: Patient is not dressing in public clothing ARTICLES SCORE Total number of steps: 0 DRESSING - UPPER BODY - SCORE: 0-UNK DRESSING - LOWER BODY: Patient is not dressing in public clothing ARTICLES SCORE Total number of steps: 0 DRESSING - LOWER BODY - SCORE: 0-UNK TOILETING: TOILETING - STEP 1: Does the patient require the assistance of a person or device, or need extra time with toileting? Yes . TOILETING - STEP 2: Does the patient require the assistance of a helper? Yes. TOILETING - STEP 3: How much assistance does the patient require from the helper? Hands-on assistance from the helper TOILETING - STEP 4: Of the 3 tasks: 1) Adjusting clothing prior to use, 2) Cleansing of perineal area, 3) Adjusting clot luz marina after use; How many tasks does the patient perform WITHOUT assistance of the helper? No tasks; dorian early performs all three tasks TOILETING - SCORE: 1-DEP BLADDER MANAGEMENT: BLADDER MANAGEMENT - STEP 1: Does the patient control the bladder completely and intentionally without equipment or devices or med ications, and is always continent? No. BLADDER MANAGEMENT - STEP 2: Does the patient require the assistance of a helper? Yes. BLADDER MANAGEMENT - STEP 3: How much assistance does the patient require from the helper? Only set-up of equipment - such as plac ing it within reach of the patient or emptying a device - to maintain either satisfactory voiding pat tern or managing an external device, such as an absorbent pad, ileal device, or catheter BLADDER MANAGEMENT - SCORE: 5-SUP BOWEL MANAGEMENT: BOWEL MANAGEMENT - STEP 1: Does the patient control bowels completely and intentionally without equipment devices or medications AND is always continent? No. BOWEL MANAGEMENT - STEP 2: Does the patient require the assistance of a helper? No, patient requires medication for control such as stool softeners, suppositories, laxatives, enemas, or OTC medications BOWEL MANAGEMENT - SCORE: 6-SAMREEN TRANSFERS: BED, CHAIR, WHEELCHAIR: TRANSFERS: BED, CHAIR, WHEELCHAIR - STEP 1: Does the patient require assitance of a person or device, or need extra time with bed, chair, or whee lchair transfers? Yes. TRANSFERS: BED, CHAIR, WHEELCHAIR - STEP 2: Does the patient require the assistance of a helper? Yes. TRANSFERS: BED, CHAIR, WHEELCHAIR - STEP 3: How much assistance does the patient require from the helper? Lifting of the legs TRANSFERS: BED, CHAIR, WHEELCHAIR - STEP 4: How many legs does the patient require the helper to lift? both legs TRANSFERS: BED, CHAIR, WHEELCHAIR - SCORE: 3-MOD TRANSFERS: TOILET: TRANSFERS: TOILET - STEP 1: Does the patient require the assistance of a person or device, or need extra time with toilet transfe rs? Yes. TRANSFERS: TOILET - STEP 2: Does the patient require the assistance of a helper? Yes. TRANSFERS: TOILET - STEP 3: How much assistance does the patient require from the helper? Patient performs half or more of the tr ansferring tasks TRANSFERS: TOILET - STEP 4: Does the patient need only incidental help such as contact guard or steadying during toilet transfer? No. Patient needs more than incidental help TRANSFERS: TOILET - SCORE: 3-MOD TRANSFERS: SHOWER: Activity did not occur on this shift TRANSFERS: SHOWER - SCORE: 0-UNK TRANSFERS: TUB: Activity did not occur on this shift TRANSFERS: TUB - SCORE: 0-UNK LOCOMOTION: WALK: Activity did not occur on this shift LOCOMOTION: WALK - SCORE: 0-UNK LOCOMOTION: WHEELCHAIR: Activity did not occur on this shift LOCOMOTION: WHEELCHAIR - SCORE: 0-UNK COMPREHENSION: COMPREHENSION: TYPE: Both COMPREHENSION - STEP 1: Does the patient require help from a person or device, or need extra time to understand complex and a bstract ideas (such as current events, finances, discharge planning, medical issues, relationships, e tc)? Yes. COMPREHENSION - STEP 2: Does the patient require help to understand questions or statements about basic needs or ideas (such as hunger, thirst, sleep, safety, daily schedule, room location, or discomfort) half or more of the t chris? Yes. COMPREHENSION - STEP 3: Is the patient basically able to understand and respond appropriately and consistently? No, patient i s basically UNABLE to understand, OR responds inappropriately/inconsistently despite prompting COMPREHENSION - SCORE: 1-DEP EXPRESSION EXPRESSION: TYPE: Both EXPRESSION - STEP 1: Does the patient require help from a person or device, or need extra time expressing complex and abst ract ideas (such as current events, finances, discharge planning, medical issues, relationships, etc) ? Yes. EXPRESSION - STEP 2: Does the patient require help to express basic necessities or ideas (such as hunger, thirst, sleep, s afety, daily schedule, room location, or discomfort) half or more of the time? Yes. EXPRESSION - STEP 3: Is the patient basically unable to express or does s/he express inappropriately or inconsistently nida pite prompting? No. EXPRESSION - SCORE: 2-MAX SOCIAL INTERACTION: SOCIAL INTERACTION - STEP 1: Does the patient require a helper to interact with others in social and therapeutic situations? Yes. SOCIAL INTERACTION - STEP 2: Does the patient interact appropriately half or more of the time? Yes. SOCIAL INTERACTION - STEP 3: How often does the patient need help to interact appropriately? 25-49% of the time SOCIAL INTERACTION - SCORE: 3-MOD PROBLEM SOLVING: PROBLEM SOLVING - STEP 1: Does the patient need help from a person or device, or need extra time to solve complex problems such as managing a checking account or confronting interpersonal problems? Yes. PROBLEM SOLVING - STEP 2: Does the patient solve basic routine problems half or more of the time? No. PROBLEM SOLVING - STEP 3: Does the patient need help to solve problems all the time or is s/he unable to solve problems? Yes. P atient needs help to solve problems all the time or is unable to solve problems PROBLEM SOLVING - SCORE: 1-DEP MEMORY: MEMORY - STEP 1: Does the patient need help from a person or device, or need extra time to remember frequently encount ered people, daily routines, and executing requests? Yes. MEMORY - STEP 2: How often does the patient need help to remember frequently encountered people, daily routines, and e xecuting requests? More than 50% of the time MEMORY - STEP 3: Does the patient need help to remember all of the time OR does s/he not effectively recognize and rem ember? Yes. Patient needs help to remember ALL the time OR does not effectively recognize and remembe r MEMORY - SCORE: 1-DEP SIGNATURE PANEL: The following modified sections: Eating - Score, Grooming - Score, Dressing - Upper Body - Score, Sameer ssing - Lower Body - Score, Toileting - Score, Bladder Management - Score, Bowel Management - Score, Transfers: Bed, Chair, Wheelchair - Score, Transfers: Toilet - Score, Transfers: Shower - Score, Bustillo sfers: Tub - Score, Locomotion: Walk - Score, Locomotion: Wheelchair - Score, Comprehension - Score, Expression - Score, Social Interaction - Score, Problem Solving - Score, Memory - Score were [electro nically] signed by Shaunna Jennings CNA on ThuJul 30 2018 01:05:04 GMT-0600 (Central Standard Time)
[2018-07-30] MEDS: HYDROCODONE/APAP 5/325 MG TAB PO PRN ×2 (06:22→10:25)
[2018-07-30] MEDS: LEVOTHYROXINE SOD 0.125 MG TAB PO SCH (06:22)
[2018-07-30] MEDS: CRANBERRY FRUIT EXTRACT 200 MG CAP PO SCH ×2 (08:06→19:27)
[2018-07-30] MEDS: GABAPENTIN 300 MG CAP PO SCH ×2 (08:06→19:27)
[2018-07-30] MEDS: CLOPIDOGREL 75 MG TABLET PO SCH (08:07)
[2018-07-30] MEDS: FE SULF/FA/VIT B COMP & C TAB PO SCH (08:07)
[2018-07-30] MEDS: FERROUS SULFATE 325 MG TAB PO SCH (08:07)
[2018-07-30] MEDS: LIDOCAINE 5% PATCH TOP SCH (08:07)
[2018-07-30] MEDS: PANTOPRAZOLE 40MG TABLET PO SCH (08:07)
[2018-07-30] MEDS: POLYETHYL GLY 3350 17 GM/DOSE PO SCH (08:07)
[2018-07-30] MEDS: PROMOD 30 ML DOSE PO SCH ×2 (08:08→19:26)
[2018-07-30] MEDS: NEPRO SHAKE 237 ML CAN PO SCH ×2 (08:08→19:26)
[2018-07-30] MEDS: HEPARIN 5000 UNIT/ML 1 ML VIAL SQ SCH ×2 (08:31→20:00)
--- NOTE | 2018-07-30 09:58 | P.RH.PN ---
Estimated Length of Stay: 15 Expected Discharge Date: 08/04/18 Discharge Disposition Plan: Home Family Support: Yes Vital Signs: Last Vital Signs Temp 97.6 F 07/30/18 06:59 Pulse 84 07/30/18 06:59 Resp 16 07/30/18 06:59 BP 121/61 07/30/18 06:59 Pulse Ox 99 07/30/18 06:59 Laboratory: Laboratory Last Values WBC 10.4 K/uL (4.3-10.9) D 07/29/18 06:12 RBC 3.00 M/uL (3.86-4.86) L 07/29/18 06:12 Hgb 9.2 g/dL (12.0-15.0) L 07/29/18 06:12 Hct 28.0 % (36.0-45.0) L D 07/29/18 06:12 MCV 93.3 fL (80-100) 07/29/18 06:12 MCH 30.8 pg (27.0-35.0) 07/29/18 06:12 MCHC 33.0 g/dL (32.0-36.0) 07/29/18 06:12 RDW 16.1 % (12.1-15.2) H 07/29/18 06:12 Plt Count 364 K/uL (152-406) 07/29/18 06:12 MPV 8.2 fL (7.6-11.3) 07/29/18 06:12 Neutrophils % 73.3 % (41.7-73.7) 07/29/18 06:12 Lymphocytes % 12.7 % (15.3-44.8) L 07/29/18 06:12 Monocytes % 11.2 % (3.3-12.3) 07/29/18 06:12 Eosinophils % 2.1 % (0-4.4) 07/29/18 06:12 Basophils % 0.7 % (0-1.3) 07/29/18 06:12 Absolute Neutrophils 7.6 K/uL (1.8-8.0) 07/29/18 06:12 Absolute Lymphocytes 1.3 K/uL (0.7-4.9) 07/29/18 06:12 Absolute Monocytes 1.2 K/uL (0.1-1.3) 07/29/18 06:12 Absolute Eosinophils 0.2 K/uL (0-0.5) 07/29/18 06:12 Absolute Basophils 0.1 K/uL (0-0.5) 07/29/18 06:12 Sodium 136 mmol/L (136-145) 07/29/18 06:12 Potassium 4.1 mmol/L (3.5-5.1) 07/29/18 06:12 Chloride 101 mmol/L (98-107) 07/29/18 06:12 Carbon Dioxide 27 mmol/L (21-32) 07/29/18 06:12 BUN 45 mg/dL (7-18) H D 07/29/18 06:12 Creatinine 3.50 mg/dL (0.55-1.3) H D 07/29/18 06:12 Estimated GFR 12 mL/min (=/>90) L 07/29/18 06:12 Glucose 118 mg/dL (74-106) H 07/29/18 06:12 Calcium 8.4 mg/dL (8.5-10.1) L 07/29/18 06:12 Magnesium 2.2 mg/dL (1.8-2.4) 07/21/18 06:00 Albumin 2.3 g/dL (3.4-5.0) L 07/29/18 06:12 Prealbumin 16.2 mg/dL (20-40) L 07/29/18 06:12 Urine Color Yellow 07/25/18 10:45 Urine Appearance Clear 07/25/18 10:45 Urine pH 8.0 (5.0-7.0) H 07/25/18 10:45 Ur Specific Rolfe <=1.005 (1.005-1.030) 07/25/18 10:45 Urine Ketones Negative (NEG) 07/25/18 10:45 Urine Blood Negative (NEG) 07/25/18 10:45 Urine Nitrite Negative (NEG) 07/25/18 10:45 Urine Bilirubin Negative (NEG) 07/25/18 10:45 Urine Urobilinogen 0.2 mg/dL (0.2-1.0) 07/25/18 10:45 Ur Leukocyte Esterase Negative (NEG) 07/25/18 10:45 Urine RBC <5 /HPF (NONE SEEN) 07/25/18 10:45 Urine WBC <5 /HPF (<5) 07/25/18 10:45 Ur Squamous Epith Cells <5 /HPF (NONE SEEN) 07/25/18 10:45 Amorphous Sediment 1+ /HPF (NONE SEEN) 07/21/18 00:10 Urine Bacteria None seen /HPF (<20) 07/25/18 10:45 Urine Culture Reflexed Not needed 07/25/18 10:45 Urine Glucose Negative (NEG) 07/25/18 10:45 Urine Total Protein 1+ (NEG) H 07/25/18 10:45 Weight: 111 lb 1 oz Wound Present: No Closed Surgical Incision Present: Yes Negative Pressure Wound Therapy Present: No Physician Update: Her labs have been reviewed. She is moderate to maximum assistance with speech. She has poor safety awareness. She has ESRD and is on hemodialysis MWF. Prealbumin is better at 16.2. Her Hgb is slightly low at 9.2. She is on hemocyte plus. Medical Issues: DVT Prophylaxis - Heparin 5,000 units Q12H SQ Medication Issues: DVT Prophylaxis - Heparin 5,000 unit SQ Q12H Pain Issues: Oneida 5/325mg Q4H PO PRN. Lidoderm patch 5% Daily. Tramadol 50mg Q6H PO PRN Functional Improvement: Patient is progressing well w/ therapy. Patient continues to present w/ cognition issues. Functional Improvement Occupational Therapy: pt can benifit for further therapy to address pt's safety awareness and adapting and learning how to use A/E as needed. cont to increase pt's UB strength and cont to increase pt's static and dynamic standing balance for all adl tasks. Cont with the POC and the goals by the supervising OTR. Speech Therapy Update: Moderate to Significant cognitive/linguistic impairment. MOD to MAX cues required for recall of information and problem solving. There is a delay for processing information and multiple repetitions are often required. Verbal expression requires MOD A ; reduced thought organization . Supervision is required for MAX safety Summary: Patient's care plan and jail goals have been reviewed and revised as necessary. Please see the Rehabilitation Signature page for all necessary signatures.
--- NOTE | 2018-07-30 12:47 | P.PN ---
Subjective Date of Service: 07/30/18 Chief Complaint: NO CHANGES, NO COMPLAINTS Subjective: Improving FRAIL LADY WITH ESRD ON HD, AND WITH A LARGE CECUM MASS, BROKE HER HIP. SHE IS NOW IN REHAB FOR PT. CHR PAIN. HIP FRACTURE. BILAT SWELLING. CONSTIPATION BETTER. STABLE IN REHAB. NO NEW ISSUES. SHE IS STABLE. NO CONSTIPATION. NO UTI SS. SHE IS STABLE, STILL HAS PAIN IN L LEG. SHE HAS NO NEW ISSUES. NO NEW PROBLEMS. FEELS WELL. Review of Systems 10-point ROS is otherwise unremarkable General: Weakness, Malaise Physical Examination - Vital Signs Temperature: 97.6 F Blood Pressure: 121/61 Pulse: 84 Respirations: 16 Pulse Ox (%): 99 - Physical Exam General: Alert, In no apparent distress HEENT: Atraumatic, PERRLA, EOMI Neck: Supple, JVD not distended Respiratory: Clear to auscultation bilaterally, Normal air movement Cardiovascular: Regular rate/rhythm, Normal S1 S2 Gastrointestinal: Normal bowel sounds, No tenderness Musculoskeletal: No tenderness Integumentary: No rashes Neurological: Normal speech, Normal tone, Normal affect, Dementia (WILL DO FULL MEMORY EXAM IN OFFICE.) Lymphatics: No axilla or inguinal lymphadenopathy - Studies Medications List Reviewed: Yes Assessment And Plan - Current Problems (Diagnosis) (1) Closed left hip fracture Onset Date: 07/13/18 Current Visit: No Status: Acute Plan: PT CONSULT DVT PROPHYLAXIS HAD ANEMIA SP SURGERY WILL TRY ORAL AC AGAIN. PT RESUME. no changes continue pt. 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 STABLE HD TEAM BUSY IN ICU. HD WILL BE DONE TODAY. FAMILY AWARE. HD DONE LATE LAST NIGHT. LOW K MANAGED BY RENAL MD. Qualifiers: Renal failure chronicity: chronic Chronic kidney disease stage: on chronic dialysis Qualified Code(s): N18.6 - End stage renal disease; Z99.2 - Dependence on renal dialysis (3) Edema Current Visit: Yes Status: Chronic Plan: VENOUS DOPPLER NEGATIVE. RESUME COMPRESSION. NO CHANGES, ON HD. THIS IS FROM SURGERY. (4) Abnormal urinalysis Current Visit: Yes Status: Suspected Plan: SHE HAS NO SYMPTOMS. IGNORE ALL UA AND UCS SHE HAS NO SS. THIS IS THE GUIDELINE. REPEAT ST. CATH UA IS TOTALLY NORMAL. CIPRO STOPPED. UNNECESSARY USE OF ANTIBIOTICS IS HARMFUL TO PATIENT. SHE HAS NO UTI SYMPTOMS. UA IS CLEAR.
--- NOTE | 2018-07-30 15:34 | FAST ---
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 Joselo Diaz M.D. ADMISSION DIAGNOSIS: - Orthopaedic Disorders 08 - Unilateral Hip Fracture (08.11) LEFT INTERTROCHANTERIC FEMUR FRACTURE. EATING: Activity did not occur on this shift EATING - SCORE: 0-UNK GROOMING: Comb/brush hair Wash, rinse, and dry face Wash, rinse, and dry hands GROOMING - STEP 1: Does the patient require the assistance of a person or device, or need extra time when grooming? Yes. GROOMING - STEP 2: Does the patient require the assistance of a helper? No. The patient only requires an assistive devic e, OR takes more than reasonable time to groom, OR there is a concern for safety as the patient groom s GROOMING - SCORE: 6-SAMREEN BATHING: Abdomen Buttocks Chest Left arm Left lower leg and foot Left upper leg Perineal area Right arm Right lower leg and foot Right upper leg BATHING - STEP 1: Does the patient require the assistance of a person or device, or need extra time when bathing? Yes. BATHING - STEP 2: Does the patient require the assistance of a helper? Yes. BATHING - STEP 3: How much assistance does the patient require from the helper? Only incidental help such as placement of a wash cloth in his/her hand a few times as s/he bathes OR help to bathe just one or two areas of the body BATHING - SCORE: 4-MIN DRESSING - UPPER BODY: Bra (three steps) T-shirt/pullover shirt (four steps) ARTICLES SCORE Total number of steps: 7 DRESSING - UPPER BODY - STEP 1: Does the patient require help from a person or device, or need extra time when dressing above the concepcion st? Yes. DRESSING - UPPER BODY - STEP 2: Does the patient require the assistance of a helper? Yes. DRESSING - UPPER BODY - STEP 3: Does the helper touch the patient while dressing? Yes. DRESSING - UPPER BODY - STEP 4: How many of the total steps does the patient complete on his/her own? 5 DRESSING - UPPER BODY - SCORE: 3-MOD DRESSING - LOWER BODY: Elastic waist pants (three steps) Sock - Left foot (one step) Sock - Right foot (one step) Underwear (three steps) ARTICLES SCORE Total number of steps: 8 DRESSING - LOWER BODY - STEP 1: Does the patient require help from a person or device, or need extra time when dressing below the concepcion st? Yes. DRESSING - LOWER BODY - STEP 2: Does the patient require the assistance of a helper? Yes. DRESSING - LOWER BODY - STEP 3: Does the helper touch the patient while dressing? Yes. DRESSING - LOWER BODY - STEP 4: How many of the total steps does the patient complete on his/her own? 5 DRESSING - LOWER BODY - SCORE: 3-MOD TOILETING: Activity did not occur on this shift TOILETING - SCORE: 0-UNK BLADDER MANAGEMENT: Activity did not occur on this shift BLADDER MANAGEMENT - SCORE: 7-IND BOWEL MANAGEMENT: Activity did not occur on this shift BOWEL MANAGEMENT - SCORE: 7-IND TRANSFERS: BED, CHAIR, WHEELCHAIR: Activity did not occur on this shift TRANSFERS: BED, CHAIR, WHEELCHAIR - SCORE: 0-UNK TRANSFERS: TOILET: Activity did not occur on this shift TRANSFERS: TOILET - SCORE: 0-UNK TRANSFERS: SHOWER: TRANSFERS: SHOWER - STEP 1: Does the patient require the assistance of a person or device, or need extra time with shower transfe rs? Yes. TRANSFERS: SHOWER - STEP 2: Does the patient require the assistance of a helper? Yes. TRANSFERS: SHOWER - STEP 3: How much assistance does the patient require from the helper? Only incidental help such as contact gu arding or steadying during shower transfers, or help to lift one leg into the shower TRANSFERS: SHOWER - SCORE: 4-MIN TRANSFERS: TUB: Activity did not occur on this shift TRANSFERS: TUB - SCORE: 0-UNK LOCOMOTION: WALK: Activity did not occur on this shift LOCOMOTION: WALK - SCORE: 0-UNK LOCOMOTION: WHEELCHAIR: Activity did not occur on this shift LOCOMOTION: WHEELCHAIR - SCORE: 0-UNK LOCOMOTION: STAIRS: Activity did not occur on this shift LOCOMOTION: STAIRS - SCORE: 0-UNK COMPREHENSION: COMPREHENSION: TYPE: Visual COMPREHENSION - STEP 1: Does the patient require help from a person or device, or need extra time to understand complex and a bstract ideas (such as current events, finances, discharge planning, medical issues, relationships, e tc)? Yes. COMPREHENSION - STEP 2: Does the patient require help to understand questions or statements about basic needs or ideas (such as hunger, thirst, sleep, safety, daily schedule, room location, or discomfort) half or more of the t chris? No. COMPREHENSION - STEP 3: How often does the patient need help to understand directions and conversation about basic needs? 10% - 24% of the time COMPREHENSION - SCORE: 4-MIN EXPRESSION EXPRESSION: TYPE: Non-Vocal EXPRESSION - STEP 1: Does the patient require help from a person or device, or need extra time expressing complex and abst ract ideas (such as current events, finances, discharge planning, medical issues, relationships, etc) ? No. EXPRESSION - STEP 2: Does the patient need extra time, require an assistive device (such as augmentive communication syste m or a communication board), OR does s/he have mild difficulty expressing complex and abstract ideas (including mild dysarthria or mild word-find problems)? Yes. EXPRESSION - SCORE: 6-SAMREEN SOCIAL INTERACTION: SOCIAL INTERACTION - STEP 1: Does the patient require a helper to interact with others in social and therapeutic situations? No. SOCIAL INTERACTION - STEP 2: Does the patient need extra time in social situations, OR does s/he interact with staff, other patien ts, and family members ONLY in structured environments, OR does s/he require medication for social in teraction? Yes, patient needs extra time SOCIAL INTERACTION - SCORE: 6-SAMREEN PROBLEM SOLVING: PROBLEM SOLVING - STEP 1: Does the patient need help from a person or device, or need extra time to solve complex problems such as managing a checking account or confronting interpersonal problems? Yes. PROBLEM SOLVING - STEP 2: Does the patient solve basic routine problems half or more of the time? Yes. PROBLEM SOLVING - STEP 3: How often does the patient need help to solve basic routine problems? 10%-24% of the time PROBLEM SOLVING - SCORE: 4-MIN MEMORY: MEMORY - STEP 1: Does the patient need help from a person or device, or need extra time to remember frequently encount ered people, daily routines, and executing requests? Yes. MEMORY - STEP 2: How often does the patient need help to remember frequently encountered people, daily routines, and e xecuting requests? 10% - 24% of the time MEMORY - SCORE: 4-MIN SIGNATURE PANEL: The following modified sections: Eating - Score, Grooming - Score, Bathing - Score, Dressing - Upper Body - Score, Dressing - Lower Body - Score, Toileting - Score, Transfers: Bed, Chair, Wheelchair - S core, Transfers: Toilet - Score, Transfers: Shower - Score, Transfers: Tub - Score, Comprehension - S core, Expression - Score, Social Interaction - Score, Problem Solving - Score, Memory - Score were [e lectronically] signed by JOSEPH Pardo on ThuJul 30 2018 15:33:50 T-0600 ([facility] [address] [facility])
[2018-07-30] MEDS: ATORVASTATIN 20 MG TAB PO SCH (20:51)
[2018-07-30] MEDS: TRAMADOL HCL 50 MG TAB PO PRN (22:56)
[2018-07-30] MEDS: MELATONIN 3 MG TABLET PO PRN (22:57)
--- NOTE | 2018-07-31 02:43 | FAST ---
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 Joselo Diaz M.D. ADMISSION DIAGNOSIS: - Orthopaedic Disorders 08 - Unilateral Hip Fracture (08.) LEFT INTERTROCHANTERIC FEMUR FRACTURE. EATING: Activity did not occur on this shift EATING - SCORE: 0-UNK GROOMING: Activity did not occur on this shift GROOMING - SCORE: 0-UNK BATHING: Activity did not occur on this shift BATHING - SCORE: 0-UNK DRESSING - UPPER BODY: Patient is not dressing in public clothing ARTICLES SCORE Total number of steps: 0 DRESSING - UPPER BODY - SCORE: 0-UNK DRESSING - LOWER BODY: Patient is not dressing in public clothing ARTICLES SCORE Total number of steps: 0 DRESSING - LOWER BODY - SCORE: 0-UNK TOILETING: TOILETING - STEP 1: Does the patient require the assistance of a person or device, or need extra time with toileting? Yes . TOILETING - STEP 2: Does the patient require the assistance of a helper? Yes. TOILETING - STEP 3: How much assistance does the patient require from the helper? Hands-on assistance from the helper TOILETING - STEP 4: Of the 3 tasks: 1) Adjusting clothing prior to use, 2) Cleansing of perineal area, 3) Adjusting clot luz marina after use; How many tasks does the patient perform WITHOUT assistance of the helper? No tasks; dorian early performs all three tasks TOILETING - SCORE: 1-DEP BLADDER MANAGEMENT: BLADDER MANAGEMENT - STEP 1: Does the patient control the bladder completely and intentionally without equipment or devices or med ications, and is always continent? No. BLADDER MANAGEMENT - STEP 2: Does the patient require the assistance of a helper? Yes. BLADDER MANAGEMENT - STEP 3: How much assistance does the patient require from the helper? Only set-up of equipment - such as plac ing it within reach of the patient or emptying a device - to maintain either satisfactory voiding pat tern or managing an external device, such as an absorbent pad, ileal device, or catheter BLADDER MANAGEMENT - SCORE: 5-SUP BOWEL MANAGEMENT: Activity did not occur on this shift BOWEL MANAGEMENT - SCORE: 7-IND TRANSFERS: BED, CHAIR, WHEELCHAIR: TRANSFERS: BED, CHAIR, WHEELCHAIR - STEP 1: Does the patient require assitance of a person or device, or need extra time with bed, chair, or whee lchair transfers? Yes. TRANSFERS: BED, CHAIR, WHEELCHAIR - STEP 2: Does the patient require the assistance of a helper? Yes. TRANSFERS: BED, CHAIR, WHEELCHAIR - STEP 3: How much assistance does the patient require from the helper? Lifting of the legs TRANSFERS: BED, CHAIR, WHEELCHAIR - STEP 4: How many legs does the patient require the helper to lift? both legs TRANSFERS: BED, CHAIR, WHEELCHAIR - SCORE: 3-MOD TRANSFERS: TOILET: TRANSFERS: TOILET - STEP 1: Does the patient require the assistance of a person or device, or need extra time with toilet transfe rs? Yes. TRANSFERS: TOILET - STEP 2: Does the patient require the assistance of a helper? Yes. TRANSFERS: TOILET - STEP 3: How much assistance does the patient require from the helper? Patient performs half or more of the tr ansferring tasks TRANSFERS: TOILET - STEP 4: Does the patient need only incidental help such as contact guard or steadying during toilet transfer? No. Patient needs more than incidental help TRANSFERS: TOILET - SCORE: 3-MOD TRANSFERS: SHOWER: Activity did not occur on this shift TRANSFERS: SHOWER - SCORE: 0-UNK TRANSFERS: TUB: Activity did not occur on this shift TRANSFERS: TUB - SCORE: 0-UNK LOCOMOTION: WALK: Activity did not occur on this shift LOCOMOTION: WALK - SCORE: 0-UNK LOCOMOTION: WHEELCHAIR: Activity did not occur on this shift LOCOMOTION: WHEELCHAIR - SCORE: 0-UNK COMPREHENSION: COMPREHENSION: TYPE: Both COMPREHENSION - STEP 1: Does the patient require help from a person or device, or need extra time to understand complex and a bstract ideas (such as current events, finances, discharge planning, medical issues, relationships, e tc)? Yes. COMPREHENSION - STEP 2: Does the patient require help to understand questions or statements about basic needs or ideas (such as hunger, thirst, sleep, safety, daily schedule, room location, or discomfort) half or more of the t chris? No. COMPREHENSION - STEP 3: How often does the patient need help to understand directions and conversation about basic needs? 10% - 24% of the time COMPREHENSION - SCORE: 4-MIN EXPRESSION EXPRESSION: TYPE: Both EXPRESSION - STEP 1: Does the patient require help from a person or device, or need extra time expressing complex and abst ract ideas (such as current events, finances, discharge planning, medical issues, relationships, etc) ? Yes. EXPRESSION - STEP 2: Does the patient require help to express basic necessities or ideas (such as hunger, thirst, sleep, s afety, daily schedule, room location, or discomfort) half or more of the time? No. EXPRESSION - STEP 3: How often does the patient need help to express directions and conversation about basic needs? 10-24% of the time EXPRESSION - SCORE: 4-MIN SOCIAL INTERACTION: SOCIAL INTERACTION - STEP 1: Does the patient require a helper to interact with others in social and therapeutic situations? Yes. SOCIAL INTERACTION - STEP 2: Does the patient interact appropriately half or more of the time? Yes. SOCIAL INTERACTION - STEP 3: How often does the patient need help to interact appropriately? Less than 10% of the time SOCIAL INTERACTION - SCORE: 5-SUP PROBLEM SOLVING: PROBLEM SOLVING - STEP 1: Does the patient need help from a person or device, or need extra time to solve complex problems such as managing a checking account or confronting interpersonal problems? Yes. PROBLEM SOLVING - STEP 2: Does the patient solve basic routine problems half or more of the time? Yes. PROBLEM SOLVING - STEP 3: How often does the patient need help to solve basic routine problems? Less than 10% of the time PROBLEM SOLVING - SCORE: 5-SUP MEMORY: MEMORY - STEP 1: Does the patient need help from a person or device, or need extra time to remember frequently encount ered people, daily routines, and executing requests? Yes. MEMORY - STEP 2: How often does the patient need help to remember frequently encountered people, daily routines, and e xecuting requests? Less than 10% of the time MEMORY - SCORE: 5-SUP
[2018-07-31] MEDS: PANTOPRAZOLE 40MG TABLET PO SCH (06:35)
[2018-07-31] MEDS: LEVOTHYROXINE SOD 0.125 MG TAB PO SCH (06:35)
[2018-07-31] MEDS: POLYETHYL GLY 3350 17 GM/DOSE PO SCH (07:06)
[2018-07-31] MEDS: FE SULF/FA/VIT B COMP & C TAB PO SCH (07:07)
[2018-07-31] MEDS: CLOPIDOGREL 75 MG TABLET PO SCH (07:07)
[2018-07-31] MEDS: FERROUS SULFATE 325 MG TAB PO SCH (07:07)
[2018-07-31] MEDS: CRANBERRY FRUIT EXTRACT 200 MG CAP PO SCH ×2 (07:07→20:11)
[2018-07-31] MEDS: NEPRO SHAKE 237 ML CAN PO SCH ×2 (07:08→20:12)
[2018-07-31] MEDS: PROMOD 30 ML DOSE PO SCH ×2 (07:08→20:12)
[2018-07-31] MEDS: LIDOCAINE 5% PATCH TOP SCH (07:08)
[2018-07-31] MEDS: TRAMADOL HCL 50 MG TAB PO PRN ×2 (07:08→15:10)
[2018-07-31] MEDS: HEPARIN 5000 UNIT/ML 1 ML VIAL SQ SCH ×2 (07:32→20:00)
[2018-07-31] MEDS: GABAPENTIN 300 MG CAP PO SCH ×2 (08:48→20:12)
[2018-07-31] MEDS ORDERED: MAGNESIUM HYDROXIDE 8% 30 ML PO PRN (11:02)
--- NOTE | 2018-07-31 11:04 | P.PN ---
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 SHE IS NOW IN REHAB FOR PT. CHR PAIN. HIP FRACTURE. BILAT SWELLING. CONSTIPATION BETTER. STABLE IN REHAB. NO NEW ISSUES. SHE IS STABLE. NO CONSTIPATION. NO UTI SS. SHE IS STABLE, STILL HAS PAIN IN L LEG. SHE HAS NO NEW ISSUES. NO NEW PROBLEMS. FEELS WELL. WILL GO TO [facility], STABLE FOR NOW. Review of Systems 10-point ROS is otherwise unremarkable General: Weakness Physical Examination - Vital Signs Temperature: 97.6 F Blood Pressure: 146/75 Pulse: 79 Respirations: 16 Pulse Ox (%): 93 - Physical Exam General: Alert, Cachectic, Mild distress HEENT: Atraumatic, PERRLA, EOMI Neck: Supple, JVD not distended Respiratory: Clear to auscultation bilaterally, Normal air movement Cardiovascular: Regular rate/rhythm, Normal S1 S2 Gastrointestinal: Normal bowel sounds, No tenderness Musculoskeletal: No tenderness Integumentary: No rashes Neurological: Normal speech, Dementia (FU IN OFFICE.) Lymphatics: No axilla or inguinal lymphadenopathy - Studies Medications List Reviewed: Yes Assessment And Plan - Current Problems (Diagnosis) (1) Closed left hip fracture Onset Date: 07/13/18 Current Visit: No Status: Acute Plan: PT CONSULT DVT PROPHYLAXIS HAD ANEMIA SP SURGERY WILL TRY ORAL AC AGAIN. PT RESUME. no changes continue pt. 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 STABLE HD TEAM BUSY IN ICU. HD WILL BE DONE TODAY. FAMILY AWARE. HD DONE LATE LAST NIGHT. LOW K MANAGED BY RENAL MD. Qualifiers: Renal failure chronicity: chronic Chronic kidney disease stage: on chronic dialysis Qualified Code(s): N18.6 - End stage renal disease; Z99.2 - Dependence on renal dialysis (3) Edema Current Visit: Yes Status: Chronic Plan: VENOUS DOPPLER NEGATIVE. RESUME COMPRESSION. NO CHANGES, ON HD. THIS IS FROM SURGERY. (4) Abnormal urinalysis Current Visit: Yes Status: Suspected Plan: SHE HAS NO SYMPTOMS. IGNORE ALL UA AND UCS SHE HAS NO SS. THIS IS THE GUIDELINE. REPEAT ST. CATH UA IS TOTALLY NORMAL. CIPRO STOPPED. UNNECESSARY USE OF ANTIBIOTICS IS HARMFUL TO PATIENT. SHE HAS NO UTI SYMPTOMS. UA IS CLEAR.
[2018-07-31] MEDS: EPOETIN ALFA 10,000 UNIT/ML VIAL IV SCH (14:25)
[2018-07-31] MEDS: ATORVASTATIN 20 MG TAB PO SCH (20:11)
--- NOTE | 2018-08-01 02:27 | FAST ---
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 Joselo Diaz M.D. ADMISSION DIAGNOSIS: - Orthopaedic Disorders 08 - Unilateral Hip Fracture (08.) LEFT INTERTROCHANTERIC FEMUR FRACTURE. EATING: Activity did not occur on this shift EATING - SCORE: 0-UNK GROOMING: Activity did not occur on this shift GROOMING - SCORE: 0-UNK BATHING: Activity did not occur on this shift BATHING - SCORE: 0-UNK DRESSING - UPPER BODY: Patient is not dressing in public clothing ARTICLES SCORE Total number of steps: 0 DRESSING - UPPER BODY - SCORE: 0-UNK DRESSING - LOWER BODY: Patient is not dressing in public clothing ARTICLES SCORE Total number of steps: 0 DRESSING - LOWER BODY - SCORE: 0-UNK TOILETING: TOILETING - STEP 1: Does the patient require the assistance of a person or device, or need extra time with toileting? Yes . TOILETING - STEP 2: Does the patient require the assistance of a helper? Yes. TOILETING - STEP 3: How much assistance does the patient require from the helper? Hands-on assistance from the helper TOILETING - STEP 4: Of the 3 tasks: 1) Adjusting clothing prior to use, 2) Cleansing of perineal area, 3) Adjusting clot luz marina after use; How many tasks does the patient perform WITHOUT assistance of the helper? No tasks; dorian early performs all three tasks TOILETING - SCORE: 1-DEP BLADDER MANAGEMENT: BLADDER MANAGEMENT - STEP 1: Does the patient control the bladder completely and intentionally without equipment or devices or med ications, and is always continent? No. BLADDER MANAGEMENT - STEP 2: Does the patient require the assistance of a helper? Yes. BLADDER MANAGEMENT - STEP 3: How much assistance does the patient require from the helper? Only set-up of equipment - such as plac ing it within reach of the patient or emptying a device - to maintain either satisfactory voiding pat tern or managing an external device, such as an absorbent pad, ileal device, or catheter BLADDER MANAGEMENT - SCORE: 5-SUP BOWEL MANAGEMENT: Activity did not occur on this shift BOWEL MANAGEMENT - SCORE: 7-IND TRANSFERS: BED, CHAIR, WHEELCHAIR: TRANSFERS: BED, CHAIR, WHEELCHAIR - STEP 1: Does the patient require assitance of a person or device, or need extra time with bed, chair, or whee lchair transfers? Yes. TRANSFERS: BED, CHAIR, WHEELCHAIR - STEP 2: Does the patient require the assistance of a helper? Yes. TRANSFERS: BED, CHAIR, WHEELCHAIR - STEP 3: How much assistance does the patient require from the helper? Lifting of the legs TRANSFERS: BED, CHAIR, WHEELCHAIR - STEP 4: How many legs does the patient require the helper to lift? both legs TRANSFERS: BED, CHAIR, WHEELCHAIR - SCORE: 3-MOD TRANSFERS: TOILET: TRANSFERS: TOILET - STEP 1: Does the patient require the assistance of a person or device, or need extra time with toilet transfe rs? Yes. TRANSFERS: TOILET - STEP 2: Does the patient require the assistance of a helper? Yes. TRANSFERS: TOILET - STEP 3: How much assistance does the patient require from the helper? Patient performs half or more of the tr ansferring tasks TRANSFERS: TOILET - STEP 4: Does the patient need only incidental help such as contact guard or steadying during toilet transfer? No. Patient needs more than incidental help TRANSFERS: TOILET - SCORE: 3-MOD TRANSFERS: SHOWER: Activity did not occur on this shift TRANSFERS: SHOWER - SCORE: 0-UNK TRANSFERS: TUB: Activity did not occur on this shift TRANSFERS: TUB - SCORE: 0-UNK LOCOMOTION: WALK: Activity did not occur on this shift LOCOMOTION: WALK - SCORE: 0-UNK LOCOMOTION: WHEELCHAIR: Activity did not occur on this shift LOCOMOTION: WHEELCHAIR - SCORE: 0-UNK COMPREHENSION: COMPREHENSION: TYPE: Both COMPREHENSION - STEP 1: Does the patient require help from a person or device, or need extra time to understand complex and a bstract ideas (such as current events, finances, discharge planning, medical issues, relationships, e tc)? Yes. COMPREHENSION - STEP 2: Does the patient require help to understand questions or statements about basic needs or ideas (such as hunger, thirst, sleep, safety, daily schedule, room location, or discomfort) half or more of the t chris? No. COMPREHENSION - STEP 3: How often does the patient need help to understand directions and conversation about basic needs? Les s than 10% of the time COMPREHENSION - SCORE: 5-SUP EXPRESSION EXPRESSION: TYPE: Both EXPRESSION - STEP 1: Does the patient require help from a person or device, or need extra time expressing complex and abst ract ideas (such as current events, finances, discharge planning, medical issues, relationships, etc) ? Yes. EXPRESSION - STEP 2: Does the patient require help to express basic necessities or ideas (such as hunger, thirst, sleep, s afety, daily schedule, room location, or discomfort) half or more of the time? No. EXPRESSION - STEP 3: How often does the patient need help to express directions and conversation about basic needs? Less t rajan 10% of the time EXPRESSION - SCORE: 5-SUP SOCIAL INTERACTION: SOCIAL INTERACTION - STEP 1: Does the patient require a helper to interact with others in social and therapeutic situations? No. SOCIAL INTERACTION - STEP 2: Does the patient need extra time in social situations, OR does s/he interact with staff, other patien ts, and family members ONLY in structured environments, OR does s/he require medication for social in teraction? Yes, patient needs extra time SOCIAL INTERACTION - SCORE: 6-SAMREEN PROBLEM SOLVING: PROBLEM SOLVING - STEP 1: Does the patient need help from a person or device, or need extra time to solve complex problems such as managing a checking account or confronting interpersonal problems? Yes. PROBLEM SOLVING - STEP 2: Does the patient solve basic routine problems half or more of the time? Yes. PROBLEM SOLVING - STEP 3: How often does the patient need help to solve basic routine problems? Less than 10% of the time PROBLEM SOLVING - SCORE: 5-SUP MEMORY: MEMORY - STEP 1: Does the patient need help from a person or device, or need extra time to remember frequently encount ered people, daily routines, and executing requests? Yes. MEMORY - STEP 2: How often does the patient need help to remember frequently encountered people, daily routines, and e xecuting requests? Less than 10% of the time MEMORY - SCORE: 5-SUP
[2018-08-01] MEDS: PANTOPRAZOLE 40MG TABLET PO SCH (06:41)
[2018-08-01] MEDS: LEVOTHYROXINE SOD 0.125 MG TAB PO SCH (06:41)
[2018-08-01] MEDS: CRANBERRY FRUIT EXTRACT 200 MG CAP PO SCH ×2 (07:37→19:56)
[2018-08-01] MEDS: LIDOCAINE 5% PATCH TOP SCH (07:37)
[2018-08-01] MEDS: TRAMADOL HCL 50 MG TAB PO PRN ×2 (07:38→12:38)
[2018-08-01] MEDS: POLYETHYL GLY 3350 17 GM/DOSE PO SCH (07:38)
[2018-08-01] MEDS: FE SULF/FA/VIT B COMP & C TAB PO SCH (07:38)
[2018-08-01] MEDS: FERROUS SULFATE 325 MG TAB PO SCH (07:38)
[2018-08-01] MEDS: GABAPENTIN 300 MG CAP PO SCH ×2 (07:38→19:55)
[2018-08-01] MEDS: CLOPIDOGREL 75 MG TABLET PO SCH (07:38)
[2018-08-01] MEDS: NEPRO SHAKE 237 ML CAN PO SCH ×2 (07:40→20:03)
[2018-08-01] MEDS: PROMOD 30 ML DOSE PO SCH ×2 (07:40→20:03)
[2018-08-01] MEDS: HEPARIN 5000 UNIT/ML 1 ML VIAL SQ SCH ×2 (08:00→21:19)
--- NOTE | 2018-08-01 11:35 | P.PN ---
Subjective Date of Service: 08/01/18 Chief Complaint: NO CHANGES, NO COMPLAINTS Subjective: Improving FRAIL LADY WITH ESRD ON HD, AND WITH A LARGE CECUM MASS, BROKE HER HIP. SHE IS NOW IN REHAB FOR PT. CHR PAIN. HIP FRACTURE. BILAT SWELLING. CONSTIPATION BETTER. STABLE IN REHAB. NO NEW ISSUES. SHE IS STABLE. NO CONSTIPATION. NO UTI SS. SHE IS STABLE, STILL HAS PAIN IN L LEG. SHE HAS NO NEW ISSUES. NO NEW PROBLEMS. FEELS WELL. WILL GO TO [facility], STABLE FOR NOW. NO CHANGES, NO COMPLAINTS Review of Systems 10-point ROS is otherwise unremarkable Physical Examination - Vital Signs Temperature: 96.7 F Blood Pressure: 127/67 Pulse: 79 Respirations: 16 Pulse Ox (%): 93 - Physical Exam Musculoskeletal: Other (HIP SURGERY) - Studies Medications List Reviewed: Yes Assessment And Plan - Current Problems (Diagnosis) (1) Closed left hip fracture Onset Date: 07/13/18 Current Visit: No Status: Acute Plan: PT CONSULT DVT PROPHYLAXIS HAD ANEMIA SP SURGERY WILL TRY ORAL AC AGAIN. PT RESUME. no changes continue pt. DC TO [facility] SOON. 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 STABLE HD TEAM BUSY IN ICU. HD WILL BE DONE TODAY. FAMILY AWARE. HD DONE LATE LAST NIGHT. LOW K MANAGED BY RENAL MD. Qualifiers: Renal failure chronicity: chronic Chronic kidney disease stage: on chronic dialysis Qualified Code(s): N18.6 - End stage renal disease; Z99.2 - Dependence on renal dialysis (3) Edema Current Visit: Yes Status: Chronic Plan: VENOUS DOPPLER NEGATIVE. RESUME COMPRESSION. NO CHANGES, ON HD. THIS IS FROM SURGERY. (4) Abnormal urinalysis Current Visit: Yes Status: Suspected Plan: SHE HAS NO SYMPTOMS. IGNORE ALL UA AND UCS SHE HAS NO SS. THIS IS THE GUIDELINE. REPEAT ST. CATH UA IS TOTALLY NORMAL. CIPRO STOPPED. UNNECESSARY USE OF ANTIBIOTICS IS HARMFUL TO PATIENT. SHE HAS NO UTI SYMPTOMS. UA IS CLEAR.
--- NOTE | 2018-08-01 17:42 | FAST ---
SHIFT START DATE/TIME: 08/01/2018 07:00 (DIRECTOR SEARCH) SHIFT END DATE/TIME: 08/01/2018 19:00 (DIRECTOR SEARCH) NAME LOGAN WALSH DATE OF : 1930 DATE OF ADMISSION: 07/20/2018 14:59 (DIRECTOR SEARCH) PHONE: AGE: 88 SSN# [id number] GENDER: Female ENCOUNTER PHYSICIAN: Dr. Joselo Diaz M.D. ADMISSION DIAGNOSIS: - Orthopaedic Disorders 08 - Unilateral Hip Fracture (08.11) LEFT INTERTROCHANTERIC FEMUR FRACTURE. EATING: EATING - STEP 1: Does the patient require the assistance of a person or device, or need extra time when eating? Yes. EATING - STEP 2: Does the patient require the assistance of a helper? Yes. EATING - STEP 3: Does the patient perform half or more of the eating tasks? Yes. EATING - STEP 4: Does the patient need only supervision, cuing, coaxing OR help to apply an orthosis OR help to cut fo od, open containers, pour liquids, or butter bread? Yes. EATING - SCORE: 5-SUP GROOMING: Comb/brush hair Wash, rinse, and dry face Wash, rinse, and dry hands GROOMING - STEP 1: Does the patient require the assistance of a person or device, or need extra time when grooming? Yes. GROOMING - STEP 2: Does the patient require the assistance of a helper? Yes. GROOMING - STEP 3: How much assistance does the patient require from the helper? Only prior equipment preparation/set up from the helper GROOMING - SCORE: 5-SUP BATHING: Activity did not occur on this shift BATHING - SCORE: 0-UNK DRESSING - UPPER BODY: Bra (three steps) T-shirt/pullover shirt (four steps) ARTICLES SCORE Total number of steps: 7 DRESSING - UPPER BODY - STEP 1: Does the patient require help from a person or device, or need extra time when dressing above the concepcion st? Yes. DRESSING - UPPER BODY - STEP 2: Does the patient require the assistance of a helper? Yes. DRESSING - UPPER BODY - STEP 3: Does the helper touch the patient while dressing? No. DRESSING - UPPER BODY - SCORE: 5-SUP DRESSING - LOWER BODY: Elastic waist pants (three steps) ARTICLES SCORE Total number of steps: 3 DRESSING - LOWER BODY - STEP 1: Does the patient require help from a person or device, or need extra time when dressing below the concepcion st? Yes. DRESSING - LOWER BODY - STEP 2: Does the patient require the assistance of a helper? Yes. DRESSING - LOWER BODY - STEP 3: Does the helper touch the patient while dressing? Yes. DRESSING - LOWER BODY - STEP 4: How many of the total steps does the patient complete on his/her own? 2 DRESSING - LOWER BODY - SCORE: 3-MOD TOILETING: TOILETING - STEP 1: Does the patient require the assistance of a person or device, or need extra time with toileting? Yes . TOILETING - STEP 2: Does the patient require the assistance of a helper? Yes. TOILETING - STEP 3: How much assistance does the patient require from the helper? Only supervision TOILETING - SCORE: 5-SUP BLADDER MANAGEMENT: BLADDER MANAGEMENT - STEP 1: Does the patient control the bladder completely and intentionally without equipment or devices or med ications, and is always continent? No. BLADDER MANAGEMENT - STEP 2: Does the patient require the assistance of a helper? Yes. BLADDER MANAGEMENT - STEP 3: How much assistance does the patient require from the helper? Only supervision, stand-by, cuing, or c oaxing BLADDER MANAGEMENT - SCORE: 5-SUP BLADDER MANAGEMENT - FREQUENCY OF ACCIDENTS: BLADDER MANAGEMENT(FA) - STEP 1: How many accidents has the patient had during the current shift? 1 BOWEL MANAGEMENT: BOWEL MANAGEMENT - STEP 1: Does the patient control bowels completely and intentionally without equipment devices or medications AND is always continent? No. BOWEL MANAGEMENT - STEP 2: Does the patient require the assistance of a helper? No, patient requires medication for control such as stool softeners, suppositories, laxatives, enemas, or OTC medications BOWEL MANAGEMENT - SCORE: 6-SAMREEN BOWEL MANAGEMENT - FREQUENCY OF ACCIDENTS: BOWEL MANAGEMENT(FA) - STEP 1: How many accidents has the patient had during the current shift? 2 TRANSFERS: BED, CHAIR, WHEELCHAIR: TRANSFERS: BED, CHAIR, WHEELCHAIR - STEP 1: Does the patient require assitance of a person or device, or need extra time with bed, chair, or whee lchair transfers? Yes. TRANSFERS: BED, CHAIR, WHEELCHAIR - STEP 2: Does the patient require the assistance of a helper? Yes. TRANSFERS: BED, CHAIR, WHEELCHAIR - STEP 3: How much assistance does the patient require from the helper? Steadying/guiding assistance TRANSFERS: BED, CHAIR, WHEELCHAIR - SCORE: 4-MIN TRANSFERS: TOILET: TRANSFERS: TOILET - STEP 1: Does the patient require the assistance of a person or device, or need extra time with toilet transfe rs? Yes. TRANSFERS: TOILET - STEP 2: Does the patient require the assistance of a helper? Yes. TRANSFERS: TOILET - STEP 3: How much assistance does the patient require from the helper? Patient performs half or more of the tr ansferring tasks TRANSFERS: TOILET - STEP 4: Does the patient need only incidental help such as contact guard or steadying during toilet transfer? Yes. TRANSFERS: TOILET - SCORE: 4-MIN TRANSFERS: SHOWER: Activity did not occur on this shift TRANSFERS: SHOWER - SCORE: 0-UNK TRANSFERS: TUB: Activity did not occur on this shift TRANSFERS: TUB - SCORE: 0-UNK LOCOMOTION: WALK: Activity did not occur on this shift LOCOMOTION: WALK - SCORE: 0-UNK LOCOMOTION: WHEELCHAIR: LOCOMOTION: WHEELCHAIR - STEP 1: Does the patient need help to go 150 feet in a wheelchair? Yes. LOCOMOTION: WHEELCHAIR - STEP 2: How much assistance does the patient need from the helper? Only supervision, cuing, or coaxing LOCOMOTION: WHEELCHAIR - SCORE: 5-SUP COMPREHENSION: COMPREHENSION: TYPE: Both COMPREHENSION - STEP 1: Does the patient require help from a person or device, or need extra time to understand complex and a bstract ideas (such as current events, finances, discharge planning, medical issues, relationships, e tc)? Yes. COMPREHENSION - STEP 2: Does the patient require help to understand questions or statements about basic needs or ideas (such as hunger, thirst, sleep, safety, daily schedule, room location, or discomfort) half or more of the t chris? No. COMPREHENSION - STEP 3: How often does the patient need help to understand directions and conversation about basic needs? Les s than 10% of the time COMPREHENSION - SCORE: 5-SUP EXPRESSION EXPRESSION: TYPE: Both EXPRESSION - STEP 1: Does the patient require help from a person or device, or need extra time expressing complex and abst ract ideas (such as current events, finances, discharge planning, medical issues, relationships, etc) ? Yes. EXPRESSION - STEP 2: Does the patient require help to express basic necessities or ideas (such as hunger, thirst, sleep, s afety, daily schedule, room location, or discomfort) half or more of the time? Yes. EXPRESSION - STEP 3: Is the patient basically unable to express or does s/he express inappropriately or inconsistently nida pite prompting? No. EXPRESSION - SCORE: 2-MAX SOCIAL INTERACTION: SOCIAL INTERACTION - STEP 1: Does the patient require a helper to interact with others in social and therapeutic situations? Yes. SOCIAL INTERACTION - STEP 2: Does the patient interact appropriately half or more of the time? Yes. SOCIAL INTERACTION - STEP 3: How often does the patient need help to interact appropriately? 10-24% of the time SOCIAL INTERACTION - SCORE: 4-MIN PROBLEM SOLVING: PROBLEM SOLVING - STEP 1: Does the patient need help from a person or device, or need extra time to solve complex problems such as managing a checking account or confronting interpersonal problems? Yes. PROBLEM SOLVING - STEP 2: Does the patient solve basic routine problems half or more of the time? Yes. PROBLEM SOLVING - STEP 3: How often does the patient need help to solve basic routine problems? 10%-24% of the time PROBLEM SOLVING - SCORE: 4-MIN MEMORY: MEMORY - STEP 1: Does the patient need help from a person or device, or need extra time to remember frequently encount ered people, daily routines, and executing requests? Yes. MEMORY - STEP 2: How often does the patient need help to remember frequently encountered people, daily routines, and e xecuting requests? 25% - 49% of the time MEMORY - SCORE: 3-MOD SIGNATURE PANEL: The following modified sections: Eating - Score, Grooming - Score, Bathing - Score, Dressing - Upper Body - Score, Dressing - Lower Body - Score, Toileting - Score, Bladder Management - Score, Bowel Man agement - Score, Transfers: Bed, Chair, Wheelchair - Score, Transfers: Toilet - Score, Transfers: Mora wer - Score, Transfers: Tub - Score, Locomotion: Walk - Score, Locomotion: Wheelchair - Score, Compre hension - Score, Expression - Score, Social Interaction - Score, Problem Solving - Score, Memory - Sc ore were [electronically] signed by Neha Sanderson C.N.A. on ThuAug 01 2018 17:41:59 GMT-0600 ([place] Standard Time)
[2018-08-01] MEDS: ATORVASTATIN 20 MG TAB PO SCH (19:55)
[2018-08-01] MEDS: MELATONIN 3 MG TABLET PO PRN (19:56)
--- NOTE | 2018-08-01 22:14 | PN ---
Date of Progress Note: 08/01/2018 Chief Complaint: End-stage renal disease. The patient underwent dialysis yesterday. The procedure was well tolerated. Ultrafiltration was obtained to control swelling in the legs. The patient denie s PND, orthopnea. Physical Examination: Lungs: Clear to auscultation bilaterally. Heart: S1, S2. Abdomen: Soft, benign. Extremities: Edema has improved in both legs. Vital Signs: Blood pressure 127/67, heart rate 79, respiratory rate 16, SpO2 93%, temperature 96.7. Impression And Plan: 1.End-stage renal disease. The patient will continue dialysis 3 times per week. The patient will c ontinue renal diet, p.o. fluid restriction. 2.Leg edema has improved. Continue low-sodium diet. 3.Renal osteodystrophy. Continue renal diet. Monitor phosphorus level, adjust binders if needed. 4.Hypertension. Blood pressure controlled. 5.Anemia of chronic kidney disease. Monitor hemoglobin level. Adjust FANI. ONEAL/KJ Voice ID: [id number] Report ID: [id number]
--- NOTE | 2018-08-01 22:19 | PN ---
Date of Progress Note: 07/31/2018 Chief Complaint: End-state renal disease on dialysis. History Of Present Illness: The patient is scheduled to have dialysis today with ultrafiltration. T he patient denies new complaints. Review of Systems: Denies fever ,chills. Physical Examination: Lungs: Clear to auscultation bilaterally. Heart: S1, S2. Abdomen: Soft, benign. Extremities: Minimal edema in both legs. Impression And Plan: 1.End-stage renal disease. Dialysis will be done with ultrafiltration. 2.Hypertension. Blood pressure in acceptable control. 3.Renal osteodystrophy. Continue renal diet and binders. 4.Anemia of chronic kidney disease. Monitor hemoglobin level, add FANI as needed. 5.The patient was diagnosed with large cecum mass. The patient will have further workup with primar y team. 6.The patient is undergoing a rehab after she had a surgery for hip fracture. Continue current tabitha bauer. ONEAL/KJ Voice ID: [id number] Report ID: [id number]
--- NOTE | 2018-08-02 02:41 | FAST ---
SHIFT START DATE/TIME: 08/01/2018 19:00 (BEAD CUTTER) SHIFT END DATE/TIME: 08/02/2018 07:00 (BEAD CUTTER) NAME LOGAN WALSH DATE OF : 1930 DATE OF ADMISSION: 07/20/2018 14:59 (BEAD CUTTER) PHONE: AGE: 88 N# [id number] GENDER: Female ENCOUNTER PHYSICIAN: Dr. Joselo Diaz M.D. ADMISSION DIAGNOSIS: - Orthopaedic Disorders 08 - Unilateral Hip Fracture (08.11) LEFT INTERTROCHANTERIC FEMUR FRACTURE. EATING: Activity did not occur on this shift EATING - SCORE: 0-UNK GROOMING: Activity did not occur on this shift GROOMING - SCORE: 0-UNK BATHING: Activity did not occur on this shift BATHING - SCORE: 0-UNK DRESSING - UPPER BODY: Patient is not dressing in public clothing ARTICLES SCORE Total number of steps: 0 DRESSING - UPPER BODY - SCORE: 0-UNK DRESSING - LOWER BODY: Patient is not dressing in public clothing ARTICLES SCORE Total number of steps: 0 DRESSING - LOWER BODY - SCORE: 0-UNK TOILETING: TOILETING - STEP 1: Does the patient require the assistance of a person or device, or need extra time with toileting? Yes . TOILETING - STEP 2: Does the patient require the assistance of a helper? Yes. TOILETING - STEP 3: How much assistance does the patient require from the helper? Hands-on assistance from the helper TOILETING - STEP 4: Of the 3 tasks: 1) Adjusting clothing prior to use, 2) Cleansing of perineal area, 3) Adjusting clot luz marina after use; How many tasks does the patient perform WITHOUT assistance of the helper? No tasks; dorian early performs all three tasks TOILETING - SCORE: 1-DEP BLADDER MANAGEMENT: BLADDER MANAGEMENT - STEP 1: Does the patient control the bladder completely and intentionally without equipment or devices or med ications, and is always continent? No. BLADDER MANAGEMENT - STEP 2: Does the patient require the assistance of a helper? Yes. BLADDER MANAGEMENT - STEP 3: How much assistance does the patient require from the helper? Only set-up of equipment - such as plac ing it within reach of the patient or emptying a device - to maintain either satisfactory voiding pat tern or managing an external device, such as an absorbent pad, ileal device, or catheter BLADDER MANAGEMENT - SCORE: 5-SUP BOWEL MANAGEMENT: BOWEL MANAGEMENT - STEP 1: Does the patient control bowels completely and intentionally without equipment devices or medications AND is always continent? No. BOWEL MANAGEMENT - STEP 2: Does the patient require the assistance of a helper? No, patient requires medication for control such as stool softeners, suppositories, laxatives, enemas, or OTC medications BOWEL MANAGEMENT - SCORE: 6-SAMREEN TRANSFERS: BED, CHAIR, WHEELCHAIR: TRANSFERS: BED, CHAIR, WHEELCHAIR - STEP 1: Does the patient require assistance of a person or device, or need extra time with bed, chair, or whe elchair transfers? Yes. TRANSFERS: BED, CHAIR, WHEELCHAIR - STEP 2: Does the patient require the assistance of a helper? Yes. TRANSFERS: BED, CHAIR, WHEELCHAIR - STEP 3: How much assistance does the patient require from the helper? Lifting of the legs TRANSFERS: BED, CHAIR, WHEELCHAIR - STEP 4: How many legs does the patient require the helper to lift? both legs TRANSFERS: BED, CHAIR, WHEELCHAIR - SCORE: 3-MOD TRANSFERS: TOILET: TRANSFERS: TOILET - STEP 1: Does the patient require the assistance of a person or device, or need extra time with toilet transfe rs? Yes. TRANSFERS: TOILET - STEP 2: Does the patient require the assistance of a helper? Yes. TRANSFERS: TOILET - STEP 3: How much assistance does the patient require from the helper? Patient performs half or more of the tr ansferring tasks TRANSFERS: TOILET - STEP 4: Does the patient need only incidental help such as contact guard or steadying during toilet transfer? No. Patient needs more than incidental help TRANSFERS: TOILET - SCORE: 3-MOD TRANSFERS: SHOWER: Activity did not occur on this shift TRANSFERS: SHOWER - SCORE: 0-UNK TRANSFERS: TUB: Activity did not occur on this shift TRANSFERS: TUB - SCORE: 0-UNK LOCOMOTION: WALK: Activity did not occur on this shift LOCOMOTION: WALK - SCORE: 0-UNK LOCOMOTION: WHEELCHAIR: Activity did not occur on this shift LOCOMOTION: WHEELCHAIR - SCORE: 0-UNK COMPREHENSION: COMPREHENSION: TYPE: Both COMPREHENSION - STEP 1: Does the patient require help from a person or device, or need extra time to understand complex and a bstract ideas (such as current events, finances, discharge planning, medical issues, relationships, e tc)? Yes. COMPREHENSION - STEP 2: Does the patient require help to understand questions or statements about basic needs or ideas (such as hunger, thirst, sleep, safety, daily schedule, room location, or discomfort) half or more of the t chris? No. COMPREHENSION - STEP 3: How often does the patient need help to understand directions and conversation about basic needs? 25% - 49% of the time COMPREHENSION - SCORE: 3-MOD EXPRESSION EXPRESSION: TYPE: Both EXPRESSION - STEP 1: Does the patient require help from a person or device, or need extra time expressing complex and abst ract ideas (such as current events, finances, discharge planning, medical issues, relationships, etc) ? Yes. EXPRESSION - STEP 2: Does the patient require help to express basic necessities or ideas (such as hunger, thirst, sleep, s afety, daily schedule, room location, or discomfort) half or more of the time? No. EXPRESSION - STEP 3: How often does the patient need help to express directions and conversation about basic needs? 25-49% of the time EXPRESSION - SCORE: 3-MOD SOCIAL INTERACTION: SOCIAL INTERACTION - STEP 1: Does the patient require a helper to interact with others in social and therapeutic situations? No. SOCIAL INTERACTION - STEP 2: Does the patient need extra time in social situations, OR does s/he interact with staff, other patien ts, and family members ONLY in structured environments, OR does s/he require medication for social in teraction? Yes, patient needs extra time SOCIAL INTERACTION - SCORE: 6-SAMREEN PROBLEM SOLVING: PROBLEM SOLVING - STEP 1: Does the patient need help from a person or device, or need extra time to solve complex problems such as managing a checking account or confronting interpersonal problems? Yes. PROBLEM SOLVING - STEP 2: Does the patient solve basic routine problems half or more of the time? Yes. PROBLEM SOLVING - STEP 3: How often does the patient need help to solve basic routine problems? 25%-49% of the time PROBLEM SOLVING - SCORE: 3-MOD MEMORY: MEMORY - STEP 1: Does the patient need help from a person or device, or need extra time to remember frequently encount ered people, daily routines, and executing requests? Yes. MEMORY - STEP 2: How often does the patient need help to remember frequently encountered people, daily routines, and e xecuting requests? More than 50% of the time MEMORY - STEP 3: Does the patient need help to remember all of the time OR does s/he not effectively recognize and rem ember? Yes. Patient needs help to remember ALL the time OR does not effectively recognize and remembe r MEMORY - SCORE: 1-DEP SIGNATURE PANEL: The following modified sections: Eating - Score, Grooming - Score, Dressing - Upper Body - Score, Sameer ssing - Lower Body - Score, Toileting - Score, Bladder Management - Score, Bowel Management - Score, Transfers: Bed, Chair, Wheelchair - Score, Transfers: Toilet - Score, Transfers: Shower - Score, Bustillo sfers: Tub - Score, Locomotion: Walk - Score, Locomotion: Wheelchair - Score, Comprehension - Score, Expression - Score, Social Interaction - Score, Problem Solving - Score, Memory - Score were [electro nically] signed by Shaunna Jennings CNA on ThuAug 02 2018 02:41:00 GMT-0600 (Central Standard Time)
[2018-08-02] MEDS: LEVOTHYROXINE SOD 0.125 MG TAB PO SCH (05:28)
[2018-08-02] MEDS: PROMOD 30 ML DOSE PO SCH ×2 (08:00→21:45)
[2018-08-02] MEDS: NEPRO SHAKE 237 ML CAN PO SCH ×2 (08:00→21:45)
[2018-08-02] MEDS: POLYETHYL GLY 3350 17 GM/DOSE PO SCH (08:16)
[2018-08-02] MEDS: LIDOCAINE 5% PATCH TOP SCH (08:16)
[2018-08-02] MEDS: HEPARIN 5000 UNIT/ML 1 ML VIAL SQ SCH ×2 (08:16→21:47)
[2018-08-02] MEDS: PANTOPRAZOLE 40MG TABLET PO SCH (08:16)
[2018-08-02] MEDS: GABAPENTIN 300 MG CAP PO SCH ×2 (08:16→21:42)
[2018-08-02] MEDS: FE SULF/FA/VIT B COMP & C TAB PO SCH (08:16)
[2018-08-02] MEDS: FERROUS SULFATE 325 MG TAB PO SCH (08:17)
[2018-08-02] MEDS: TRAMADOL HCL 50 MG TAB PO PRN (08:17)
[2018-08-02] MEDS: CRANBERRY FRUIT EXTRACT 200 MG CAP PO SCH ×2 (08:17→21:42)
[2018-08-02] MEDS: CLOPIDOGREL 75 MG TABLET PO SCH (08:17)
--- NOTE | 2018-08-02 09:11 | PN ---
Date of Progress Note: 07/31/2018 Chief Complaint: End-stage renal disease, deconditioning. History Of Present Illness: The patient is undergoing treatment with dialysis and today she will hav e dialysis with ultrafiltration. Review of Systems: Denies fever, chills. Physical Examination: Lungs: Clear to auscultation bilaterally. Heart: S1, S2. Abdomen: Soft, benign. Extremities: Minimal edema. Laboratory Data: Sodium 136, potassium 4.1, BUN 45, creatinine 3.5, glucose 118, hemoglobin 9.2. Impression And Plan: 1.Close left hip fracture. The patient will follow up with Ortho. 2.Anemia in chronic kidney disease. Monitor hemoglobin level, adjust FANI. 3.Renal osteodystrophy. Monitor phosphorus level and adjust binders as needed. 4.End-stage renal disease, mild fluid overload. Dialysis will be done with ultrafiltration today. 5.Hypertension, controlled. 6.Hypoparathyroidism, on Synthroid. 7.End-stage renal disease. The patient received dialysis today. Procedure was well tolerated. ONEAL/KJ Voice ID: [id number] Report ID: [id number]
--- NOTE | 2018-08-02 15:16 | FAST ---
ENCOUNTER DATE AND TIME: 08/02/2018 08:00 (BOTTOM TURNING LATHE TENDER) NAME NICO LOGAN DATE OF : 1930 DATE OF ADMISSION: 07/20/2018 14:59 (BOTTOM TURNING LATHE TENDER) PHONE: AGE: 88 SSN# [id number] GENDER: Female ENCOUNTER PHYSICIAN: Dr. Joselo Diaz M.D. ADMISSION DIAGNOSIS: - Orthopaedic Disorders 08 - Unilateral Hip Fracture (08.11) LEFT INTERTROCHANTERIC FEMUR FRACTURE. EATING: Activity did not occur on this shift EATING - SCORE: 0-UNK GROOMING: Comb/brush hair Wash, rinse, and dry face Wash, rinse, and dry hands GROOMING - STEP 1: Does the patient require the assistance of a person or device, or need extra time when grooming? Yes. GROOMING - STEP 2: Does the patient require the assistance of a helper? No. The patient only requires an assistive devic e, OR takes more than reasonable time to groom, OR there is a concern for safety as the patient groom s GROOMING - SCORE: 6-SAMREEN BATHING: Abdomen Buttocks Chest Left arm Left lower leg and foot Left upper leg Perineal area Right arm Right lower leg and foot Right upper leg BATHING - STEP 1: Does the patient require the assistance of a person or device, or need extra time when bathing? Yes. BATHING - STEP 2: Does the patient require the assistance of a helper? Yes. BATHING - STEP 3: How much assistance does the patient require from the helper? Only supervision, cuing, coaxing, instr uctions, encouragement BATHING - SCORE: 5-SUP DRESSING - UPPER BODY: Bra (three steps) T-shirt/pullover shirt (four steps) ARTICLES SCORE Total number of steps: 7 DRESSING - UPPER BODY - STEP 1: Does the patient require help from a person or device, or need extra time when dressing above the concepcion st? Yes. DRESSING - UPPER BODY - STEP 2: Does the patient require the assistance of a helper? No. Patient only requires an assistive device, s uch as a button hook, velcro, or rvda master certified rv technician. OR s/he takes more than reasonable time as s/he dresses the upper body. OR there is a concern for safety when s/he dresses the upper body DRESSING - UPPER BODY - SCORE: 6-SAMREEN DRESSING - LOWER BODY: Elastic waist pants (three steps) Sock - Left foot (one step) Sock - Right foot (one step) Underwear (three steps) ARTICLES SCORE Total number of steps: 8 DRESSING - LOWER BODY - STEP 1: Does the patient require help from a person or device, or need extra time when dressing below the concepcion st? Yes. DRESSING - LOWER BODY - STEP 2: Does the patient require the assistance of a helper? Yes. DRESSING - LOWER BODY - STEP 3: Does the helper touch the patient while dressing? Yes. DRESSING - LOWER BODY - STEP 4: How many of the total steps does the patient complete on his/her own? 6 DRESSING - LOWER BODY - SCORE: 4-MIN TOILETING: Activity did not occur on this shift TOILETING - SCORE: 0-UNK BLADDER MANAGEMENT: Activity did not occur on this shift BLADDER MANAGEMENT - SCORE: 7-IND BOWEL MANAGEMENT: Activity did not occur on this shift BOWEL MANAGEMENT - SCORE: 7-IND TRANSFERS: BED, CHAIR, WHEELCHAIR: Activity did not occur on this shift TRANSFERS: BED, CHAIR, WHEELCHAIR - SCORE: 0-UNK TRANSFERS: TOILET: Activity did not occur on this shift TRANSFERS: TOILET - SCORE: 0-UNK TRANSFERS: SHOWER: TRANSFERS: SHOWER - STEP 1: Does the patient require the assistance of a person or device, or need extra time with shower transfe rs? Yes. TRANSFERS: SHOWER - STEP 2: Does the patient require the assistance of a helper? Yes. TRANSFERS: SHOWER - STEP 3: How much assistance does the patient require from the helper? Only supervision, cuing, coaxing, or he lp to set out transfer equipment or to lock brakes and/or lift foot rests TRANSFERS: SHOWER - SCORE: 5-SUP TRANSFERS: TUB: Activity did not occur on this shift TRANSFERS: TUB - SCORE: 0-UNK LOCOMOTION: WALK: Activity did not occur on this shift LOCOMOTION: WALK - SCORE: 0-UNK LOCOMOTION: WHEELCHAIR: Activity did not occur on this shift LOCOMOTION: WHEELCHAIR - SCORE: 0-UNK LOCOMOTION: STAIRS: Activity did not occur on this shift LOCOMOTION: STAIRS - SCORE: 0-UNK COMPREHENSION: COMPREHENSION: TYPE: Visual COMPREHENSION - STEP 1: Does the patient require help from a person or device, or need extra time to understand complex and a bstract ideas (such as current events, finances, discharge planning, medical issues, relationships, e tc)? Yes. COMPREHENSION - STEP 2: Does the patient require help to understand questions or statements about basic needs or ideas (such as hunger, thirst, sleep, safety, daily schedule, room location, or discomfort) half or more of the t chris? No. COMPREHENSION - STEP 3: How often does the patient need help to understand directions and conversation about basic needs? 10% - 24% of the time COMPREHENSION - SCORE: 4-MIN EXPRESSION EXPRESSION: TYPE: Non-Vocal EXPRESSION - STEP 1: Does the patient require help from a person or device, or need extra time expressing complex and abst ract ideas (such as current events, finances, discharge planning, medical issues, relationships, etc) ? No. EXPRESSION - STEP 2: Does the patient need extra time, require an assistive device (such as augmentive communication syste m or a communication board), OR does s/he have mild difficulty expressing complex and abstract ideas (including mild dysarthria or mild word-find problems)? Yes. EXPRESSION - SCORE: 6-SAMREEN SOCIAL INTERACTION: SOCIAL INTERACTION - STEP 1: Does the patient require a helper to interact with others in social and therapeutic situations? No. SOCIAL INTERACTION - STEP 2: Does the patient need extra time in social situations, OR does s/he interact with staff, other patien ts, and family members ONLY in structured environments, OR does s/he require medication for social in teraction? No. SOCIAL INTERACTION - SCORE: 7-IND PROBLEM SOLVING: PROBLEM SOLVING - STEP 1: Does the patient need help from a person or device, or need extra time to solve complex problems such as managing a checking account or confronting interpersonal problems? Yes. PROBLEM SOLVING - STEP 2: Does the patient solve basic routine problems half or more of the time? Yes. PROBLEM SOLVING - STEP 3: How often does the patient need help to solve basic routine problems? 10%-24% of the time PROBLEM SOLVING - SCORE: 4-MIN MEMORY: MEMORY - STEP 1: Does the patient need help from a person or device, or need extra time to remember frequently encount ered people, daily routines, and executing requests? Yes. MEMORY - STEP 2: How often does the patient need help to remember frequently encountered people, daily routines, and e xecuting requests? 10% - 24% of the time MEMORY - SCORE: 4-MIN SIGNATURE PANEL: The following modified sections: Eating - Score, Grooming - Score, Bathing - Score, Dressing - Upper Body - Score, Dressing - Lower Body - Score, Toileting - Score, Transfers: Bed, Chair, Wheelchair - S core, Transfers: Toilet - Score, Transfers: Shower - Score, Transfers: Tub - Score, Comprehension - S core, Expression - Score, Social Interaction - Score, Problem Solving - Score, Memory - Score were [e lectronically] signed by JOSEPH Pardo on ThuAug 02 2018 15:16:20 T-0600 ([place] Time)
--- NOTE | 2018-08-02 15:30 | FAST ---
ENCOUNTER DATE AND TIME: 08/02/2018 08:00 (PAD TUFTER) NAME NICO JANUARY DATE OF : 1930 DATE OF ADMISSION: 07/20/2018 14:59 (PAD TUFTER) PHONE: AGE: 88 N# [id number] GENDER: Female ENCOUNTER PHYSICIAN: Dr. Joselo Diaz M.D. ADMISSION DIAGNOSIS: - Orthopaedic Disorders 08 - Unilateral Hip Fracture (08.11) LEFT INTERTROCHANTERIC FEMUR FRACTURE. EATING: Activity did not occur on this shift EATING - SCORE: 0-UNK GROOMING: Activity did not occur on this shift GROOMING - SCORE: 0-UNK BATHING: Activity did not occur on this shift BATHING - SCORE: 0-UNK DRESSING - UPPER BODY: Activity did not occur on this shift Patient is not dressing in public clothing ARTICLES SCORE Total number of steps: 0 DRESSING - UPPER BODY - SCORE: 0-UNK DRESSING - LOWER BODY: Activity did not occur on this shift Patient is not dressing in public clothing ARTICLES SCORE Total number of steps: 0 DRESSING - LOWER BODY - SCORE: 0-UNK TOILETING: Activity did not occur on this shift TOILETING - SCORE: 0-UNK BLADDER MANAGEMENT: Activity did not occur on this shift BLADDER MANAGEMENT - SCORE: 7-IND BOWEL MANAGEMENT: Activity did not occur on this shift BOWEL MANAGEMENT - SCORE: 7-IND TRANSFERS: BED, CHAIR, WHEELCHAIR: TRANSFERS: BED, CHAIR, WHEELCHAIR - STEP 1: Does the patient require assistance of a person or device, or need extra time with bed, chair, or whe elchair transfers? Yes. TRANSFERS: BED, CHAIR, WHEELCHAIR - STEP 2: Does the patient require the assistance of a helper? Yes. TRANSFERS: BED, CHAIR, WHEELCHAIR - STEP 3: How much assistance does the patient require from the helper? Only supervision TRANSFERS: BED, CHAIR, WHEELCHAIR - SCORE: 5-SUP TRANSFERS: TOILET: Activity did not occur on this shift TRANSFERS: TOILET - SCORE: 0-UNK TRANSFERS: SHOWER: Activity did not occur on this shift TRANSFERS: SHOWER - SCORE: 0-UNK TRANSFERS: TUB: Activity did not occur on this shift TRANSFERS: TUB - SCORE: 0-UNK LOCOMOTION: WALK: LOCOMOTION: WALK - STEP 1: Does the patient need help from a person or device, or need extra time to walk 150 feet? Yes. LOCOMOTION: WALK - STEP 2: How much assistance does the patient require to walk a minimum of 150 feet? Only supervision, cuing, or coaxing LOCOMOTION: WALK - SCORE: 5-SUP LOCOMOTION: WHEELCHAIR: LOCOMOTION: WHEELCHAIR - STEP 1: Does the patient need help to go 150 feet in a wheelchair? Yes. LOCOMOTION: WHEELCHAIR - STEP 2: How much assistance does the patient need from the helper? Patient goes less than 150 feet - but more than 50 feet - with the assistance of only one helper LOCOMOTION: WHEELCHAIR - SCORE: 2-MAX LOCOMOTION: STAIRS: Activity did not occur on this shift LOCOMOTION: STAIRS - SCORE: 0-UNK COMPREHENSION: COMPREHENSION - SCORE: 0-UNK EXPRESSION EXPRESSION - SCORE: 0-UNK SOCIAL INTERACTION: SOCIAL INTERACTION - SCORE: 0-UNK PROBLEM SOLVING: PROBLEM SOLVING - SCORE: 0-UNK MEMORY: MEMORY - SCORE: 0-UNK SIGNATURE PANEL: The following modified sections: Transfers: Bed, Chair, Wheelchair - Score, Transfers: Toilet - Score , Locomotion: Walk - Score, Locomotion: Wheelchair - Score, Locomotion: Stairs - Score were [electron akosua] signed by Luis Werner PTA on ThuAug 02 2018 15:29:49 GMT-0600 (Central Standard Time)
--- NOTE | 2018-08-02 16:54 | FAST ---
SHIFT START DATE/TIME: 08/02/2018 07:00 (CLAY TEMPERER) SHIFT END DATE/TIME: 08/02/2018 19:00 (CLAY TEMPERER) NAME LOGAN WALSH DATE OF : 1930 DATE OF ADMISSION: 07/20/2018 14:59 (CLAY TEMPERER) PHONE: AGE: 88 N# [id number] GENDER: Female ENCOUNTER PHYSICIAN: Dr. Joselo Diaz M.D. ADMISSION DIAGNOSIS: - Orthopaedic Disorders 08 - Unilateral Hip Fracture (08.11) LEFT INTERTROCHANTERIC FEMUR FRACTURE. EATING: EATING - STEP 1: Does the patient require the assistance of a person or device, or need extra time when eating? Yes. EATING - STEP 2: Does the patient require the assistance of a helper? Yes. EATING - STEP 3: Does the patient perform half or more of the eating tasks? Yes. EATING - STEP 4: Does the patient need only supervision, cuing, coaxing OR help to apply an orthosis OR help to cut fo od, open containers, pour liquids, or butter bread? Yes. EATING - SCORE: 5-SUP GROOMING: GROOMING - STEP 1: Does the patient require the assistance of a person or device, or need extra time when grooming? Yes. GROOMING - STEP 2: Does the patient require the assistance of a helper? Yes. GROOMING - STEP 3: How much assistance does the patient require from the helper? Cuing, coaxing, instructions, or encour agement for completion of grooming GROOMING - SCORE: 5-SUP BATHING: Activity did not occur on this shift BATHING - SCORE: 0-UNK DRESSING - UPPER BODY: Activity did not occur on this shift ARTICLES SCORE Total number of steps: 0 DRESSING - UPPER BODY - SCORE: 0-UNK DRESSING - LOWER BODY: Activity did not occur on this shift ARTICLES SCORE Total number of steps: 0 DRESSING - LOWER BODY - SCORE: 0-UNK TOILETING: TOILETING - STEP 1: Does the patient require the assistance of a person or device, or need extra time with toileting? Yes . TOILETING - STEP 2: Does the patient require the assistance of a helper? Yes. TOILETING - STEP 3: How much assistance does the patient require from the helper? Hands-on assistance from the helper TOILETING - STEP 4: Of the 3 tasks: 1) Adjusting clothing prior to use, 2) Cleansing of perineal area, 3) Adjusting clot luz marina after use; How many tasks does the patient perform WITHOUT assistance of the helper? Three tasks with steadying assistance from the helper TOILETING - SCORE: 4-MIN BLADDER MANAGEMENT: BLADDER MANAGEMENT - STEP 1: Does the patient control the bladder completely and intentionally without equipment or devices or med ications, and is always continent? No. BLADDER MANAGEMENT - STEP 2: Does the patient require the assistance of a helper? No, patient requires and independently uses an a ssistive device, such as a urinal, bedpan, bedside commode, catheter, absorbent pad, or collecting de vice BLADDER MANAGEMENT - SCORE: 6-SAMREEN BOWEL MANAGEMENT: BOWEL MANAGEMENT - STEP 1: Does the patient control bowels completely and intentionally without equipment devices or medications AND is always continent? No. BOWEL MANAGEMENT - STEP 2: Does the patient require the assistance of a helper? No, patient requires and manages independently a n assistive device such as a bedpan, bedside commode, absorbent pad, incontinent device, or collectin g device BOWEL MANAGEMENT - SCORE: 6-SAMREEN TRANSFERS: BED, CHAIR, WHEELCHAIR: TRANSFERS: BED, CHAIR, WHEELCHAIR - STEP 1: Does the patient require assistance of a person or device, or need extra time with bed, chair, or whe elchair transfers? Yes. TRANSFERS: BED, CHAIR, WHEELCHAIR - STEP 2: Does the patient require the assistance of a helper? Yes. TRANSFERS: BED, CHAIR, WHEELCHAIR - STEP 3: How much assistance does the patient require from the helper? Steadying/guiding assistance TRANSFERS: BED, CHAIR, WHEELCHAIR - SCORE: 4-MIN TRANSFERS: TOILET: TRANSFERS: TOILET - STEP 1: Does the patient require the assistance of a person or device, or need extra time with toilet transfe rs? Yes. TRANSFERS: TOILET - STEP 2: Does the patient require the assistance of a helper? Yes. TRANSFERS: TOILET - STEP 3: How much assistance does the patient require from the helper? Patient performs half or more of the tr ansferring tasks TRANSFERS: TOILET - STEP 4: Does the patient need only incidental help such as contact guard or steadying during toilet transfer? No. Patient needs more than incidental help TRANSFERS: TOILET - SCORE: 3-MOD TRANSFERS: SHOWER: Activity did not occur on this shift TRANSFERS: SHOWER - SCORE: 0-UNK TRANSFERS: TUB: Activity did not occur on this shift TRANSFERS: TUB - SCORE: 0-UNK LOCOMOTION: WALK: Activity did not occur on this shift LOCOMOTION: WALK - SCORE: 0-UNK LOCOMOTION: WHEELCHAIR: Activity did not occur on this shift LOCOMOTION: WHEELCHAIR - SCORE: 0-UNK COMPREHENSION: COMPREHENSION: TYPE: Both COMPREHENSION - STEP 1: Does the patient require help from a person or device, or need extra time to understand complex and a bstract ideas (such as current events, finances, discharge planning, medical issues, relationships, e tc)? Yes. COMPREHENSION - STEP 2: Does the patient require help to understand questions or statements about basic needs or ideas (such as hunger, thirst, sleep, safety, daily schedule, room location, or discomfort) half or more of the t chris? No. COMPREHENSION - STEP 3: How often does the patient need help to understand directions and conversation about basic needs? 10% - 24% of the time COMPREHENSION - SCORE: 4-MIN EXPRESSION EXPRESSION: TYPE: Both EXPRESSION - STEP 1: Does the patient require help from a person or device, or need extra time expressing complex and abst ract ideas (such as current events, finances, discharge planning, medical issues, relationships, etc) ? Yes. EXPRESSION - STEP 2: Does the patient require help to express basic necessities or ideas (such as hunger, thirst, sleep, s afety, daily schedule, room location, or discomfort) half or more of the time? No. EXPRESSION - STEP 3: How often does the patient need help to express directions and conversation about basic needs? Less t rajan 10% of the time EXPRESSION - SCORE: 5-SUP SOCIAL INTERACTION: SOCIAL INTERACTION - STEP 1: Does the patient require a helper to interact with others in social and therapeutic situations? Yes. SOCIAL INTERACTION - STEP 2: Does the patient interact appropriately half or more of the time? Yes. SOCIAL INTERACTION - STEP 3: How often does the patient need help to interact appropriately? Less than 10% of the time SOCIAL INTERACTION - SCORE: 5-SUP PROBLEM SOLVING: PROBLEM SOLVING - STEP 1: Does the patient need help from a person or device, or need extra time to solve complex problems such as managing a checking account or confronting interpersonal problems? Yes. PROBLEM SOLVING - STEP 2: Does the patient solve basic routine problems half or more of the time? Yes. PROBLEM SOLVING - STEP 3: How often does the patient need help to solve basic routine problems? Less than 10% of the time PROBLEM SOLVING - SCORE: 5-SUP MEMORY: MEMORY - STEP 1: Does the patient need help from a person or device, or need extra time to remember frequently encount ered people, daily routines, and executing requests? Yes. MEMORY - STEP 2: How often does the patient need help to remember frequently encountered people, daily routines, and e xecuting requests? 10% - 24% of the time MEMORY - SCORE: 4-MIN SIGNATURE PANEL: The following modified sections: Eating - Score, Grooming - Score, Bathing - Score, Dressing - Upper Body - Score, Dressing - Lower Body - Score, Toileting - Score, Bladder Management - Score, Bowel Man agement - Score, Transfers: Bed, Chair, Wheelchair - Score, Transfers: Toilet - Score, Transfers: Mora wer - Score, Transfers: Tub - Score, Locomotion: Walk - Score, Locomotion: Wheelchair - Score, Compre hension - Score, Expression - Score, Social Interaction - Score, Problem Solving - Score, Memory - Sc ore were [electronically] signed by Skyler Novak on ThuAug 02 2018 16:53:40 GMT-0600 (Central Standard Time)
--- NOTE | 2018-08-02 17:39 | P.PN ---
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 SHE IS NOW IN REHAB FOR PT. CHR PAIN. HIP FRACTURE. BILAT SWELLING. CONSTIPATION BETTER. STABLE IN REHAB. NO NEW ISSUES. SHE IS STABLE. NO CONSTIPATION. NO UTI SS. SHE IS STABLE, STILL HAS PAIN IN L LEG. SHE HAS NO NEW ISSUES. NO NEW PROBLEMS. FEELS WELL. WILL GO TO [facility], STABLE FOR NOW. NO CHANGES, NO COMPLAINTS Physical Examination - Vital Signs Temperature: 96.5 F Blood Pressure: 129/67 Pulse: 88 Respirations: 16 Pulse Ox (%): 100 - Studies Medications List Reviewed: Yes Assessment And Plan - Current Problems (Diagnosis) (1) Closed left hip fracture Onset Date: 07/13/18 Current Visit: No Status: Acute Plan: PT CONSULT DVT PROPHYLAXIS HAD ANEMIA SP SURGERY WILL TRY ORAL AC AGAIN. PT RESUME. no changes continue pt. DC TO [facility] SOON. DC IN TWO DAYS NO ACUTE ISSUES. 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 STABLE HD TEAM BUSY IN ICU. HD WILL BE DONE TODAY. FAMILY AWARE. HD DONE LATE LAST NIGHT. LOW K MANAGED BY RENAL MD. Qualifiers: Renal failure chronicity: chronic Chronic kidney disease stage: on chronic dialysis Qualified Code(s): N18.6 - End stage renal disease; Z99.2 - Dependence on renal dialysis (3) Edema Current Visit: Yes Status: Chronic Plan: VENOUS DOPPLER NEGATIVE. RESUME COMPRESSION. NO CHANGES, ON HD. THIS IS FROM SURGERY. (4) Abnormal urinalysis Current Visit: Yes Status: Suspected Plan: SHE HAS NO SYMPTOMS. IGNORE ALL UA AND UCS SHE HAS NO SS. THIS IS THE GUIDELINE. REPEAT ST. CATH UA IS TOTALLY NORMAL. CIPRO STOPPED. UNNECESSARY USE OF ANTIBIOTICS IS HARMFUL TO PATIENT. SHE HAS NO UTI SYMPTOMS. UA IS CLEAR.
[2018-08-02] MEDS: EPOETIN ALFA 10,000 UNIT/ML VIAL IV SCH (17:45)
--- NOTE | 2018-08-02 17:50 | R.PN ---
ENCOUNTER DATE AND TIME: 08/02/2018 17:46 (PARTS COUNTER ASSOCIATE) NAME NICO LOGAN DATE OF : 1930 DATE OF ADMISSION: 07/20/2018 14:59 (PARTS COUNTER ASSOCIATE) LEFT INTERTROCHANTERIC FEMUR FRACTURECHIEF COMPLAINT: Left hip fracture. SUBJECTIVE: Pt denied any depression. Pt denied any Shortness of Breath. Ambulated 300' with standby assistance using a rolling walker. Self-propelled wheelchair 50' with con tact guard assistance. VITAL SIGNS Temperature: 97.6 F SBP/DBP: 129/88 Pulse: 88 Resp: 16 MEDICATION ALLERGIES: No Known Drug Allergies (NKDA) ENVIRONMENTAL ALLERGIES: None Known - Substance Allergies None Known - Other Allergies None Known NURSING: - Shower allowing shower - Skin care per protocol PRECAUTIONS: - Posterior Hip Precaution No adduction across midline No external rotation No hip flexion >90 degrees No internal rotation No wheel chair propulsion - Weight Bearing Precaution WBAT left LE ACTIVITIES OOB only with supervision THERAPIES: - Occupational Therapy Evaluate and Treat. - Physical Therapy Evaluate and Treat. PHYSICAL EXAM - Gen Alert and awake Lying in bed No apparent distress Oriented to: person, time, and place - Skin No breakdown No abnormalities - Eyes No abnormalities - ENMT No abnormalities - Neck No abnormalities - CVS RRR - Chest Clear - Abd + bowel sounds - GI nondistended Deferred - No abnormalities - Ext Left hip surgical site has good hemostasis. - MSK 4+/5 weakness in left lower extremity - Neuro 4/5 strength left lower extremity. - Psych No abnormalities ASSESSMENT: Pt. is a 88 yo Right-handed white female.Her impairment category is Orthopaedic Disorders 08 - Unila teral Hip Fracture (08.11).Pre-morbidly, Pt. was independent/mod-I in Transfers Control, Communicatio n, Social Cognition, Self-Care, Locomotion, and Sphincter Control; and she had good Sphincter Control .Currently, she has deficits of Transfers Control, Balance, Self-Care, Locomotion, Endurance, and Saf ety Awareness.Pt. is now referred to [facility] for acute in-patient rehabilit ation in order to maximize patient's functional independence in activities of daily living, strength, ROM, and mobility.- Rehab Goal Patient has realistic goal of being discharged at assistance level 6-Malika to reside at Home with Fam kinjal/Relatives. MDM/PLAN: - Physical Therapy Decreased range of motion - to improve, our physical therapists will perform initial evaluation of p t's status upon admission and devise an individualized program for increasing patient's Range of Luis Manuel on. Gait dysfunction - to improve, our physical therapists will perform initial evaluation of pt's statu s upon admission and devise an individualized program for Gait Training, and Wheel Chair mobility Inability to transfer - to improve, our physical therapists will perform initial evaluation of pt's status upon admission and devise an individualized program for Bed mobility Need for home safety evaluation - to improve, our physical therapists will perform initial evaluatio n of pt's status upon admission and devise an individualized program for Home Evaluation Need in caregiver upon discharge - to improve, our physical therapists will perform initial evaluati on of pt's status upon admission and devise an individualized program for Caregiver Training New precaution - to improve, our physical therapists will perform initial evaluation of pt's status upon admission and devise an individualized program for Patient precaution education Poor balance - to improve, our physical therapists will perform initial evaluation of pt's status up on admission and devise an individualized program for Balance Training Poor endurance - to improve, our physical therapists will perform initial evaluation of pt's status upon admission and devise an individualized program for Endurance Training Weakness - to improve, our physical therapists will perform initial evaluation of pt's status upon a dmission and devise an individualized program for Aquatic Therapy, Neuromuscular Reeducation, and Str engthening Achieving independence - to improve, our physical therapists will perform initial evaluation of pt's status upon admission and devise an individualized program for Community Reintegration Activities - Occupational Therapy ADL deficits - to improve, our occupation therapists will perform initial evaluation of pt's status upon admission and devise an individualized program for Bathing, Bed mobility, Community Reintegratio n, Cooking, Dressing, Eating, Fine Motor Skills, Grooming, Homemaking, Kitchen Mobility, Laundry, Pat ient Education, Safety Awareness, Splinting - Positioning, Transfers(Toilet, Tub, Shower), and Wheel Chair Management Need for youth care specialist - to improve, our occupation therapists will perform initial evaluation of pt's status upon admission and devise an individualized program for Caregiver Training Weakness - to improve, our occupation therapists will perform initial evaluation of pt's status upon admission and devise an individualized program for Aquatic Therapy, Balance, Endurance, UE ROM, and UE strengthening - Anterior Hip Precaution No abduction No active extension No adduction across midline No external rotation No hip flexion >90 degrees No internal rotation - Diet - Liquid Texture Continue Regular - Tube Feed Continue N/A - Diet Type Continue Regular - Posterior Hip Precaution No adduction across midline No external rotation No hip flexion >90 degrees No internal rotation No wheel chair propulsion - Weight Bearing Precaution WBAT left LE - Skin care per protocol - Diet - Solid Texture Continue Regular - Shower allowing shower FUNCTIONAL STATUS: UPDATED AT WEEKLY TEAM CONFERENCE - Bladder Same accident frequency: 7-Ind - No accidents in the past 7 days - Bowel Same accident frequency: 7-Ind - No accidents in the past 7 days - Walking Same score based on distance walked: 1(<=50ft) - Wheelchair Same score based on distance traveled: 0(N/A) FUNCTIONAL STATUS: - Self-Care A. Eating sup B. Grooming sup C. Bathing Jackie D. Dressing - Upper Jackie E. Dressing - Lower Jackie F. Toileting Jackie - Sphincter Control G: Bladder control Ind H: Bowel control Ind - Transfers Control I. Bed/Chair/Wheelchair maxA J. Toilet maxA K. Tub/Shower Ind - Locomotion L. Walk/Wheelchair (C) modA L. Walk/Wheelchair (W) modA M. Stairs ADNO - Communication N. Comprehension (B) Malika O. Expression (B) Malika - Social Cognition P. Social Interaction Malika Q. Problem Solving Malika R. Memory Malika - Endurance Fair - Balance Fair - Safety Awareness Fair CURRENT [facility]. DEFICITS: Transfers Control, Balance, Self-Care, Locomotion, Endurance, and Safety Awareness SIGNATURE PANEL: (PARTS COUNTER ASSOCIATE)
[2018-08-02] MEDS: ATORVASTATIN 20 MG TAB PO SCH (21:43)
--- NOTE | 2018-08-03 01:01 | FAST ---
SHIFT START DATE/TIME: 08/02/2018 19:00 (OIL HEATERMAN) SHIFT END DATE/TIME: 08/03/2018 07:00 (OIL HEATERMAN) NAME LOGAN WALSH DATE OF : 1930 DATE OF ADMISSION: 07/20/2018 14:59 (OIL HEATERMAN) PHONE: AGE: 88 SSN# [id number] GENDER: Female ENCOUNTER PHYSICIAN: Dr. Joselo Diaz M.D. ADMISSION DIAGNOSIS: - Orthopaedic Disorders 08 - Unilateral Hip Fracture (08.11) LEFT INTERTROCHANTERIC FEMUR FRACTURE. EATING: Activity did not occur on this shift EATING - SCORE: 0-UNK GROOMING: Activity did not occur on this shift GROOMING - SCORE: 0-UNK BATHING: Activity did not occur on this shift BATHING - SCORE: 0-UNK DRESSING - UPPER BODY: Patient is not dressing in public clothing ARTICLES SCORE Total number of steps: 0 DRESSING - UPPER BODY - SCORE: 0-UNK DRESSING - LOWER BODY: Patient is not dressing in public clothing ARTICLES SCORE Total number of steps: 0 DRESSING - LOWER BODY - SCORE: 0-UNK TOILETING: TOILETING - STEP 1: Does the patient require the assistance of a person or device, or need extra time with toileting? Yes . TOILETING - STEP 2: Does the patient require the assistance of a helper? Yes. TOILETING - STEP 3: How much assistance does the patient require from the helper? Hands-on assistance from the helper TOILETING - STEP 4: Of the 3 tasks: 1) Adjusting clothing prior to use, 2) Cleansing of perineal area, 3) Adjusting clot luz marina after use; How many tasks does the patient perform WITHOUT assistance of the helper? No tasks; h elper performs all three tasks TOILETING - SCORE: 1-DEP BLADDER MANAGEMENT: Huntley removes incontinent device (Depends, pull ups, etc.); cleans the patient after accident / inco ntinent episode; and, applies new incontinent device. BLADDER MANAGEMENT - SCORE: 1-DEP BOWEL MANAGEMENT: Huntley removes incontinent device (depends, pull ups, etc.); cleans the patient after accident / inco ntinent episode; and, applies new device (depends, pull-ups, padding, etc.). BOWEL MANAGEMENT - SCORE: 1-DEP TRANSFERS: BED, CHAIR, WHEELCHAIR: TRANSFERS: BED, CHAIR, WHEELCHAIR - STEP 1: Does the patient require assistance of a person or device, or need extra time with bed, chair, or whe elchair transfers? Yes. TRANSFERS: BED, CHAIR, WHEELCHAIR - STEP 2: Does the patient require the assistance of a helper? Yes. TRANSFERS: BED, CHAIR, WHEELCHAIR - STEP 3: How much assistance does the patient require from the helper? Lifting of the patient TRANSFERS: BED, CHAIR, WHEELCHAIR - STEP 4: Does the helper lift the patient ONLY up? ONLY down? Up AND Down? Up AND Down. TRANSFERS: BED, CHAIR, WHEELCHAIR - SCORE: 2-MAX TRANSFERS: TOILET: TRANSFERS: TOILET - STEP 1: Does the patient require the assistance of a person or device, or need extra time with toilet transfe rs? Yes. TRANSFERS: TOILET - STEP 2: Does the patient require the assistance of a helper? Yes. TRANSFERS: TOILET - STEP 3: How much assistance does the patient require from the helper? Patient performs half or more of the tr ansferring tasks TRANSFERS: TOILET - STEP 4: Does the patient need only incidental help such as contact guard or steadying during toilet transfer? No. Patient needs more than incidental help TRANSFERS: TOILET - SCORE: 3-MOD TRANSFERS: SHOWER: Activity did not occur on this shift TRANSFERS: SHOWER - SCORE: 0-UNK TRANSFERS: TUB: Activity did not occur on this shift TRANSFERS: TUB - SCORE: 0-UNK LOCOMOTION: WALK: Activity did not occur on this shift LOCOMOTION: WALK - SCORE: 0-UNK LOCOMOTION: WHEELCHAIR: Activity did not occur on this shift LOCOMOTION: WHEELCHAIR - SCORE: 0-UNK COMPREHENSION: COMPREHENSION: TYPE: Both COMPREHENSION - STEP 1: Does the patient require help from a person or device, or need extra time to understand complex and a bstract ideas (such as current events, finances, discharge planning, medical issues, relationships, e tc)? Yes. COMPREHENSION - STEP 2: Does the patient require help to understand questions or statements about basic needs or ideas (such as hunger, thirst, sleep, safety, daily schedule, room location, or discomfort) half or more of the t chris? Yes. COMPREHENSION - STEP 3: Is the patient basically able to understand and respond appropriately and consistently? No, patient i s basically UNABLE to understand, OR responds inappropriately/inconsistently despite prompting COMPREHENSION - SCORE: 1-DEP EXPRESSION EXPRESSION: TYPE: Both EXPRESSION - STEP 1: Does the patient require help from a person or device, or need extra time expressing complex and abst ract ideas (such as current events, finances, discharge planning, medical issues, relationships, etc) ? Yes. EXPRESSION - STEP 2: Does the patient require help to express basic necessities or ideas (such as hunger, thirst, sleep, s afety, daily schedule, room location, or discomfort) half or more of the time? Yes. EXPRESSION - STEP 3: Is the patient basically unable to express or does s/he express inappropriately or inconsistently nida pite prompting? Yes. Patient is basically unable to express. EXPRESSION - SCORE: 1-DEP SOCIAL INTERACTION: SOCIAL INTERACTION - STEP 1: Does the patient require a helper to interact with others in social and therapeutic situations? Yes. SOCIAL INTERACTION - STEP 2: Does the patient interact appropriately half or more of the time? No. SOCIAL INTERACTION - STEP 3: How often does the patient interact appropriately? Less than 25% of the time SOCIAL INTERACTION - SCORE: 1-DEP PROBLEM SOLVING: PROBLEM SOLVING - STEP 1: Does the patient need help from a person or device, or need extra time to solve complex problems such as managing a checking account or confronting interpersonal problems? Yes. PROBLEM SOLVING - STEP 2: Does the patient solve basic routine problems half or more of the time? No. PROBLEM SOLVING - STEP 3: Does the patient need help to solve problems all the time or is s/he unable to solve problems? Yes. P atient needs help to solve problems all the time or is unable to solve problems PROBLEM SOLVING - SCORE: 1-DEP MEMORY: MEMORY - STEP 1: Does the patient need help from a person or device, or need extra time to remember frequently encount ered people, daily routines, and executing requests? Yes. MEMORY - STEP 2: How often does the patient need help to remember frequently encountered people, daily routines, and e xecuting requests? More than 50% of the time MEMORY - STEP 3: Does the patient need help to remember all of the time OR does s/he not effectively recognize and rem ember? Yes. Patient needs help to remember ALL the time OR does not effectively recognize and remembe r MEMORY - SCORE: 1-DEP SIGNATURE PANEL: The following modified sections: Eating - Score, Grooming - Score, Dressing - Upper Body - Score, Sameer ssing - Lower Body - Score, Toileting - Score, Bladder Management - Score, Bowel Management - Score, Transfers: Bed, Chair, Wheelchair - Score, Transfers: Toilet - Score, Transfers: Shower - Score, Bustillo sfers: Tub - Score, Locomotion: Walk - Score, Locomotion: Wheelchair - Score, Comprehension - Score, Expression - Score, Social Interaction - Score, Problem Solving - Score, Memory - Score were [electro nically] signed by Shaunna Jennings CNA on ThuAug 03 2018 01:00:37 GMT-0600 (Central Standard Time)
--- NOTE | 2018-08-03 02:29 | PN ---
Date of Progress Note: 08/02/2018 Chief Complaint: End-stage renal disease. Subjective: The patient is receiving dialysis today. The patient has multiple medical problems. Jad haddad is undergoing rehab for deconditioning. She underwent a hip surgery. Review of Systems: Denies fever, chills. Physical Examination: Lungs: Clear to auscultation bilaterally. Heart: S1, S2. Abdomen: Soft, benign. Extremities: Minimal edema. Impression And Plan: 1.The patient will have dialysis today with ultrafiltration to control mild fluid overload. 2.Renal osteodystrophy. Continue binders. Monitor phosphorus level. 3.Hypertension. Blood pressure controlled. 4.Anemia of chronic kidney disease. Monitor hemoglobin level, adjust FANI. EB/MODL Voice ID: [id number] Report ID: [id number]
[2018-08-03] MEDS: LEVOTHYROXINE SOD 0.125 MG TAB PO SCH (05:33)
[2018-08-03] MEDS: PANTOPRAZOLE 40MG TABLET PO SCH (05:33)
[2018-08-03] MEDS: NEPRO SHAKE 237 ML CAN PO SCH ×2 (08:00→20:15)
[2018-08-03] MEDS: PROMOD 30 ML DOSE PO SCH ×2 (08:00→20:16)
[2018-08-03] MEDS: LIDOCAINE 5% PATCH TOP SCH (08:22)
[2018-08-03] MEDS: POLYETHYL GLY 3350 17 GM/DOSE PO SCH (08:23)
[2018-08-03] MEDS: CLOPIDOGREL 75 MG TABLET PO SCH (08:24)
[2018-08-03] MEDS: HEPARIN 5000 UNIT/ML 1 ML VIAL SQ SCH ×2 (08:24→20:00)
[2018-08-03] MEDS: TRAMADOL HCL 50 MG TAB PO PRN (08:24)
[2018-08-03] MEDS: FE SULF/FA/VIT B COMP & C TAB PO SCH (08:24)
[2018-08-03] MEDS: CRANBERRY FRUIT EXTRACT 200 MG CAP PO SCH ×2 (08:24→20:15)
[2018-08-03] MEDS: GABAPENTIN 300 MG CAP PO SCH ×2 (08:24→20:15)
[2018-08-03] MEDS: FERROUS SULFATE 325 MG TAB PO SCH (08:24)
--- NOTE | 2018-08-03 11:25 | RAD REPORT ---
EXAM DESCRIPTION: RAD - Hip Left 2 View - 08/03/2018 11:18 am CLINICAL HISTORY: Hip pain, fall COMPARISON: Pre-surgical hip films July 12, postsurgical CT pelvis July 19 FINDINGS: AP and cross-table portable images of the left hip joint were obtained. Surgical hardware is in place from prior fracture repair. No re- fracture of the femur identified. No fracture of the bony pelvis. No change in alignment or positioning of the fixation hardware. No maría salinas or mass identifiable in the soft tissues. No foreign body seen. IMPRESSION: No re- fracture of the femur. No change in alignment or positioning of fixation hardware .
[2018-08-03] MEDS ORDERED: TRAMADOL HCL 50 MG TAB PO PRN (14:17)
--- NOTE | 2018-08-03 15:03 | FAST ---
ENCOUNTER DATE AND TIME: 08/03/2018 08:00 (SAMPLE CLERK) NAME NICO JANUARY DATE OF : 1930 DATE OF ADMISSION: 07/20/2018 14:59 (SAMPLE CLERK) PHONE: AGE: 88 N# [id number] GENDER: Female ENCOUNTER PHYSICIAN: Dr. Joselo Diaz M.D. ADMISSION DIAGNOSIS: - Orthopaedic Disorders 08 - Unilateral Hip Fracture (08.11) LEFT INTERTROCHANTERIC FEMUR FRACTURE. EATING: Activity did not occur on this shift EATING - SCORE: 0-UNK GROOMING: Activity did not occur on this shift GROOMING - SCORE: 0-UNK BATHING: Activity did not occur on this shift BATHING - SCORE: 0-UNK DRESSING - UPPER BODY: Activity did not occur on this shift Patient is not dressing in public clothing ARTICLES SCORE Total number of steps: 0 DRESSING - UPPER BODY - SCORE: 0-UNK DRESSING - LOWER BODY: Activity did not occur on this shift Patient is not dressing in public clothing ARTICLES SCORE Total number of steps: 0 DRESSING - LOWER BODY - SCORE: 0-UNK TOILETING: Activity did not occur on this shift TOILETING - SCORE: 0-UNK BLADDER MANAGEMENT: Activity did not occur on this shift BLADDER MANAGEMENT - SCORE: 7-IND BOWEL MANAGEMENT: Activity did not occur on this shift BOWEL MANAGEMENT - SCORE: 7-IND TRANSFERS: BED, CHAIR, WHEELCHAIR: TRANSFERS: BED, CHAIR, WHEELCHAIR - STEP 1: Does the patient require assistance of a person or device, or need extra time with bed, chair, or whe elchair transfers? Yes. TRANSFERS: BED, CHAIR, WHEELCHAIR - STEP 2: Does the patient require the assistance of a helper? Yes. TRANSFERS: BED, CHAIR, WHEELCHAIR - STEP 3: How much assistance does the patient require from the helper? Only supervision TRANSFERS: BED, CHAIR, WHEELCHAIR - SCORE: 5-SUP TRANSFERS: TOILET: Activity did not occur on this shift TRANSFERS: TOILET - SCORE: 0-UNK TRANSFERS: SHOWER: Activity did not occur on this shift TRANSFERS: SHOWER - SCORE: 0-UNK TRANSFERS: TUB: Activity did not occur on this shift TRANSFERS: TUB - SCORE: 0-UNK LOCOMOTION: WALK: LOCOMOTION: WALK - STEP 1: Does the patient need help from a person or device, or need extra time to walk 150 feet? Yes. LOCOMOTION: WALK - STEP 2: How much assistance does the patient require to walk a minimum of 150 feet? Patient walks less than 1 50 feet - but more than 50 feet - with the assistance of only one helper LOCOMOTION: WALK - SCORE: 2-MAX LOCOMOTION: WHEELCHAIR: LOCOMOTION: WHEELCHAIR - STEP 1: Does the patient need help to go 150 feet in a wheelchair? Yes. LOCOMOTION: WHEELCHAIR - STEP 2: How much assistance does the patient need from the helper? Patient goes less than 150 feet - but more than 50 feet - with the assistance of only one helper LOCOMOTION: WHEELCHAIR - SCORE: 2-MAX LOCOMOTION: STAIRS: Activity did not occur on this shift LOCOMOTION: STAIRS - SCORE: 0-UNK COMPREHENSION: COMPREHENSION - SCORE: 0-UNK EXPRESSION EXPRESSION - SCORE: 0-UNK SOCIAL INTERACTION: SOCIAL INTERACTION - SCORE: 0-UNK PROBLEM SOLVING: PROBLEM SOLVING - SCORE: 0-UNK MEMORY: MEMORY - SCORE: 0-UNK SIGNATURE PANEL: The following modified sections: Transfers: Bed, Chair, Wheelchair - Score, Transfers: Toilet - Score , Locomotion: Walk - Score, Locomotion: Wheelchair - Score, Locomotion: Stairs - Score were [padmini south] signed by Luis Werner PTA on ThuAug 03 2018 15:01:43 GMT-0600 (Central Standard Time)
--- NOTE | 2018-08-03 16:09 | FAST ---
SHIFT START DATE/TIME: 08/03/2018 07:00 (ACCESS RN) SHIFT END DATE/TIME: 08/03/2018 19:00 (ACCESS RN) NAME LOGAN WALSH DATE OF : 1930 DATE OF ADMISSION: 07/20/2018 14:59 (ACCESS RN) PHONE: AGE: 88 SSN# [id number] GENDER: Female ENCOUNTER PHYSICIAN: Dr. Joselo Diaz M.D. ADMISSION DIAGNOSIS: - Orthopaedic Disorders 08 - Unilateral Hip Fracture (08.11) LEFT INTERTROCHANTERIC FEMUR FRACTURE. EATING: EATING - STEP 1: Does the patient require the assistance of a person or device, or need extra time when eating? Yes. EATING - STEP 2: Does the patient require the assistance of a helper? Yes. EATING - STEP 3: Does the patient perform half or more of the eating tasks? Yes. EATING - STEP 4: Does the patient need only supervision, cuing, coaxing OR help to apply an orthosis OR help to cut fo od, open containers, pour liquids, or butter bread? Yes. EATING - SCORE: 5-SUP GROOMING: Activity did not occur on this shift GROOMING - SCORE: 0-UNK BATHING: Activity did not occur on this shift BATHING - SCORE: 0-UNK DRESSING - UPPER BODY: Activity did not occur on this shift ARTICLES SCORE Total number of steps: 0 DRESSING - UPPER BODY - SCORE: 0-UNK DRESSING - LOWER BODY: Activity did not occur on this shift ARTICLES SCORE Total number of steps: 0 DRESSING - LOWER BODY - SCORE: 0-UNK TOILETING: TOILETING - STEP 1: Does the patient require the assistance of a person or device, or need extra time with toileting? Yes . TOILETING - STEP 2: Does the patient require the assistance of a helper? Yes. TOILETING - STEP 3: How much assistance does the patient require from the helper? Hands-on assistance from the helper TOILETING - STEP 4: Of the 3 tasks: 1) Adjusting clothing prior to use, 2) Cleansing of perineal area, 3) Adjusting clot luz marina after use; How many tasks does the patient perform WITHOUT assistance of the helper? One task TOILETING - SCORE: 2-MAX BLADDER MANAGEMENT: Patient is on renal dialysis or peritoneal dialysis and no voiding activity BLADDER MANAGEMENT - SCORE: 7-IND BOWEL MANAGEMENT: BOWEL MANAGEMENT - STEP 1: Does the patient control bowels completely and intentionally without equipment devices or medications AND is always continent? No. BOWEL MANAGEMENT - STEP 2: Does the patient require the assistance of a helper? No, patient requires and manages independently a n assistive device such as a bedpan, bedside commode, absorbent pad, incontinent device, or collectin g device BOWEL MANAGEMENT - SCORE: 6-SAMREEN TRANSFERS: BED, CHAIR, WHEELCHAIR: TRANSFERS: BED, CHAIR, WHEELCHAIR - STEP 1: Does the patient require assistance of a person or device, or need extra time with bed, chair, or whe elchair transfers? Yes. TRANSFERS: BED, CHAIR, WHEELCHAIR - STEP 2: Does the patient require the assistance of a helper? Yes. TRANSFERS: BED, CHAIR, WHEELCHAIR - STEP 3: How much assistance does the patient require from the helper? Lifting of the legs TRANSFERS: BED, CHAIR, WHEELCHAIR - STEP 4: How many legs does the patient require the helper to lift? both legs TRANSFERS: BED, CHAIR, WHEELCHAIR - SCORE: 3-MOD TRANSFERS: TOILET: TRANSFERS: TOILET - STEP 1: Does the patient require the assistance of a person or device, or need extra time with toilet transfe rs? Yes. TRANSFERS: TOILET - STEP 2: Does the patient require the assistance of a helper? Yes. TRANSFERS: TOILET - STEP 3: How much assistance does the patient require from the helper? Patient performs less than half of the transferring tasks TRANSFERS: TOILET - STEP 4: Does the patient require total assistance for the toilet transfer such as the helper doing basically all the lifting? No. TRANSFERS: TOILET - SCORE: 2-MAX TRANSFERS: SHOWER: Activity did not occur on this shift TRANSFERS: SHOWER - SCORE: 0-UNK TRANSFERS: TUB: Activity did not occur on this shift TRANSFERS: TUB - SCORE: 0-UNK LOCOMOTION: WALK: Activity did not occur on this shift LOCOMOTION: WALK - SCORE: 0-UNK LOCOMOTION: WHEELCHAIR: Activity did not occur on this shift LOCOMOTION: WHEELCHAIR - SCORE: 0-UNK COMPREHENSION: COMPREHENSION: TYPE: Both COMPREHENSION - STEP 1: Does the patient require help from a person or device, or need extra time to understand complex and a bstract ideas (such as current events, finances, discharge planning, medical issues, relationships, e tc)? Yes. COMPREHENSION - STEP 2: Does the patient require help to understand questions or statements about basic needs or ideas (such as hunger, thirst, sleep, safety, daily schedule, room location, or discomfort) half or more of the t chris? Yes. COMPREHENSION - STEP 3: Is the patient basically able to understand and respond appropriately and consistently? Yes. COMPREHENSION - SCORE: 2-MAX EXPRESSION EXPRESSION: TYPE: Both EXPRESSION - STEP 1: Does the patient require help from a person or device, or need extra time expressing complex and abst ract ideas (such as current events, finances, discharge planning, medical issues, relationships, etc) ? Yes. EXPRESSION - STEP 2: Does the patient require help to express basic necessities or ideas (such as hunger, thirst, sleep, s afety, daily schedule, room location, or discomfort) half or more of the time? Yes. EXPRESSION - STEP 3: Is the patient basically unable to express or does s/he express inappropriately or inconsistently nida pite prompting? No. EXPRESSION - SCORE: 2-MAX SOCIAL INTERACTION: SOCIAL INTERACTION - STEP 1: Does the patient require a helper to interact with others in social and therapeutic situations? Yes. SOCIAL INTERACTION - STEP 2: Does the patient interact appropriately half or more of the time? No. SOCIAL INTERACTION - STEP 3: How often does the patient interact appropriately? More than 25% of the time SOCIAL INTERACTION - SCORE: 2-MAX PROBLEM SOLVING: PROBLEM SOLVING - STEP 1: Does the patient need help from a person or device, or need extra time to solve complex problems such as managing a checking account or confronting interpersonal problems? Yes. PROBLEM SOLVING - STEP 2: Does the patient solve basic routine problems half or more of the time? No. PROBLEM SOLVING - STEP 3: Does the patient need help to solve problems all the time or is s/he unable to solve problems? No. Pa tient can sometimes solve problems PROBLEM SOLVING - SCORE: 2-MAX MEMORY: MEMORY - STEP 1: Does the patient need help from a person or device, or need extra time to remember frequently encount ered people, daily routines, and executing requests? Yes. MEMORY - STEP 2: How often does the patient need help to remember frequently encountered people, daily routines, and e xecuting requests? More than 50% of the time MEMORY - STEP 3: Does the patient need help to remember all of the time OR does s/he not effectively recognize and rem ember? No. Patient does not need help all the time MEMORY - SCORE: 2-MAX SIGNATURE PANEL: The following modified sections: Eating - Score, Grooming - Score, Bathing - Score, Dressing - Upper Body - Score, Dressing - Lower Body - Score, Toileting - Score, Bladder Management - Score, Bowel Man agement - Score, Transfers: Bed, Chair, Wheelchair - Score, Transfers: Toilet - Score, Transfers: Mora wer - Score, Transfers: Tub - Score, Locomotion: Walk - Score, Locomotion: Wheelchair - Score, Compre hension - Score, Expression - Score, Social Interaction - Score, Problem Solving - Score, Memory - Sc ore were [electronically] signed by Skyler Novak on ThuAug 03 2018 16:08:26 GMT-0600 (Central Standard Time)
--- NOTE | 2018-08-03 17:25 | P.PN ---
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 SHE IS NOW IN REHAB FOR PT. CHR PAIN. HIP FRACTURE. BILAT SWELLING. CONSTIPATION BETTER. STABLE IN REHAB. NO NEW ISSUES. SHE IS STABLE. NO CONSTIPATION. NO UTI SS. SHE IS STABLE, STILL HAS PAIN IN L LEG. SHE HAS NO NEW ISSUES. NO NEW PROBLEMS. FEELS WELL. WILL GO TO [facility], STABLE FOR NOW. NO CHANGES, NO COMPLAINTS FALLEN LAST NIGHT NO INJURY. SHE HAS NO NEW PAIN. Review of Systems 10-point ROS is otherwise unremarkable Physical Examination - Vital Signs Temperature: 98.0 F Blood Pressure: 128/60 Pulse: 92 Respirations: 16 Pulse Ox (%): 96 - Physical Exam General: Alert, In no apparent distress HEENT: Atraumatic, PERRLA, EOMI Neck: Supple, JVD not distended Respiratory: Clear to auscultation bilaterally, Normal air movement Cardiovascular: Regular rate/rhythm, Normal S1 S2 Gastrointestinal: Normal bowel sounds, No tenderness Musculoskeletal: No tenderness Integumentary: No rashes Neurological: Normal speech, Normal tone, Normal affect Lymphatics: No axilla or inguinal lymphadenopathy - Studies Medications List Reviewed: Yes Assessment And Plan - Current Problems (Diagnosis) (1) Closed left hip fracture Onset Date: 07/13/18 Current Visit: No Status: Acute Plan: PT CONSULT DVT PROPHYLAXIS HAD ANEMIA SP SURGERY WILL TRY ORAL AC AGAIN. PT RESUME. no changes continue pt. DC TO [facility] SOON. DC IN TWO DAYS NO ACUTE ISSUES. DC IN AM TO [facility]. 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 STABLE HD TEAM BUSY IN ICU. HD WILL BE DONE TODAY. FAMILY AWARE. HD DONE LATE LAST NIGHT. LOW K MANAGED BY RENAL MD. Qualifiers: Renal failure chronicity: chronic Chronic kidney disease stage: on chronic dialysis Qualified Code(s): N18.6 - End stage renal disease; Z99.2 - Dependence on renal dialysis (3) Edema Current Visit: Yes Status: Chronic Plan: VENOUS DOPPLER NEGATIVE. RESUME COMPRESSION. NO CHANGES, ON HD. THIS IS FROM SURGERY. (4) Abnormal urinalysis Current Visit: Yes Status: Suspected Plan: SHE HAS NO SYMPTOMS. IGNORE ALL UA AND UCS SHE HAS NO SS. THIS IS THE GUIDELINE. REPEAT ST. CATH UA IS TOTALLY NORMAL. CIPRO STOPPED. UNNECESSARY USE OF ANTIBIOTICS IS HARMFUL TO PATIENT. SHE HAS NO UTI SYMPTOMS. UA IS CLEAR.
--- NOTE | 2018-08-03 18:11 | R.PN ---
ENCOUNTER DATE AND TIME: 08/03/2018 18:08 (POCKET MARKER) NAME LOGAN WALSH DATE OF : 1930 DATE OF ADMISSION: 07/20/2018 14:59 (POCKET MARKER) LEFT INTERTROCHANTERIC FEMUR FRACTURECHIEF COMPLAINT: Left hip fracture. SUBJECTIVE: Pt denied any depression. Pt denied any Shortness of Breath. Ambulated 100' with contact guard assistance using a rolling walker. Self-propelled wheelchair 50' wi th contact guard assistance. VITAL SIGNS Temperature: 98 F SBP/DBP: 128/60 Pulse: 92 Resp: 16 MEDICATION ALLERGIES: No Known Drug Allergies (NKDA) ENVIRONMENTAL ALLERGIES: None Known - Substance Allergies None Known - Other Allergies None Known NURSING: - Shower allowing shower - Skin care per protocol PRECAUTIONS: - Posterior Hip Precaution No adduction across midline No external rotation No hip flexion >90 degrees No internal rotation No wheel chair propulsion - Weight Bearing Precaution WBAT left LE ACTIVITIES OOB only with supervision THERAPIES: - Occupational Therapy Evaluate and Treat. - Physical Therapy Evaluate and Treat. PHYSICAL EXAM - Gen Alert and awake Lying in bed No apparent distress Oriented to: person, time, and place - Skin No breakdown No abnormalities - Eyes No abnormalities - ENMT No abnormalities - Neck No abnormalities - CVS RRR - Chest Clear - Abd + bowel sounds - GI nondistended Deferred - No abnormalities - Ext Left hip surgical site has good hemostasis. - MSK 4+/5 weakness in left lower extremity - Neuro 4/5 strength left lower extremity. - Psych No abnormalities ASSESSMENT: Pt. is a 88 yo Right-handed white female.Her impairment category is Orthopaedic Disorders 08 - Unila teral Hip Fracture (08.11).Pre-morbidly, Pt. was independent/mod-I in Transfers Control, Communicatio n, Social Cognition, Self-Care, Locomotion, and Sphincter Control; and she had good Sphincter Control .Currently, she has deficits of Transfers Control, Balance, Self-Care, Locomotion, Endurance, and Saf ety Awareness.Pt. is now referred to [facility] for acute in-patient rehabilit ation in order to maximize patient's functional independence in activities of daily living, strength, ROM, and mobility.- Rehab Goal Patient has realistic goal of being discharged at assistance level 6-Malika to reside at Home with Fam kinjal/Relatives. MDM/PLAN: - Physical Therapy Decreased range of motion - to improve, our physical therapists will perform initial evaluation of p t's status upon admission and devise an individualized program for increasing patient's Range of Luis Manuel on. Gait dysfunction - to improve, our physical therapists will perform initial evaluation of pt's statu s upon admission and devise an individualized program for Gait Training, and Wheel Chair mobility Inability to transfer - to improve, our physical therapists will perform initial evaluation of pt's status upon admission and devise an individualized program for Bed mobility Need for home safety evaluation - to improve, our physical therapists will perform initial evaluatio n of pt's status upon admission and devise an individualized program for Home Evaluation Need in caregiver upon discharge - to improve, our physical therapists will perform initial evaluati on of pt's status upon admission and devise an individualized program for Caregiver Training New precaution - to improve, our physical therapists will perform initial evaluation of pt's status upon admission and devise an individualized program for Patient precaution education Poor balance - to improve, our physical therapists will perform initial evaluation of pt's status up on admission and devise an individualized program for Balance Training Poor endurance - to improve, our physical therapists will perform initial evaluation of pt's status upon admission and devise an individualized program for Endurance Training Weakness - to improve, our physical therapists will perform initial evaluation of pt's status upon a dmission and devise an individualized program for Aquatic Therapy, Neuromuscular Reeducation, and Str engthening Achieving independence - to improve, our physical therapists will perform initial evaluation of pt's status upon admission and devise an individualized program for Community Reintegration Activities - Occupational Therapy ADL deficits - to improve, our occupation therapists will perform initial evaluation of pt's status upon admission and devise an individualized program for Bathing, Bed mobility, Community Reintegratio n, Cooking, Dressing, Eating, Fine Motor Skills, Grooming, Homemaking, Kitchen Mobility, Laundry, Pat ient Education, Safety Awareness, Splinting - Positioning, Transfers(Toilet, Tub, Shower), and Wheel Chair Management Need for home care specialist - to improve, our occupation therapists will perform initial evaluation of pt's status upon admission and devise an individualized program for Caregiver Training Weakness - to improve, our occupation therapists will perform initial evaluation of pt's status upon admission and devise an individualized program for Aquatic Therapy, Balance, Endurance, UE ROM, and UE strengthening - Anterior Hip Precaution No abduction No active extension No adduction across midline No external rotation No hip flexion >90 degrees No internal rotation - Diet - Liquid Texture Continue Regular - Tube Feed Continue N/A - Diet Type Continue Regular - Posterior Hip Precaution No adduction across midline No external rotation No hip flexion >90 degrees No internal rotation No wheel chair propulsion - Weight Bearing Precaution WBAT left LE - Skin care per protocol - Diet - Solid Texture Continue Regular - Shower allowing shower FUNCTIONAL STATUS: UPDATED AT WEEKLY TEAM CONFERENCE - Bladder Same accident frequency: 7-Ind - No accidents in the past 7 days - Bowel Same accident frequency: 7-Ind - No accidents in the past 7 days - Walking Same score based on distance walked: 1(<=50ft) - Wheelchair Same score based on distance traveled: 0(N/A) FUNCTIONAL STATUS: - Self-Care A. Eating sup B. Grooming sup C. Bathing Jackie D. Dressing - Upper Jackie E. Dressing - Lower Jackie F. Toileting Jackie - Sphincter Control G: Bladder control Ind H: Bowel control Ind - Transfers Control I. Bed/Chair/Wheelchair maxA J. Toilet maxA K. Tub/Shower Ind - Locomotion L. Walk/Wheelchair (C) modA L. Walk/Wheelchair (W) modA M. Stairs ADNO - Communication N. Comprehension (B) Malika O. Expression (B) Malika - Social Cognition P. Social Interaction Malika Q. Problem Solving Malika R. Memory Malika - Endurance Fair - Balance Fair - Safety Awareness Fair CURRENT [facility]. DEFICITS: Transfers Control, Balance, Self-Care, Locomotion, Endurance, and Safety Awareness SIGNATURE PANEL: (POCKET MARKER)
[2018-08-03] MEDS: ATORVASTATIN 20 MG TAB PO SCH (20:14)
--- NOTE | 2018-08-04 02:31 | FAST ---
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 Joselo Diaz M.D. ADMISSION DIAGNOSIS: - Orthopaedic Disorders 08 - Unilateral Hip Fracture (08.11) LEFT INTERTROCHANTERIC FEMUR FRACTURE. EATING: Activity did not occur on this shift EATING - SCORE: 0-UNK GROOMING: Activity did not occur on this shift GROOMING - SCORE: 0-UNK BATHING: Activity did not occur on this shift BATHING - SCORE: 0-UNK DRESSING - UPPER BODY: Patient is not dressing in public clothing ARTICLES SCORE Total number of steps: 0 DRESSING - UPPER BODY - SCORE: 0-UNK DRESSING - LOWER BODY: Patient is not dressing in public clothing ARTICLES SCORE Total number of steps: 0 DRESSING - LOWER BODY - SCORE: 0-UNK TOILETING: TOILETING - STEP 1: Does the patient require the assistance of a person or device, or need extra time with toileting? Yes . TOILETING - STEP 2: Does the patient require the assistance of a helper? Yes. TOILETING - STEP 3: How much assistance does the patient require from the helper? Hands-on assistance from the helper TOILETING - STEP 4: Of the 3 tasks: 1) Adjusting clothing prior to use, 2) Cleansing of perineal area, 3) Adjusting clot luz marina after use; How many tasks does the patient perform WITHOUT assistance of the helper? No tasks; dorian early performs all three tasks TOILETING - SCORE: 1-DEP BLADDER MANAGEMENT: BLADDER MANAGEMENT - STEP 1: Does the patient control the bladder completely and intentionally without equipment or devices or med ications, and is always continent? No. BLADDER MANAGEMENT - STEP 2: Does the patient require the assistance of a helper? Yes. BLADDER MANAGEMENT - STEP 3: How much assistance does the patient require from the helper? Only set-up of equipment - such as plac ing it within reach of the patient or emptying a device - to maintain either satisfactory voiding pat tern or managing an external device, such as an absorbent pad, ileal device, or catheter BLADDER MANAGEMENT - SCORE: 5-SUP BOWEL MANAGEMENT: Activity did not occur on this shift BOWEL MANAGEMENT - SCORE: 7-IND TRANSFERS: BED, CHAIR, WHEELCHAIR: TRANSFERS: BED, CHAIR, WHEELCHAIR - STEP 1: Does the patient require assistance of a person or device, or need extra time with bed, chair, or whe elchair transfers? Yes. TRANSFERS: BED, CHAIR, WHEELCHAIR - STEP 2: Does the patient require the assistance of a helper? Yes. TRANSFERS: BED, CHAIR, WHEELCHAIR - STEP 3: How much assistance does the patient require from the helper? Lifting of the legs TRANSFERS: BED, CHAIR, WHEELCHAIR - STEP 4: How many legs does the patient require the helper to lift? both legs TRANSFERS: BED, CHAIR, WHEELCHAIR - SCORE: 3-MOD TRANSFERS: TOILET: TRANSFERS: TOILET - STEP 1: Does the patient require the assistance of a person or device, or need extra time with toilet transfe rs? Yes. TRANSFERS: TOILET - STEP 2: Does the patient require the assistance of a helper? Yes. TRANSFERS: TOILET - STEP 3: How much assistance does the patient require from the helper? Patient performs half or more of the tr ansferring tasks TRANSFERS: TOILET - STEP 4: Does the patient need only incidental help such as contact guard or steadying during toilet transfer? No. Patient needs more than incidental help TRANSFERS: TOILET - SCORE: 3-MOD TRANSFERS: SHOWER: Activity did not occur on this shift TRANSFERS: SHOWER - SCORE: 0-UNK TRANSFERS: TUB: Activity did not occur on this shift TRANSFERS: TUB - SCORE: 0-UNK LOCOMOTION: WALK: Activity did not occur on this shift LOCOMOTION: WALK - SCORE: 0-UNK LOCOMOTION: WHEELCHAIR: Activity did not occur on this shift LOCOMOTION: WHEELCHAIR - SCORE: 0-UNK COMPREHENSION: COMPREHENSION: TYPE: Both COMPREHENSION - STEP 1: Does the patient require help from a person or device, or need extra time to understand complex and a bstract ideas (such as current events, finances, discharge planning, medical issues, relationships, e tc)? Yes. COMPREHENSION - STEP 2: Does the patient require help to understand questions or statements about basic needs or ideas (such as hunger, thirst, sleep, safety, daily schedule, room location, or discomfort) half or more of the t chris? No. COMPREHENSION - STEP 3: How often does the patient need help to understand directions and conversation about basic needs? 10% - 24% of the time COMPREHENSION - SCORE: 4-MIN EXPRESSION EXPRESSION: TYPE: Both EXPRESSION - STEP 1: Does the patient require help from a person or device, or need extra time expressing complex and abst ract ideas (such as current events, finances, discharge planning, medical issues, relationships, etc) ? Yes. EXPRESSION - STEP 2: Does the patient require help to express basic necessities or ideas (such as hunger, thirst, sleep, s afety, daily schedule, room location, or discomfort) half or more of the time? No. EXPRESSION - STEP 3: How often does the patient need help to express directions and conversation about basic needs? 10-24% of the time EXPRESSION - SCORE: 4-MIN SOCIAL INTERACTION: SOCIAL INTERACTION - STEP 1: Does the patient require a helper to interact with others in social and therapeutic situations? No. SOCIAL INTERACTION - STEP 2: Does the patient need extra time in social situations, OR does s/he interact with staff, other patien ts, and family members ONLY in structured environments, OR does s/he require medication for social in teraction? Yes, patient needs extra time SOCIAL INTERACTION - SCORE: 6-SAMREEN PROBLEM SOLVING: PROBLEM SOLVING - STEP 1: Does the patient need help from a person or device, or need extra time to solve complex problems such as managing a checking account or confronting interpersonal problems? Yes. PROBLEM SOLVING - STEP 2: Does the patient solve basic routine problems half or more of the time? Yes. PROBLEM SOLVING - STEP 3: How often does the patient need help to solve basic routine problems? Less than 10% of the time PROBLEM SOLVING - SCORE: 5-SUP MEMORY: MEMORY - STEP 1: Does the patient need help from a person or device, or need extra time to remember frequently encount ered people, daily routines, and executing requests? Yes. MEMORY - STEP 2: How often does the patient need help to remember frequently encountered people, daily routines, and e xecuting requests? Less than 10% of the time MEMORY - SCORE: 5-SUP
[2018-08-04] MEDS: LEVOTHYROXINE SOD 0.125 MG TAB PO SCH (05:32)
[2018-08-04 06:58] VITALS: BP 132/62; TEMP 97.4
[2018-08-04] MEDS: HEPARIN 5000 UNIT/ML 1 ML VIAL SQ SCH (07:19)
[2018-08-04] MEDS: PROMOD 30 ML DOSE PO SCH (07:34)
[2018-08-04] MEDS: NEPRO SHAKE 237 ML CAN PO SCH (07:34)
[2018-08-04] MEDS: LIDOCAINE 5% PATCH TOP SCH (07:34)
[2018-08-04] MEDS: POLYETHYL GLY 3350 17 GM/DOSE PO SCH (07:36)
[2018-08-04] MEDS: PANTOPRAZOLE 40MG TABLET PO SCH (07:38)
[2018-08-04] MEDS: FERROUS SULFATE 325 MG TAB PO SCH (07:38)
[2018-08-04] MEDS: CRANBERRY FRUIT EXTRACT 200 MG CAP PO SCH (07:38)
[2018-08-04] MEDS: GABAPENTIN 300 MG CAP PO SCH (07:38)
[2018-08-04] MEDS: FE SULF/FA/VIT B COMP & C TAB PO SCH (07:38)
[2018-08-04] MEDS: CLOPIDOGREL 75 MG TABLET PO SCH (07:39)
[2018-08-04 09:39] VITALS: O2SAT 98
--- NOTE | 2018-08-04 14:32 | FAST ---
SHIFT START DATE/TIME: 08/04/2018 07:00 (SCAFFOLDER) SHIFT END DATE/TIME: 08/04/2018 19:00 (SCAFFOLDER) NAME LOGAN WALSH DATE OF : 1930 DATE OF ADMISSION: 07/20/2018 14:59 (SCAFFOLDER) PHONE: AGE: 88 SSN# [id number] GENDER: Female ENCOUNTER PHYSICIAN: Dr. Joselo Diaz M.D. ADMISSION DIAGNOSIS: - Orthopaedic Disorders 08 - Unilateral Hip Fracture (08.11) LEFT INTERTROCHANTERIC FEMUR FRACTURE. EATING: EATING - STEP 1: Does the patient require the assistance of a person or device, or need extra time when eating? Yes. EATING - STEP 2: Does the patient require the assistance of a helper? Yes. EATING - STEP 3: Does the patient perform half or more of the eating tasks? Yes. EATING - STEP 4: Does the patient need only supervision, cuing, coaxing OR help to apply an orthosis OR help to cut fo od, open containers, pour liquids, or butter bread? Yes. EATING - SCORE: 5-SUP GROOMING: Comb/brush hair Oral care Wash, rinse, and dry face Wash, rinse, and dry hands GROOMING - STEP 1: Does the patient require the assistance of a person or device, or need extra time when grooming? Yes. GROOMING - STEP 2: Does the patient require the assistance of a helper? No. The patient only requires an assistive devic e, OR takes more than reasonable time to groom, OR there is a concern for safety as the patient groom s GROOMING - SCORE: 6-SAMREEN BATHING: Activity did not occur on this shift BATHING - SCORE: 0-UNK DRESSING - UPPER BODY: Bra (three steps) T-shirt/pullover shirt (four steps) ARTICLES SCORE Total number of steps: 7 DRESSING - UPPER BODY - STEP 1: Does the patient require help from a person or device, or need extra time when dressing above the concepcion st? Yes. DRESSING - UPPER BODY - STEP 2: Does the patient require the assistance of a helper? Yes. DRESSING - UPPER BODY - STEP 3: Does the helper touch the patient while dressing? Yes. DRESSING - UPPER BODY - STEP 4: How many of the total steps does the patient complete on his/her own? 5 DRESSING - UPPER BODY - SCORE: 3-MOD DRESSING - LOWER BODY: Elastic waist pants (three steps) Underwear (three steps) ARTICLES SCORE Total number of steps: 6 DRESSING - LOWER BODY - STEP 1: Does the patient require help from a person or device, or need extra time when dressing below the concepcion st? Yes. DRESSING - LOWER BODY - STEP 2: Does the patient require the assistance of a helper? Yes. DRESSING - LOWER BODY - STEP 3: Does the helper touch the patient while dressing? Yes. DRESSING - LOWER BODY - STEP 4: How many of the total steps does the patient complete on his/her own? 4 DRESSING - LOWER BODY - SCORE: 3-MOD TOILETING: TOILETING - STEP 1: Does the patient require the assistance of a person or device, or need extra time with toileting? Yes . TOILETING - STEP 2: Does the patient require the assistance of a helper? Yes. TOILETING - STEP 3: How much assistance does the patient require from the helper? Hands-on assistance from the helper TOILETING - STEP 4: Of the 3 tasks: 1) Adjusting clothing prior to use, 2) Cleansing of perineal area, 3) Adjusting clot luz marina after use; How many tasks does the patient perform WITHOUT assistance of the helper? Three tasks with steadying assistance from the helper TOILETING - SCORE: 4-MIN BLADDER MANAGEMENT: BLADDER MANAGEMENT - STEP 1: Does the patient control the bladder completely and intentionally without equipment or devices or med ications, and is always continent? No. BLADDER MANAGEMENT - STEP 2: Does the patient require the assistance of a helper? Yes. BLADDER MANAGEMENT - STEP 3: How much assistance does the patient require from the helper? Only supervision, stand-by, cuing, or c oaxing BLADDER MANAGEMENT - SCORE: 5-SUP BLADDER MANAGEMENT - FREQUENCY OF ACCIDENTS: BLADDER MANAGEMENT(FA) - STEP 1: How many accidents has the patient had during the current shift? 0 BOWEL MANAGEMENT: BOWEL MANAGEMENT - STEP 1: Does the patient control bowels completely and intentionally without equipment devices or medications AND is always continent? No. BOWEL MANAGEMENT - STEP 2: Does the patient require the assistance of a helper? No, patient requires medication for control such as stool softeners, suppositories, laxatives, enemas, or OTC medications BOWEL MANAGEMENT - SCORE: 6-SAMREEN BOWEL MANAGEMENT - FREQUENCY OF ACCIDENTS: BOWEL MANAGEMENT(FA) - STEP 1: How many accidents has the patient had during the current shift? 0 TRANSFERS: BED, CHAIR, WHEELCHAIR: TRANSFERS: BED, CHAIR, WHEELCHAIR - STEP 1: Does the patient require assistance of a person or device, or need extra time with bed, chair, or whe elchair transfers? Yes. TRANSFERS: BED, CHAIR, WHEELCHAIR - STEP 2: Does the patient require the assistance of a helper? Yes. TRANSFERS: BED, CHAIR, WHEELCHAIR - STEP 3: How much assistance does the patient require from the helper? Lifting of the legs TRANSFERS: BED, CHAIR, WHEELCHAIR - STEP 4: How many legs does the patient require the helper to lift? both legs TRANSFERS: BED, CHAIR, WHEELCHAIR - SCORE: 3-MOD TRANSFERS: TOILET: TRANSFERS: TOILET - STEP 1: Does the patient require the assistance of a person or device, or need extra time with toilet transfe rs? Yes. TRANSFERS: TOILET - STEP 2: Does the patient require the assistance of a helper? Yes. TRANSFERS: TOILET - STEP 3: How much assistance does the patient require from the helper? Patient performs half or more of the tr ansferring tasks TRANSFERS: TOILET - STEP 4: Does the patient need only incidental help such as contact guard or steadying during toilet transfer? No. Patient needs more than incidental help TRANSFERS: TOILET - SCORE: 3-MOD TRANSFERS: SHOWER: Activity did not occur on this shift TRANSFERS: SHOWER - SCORE: 0-UNK TRANSFERS: TUB: Activity did not occur on this shift TRANSFERS: TUB - SCORE: 0-UNK LOCOMOTION: WALK: Activity did not occur on this shift LOCOMOTION: WALK - SCORE: 0-UNK LOCOMOTION: WHEELCHAIR: Activity did not occur on this shift LOCOMOTION: WHEELCHAIR - SCORE: 0-UNK COMPREHENSION: COMPREHENSION: TYPE: Both COMPREHENSION - STEP 1: Does the patient require help from a person or device, or need extra time to understand complex and a bstract ideas (such as current events, finances, discharge planning, medical issues, relationships, e tc)? Yes. COMPREHENSION - STEP 2: Does the patient require help to understand questions or statements about basic needs or ideas (such as hunger, thirst, sleep, safety, daily schedule, room location, or discomfort) half or more of the t chris? Yes. COMPREHENSION - STEP 3: Is the patient basically able to understand and respond appropriately and consistently? Yes. COMPREHENSION - SCORE: 2-MAX EXPRESSION EXPRESSION: TYPE: Both EXPRESSION - STEP 1: Does the patient require help from a person or device, or need extra time expressing complex and abst ract ideas (such as current events, finances, discharge planning, medical issues, relationships, etc) ? Yes. EXPRESSION - STEP 2: Does the patient require help to express basic necessities or ideas (such as hunger, thirst, sleep, s afety, daily schedule, room location, or discomfort) half or more of the time? No. EXPRESSION - STEP 3: How often does the patient need help to express directions and conversation about basic needs? 25-49% of the time EXPRESSION - SCORE: 3-MOD SOCIAL INTERACTION: SOCIAL INTERACTION - STEP 1: Does the patient require a helper to interact with others in social and therapeutic situations? Yes. SOCIAL INTERACTION - STEP 2: Does the patient interact appropriately half or more of the time? Yes. SOCIAL INTERACTION - STEP 3: How often does the patient need help to interact appropriately? 25-49% of the time SOCIAL INTERACTION - SCORE: 3-MOD PROBLEM SOLVING: PROBLEM SOLVING - STEP 1: Does the patient need help from a person or device, or need extra time to solve complex problems such as managing a checking account or confronting interpersonal problems? Yes. PROBLEM SOLVING - STEP 2: Does the patient solve basic routine problems half or more of the time? No. PROBLEM SOLVING - STEP 3: Does the patient need help to solve problems all the time or is s/he unable to solve problems? No. Pa jaime can sometimes solve problems PROBLEM SOLVING - SCORE: 2-MAX MEMORY: MEMORY - STEP 1: Does the patient need help from a person or device, or need extra time to remember frequently encount ered people, daily routines, and executing requests? Yes. MEMORY - STEP 2: How often does the patient need help to remember frequently encountered people, daily routines, and e xecuting requests? More than 50% of the time MEMORY - STEP 3: Does the patient need help to remember all of the time OR does s/he not effectively recognize and rem ember? No. Patient does not need help all the time MEMORY - SCORE: 2-MAX SIGNATURE PANEL: The following modified sections: Eating - Score, Grooming - Score, Bathing - Score, Dressing - Upper Body - Score, Dressing - Lower Body - Score, Toileting - Score, Bladder Management - Score, Bowel Man agement - Score, Transfers: Bed, Chair, Wheelchair - Score, Transfers: Toilet - Score, Transfers: Mora wer - Score, Transfers: Tub - Score, Locomotion: Walk - Score, Locomotion: Wheelchair - Score, Compre hension - Score, Expression - Score, Social Interaction - Score, Problem Solving - Score, Memory - Sc ore were [electronically] signed by Jessica BermanNDawson on ThuAug 04 2018 14:31:31 GMT-0600 (Cent[place] Standard Time)
[2018-08-04] MEDS: EPOETIN ALFA 10,000 UNIT/ML VIAL IV SCH (15:23)
--- NOTE | 2018-08-04 15:55 | PN ---
Date of Progress Note: 08/04/2018 Subjective: The patient planned for dialysis today, then discharge. Physical Examination: Vital Signs: Blood pressure 132/62, pulse of 89. Chest: Clear to auscultation. Heart: S1 and S2 regular. Abdomen: Soft, nontender. Extremities: No edema. Laboratory Data: WBC 10.4, H and H 9.2/28, platelet 364. Sodium 136, potassium 4.1, bicarb 27, BUN 45, creatinine 3.5, calcium 8.4. Current Medications: The patient on its include: Epogen, Plavix, atorvastatin, gabapentin, pantopra zole, levothyroxine, tramadol, pain medication. Assessment And Plan: 1.End-stage renal disease. Normal volume. We will continue dialysis Thursday, Thursday, and Thursday. 2.Secondary hyperparathyroidism, stable. No need for binder. 3.Anemia of chronic kidney disease. Continue FANI. 4.Hip fracture. Continue PT/OT. 5.Agree with discharge planning. RIVAS Voice ID: [id number] Report ID: [id number]
--- NOTE | 2018-08-04 18:19 | P.PN ---
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 SHE IS NOW IN REHAB FOR PT. CHR PAIN. HIP FRACTURE. BILAT SWELLING. CONSTIPATION BETTER. STABLE IN REHAB. NO NEW ISSUES. SHE IS STABLE. NO CONSTIPATION. NO UTI SS. SHE IS STABLE, STILL HAS PAIN IN L LEG. SHE HAS NO NEW ISSUES. NO NEW PROBLEMS. FEELS WELL. WILL GO TO [facility], STABLE FOR NOW. NO CHANGES, NO COMPLAINTS FALLEN LAST NIGHT NO INJURY. SHE HAS NO NEW PAIN. STILL STAYS CONFUSED AT BASELINE. DC TO [place] TODAY. Physical Examination - Vital Signs Temperature: 97.4 F Blood Pressure: 132/62 Pulse: 89 Respirations: 16 Pulse Ox (%): 97 - Studies Medications List Reviewed: Yes Assessment And Plan - Current Problems (Diagnosis) (1) Closed left hip fracture Onset Date: 07/13/18 Status: Acute Plan: PT CONSULT DVT PROPHYLAXIS HAD ANEMIA SP SURGERY WILL TRY ORAL AC AGAIN. PT RESUME. no changes continue pt. DC TO [facility] SOON. DC IN TWO DAYS NO ACUTE ISSUES. DC IN AM TO [facility]. Qualifiers: Encounter type: subsequent encounter (2) Renal failure Onset Date: 04/26/15 Status: Acute Plan: CKD5 ON HD. STABLE HD TEAM BUSY IN ICU. HD WILL BE DONE TODAY. FAMILY AWARE. HD DONE LATE LAST NIGHT. LOW K MANAGED BY RENAL MD. Qualifiers: Renal failure chronicity: chronic Chronic kidney disease stage: on chronic dialysis Qualified Code(s): N18.6 - End stage renal disease; Z99.2 - Dependence on renal dialysis (3) Edema Status: Chronic Plan: VENOUS DOPPLER NEGATIVE. RESUME COMPRESSION. NO CHANGES, ON HD. THIS IS FROM SURGERY. (4) Abnormal urinalysis Status: Suspected Plan: SHE HAS NO SYMPTOMS. IGNORE ALL UA AND UCS SHE HAS NO SS. THIS IS THE GUIDELINE. REPEAT ST. CATH UA IS TOTALLY NORMAL. CIPRO STOPPED. UNNECESSARY USE OF ANTIBIOTICS IS HARMFUL TO PATIENT. SHE HAS NO UTI SYMPTOMS. UA IS CLEAR.
--- NOTE | 2018-08-05 15:58 | FAST ---
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 Joselo Diaz M.D. ADMISSION DIAGNOSIS: - Orthopaedic Disorders 08 - Unilateral Hip Fracture (08.11) LEFT INTERTROCHANTERIC FEMUR FRACTURE. EATING: Activity did not occur on this shift EATING - SCORE: 0-UNK GROOMING: Activity did not occur on this shift GROOMING - SCORE: 0-UNK BATHING: Activity did not occur on this shift BATHING - SCORE: 0-UNK DRESSING - UPPER BODY: Activity did not occur on this shift Patient is not dressing in public clothing ARTICLES SCORE Total number of steps: 0 DRESSING - UPPER BODY - SCORE: 0-UNK DRESSING - LOWER BODY: Activity did not occur on this shift Patient is not dressing in public clothing ARTICLES SCORE Total number of steps: 0 DRESSING - LOWER BODY - SCORE: 0-UNK TOILETING: Activity did not occur on this shift TOILETING - SCORE: 0-UNK BLADDER MANAGEMENT: Activity did not occur on this shift BLADDER MANAGEMENT - SCORE: 7-IND BOWEL MANAGEMENT: Activity did not occur on this shift BOWEL MANAGEMENT - SCORE: 7-IND TRANSFERS: BED, CHAIR, WHEELCHAIR: TRANSFERS: BED, CHAIR, WHEELCHAIR - STEP 1: Does the patient require assistance of a person or device, or need extra time with bed, chair, or whe elchair transfers? Yes. TRANSFERS: BED, CHAIR, WHEELCHAIR - STEP 2: Does the patient require the assistance of a helper? Yes. TRANSFERS: BED, CHAIR, WHEELCHAIR - STEP 3: How much assistance does the patient require from the helper? Only supervision TRANSFERS: BED, CHAIR, WHEELCHAIR - SCORE: 5-SUP TRANSFERS: TOILET: Activity did not occur on this shift TRANSFERS: TOILET - SCORE: 0-UNK TRANSFERS: SHOWER: Activity did not occur on this shift TRANSFERS: SHOWER - SCORE: 0-UNK TRANSFERS: TUB: Activity did not occur on this shift TRANSFERS: TUB - SCORE: 0-UNK LOCOMOTION: WALK: LOCOMOTION: WALK - STEP 1: Does the patient need help from a person or device, or need extra time to walk 150 feet? Yes. LOCOMOTION: WALK - STEP 2: How much assistance does the patient require to walk a minimum of 150 feet? Only supervision, cuing, or coaxing LOCOMOTION: WALK - SCORE: 5-SUP LOCOMOTION: WHEELCHAIR: LOCOMOTION: WHEELCHAIR - STEP 1: Does the patient need help to go 150 feet in a wheelchair? Yes. LOCOMOTION: WHEELCHAIR - STEP 2: How much assistance does the patient need from the helper? Only supervision, cuing, or coaxing LOCOMOTION: WHEELCHAIR - SCORE: 5-SUP LOCOMOTION: STAIRS: Activity did not occur on this shift LOCOMOTION: STAIRS - SCORE: 0-UNK COMPREHENSION: COMPREHENSION - SCORE: 0-UNK EXPRESSION EXPRESSION - SCORE: 0-UNK SOCIAL INTERACTION: SOCIAL INTERACTION - SCORE: 0-UNK PROBLEM SOLVING: PROBLEM SOLVING - SCORE: 0-UNK MEMORY: MEMORY - SCORE: 0-UNK SIGNATURE PANEL: The following modified sections: Transfers: Bed, Chair, Wheelchair - Score, Transfers: Toilet - Score , Locomotion: Walk - Score, Locomotion: Wheelchair - Score, Locomotion: Stairs - Score were [electron akosua] signed by Luis Werner PTA on ThuAug 05 2018 15:57:22 GMT-0600 (Central Standard Time)
== END 2018-08-04 16:05 | disposition home health service (06) | DRG 559 ==
LOC: 5TH 07-20 14:59
PROVIDERS: ADMIT Psychiatry & Neurology Neurology with Special Qualifications in Child Neurology; ATTEND Psychiatry & Neurology Neurology with Special Qualifications in Child Neurology
PROC: 5A1D70Z Performance of Urinary Filtration, Intermittent, Less than 6 Hours Per Day (ICD-10-PCS; principal; 2018-07-23)
PROC: 5A1D70Z Performance of Urinary Filtration, Intermittent, Less than 6 Hours Per Day (ICD-10-PCS; 2018-07-24)
PROC: 5A1D70Z Performance of Urinary Filtration, Intermittent, Less than 6 Hours Per Day (ICD-10-PCS; 2018-07-27)
PROC: 5A1D70Z Performance of Urinary Filtration, Intermittent, Less than 6 Hours Per Day (ICD-10-PCS; 2018-07-29)
PROC: 5A1D70Z Performance of Urinary Filtration, Intermittent, Less than 6 Hours Per Day (ICD-10-PCS; 2018-07-29)
PROC: 5A1D70Z Performance of Urinary Filtration, Intermittent, Less than 6 Hours Per Day (ICD-10-PCS; 2018-08-02)
PROC: 5A1D70Z Performance of Urinary Filtration, Intermittent, Less than 6 Hours Per Day (ICD-10-PCS; 2018-08-04)
DX: S72.142D Displaced intertrochanteric fracture of left femur, subsequent encounter for closed fracture with routine healing (principal); N18.6 End stage renal disease; I12.0 Hypertensive chronic kidney disease with stage 5 chronic kidney disease or end stage renal disease; N25.81 Secondary hyperparathyroidism of renal origin; N17.9 Acute kidney failure, unspecified; K63.89 Other specified diseases of intestine; N25.0 Renal osteodystrophy; D63.1 Anemia in chronic kidney disease; E78.5 Hyperlipidemia, unspecified; Z86.73 Personal history of transient ischemic attack (TIA), and cerebral infarction without residual deficits; Z99.2 Dependence on renal dialysis
CPT/HCPCS: 36415; 80048; 81001; 82040; 83735; 84134; 85025; 87077; 87086; 87088; 87186; 90935; 92507; 93971; 97110; 97116; 97530; 97542; G0257; J1644; Q4081

== ENCOUNTER 2018-09-05 20:09 | Emergency (ER) | payer OTHER ==
[2018-09-05] MEDS ORDERED: ACETAMINOPHEN 325 MG TABLET ONE (20:38)
--- NOTE | 2018-09-05 20:38 | RAD REPORT ---
EXAM DESCRIPTION: CT - Head Brain Wo Cont - 09/05/2018 8:29 pm CLINICAL HISTORY: fall, head injury Trauma, head injury COMPARISON: Head C Spine Cap Wo Con dated 07/12/2018 TECHNIQUE: All CT scans are performed using dose optimization technique as appropriate and may inclu de automated exposure control or mA/KV adjustment according to patient size. FINDINGS: No intracranial hemorrhage, hydrocephalus or extra-axial fluid collection.Prominent brain atrophy is seen with areas of gliosis in both cerebral hemispheres, unchanged, compatible with remote CVA.No areas of brain edema or evidence of midline shift. The paranasal sinuses and mastoids are clear. The calvarium is intact. IMPRESSION: No acute intracranial abnormality.
--- NOTE | 2018-09-05 20:40 | RAD REPORT ---
EXAM DESCRIPTION: RAD - Chest Single View - 09/05/2018 8:30 pm CLINICAL HISTORY: fever, cough Chest pain. COMPARISON: Chest Single View dated 07/19/2018; Chest Single View dated 07/13/2018; Chest Single Vie w dated 07/12/2018; Chest Single View dated 12/14/2015 FINDINGS: Portable technique limits examination quality. Mild interstitial pulmonary edema is present. The heart is mildly enlarged in size with aortic athero sclerosis. No displaced fractures.Mild thoracic dextroscoliosis. IMPRESSION: No acute intrathoracic process suspected.
[2018-09-05 21:56] LABS: Urine Blood TRACE (NEG); Urine Glucose TRACE (NEG); Urine Protein 2+ (NEG); Urine pH 8.5 (5.0-7.0)
[2018-09-05 22:12] LABS: Urine Bacteria 20-50 /HPF (<20); Urine Culture Reflex Order NOT NEEDED; Urine RBC <5 /HPF (NONE SEEN)
--- NOTE | 2018-09-05 22:26 | EDPHYS ---
Physician Documentation [facility] Name: Destinee Dickinson Age: 88 yrs Sex: Female : 1930 Arrival Date: 09/05/2018 Time: 20:10 Bed 27 Private MD: ED Physician Eric Esquivel HPI: 09/05 22:21 This 88 yrs old Female presents to ER via EMS with complaints of Fall Injury. rn 22:21 Details of fall: The patient fell from an upright position. Onset: The symptoms/episode rn began/occurred at an unknown time. Associated injuries: The patient sustained injury to the head. Severity of symptoms: At their worst the symptoms were mild, in the emergency department the symptoms are unchanged. The patient has not experienced similar symptoms in the past. The patient has not recently seen a physician. Per report, patient fell trying to transfer to bed from wheelchair, patient states thinks hit head, no LOC, found on ground, + abrasion to left arm but otherwise acting normal. . - Immunization history: Last tetanus immunization: unknown. - Social history:: Smoking status: unknown. - Ebola Screening: : No symptoms or risks identified at this time. - Family history:: not pertinent. - Hospitalizations: : No recent hospitalization is reported. ROS: 22:21 Constitutional: Negative for fever, chills, and weight loss, Eyes: Negative for injury, rn pain, redness, and discharge, Neck: Negative for injury, pain, and swelling, Cardiovascular: Negative for chest pain, palpitations, and edema, Respiratory: Negative for shortness of breath, cough, wheezing, and pleuritic chest pain, Abdomen/GI: Negative for abdominal pain, nausea, vomiting, diarrhea, and constipation, MS/Extremity: + abrasion left arm Neuro: Negative for weakness, numbness, tingling, and seizure. Exam: 22:21 Constitutional: This is a well developed, well nourished patient who is awake, alert, rn and in no acute distress. Head/Face: Normocephalic, atraumatic. Eyes: Pupils equal round and reactive to light, extra-ocular motions intact. Lids and lashes normal. Conjunctiva and sclera are non-icteric and not injected. Cornea within normal limits. Periorbital areas with no swelling, redness, or edema. Neck: Trachea midline, no thyromegaly or masses palpated, and no cervical lymphadenopathy. Supple, full range of motion without nuchal rigidity, or vertebral point tenderness. No Meningismus. Chest/axilla: Normal chest wall appearance and motion. Nontender with no deformity. No lesions are appreciated. Cardiovascular: Regular rate and rhythm with a normal S1 and S2. No gallops, murmurs, or rubs. No JVD. No pulse deficits. Respiratory: Lungs have equal breath sounds bilaterally, clear to auscultation and percussion. No rales, rhonchi or wheezes noted. No increased work of breathing, no retractions or nasal flaring. Abdomen/GI: soft, non-tender Skin: + approx 4cm irregular skin tear left distal forearm MS/ Extremity: Pulses equal, no cyanosis. Neurovascular intact. Full, normal range of motion. Equal circumference. Neuro: Awake and alert, GCS 15, oriented to person, place. Cranial nerves II-XII grossly intact. Motor strength 5/5 in all extremities. Sensory grossly intact. Cerebellar exam normal. Vital Signs: 20:14 BP 124 / 64; Pulse 104; Resp 22; Temp 101.5; Pulse Ox 100% on R/A; la1 21:01 BP 122 / 67; Pulse 98; Resp 16 S; Pulse Ox 98% on R/A; bb 21:15 BP 109 / 60; Pulse 95; Resp 16 S; Temp 99.8(O); Pulse Ox 97% on R/A; bb 22:05 BP 118 / 67; Pulse 93; Resp 20 S; Pulse Ox 98% on R/A; bb 22:44 BP 105 / 59; Pulse 91; Resp 20 S; Temp 100(O); Pulse Ox 99% on R/A; bb [place] Coma Score: 20:14 Eye Response: spontaneous(4). Verbal Response: confused(4). Motor Response: obeys la1 commands(6). Total: 14. Trauma Score (Adult): 20:14 Eye Response: spontaneous(1); Verbal Response: confused(1); Motor Response: obeys la1 commands(2); Systolic BP: > 89 mm Hg(4); Respiratory Rate: 10 to 29 per min(4); Deyvi Score: 14; Trauma Score: 12 21:04 Eye Response: spontaneous(1); Verbal Response: confused(1); Motor Response: obeys bb commands(2); Systolic BP: > 89 mm Hg(4); Respiratory Rate: 10 to 29 per min(4); [place] Score: 14; Trauma Score: 12 MDM: 20:15 Patient medically screened. rn 22:21 Differential diagnosis: abrasion, closed head injury, contusion. Data reviewed: vital rn signs, nurses notes, lab test result(s), radiologic studies, CT scan, plain films, and as a result, I will discharge patient. Counseling: I had a detailed discussion with the patient and/or guardian regarding: the historical points, exam findings, and any diagnostic results supporting the discharge/admit diagnosis, lab results, radiology results, the need for outpatient follow up, to return to the emergency department if symptoms worsen or persist or if there are any questions or concerns that arise at home. Special discussion: Based on the patient's history, exam and DX evaluation, there is no indication for emergent intervention or inpatient TX. It is understood by the patient/guardian that if the SXs persist or worsen they need to return immediately for re-evaluation. I discussed with the patient/guardian in detail that at this point there is no indication for admission to the hospital. It is understood, however, that if the symptoms persist or worsen the patient needs to return immediately for re-evaluation. ED course: Urine with some bacteria but neg for WBC/nitrate/LE, + cough, most likely viral syndrome, will dc back to residential with observation of fever. . 09/05 20:21 Order name: Urine Microscopic Only; Complete Time: 22:21 rn 09/05 20:21 Order name: Urine Culture rn 09/05 20:21 Order name: Flu; Complete Time: 22:21 rn 09/05 20:21 Order name: Strep; Complete Time: 22:21 rn 09/05 21:34 Order name: Throat Culture EDRI 09/05 21:54 Order name: Urine Dipstick--Ancillary (enter results); Complete Time: 22:21 ag4 09/05 20:21 Order name: CT Head Brain wo Cont; Complete Time: 20:45 rn 09/05 20:21 Order name: XRAY Chest (1 view); Complete Time: 20:45 rn 09/05 20:21 Order name: Urine Dipstick-Ancillary (obtain specimen); Complete Time: 22:09 rn Administered Medications: 20:55 Drug: Tylenol 650 mg Route: PO; bb 22:09 Follow up: Response: Temperature is decreased bb Disposition: 09/05/18 22:25 Discharged to Home. Impression: Superficial injury of head, Abrasion of left forearm. - Condition is Stable. - Discharge Instructions: Head Injury, Adult. - Medication Reconciliation Form, Thank You Letter, Antibiotic Education, Prescription Opioid Use form. - Follow up: Private Physician; When: As needed; Reason: Recheck today's complaints, Re-evaluation by your physician. - Problem is new. - Symptoms have improved. Signatures: Dispatcher [employer] EDMS Laine Beckwith RN RN bb Eric Esquivel MD MD harness installer: (The following items were deleted from the chart) 22:45 22:25 09/05/2018 22:25 Discharged to Home. Impression: Superficial injury of head; bb Abrasion of left forearm. Condition is Stable. Forms are Medication Reconciliation Form, Thank You Letter, Antibiotic Education, Prescription Opioid Use. Follow up: Private Physician; When: As needed; Reason: Recheck today's complaints, Re-evaluation by your physician. Problem is new. Symptoms have improved. rn
--- NOTE | 2018-09-05 22:26 | ER ---
Nurse's Notes [facility] Name: Destinee Dickinson Age: 88 yrs Sex: Female : 1930 Arrival Date: 09/05/2018 Time: 20:10 Bed 27 Private MD: Diagnosis: Superficial injury of head;Abrasion of left forearm Presentation: 09/05 20:12 Presenting complaint: EMS states: Called out for fall at unknown time with head and la1 back pain. Upon arrival pt had been assisted to and was sitting up. No visible injuries aside from skin tear to forearm that had been dressed CERTIFIED MEDICAL ASST. Pt at baseline mental status. Transition of care: patient was not received from another setting of care. Onset of symptoms was September 05, 2018. Risk Assessment: Do you want to hurt yourself or someone else? Patient reports no desire to harm self or others. Care prior to arrival: None. 20:12 Method Of Arrival: EMS: [facility] la1 20:12 Acuity: CLEMENT 2 la1 20:56 Mechanism of Injury: Fall. Trauma event details: Injury occurred in the [facility], Injury occurred: in an institution. Injury occurred: September 05, 2018. 21:01 Initial Sepsis Screen: Does the patient meet any 2 criteria? Temp <36.0*C (96.8*F)) or bb > 38.3*C (100.9*F). HR > 90 bpm. Yes Does the patient have a suspected source of infection?. - Immunization history: Last tetanus immunization: unknown. - Social history:: Smoking status: unknown. - Ebola Screening: : No symptoms or risks identified at this time. - Family history:: not pertinent. - Hospitalizations: : No recent hospitalization is reported. Screenin:15 Abuse screen: Denies threats or abuse. Tuberculosis screening: No symptoms or risk bb factors identified. 21:05 Nutritional screening: No deficits noted. Fall Risk Fall in past 12 months (25 points). bb Secondary diagnosis (15 points) No IV (0 pts). Ambulatory Aid- Crutches/Cane/Walker (15 pts). Gait- Weak (10 pts.). Mental Status- Overestimates/Forgets Limitations (15 pts.). Total [place] Fall Scale indicates High Risk Score (45 or more points). Fall prevention measures have been instituted. Side Rails Up X 2 Family Present and informed to notify staff if the need to leave the bedside As available patient and family educated on Fall Prevention Program and Strategies. Primary Survey: 20:15 NO uncontrolled hemorrhage observed. Breathing/Chest: Respiratory pattern: regular, bb Respiratory effort: spontaneous, unlabored, Breath sounds: coarse, bilaterally. Chest inspection: symmetrical rise and fall of the chest. Circulation: Heart tones present. Pulses: palpable right radial artery and left radial artery. Skin color: pink, Skin temperature: warm. Disability Alert. Exposure/Environment: There is no evidence of uncontrolled external bleeding. No obvious injuries are noted at this time. 21:00 Reassessment Breathing/Chest Respiratory pattern Regular Respiratory effort Spontaneous bb Unlabored Breath sounds Coarse Chest inspection Symmetrical Circulation Heart tones Present Pulses Palpable Color [place] Temperature Warm Disability Alert. Secondary Survey: 20:15 HEENT: No deficits noted. Gastrointestinal: No deficits noted. : No deficits noted. bb Musculoskeletal: Capillary refill < 3 seconds. Injury Description: Skin tears sustained to left forearm. Assessment: 20:15 General: Appears in no apparent distress. Behavior is calm, cooperative. Pain: Denies bb pain. Neuro: Level of Consciousness is awake, alert, obeys commands, Oriented to person, place. Cardiovascular: Heart tones S1 S2 present Capillary refill < 3 seconds Patient's skin is warm and dry. Pulses are all present. Edema is absent. Rhythm is sinus rhythm. Respiratory: Airway is patent Respiratory effort is even, unlabored, Respiratory pattern is regular, Breath sounds are coarse bilaterally. GI: Abdomen is non-distended, Bowel sounds present X 4 quads. Abd is soft and non tender X 4 quads. Derm: Skin is fragile, is thin, has skin tears on left forearm. Musculoskeletal: Capillary refill < 3 seconds. 21:15 Reassessment: No changes from previously documented assessment. pt resting quietly, bb family at bedside. 22:04 Reassessment: pt is alert and oriented to name resting quietly temp is decreased, bb family at bedside awaiting diagnostic results. 22:40 Reassessment: pt is alert and oriented x 1, resp unlabored, daughter verbalized bb understanding of and agrees to plan of care discharge instructions given pt assisted to exit via wheelchair accompanied by daughter. Vital Signs: 20:14 BP 124 / 64; Pulse 104; Resp 22; Temp 101.5; Pulse Ox 100% on R/A; la1 21:01 BP 122 / 67; Pulse 98; Resp 16 S; Pulse Ox 98% on R/A; bb 21:15 BP 109 / 60; Pulse 95; Resp 16 S; Temp 99.8(O); Pulse Ox 97% on R/A; bb 22:05 BP 118 / 67; Pulse 93; Resp 20 S; Pulse Ox 98% on R/A; bb 22:44 BP 105 / 59; Pulse 91; Resp 20 S; Temp 100(O); Pulse Ox 99% on R/A; bb Dey[place] Coma Score: 20:14 Eye Response: spontaneous(4). Verbal Response: confused(4). Motor Response: obeys la1 commands(6). Total: 14. Trauma Score (Adult): 20:14 Eye Response: spontaneous(1); Verbal Response: confused(1); Motor Response: obeys la1 commands(2); Systolic BP: > 89 mm Hg(4); Respiratory Rate: 10 to 29 per min(4); Deyvi Score: 14; Trauma Score: 12 21:04 Eye Response: spontaneous(1); Verbal Response: confused(1); Motor Response: obeys bb commands(2); Systolic BP: > 89 mm Hg(4); Respiratory Rate: 10 to 29 per min(4); Deyvi Score: 14; Trauma Score: 12 ED Course: 20:10 Patient arrived in ED. la1 20:14 Triage completed. la1 20:15 Eric Esquivel MD is Attending Physician. rn 20:15 Patient has correct armband on for positive identification. Bed in low position. Call bb light in reach. Side rails up X2. Adult w/ patient. pvc monitor on. Pulse ox on. NIBP on. 20:15 Patient maintains SpO2 saturation greater than 95% on room air. bb 20:25 Arm band placed on Patient placed in an exam room, on a stretcher, on pvc monitor, bb on pulse oximetry. Family accompanied patient. 20:25 Thermoregulation: warm blanket given to patient. bb 20:29 CT completed. Patient moved to CT via stretcher. Patient moved back from CT. bq 20:29 X-ray completed. Portable x-ray completed in exam room. Patient tolerated procedure la2 well. 20:30 CT Head Brain wo Cont In Process Unspecified. EDMS 20:30 XRAY Chest (1 view) In Process Unspecified. EDMS 20:55 Laine Beckwith, RN is Primary Nurse. bb 21:06 Flu and/or RSV swab sent to lab. Strep swab sent to lab. bb 21:44 Straight cath inserted, using sterile technique, 14 Fr. Specimen obtained. jb5 22:41 No provider procedures requiring assistance completed. Patient did not have IV access bb during this emergency room visit. Administered Medications: 20:55 Drug: Tylenol 650 mg Route: PO; bb 22:09 Follow up: Response: Temperature is decreased bb Intake: 20:15 PO: 0ml; Total: 0ml. bb Outcome: 22:25 Discharge ordered by MD. rn 22:41 Discharged to snf. bb 22:41 Condition: stable 22:41 Discharge instructions given to patient, family, Instructed on discharge instructions, follow up and referral plans. Demonstrated understanding of instructions, follow-up care. 22:42 Patient's length of stay in the Emergency Department was greater than 2 hours. bb 22:45 Patient left the ED. bb Signatures: Dispatcher [employer] EDID Fang Szymanski Brenda, RN RN bb Eric Esquivel MD MD rn Attema, Lee, RN RN la1 Nan Stewart jb5 Stephanie Cook2
[2018-09-05 23:30] VITALS: BP 105/59; TEMP 100; O2SAT 99
== END 2018-09-05 22:45 | disposition home or self-care (01) ==
LOC: ER 20:09
DX: S50.812A Abrasion of left forearm, initial encounter (principal); W05.0XXA Fall from non-moving wheelchair, initial encounter; Y93.89 Activity, other specified; Y92.003 Bedroom of unspecified non-institutional (private) residence as the place of occurrence of the external cause
CPT/HCPCS: 51702; 70450; 71045; 81003; 81015; 87070; 87081; 87086; 87088; 87804; 99285

== ENCOUNTER 2018-09-06 15:47 | Inpatient (IN) | payer OTHER ==
--- NOTE | 2018-09-06 16:30 | RAD REPORT ---
EXAM DESCRIPTION: RAD - Chest Single View - 09/06/2018 4:23 pm CLINICAL HISTORY: COUGH Chest pain. COMPARISON: Chest Single View dated 09/05/2018; Chest Single View dated 07/19/2018; Chest Single View dated 07/13/2018; Chest Single View dated 07/12/2018 FINDINGS: Portable technique limits examination quality. Mildly prominent tissue lung markings are seen, likely chronic. The heart is upper limit normal size with atherosclerosis of aorta. No displaced fractures.Stent is present in the proximal left arm. IMPRESSION: No acute intrathoracic process suspected.
--- NOTE | 2018-09-06 16:32 | RAD REPORT ---
EXAM DESCRIPTION: CT - Head Brain Wo Cont - 09/06/2018 4:22 pm CLINICAL HISTORY: Dizziness;Declining state Drowsiness, headache COMPARISON: Head Brain Wo Cont dated 09/05/2018 TECHNIQUE: All CT scans are performed using dose optimization technique as appropriate and may inclu de automated exposure control or mA/KV adjustment according to patient size. 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 The paranasal sinuses and mastoids are clear. The calvarium is intact. IMPRESSION: No acute intracranial abnormality. 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
[2018-09-06] MEDS ORDERED: NA CHLORIDE 0.9% 1,000 ML ONE (16:34)
[2018-09-06] MEDS ORDERED: ACETAMINOPHEN 325 MG TABLET ONE (16:43)
[2018-09-06 17:03] LABS: Absolute Lymphocytes (CBC) 1.3 K/uL (0.7-4.9); Absolute Monocytes 0.8 K/uL (0.1-1.3); Absolute Neutrophil 8.8 K/uL (1.8-8.0); Basophils % 0.3 % (0-1.3); Eosinophils % 2.3 % (0-4.4); Hematocrit 36.4 % (36.0-45.0); MPV 7.9 fL (7.6-11.3); Monocytes % 6.8 % (3.3-12.3); RBC Red Blood Cell Count 3.89 M/uL (3.86-4.86)
[2018-09-06 17:08] LABS: Protime INR 1.03
--- NOTE | 2018-09-06 17:16 | ER ---
Nurse's Notes [facility] Name: Destinee Dickinson Age: 88 yrs Sex: Female : 1930 Arrival Date: 09/06/2018 Time: 15:51 Bed 2 Private MD: Diagnosis: Altered mental status, unspecified;Fever, unspecified;End stage renal disease;Dyspnea;Hypoxemia Presentation: 09/06 15:59 Presenting complaint: EMS states: Pt was at [facility] for Dialysis, faculty called due to jl7 altered mental status and tremors, A\T\Ox1, reports baselines is A\T\Ox3. Pt has a hx of altered mental status and chills without fever. BP 132/70; HR 130, 90% on RA. Transition of care: patient was received from another setting of care (ambulatory specialty care practice), [facility]. Onset of symptoms was September 06, 2018. Risk Assessment: Do you want to hurt yourself or someone else? Patient reports no desire to harm self or others. Care prior to arrival: None. 15:59 Method Of Arrival: EMS: [facility] jl7 15:59 Acuity: CLEMENT 2 jl7 Triage Assessment: 16:00 General: Appears in no apparent distress. uncomfortable, Behavior is calm, cooperative, jl7 appropriate for age. Pain: Denies pain. EENT: No signs and/or symptoms were reported regarding the EENT system. Neuro: Level of Consciousness is awake, alert, obeys commands, Oriented to person, time. Cardiovascular: Denies chest pain, Heart tones S1 S2 present Patient's skin is warm and dry. Respiratory: Airway is patent Respiratory effort is even, unlabored, Respiratory pattern is regular, symmetrical, Breath sounds with rales in left lower lobe Breath sounds with wheezes in right upper lobe and left upper lobe. GI: No signs and/or symptoms were reported involving the gastrointestinal system. : No signs and/or symptoms were reported regarding the genitourinary system. Derm: Skin is pink, warm \T\ dry. Musculoskeletal: No signs and/or symptoms reported regarding the musculoskeletal system. Historical: - Allergies: 16:09 No Known Allergies; jl7 - Home Meds: 16:09 Plavix 75 mg Oral tab 1 tab once daily [Active]; Fish Oil [place] 3-6-9 300-1,000 mg oral jl7 cpDR [Active]; folic acid 0.8 mg Oral cap [Active]; ranitidine HCl 150 mg Oral cap 1 cap once daily [Active]; simvastatin 40 mg Oral tab 1 tab once daily [Active]; levothyroxine 112 mcg tab 1 tab once daily [Active]; - PMHx: 16:09 CVA; Dialysis; GERD; Hyperlipidemia; Hypertension; Renal Disease; Hypothyroidism; jl7 stomach cancer; Diabetes - IDDM; - Immunization history:: Adult Immunizations unknown. - Social history:: Smoking status: unknown. - Ebola Screening: : No symptoms or risks identified at this time. - Family history:: not pertinent. Screenin:15 Abuse screen: Denies threats or abuse. Denies injuries from another. Nutritional jl7 screening: No deficits noted. Tuberculosis screening: No symptoms or risk factors identified. 17:58 Fall Risk IV access (20 points). Ambulatory Aid- None/Bed Rest/Nurse Assist (0 pts). jl7 Gait- Weak (10 pts.). Mental Status- Overestimates/Forgets Limitations (15 pts.). Total Lezama Fall Scale indicates Low Risk Score (25-44 pts). Fall prevention measures have been instituted. Side Rails Up X 2 Placed close to Nursing Station Frequent Obs/Assesments occuring Family Present and informed to notify staff if they need to leave bedside As available Patient and Family Educated on Fall Prevention Program and strategies. Assessment: 16:15 General: Pt's son at bedside, reports pt's baseline is dependant on the day. Sometimes jl7 she can conversate and interact and other days she has a hard time. Pt lives at [facility]. . 16:16 Reassessment: Pt's son reports Julius finished dialysis today, she has dialysis M-W-. jl7 17:00 Reassessment: Patient appears in no apparent distress at this time. No changes from jl7 previously documented assessment. Patient and/or family updated on plan of care and expected duration. Pain level reassessed. Patient is alert, oriented x 3, equal unlabored respirations, skin warm/dry/pink. 18:06 Reassessment: Patient and/or family updated on plan of care and expected duration. Pain jl7 level reassessed. Patient is alert, oriented x 3, equal unlabored respirations, skin warm/dry/pink. Son remains at bedside. 19:37 Reassessment: Patient appears in no apparent distress at this time. Patient and/or aa1 family updated on plan of care and expected duration. Pain level reassessed. Patient denies pain at this time. Neuro: Level of Consciousness is awake, alert, obeys commands. Respiratory: Airway is patent Respiratory effort is even, unlabored, Respiratory pattern is regular, symmetrical, Breath sounds are coarse bilaterally. Derm: Skin is intact, is healthy with good turgor, Skin is pink, warm \T\ dry. 19:47 Reassessment: Patient appears in no apparent distress at this time. Attempted to call aa1 report to 4th floor; was told by charge nurse that nurse is medicated a pt and will call back shortly. 19:56 Reassessment: Patient appears in no apparent distress at this time. No changes from aa1 previously documented assessment. Patient and/or family updated on plan of care and expected duration. Pain level reassessed. Report given to 4th floor. Vital Signs: 16:09 BP 122 / 93; Pulse 130; Resp 14 S; Pulse Ox 99% on R/A; Pain 0/10; jl7 16:35 Temp 102.7(O); jl7 17:00 BP 119 / 55; Pulse 119; Resp 16 S; Pulse Ox 99% on R/A; jl7 17:24 BP 102 / 75; Pulse 115; Resp 22 S; Pulse Ox 94% on R/A; jl7 18:03 BP 116 / 52; Pulse 110; Resp 22; Temp 101.9; Pulse Ox 99% ; jl7 19:37 BP 104 / 57; Pulse 101; Resp 20; Temp 98.4(O); Pulse Ox 96% on R/A; Pain 0/10; aa1 ED Course: 15:51 Patient arrived in ED. jl7 15:54 EKG done, by darkroom technician. reviewed by Avtar Hagen MD. 3 16:02 Dm Miguel MD is Attending Physician. echo 16:04 Triage completed. jl7 16:09 Arm band placed on right wrist. jl7 16:15 Patient has correct armband on for positive identification. Placed in gown. Bed in low jl7 position. Call light in reach. Side rails up X2. security monitor on. Pulse ox on. NIBP on. Warm blanket given. 16:22 Dillon, Jahala, WILLIAM is Primary Nurse. jl7 16:23 CT completed. Patient tolerated procedure well. Patient moved back from CT. vm2 16:24 XRAY Chest (1 view) In Process Unspecified. EDMS 16:24 CT Head Brain wo Cont In Process Unspecified. EDMS 16:35 Initial lab(s) drawn, by me, sent to lab. Inserted saline lock: 22 gauge in right jl7 antecubital area, using aseptic technique. Blood collected. 17:14 Cara Padgett MD is Hospitalizing Provider. echo 17:22 Rajinder Simmons MD is Hospitalizing Provider. echo 17:40 Straight cath inserted, using sterile technique, 16 Fr. Pt's brief was full of urine, jl7 no urine return with catheter at this time, catheter secured to pt's upper thigh, will continue to monitor. 17:45 Inserted saline lock: 22 gauge in right hand, using aseptic technique. jl7 17:45 Cleaned of incontinence. jl7 20:05 No provider procedures requiring assistance completed. Patient admitted, IV remains in aa1 place. Administered Medications: 16:21 Not Given (Duplicate Order): NS 0.9% 1000 ml IV at 125 ml/hr continuous echo 16:30 Drug: NS 0.9% 1000 ml Route: IV; Rate: 75 ml/hr; Site: right antecubital; jl7 19:39 Follow up: IV Status: Infusion continued upon admission aa1 16:35 Drug: Tylenol 650 mg Route: PO; jl7 18:00 Follow up: Response: No adverse reaction; Temperature is decreased jl7 17:40 Drug: Xopenex 1.25 mg Route: Inhalation; jl7 18:08 Follow up: Response: No adverse reaction jl7 17:40 Drug: AtroVENT Aerosol 0.5 mg Route: Inhalation; jl7 18:08 Follow up: Response: No adverse reaction jl7 17:50 Drug: Cefepime 1 grams Route: IVPB; Rate: 200 ml/hr; Infused Over: 30 mins; Site: right jl7 hand; 18:20 Follow up: Response: No adverse reaction; IV Status: Completed infusion jl7 18:18 Drug: Motrin 400 mg Route: PO; jl7 19:39 Follow up: Response: Temperature is decreased aa1 18:53 Drug: vancoMYCIN 1 grams Route: IVPB; Infused Over: 2 hrs; Site: right hand; [facility] 19:39 Follow up: IV Status: Infusion continued upon admission aa1 Outcome: 17:15 Decision to Hospitalize by Provider. echo 20:05 Admitted to Tele accompanied by tech, family with patient, via stretcher, room 407, aa1 with chart, Report called to 4th floor 20:05 Condition: stable 20:05 Discharge instructions given to patient, family, Instructed on the need for admit, Demonstrated understanding of instructions. 20:05 Patient left the ED. aa1 Signatures: Dispatcher [employer] EDMeaghan Segura, RN RN aa1 Dm Miguel MD MD cha Leal, Jahala, RN RN jl7 Felicia Trejo 2 Martha Hope 3 Corrections: (The following items were deleted from the chart) 20:28 20:27 Patient left the ED. aa1 aa1
--- NOTE | 2018-09-06 17:16 | EDPHYS ---
Physician Documentation [facility] Name: Destinee Dickinson Age: 88 yrs Sex: Female : 1930 Arrival Date: 09/06/2018 Time: 15:51 Bed 2 Private MD: ED Physician Dm Miguel HPI: 09/06 17:10 This 88 yrs old Female presents to ER via EMS with complaints of Altered echo Mental Status. 17:10 The patient presents with confusion. Onset: The symptoms/episode began/occurred 2 echo day(s) ago. Possible causes: unknown. Associated signs and symptoms: Pertinent positives: confusion. Current symptoms: In the emergency department the patient's symptoms are unchanged from the initial presentation. Patient's baseline: Neuro: alert but confused. The patient has experienced similar episodes in the past, several times. Historical: - Allergies: 16:09 No Known Allergies; jl7 - Home Meds: 16:09 Plavix 75 mg Oral tab 1 tab once daily [Active]; Fish Oil [place] 3-6-9 300-1,000 mg oral jl7 cpDR [Active]; folic acid 0.8 mg Oral cap [Active]; ranitidine HCl 150 mg Oral cap 1 cap once daily [Active]; simvastatin 40 mg Oral tab 1 tab once daily [Active]; levothyroxine 112 mcg tab 1 tab once daily [Active]; - PMHx: 16:09 CVA; Dialysis; GERD; Hyperlipidemia; Hypertension; Renal Disease; Hypothyroidism; jl7 stomach cancer; Diabetes - IDDM; - Immunization history:: Adult Immunizations unknown. - Social history:: Smoking status: unknown. - Ebola Screening: : No symptoms or risks identified at this time. - Family history:: not pertinent. ROS: 17:10 Eyes: Negative for injury, pain, redness, and discharge, ENT: Negative for injury, echo pain, and discharge, Neck: Negative for injury, pain, and swelling, Cardiovascular: Negative for chest pain, palpitations, and edema, Respiratory: Negative for shortness of breath, cough, wheezing, and pleuritic chest pain, Abdomen/GI: Negative for abdominal pain, nausea, vomiting, diarrhea, and constipation, Back: Negative for injury and pain, : Negative for injury, bleeding, discharge, and swelling, MS/Extremity: Negative for injury and deformity, Skin: Negative for injury, rash, and discoloration, Psych: Negative for depression, anxiety, suicide ideation, homicidal ideation, and hallucinations, Allergy/Immunology: Negative for hives, rash, and allergies, Endocrine: Negative for neck swelling, polydipsia, polyuria, polyphagia, and marked weight changes. 17:10 Respiratory: Positive for cough, with no reported sputum. 17:10 Neuro: Positive for altered mental status. Exam: 17:12 Constitutional: This is a well developed, well nourished patient who is awake, alert, echo and in no acute distress. Head/Face: Normocephalic, atraumatic. Eyes: Pupils equal round and reactive to light, extra-ocular motions intact. Lids and lashes normal. Conjunctiva and sclera are non-icteric and not injected. Cornea within normal limits. Periorbital areas with no swelling, redness, or edema. ENT: Nares patent. No nasal discharge, no septal abnormalities noted. Tympanic membranes are normal and external auditory canals are clear. Oropharynx with no redness, swelling, or masses, exudates, or evidence of obstruction, uvula midline. Mucous membranes moist. Chest/axilla: Normal chest wall appearance and motion. Nontender with no deformity. No lesions are appreciated. Respiratory: Lungs have equal breath sounds bilaterally, clear to auscultation and percussion. No rales, rhonchi or wheezes noted. No increased work of breathing, no retractions or nasal flaring. Abdomen/GI: Soft, non-tender, with normal bowel sounds. No distension or tympany. No guarding or rebound. No evidence of tenderness throughout. Back: No spinal tenderness. No costovertebral tenderness. Full range of motion. Skin: Warm, dry with normal turgor. Normal color with no rashes, no lesions, and no evidence of cellulitis. MS/ Extremity: Pulses equal, no cyanosis. Neurovascular intact. Full, normal range of motion. Neuro: Awake and alert, GCS 15, oriented to person, place, time, and situation. Cranial nerves II-XII grossly intact. Motor strength 5/5 in all extremities. Sensory grossly intact. Cerebellar exam normal. Normal gait. Psych: Awake, alert, with orientation to person, place and time. Behavior, mood, and affect are within normal limits. 17:12 Neck: Trachea midline, no thyromegaly or masses palpated, and no cervical lymphadenopathy. Supple, full range of motion without nuchal rigidity, or vertebral point tenderness. No Meningismus. 17:12 Neck: External neck: is normal, no acute changes. 17:12 Chest/axilla: Inspection: normal. 17:12 Cardiovascular: Rate: tachycardic, Rhythm: regular, Pulses: Pulses are 4+ in bilateral radial, brachial, femoral, popliteal, posterior tibial and and dorsalis pedis arteries.. Heart sounds: normal, Edema: is not appreciated, JVD: is not appreciated. Vital Signs: 16:09 BP 122 / 93; Pulse 130; Resp 14 S; Pulse Ox 99% on R/A; Pain 0/10; jl7 16:35 Temp 102.7(O); jl7 17:00 BP 119 / 55; Pulse 119; Resp 16 S; Pulse Ox 99% on R/A; jl7 17:24 BP 102 / 75; Pulse 115; Resp 22 S; Pulse Ox 94% on R/A; jl7 18:03 BP 116 / 52; Pulse 110; Resp 22; Temp 101.9; Pulse Ox 99% ; jl7 19:37 BP 104 / 57; Pulse 101; Resp 20; Temp 98.4(O); Pulse Ox 96% on R/A; Pain 0/10; aa1 MDM: 16:02 Patient medically screened. [facility] 17:13 Data reviewed: vital signs, nurses notes, lab test result(s), EKG, radiologic studies, [facility] CT scan, plain films. 09/06 16:04 Order name: Basic Metabolic Panel [facility] 09/06 16:04 Order name: CBC with Diff; Complete Time: 17:13 [facility] 09/06 16:04 Order name: LFT's [facility] 09/06 16:04 Order name: Magnesium [facility] 09/06 16:04 Order name: NT PRO-BNP [facility] 09/06 16:04 Order name: PT-INR; Complete Time: 17:13 [facility] 09/06 16:04 Order name: Troponin (emerg Dept Use Only) [facility] 09/06 16:04 Order name: Lipase [facility] 09/06 16:04 Order name: Urine Culture [facility] 09/06 16:21 Order name: Blood Culture Adult (2) [facility] 09/06 16:55 Order name: Lactate 09/06 17:59 Order name: Basic Metabolic Panel [facility] 09/06 17:59 Order name: Basic Metabolic Panel [facility] 09/06 17:59 Order name: CBC with Automated Diff [facility] 09/06 16:04 Order name: XRAY Chest (1 view); Complete Time: 17:13 [facility] 09/06 16:04 Order name: EKG; Complete Time: 16:04 [facility] 09/06 16:04 Order name: CT Head Brain wo Cont; Complete Time: 17:13 [facility] 09/06 17:59 Order name: CONS Physician Consult [facility] 09/06 17:59 Order name: CBC with Automated Diff [facility] [place] 09/06 19:39 Order name: Urine Dipstick--Ancillary (enter results) 2 09/06 19:54 Order name: Urine Dipstick-Ancillary [facility] [place] 09/06 20:17 Order name: Lactate Sepsis 2 HR Follow-up [facility] [place] 09/06 16:04 Order name: Cardiac monitoring; Complete Time: 16:19 [facility] 09/06 16:04 Order name: EKG - Nurse/Tech; Complete Time: 16:19 [facility] 09/06 16:04 Order name: IV Saline Lock; Complete Time: 16:19 [facility] 09/06 16:04 Order name: Labs collected and sent; Complete Time: 16:19 [facility] 09/06 16:04 Order name: O2 Per Protocol; Complete Time: 16:19 [facility] 09/06 16:04 Order name: O2 Sat Monitoring; Complete Time: 16:19 [facility] 09/06 16:04 Order name: Urine Dipstick-Ancillary (obtain specimen); Complete Time: 19:57 [facility] 09/06 17:59 Order name: NPO EDVT Administered Medications: 16:21 Not Given (Duplicate Order): NS 0.9% 1000 ml IV at 125 ml/hr continuous [facility] 16:30 Drug: NS 0.9% 1000 ml Route: IV; Rate: 75 ml/hr; Site: right antecubital; jl7 19:39 Follow up: IV Status: Infusion continued upon admission aa1 16:35 Drug: Tylenol 650 mg Route: PO; jl7 18:00 Follow up: Response: No adverse reaction; Temperature is decreased jl7 17:40 Drug: Xopenex 1.25 mg Route: Inhalation; jl7 18:08 Follow up: Response: No adverse reaction jl7 17:40 Drug: AtroVENT Aerosol 0.5 mg Route: Inhalation; jl7 18:08 Follow up: Response: No adverse reaction jl7 17:50 Drug: Cefepime 1 grams Route: IVPB; Rate: 200 ml/hr; Infused Over: 30 mins; Site: right jl7 hand; 18:20 Follow up: Response: No adverse reaction; IV Status: Completed infusion jl7 18:18 Drug: Motrin 400 mg Route: PO; jl7 19:39 Follow up: Response: Temperature is decreased aa1 18:53 Drug: vancoMYCIN 1 grams Route: IVPB; Infused Over: 2 hrs; Site: right hand; jl7 19:39 Follow up: IV Status: Infusion continued upon admission aa1 Disposition: 09/06/18 17:15 Hospitalization ordered by Rajinder Simmons for Inpatient Admission. Preliminary diagnosis are Altered mental status, unspecified, Fever, unspecified, End stage renal disease, Dyspnea, Hypoxemia. - Bed requested for Telemetry/MedSurg (Inpatient). - Status is Inpatient Admission. aa1 - Condition is Fair. - Problem is new. - Symptoms have improved. UTI on Admission? No Signatures: Dispatcher [employer] EDMS Stefany Olae Alissa RN RN aa1 Dm Miguel MD MD cha Leal, Jahala, RN RN jl7 Corrections: (The following items were deleted from the chart) 17:19 17:15 Hospitalization Ordered by Cara Padgett MD for Inpatient Admission. Preliminary echo diagnosis is Altered mental status, unspecified; Fever, unspecified; End stage renal disease. Bed requested for Telemetry/MedSurg (Inpatient). Status is Inpatient Admission. Condition is Fair. Problem is new. Symptoms have improved. UTI on Admission? No. echo 17:22 17:19 09/06/2018 17:15 Hospitalization Ordered by Cara Padgett MD for Inpatient echo Admission. Preliminary diagnosis is Altered mental status, unspecified; Fever, unspecified; End stage renal disease; Dyspnea; Hypoxemia. Bed requested for Telemetry/MedSurg (Inpatient). Status is Inpatient Admission. Condition is Fair. Problem is new. Symptoms have improved. UTI on Admission? No. echo 18:12 17:22 09/06/2018 17:15 Hospitalization Ordered by Rajinder Simmons MD for Inpatient bd Admission. Preliminary diagnosis is Altered mental status, unspecified; Fever, unspecified; End stage renal disease; Dyspnea; Hypoxemia. Bed requested for Telemetry/MedSurg (Inpatient). Status is Inpatient Admission. Condition is Fair. Problem is new. Symptoms have improved. UTI on Admission? No. echo 20:27 18:12 09/06/2018 17:15 Hospitalization Ordered by Rajinder Simmons MD for Inpatient aa1 Admission. Preliminary diagnosis is Altered mental status, unspecified; Fever, unspecified; End stage renal disease; Dyspnea; Hypoxemia. Bed requested for Telemetry/MedSurg (Inpatient). Status is Inpatient Admission. Condition is Fair. Problem is new. Symptoms have improved. UTI on Admission? No. bd
[2018-09-06 17:22] LABS: Albumin 2.8 g/dL (3.4-5.0); Bilirubin Direct 0.2 mg/dL (0-0.2); Bilirubin Total 0.4 mg/dL (0.2-1.0); Magnesium 1.9 mg/dL (1.8-2.4); Potassium 3.9 mmol/L (3.5-5.1); Protein, Total 7.3 g/dL (6.4-8.2); Troponin (Emerg Dept Use Only) 0.05 ng/mL (0.0-0.045)
[2018-09-06] MEDS ORDERED: LEVALBUTEROL 1.25 MG/3 ML NEB ONE (17:38)
[2018-09-06] MEDS ORDERED: IPRATROPIUM BROM 0.5MG/2.5ML ONE (17:38)
[2018-09-06] MEDS ORDERED: VANCOMYCIN 1 GM/250 ML BAG ONE ×2 (17:39→18:56)
[2018-09-06] MEDS ORDERED: CEFEPIME 1 GM/100 ML BAG IV ONE (17:39)
[2018-09-06] MEDS ORDERED: ONDANSETRON 4 MG/2 ML VIAL IV PRN (17:55)
[2018-09-06] MEDS ORDERED: ACETAMINOPHEN 500 MG TAB PO PRN (17:55)
[2018-09-06] MEDS ORDERED: IBUPROFEN 400 MG TAB ONE (18:25)
[2018-09-06 19:53] LABS: Urine Blood 2+ (NEG); Urine Glucose 1+ (NEG); Urine Protein 3+ (NEG); Urine Specific Gravity 1.015 (1.005-1.030); Urine pH 8.5 (5.0-7.0)
[2018-09-06] MEDS ORDERED: CEFEPIME 1 GM/VIAL IV SCH (20:23)
[2018-09-06] MEDS ORDERED: VANCOMYCIN/NS 1 gm 1 GM/250 ML BAG IVPB SCH (20:23)
[2018-09-06 20:31] VITALS: BMI 20.3
[2018-09-07 04:12] LABS: Absolute Lymphocytes (CBC) 2.1 K/uL (0.7-4.9); Absolute Monocytes 0.8 K/uL (0.1-1.3); Basophils % 0.9 % (0-1.3); Eosinophils % 4.5 % (0-4.4); MPV 8.6 fL (7.6-11.3); Monocytes % 9.1 % (3.3-12.3); RBC Red Blood Cell Count 3.43 M/uL (3.86-4.86)
[2018-09-07 04:18] LABS: Potassium 4.1 mmol/L (3.5-5.1)
[2018-09-07] MEDS: LEVOTHYROXINE SOD 0.125 MG TAB PO SCH (06:30)
--- NOTE | 2018-09-07 06:49 | EKG ---
Test Date: 2018-09-06 Test Time: 15:46:36 Vertical Mill Operator: ANUP MEASUREMENT RESULTS: Intervals: Rate: 134 NM: 134 QRSD: 74 QT: 284 QTc: 424 [place]: P: 97 NM: 134 QRS: -6 T: 81 INTERPRETIVE STATEMENTS: Sinus tachycardia with premature atrial complexes with aberrant conduction Otherwise normal ECG Compared to ECG 07/12/2018 12:21:58 Atrial premature complex(es) now present Sinus rhythm no longer present ST (T wave) deviation no longer present Electronically Signed On 09-07-18 06:48:44 MODELING TEACHER by Willy Boone
[2018-09-07] MEDS ORDERED: CEFEPIME/SWI 1gm 1 GM/10 ML SYR IV SCH (07:45)
[2018-09-07] MEDS: ATORVASTATIN 20 MG TAB PO SCH (08:22)
[2018-09-07] MEDS: CLOPIDOGREL 75 MG TABLET PO SCH (08:22)
[2018-09-07] MEDS: PANTOPRAZOLE 40MG TABLET PO SCH (08:22)
[2018-09-07] MEDS ORDERED: GUAIFENESIN/DM 5 ML UCUP PO PRN (09:39)
--- NOTE | 2018-09-07 12:39 | P.CNS ---
Date of Consult: 09/07/18 Reason for Consult: ESRD to resume HD and volume managmeent Chief Complaint: AMS, fever History of Present Illness: pt is unabkle to provide detailed Hx, Hx obtained from chart An 88 Y.o woman with PMhx of ESRd on [facility], HTN, hypothyrodism and Hx of colon ca pt presented with AMS, fever and SOB in ER T 102.7 currently pt denied nausea, vomiting, stated she is been coughing dfor the last few days , denied chills , chest pain CXR: no infiltrate Allergies No Known Allergies Allergy (Verified 07/21/18 13:11) Home Medications: Clopidogrel Bisulfate [Plavix*] 75 mg PO DAILY #0 tablet 08/04/18 Levothyroxine [Synthroid*] 0.125 mg PO DAILYAC #0 tab 08/04/18 Omeprazole [Prilosec] 40 mg PO DAILY 09/06/18 Simvastatin 40 mg PO DAILY 09/06/18 - Past Medical/Surgical History Diabetic: No -: HTN -: Hyperlipidemia -: Hx of mild stroke -: ESRD -dialysis MWF -: CVA 2003 -: 3 strokes ([id number]) -: Anemia/bleeding ulcer, 2006 -: Hysterectomy, 1973 -: Tummy tuck (elective), 1998 -: Fistula(left arm) -: cholecystectomy -: broken hip Jun 2018 - Family History Mother Medical History: Diabetes Notes: dementia Father History Unknown: Yes Medical History: Cancer - Social History Smoking Status: Unknown if ever smoked Alcohol use: No CD- Drugs: No Caffeine use: Yes Place of Residence: [place] Physical Examination Temp Pulse Resp BP Pulse Ox 98.1 F 82 24 H 97/49 L 97 09/07/18 12:00 09/07/18 12:00 09/07/18 12:00 09/07/18 12:00 09/07/18 12:00 General: Alert, In no apparent distress HEENT: Atraumatic Neck: Supple, Without JVD or thyroid abnormality Respiratory: Clear to auscultation bilaterally, Normal air movement Cardiovascular: No edema, Regular rate/rhythm, Normal S1 S2 Gastrointestinal: Normal bowel sounds Laboratory Data (last 24 hrs) 09/06/18 16:35: PT 12.2, INR 1.03 09/06/18 16:35: WBC 11.2 H, Hgb 11.4 L, Hct 36.4, Plt Count 213 09/06/18 16:35: Sodium 136, Potassium 3.9, BUN 19 H, Creatinine 2.70 H, Glucose 157 H, Magnesium 1.9, Total Bilirubin 0.4, AST 21, ALT 13, Alkaline Phosphatase 108, Lipase 166 - Problems (1) Altered mental status Current Visit: Yes Status: Acute (2) ESRD (end stage renal disease) Current Visit: Yes Status: Chronic Conclusions/Impression: 1.End-stage renal disease from [facility] HD MWF renal diet renal dose all meds Anemia in chronic kidney disease. Continue FANI. Sepsis possible URTI CXR: no infiltrate F/u cultures Cont Abx Renal osteodystrophy. Continue renal diet and binders. Hypertension. bp on the low side now Hypothyrodism resume synthroid colon Ca followed by GI as an OP not candidate for chemo or surgical intervention
--- NOTE | 2018-09-07 20:59 | P.PN ---
Subjective Date of Service: 09/08/18 Chief Complaint: AMS, fever Subjective: No new changes Patient seen and examined at bedside. No family at bedside. Chart reviewed and case discussed with nursing staff. Review of Systems 10-point ROS is otherwise unremarkable Physical Examination - Vital Signs Temperature: 98.3 F Blood Pressure: 113/68 Pulse: 90 Respirations: 17 Pulse Ox (%): 98 - Physical Exam General: Alert, In no apparent distress, Oriented x3 HEENT: Atraumatic, PERRLA, EOMI Neck: Supple, JVD not distended Respiratory: Clear to auscultation bilaterally, Normal air movement Cardiovascular: Regular rate/rhythm, Normal S1 S2 Gastrointestinal: Normal bowel sounds, No tenderness Musculoskeletal: No tenderness Integumentary: No rashes Neurological: Normal speech, Normal tone, Normal affect Lymphatics: No axilla or inguinal lymphadenopathy Assessment And Plan - Current Problems (Diagnosis) (1) Altered mental status Current Visit: Yes Status: Acute Qualifiers: Altered mental status type: unspecified Qualified Code(s): R41.82 - Altered mental status, unspecified (2) SOB (shortness of breath) Current Visit: Yes Status: Resolved (3) ESRD (end stage renal disease) Current Visit: Yes Status: Chronic (4) Anemia of chronic disease Current Visit: Yes Status: Acute (5) Hypertension Current Visit: Yes Status: Acute (6) GI malignancy Onset Date: 07/13/18 Current Visit: No Status: Chronic - Plan This is an 88-year-old female with: Altered mentation, unspecific etiology Shortness of breath. ESRD Anemia of chronic disease. Hypertension Hypothyroidism Colon cancer Patient's mentation is almost back to baseline. Nephrology consulted for ESRD. Continue dialysis on home schedule Continue home medications as tolerated. Disposition: Likely discharge home in 24 Time Spent Managing PTS Care (In Minutes): 35
[2018-09-07] MEDS ORDERED: GUAIFENESIN 600 MG SA TAB PO SCH (21:00)
[2018-09-08 01:02] VITALS: O2SAT 98
[2018-09-08] MEDS: LEVOTHYROXINE SOD 0.125 MG TAB PO SCH (05:28)
[2018-09-08 08:26] LABS: Folic Acid, (Folate) > 20.0 ng/mL (3.1-17.5)
[2018-09-08] MEDS: PANTOPRAZOLE 40MG TABLET PO SCH (08:51)
[2018-09-08] MEDS: ATORVASTATIN 20 MG TAB PO SCH (08:52)
[2018-09-08] MEDS: CLOPIDOGREL 75 MG TABLET PO SCH (08:52)
[2018-09-08] MEDS ORDERED: EPOETIN ALFA 4000 UNIT/1 ML VIAL SQ SCH (10:00)
[2018-09-08 12:09] VITALS: BP 113/68; TEMP 98.3
--- NOTE | 2018-09-08 12:19 | P.DS ---
Admission Date: 09/06/18 Discharge Date: 09/08/18 Disposition: ROUTINE DISCHARGE Discharge Condition: GOOD Reason for Admission: AMS, fever Consultations: Dr. Rosado, nephrology - Problems (1) Altered mental status Current Visit: Yes Status: Acute Qualifiers: Altered mental status type: unspecified Qualified Code(s): R41.82 - Altered mental status, unspecified (2) SOB (shortness of breath) Current Visit: Yes Status: Resolved (3) ESRD (end stage renal disease) Current Visit: Yes Status: Chronic (4) Anemia of chronic disease Current Visit: Yes Status: Acute (5) Hypertension Current Visit: Yes Status: Acute (6) GI malignancy Onset Date: 07/13/18 Current Visit: No Status: Chronic Brief History of Present Illness: This is a 88-year-old female with past medical history of ESRD on hemodialysis Thursday, Thursday, Thursday, hypertension, hypothyroidism and history of colon cancer came into altered mentation, fever and shortness of breath. She was found to have a temperature of 102.7 in the ER She was admitted for further workup. Hospital Course: Patient was admitted for further workup for her altered mentation. Chest x-ray without any infiltrates, urine without any evidence of urinary tract infection, the labs fairly unremarkable. She remained afebrile while in the hospital. She received vancomycin and cefepime with her dialysis. Patient's mentation back to baseline, no other symptoms. At the time of discharge, patient was alert oriented x3, hemodynamically stable and symptom free. No evidence of any infectious etiology found. Afebrile for more than 24 hr, asymptomatic, leukocytosis normal range. No need for antibiotics after discharge. Patient's symptoms and disease discussed, all questions answered and patient verbalized understanding. Resume home health after discharge. No medication changes made Vital Signs/Physical Exam: Temp Pulse Resp BP Pulse Ox 98.3 F 90 17 113/68 98 09/08/18 12:11 09/08/18 12:11 09/08/18 12:11 09/08/18 12:11 09/08/18 12:11 General: Alert, In no apparent distress, Oriented x3 HEENT: Atraumatic, PERRLA, EOMI Neck: Supple, JVD not distended Respiratory: Clear to auscultation bilaterally, Normal air movement Cardiovascular: Regular rate/rhythm, Normal S1 S2 Gastrointestinal: Normal bowel sounds, No tenderness Musculoskeletal: No tenderness Integumentary: No rashes Neurological: Normal speech, Normal tone, Normal affect Lymphatics: No axilla or inguinal lymphadenopathy Laboratory Data at Discharge: WBC 8.3 K/uL (4.3-10.9) D 09/07/18 03:34 Hgb 10.3 g/dL (12.0-15.0) L 09/07/18 03:34 Hct 32.0 % (36.0-45.0) L 09/07/18 03:34 Plt Count 192 K/uL (152-406) 09/07/18 03:34 PT 12.2 SECONDS (9.5-12.5) 09/06/18 16:35 INR 1.03 09/06/18 16:35 Sodium 140 mmol/L (136-145) 09/07/18 03:34 Potassium 4.1 mmol/L (3.5-5.1) 09/07/18 03:34 BUN 33 mg/dL (7-18) H 09/07/18 03:34 Creatinine 3.44 mg/dL (0.55-1.3) H 09/07/18 03:34 Glucose 97 mg/dL (74-106) 09/07/18 03:34 Magnesium 1.9 mg/dL (1.8-2.4) 09/06/18 16:35 Total Bilirubin 0.4 mg/dL (0.2-1.0) 09/06/18 16:35 AST 21 U/L (15-37) 09/06/18 16:35 ALT 13 U/L (12-78) 09/06/18 16:35 Alkaline Phosphatase 108 U/L (45-117) 09/06/18 16:35 Lipase 166 U/L (73-393) 09/06/18 16:35 Home Medications: Clopidogrel Bisulfate [Plavix*] 75 mg PO DAILY #0 tablet 08/04/18 Levothyroxine [Synthroid*] 0.125 mg PO DAILYAC #0 tab 08/04/18 Omeprazole [Prilosec] 40 mg PO DAILY 09/06/18 Simvastatin 40 mg PO DAILY 09/06/18 Patient Discharge Instructions: Please follow up with the primary care physician in 1 week. Please continue dialysis schedule as normal. Please return to the ER for any worsening symptoms Diet: Renal Activity: Ad flakito Time spent managing pt's care (in minutes): 55
--- NOTE | 2018-09-08 12:38 | PN ---
Date of Progress Note: 09/08/2018 NEPHROLOGY FOLLOWUP Subjective: The patient is doing well. The patient came with fever. Physical Examination: Vital Signs: Blood pressure 100/59, pulse of 94. Chest: Clear to auscultation. Heart: S1 and S2, regular. Abdomen: Soft, nontender. Extremities: No edema. Laboratory Data: H and H of 10.3 and 32. Sodium 140, potassium 4.1, bicarb 26, BUN 33, creatinine 3 .4, and calcium 8.1. Current Medications: The patient on it includes, 1.Cefepime. 2.Vancomycin. 3.Epogen. 4.Atorvastatin. 5.Zofran. 6.Pantoprazole. 7.Levothyroxine. Assessment And Plan: 1.End-stage renal disease, stable. I am going to continue the patient on dialysis, the patient is d ue for dialysis today given the fever. I am going to do blood culture, continue current antibiotic. 2.Hypertension, currently blood pressure on the lower side. I am going to go ahead and keep holding all blood pressure medication. 3.Anemia of chronic kidney disease. Continue Epogen. FERDINAND/KJ Voice ID: [id number] Report ID: [id number]
[2018-09-08] MEDS ORDERED: ALBUMIN HUMAN 25% 50 ML IV SCH (17:00)
== END 2018-09-08 19:52 | disposition home health service (06) | DRG 871 ==
LOC: ER 15:47 → ERHOLD 17:52 → 4TH 19:59
PROVIDERS: ADMIT Family Medicine; ATTEND Family Medicine
PROC: 5A1D70Z Performance of Urinary Filtration, Intermittent, Less than 6 Hours Per Day (ICD-10-PCS; principal; 2018-09-08)
DX: A41.9 Sepsis, unspecified organism (principal); N18.6 End stage renal disease; I12.0 Hypertensive chronic kidney disease with stage 5 chronic kidney disease or end stage renal disease; R41.82 Altered mental status, unspecified; Z86.73 Personal history of transient ischemic attack (TIA), and cerebral infarction without residual deficits; K21.9 Gastro-esophageal reflux disease without esophagitis; E78.5 Hyperlipidemia, unspecified; E03.9 Hypothyroidism, unspecified; Z85.038 Personal history of other malignant neoplasm of large intestine; E11.22 Type 2 diabetes mellitus with diabetic chronic kidney disease; Z99.2 Dependence on renal dialysis; Z79.84 Long term (current) use of oral hypoglycemic drugs; D63.1 Anemia in chronic kidney disease; N25.0 Renal osteodystrophy; R50.9 Fever, unspecified; R06.02 Shortness of breath
CPT/HCPCS: 36415; 51702; 70450; 71045; 80048; 80076; 81003; 81015; 82607; 82746; 82962; 83605; 83690; 83735; 83880; 84484; 85025; 85610; 87040; 87070; 87081; 87086; 87088; 87804; 93005; 94760; 96361; 96365; 96367; 97116; 97163; 97530; 99285; G0257; J0692; J3370; J7030; P9047; Q4081

== ENCOUNTER 2018-09-09 16:49 | Inpatient (IN) | payer OTHER ==
--- NOTE | 2018-09-09 19:23 | RAD REPORT ---
EXAM DESCRIPTION: Jesus Single View09/09/2018 6:47 pm CLINICAL HISTORY: Cough COMPARISON: September 06, 2018 FINDINGS: Diffuse bilateral interstitial lung opacities are without obvious change and presumably ar e chronic. The heart is upper limits normal size IMPRESSION: No acute abnormalities displayed
[2018-09-09] MEDS ORDERED: ACETAMINOPHEN 500 MG TAB ONE (19:38)
[2018-09-09] MEDS ORDERED: LEVALBUTEROL 1.25 MG/3 ML NEB ONE (19:38)
[2018-09-09 20:24] LABS: Protime INR 1.12
[2018-09-09 20:59] LABS: Albumin 3.1 g/dL (3.4-5.0); Bilirubin Direct 0.2 mg/dL (0-0.2); Bilirubin Total 0.5 mg/dL (0.2-1.0); Magnesium 1.8 mg/dL (1.8-2.4); Potassium 3.7 mmol/L (3.5-5.1); Protein, Total 7.4 g/dL (6.4-8.2); Troponin (Emerg Dept Use Only) 0.07 ng/mL (0.0-0.045)
[2018-09-09] MEDS ORDERED: ONDANSETRON 4 MG/2 ML VIAL IV PRN (20:59)
[2018-09-09] MEDS ORDERED: MORPHINE 2 MG/ML SYR IV PRN (20:59)
--- NOTE | 2018-09-09 21:26 | EDPHYS ---
Physician Documentation [facility] Name: Destinee Dickinson Age: 88 yrs Sex: Female : 1930 Arrival Date: 09/09/2018 Time: 16:40 Bed 30 Private MD: ED Physician Jose Antonio Griffin HPI: 09/09 18:36 This 88 yrs old Female presents to ER via EMS with complaints of Cough. m 18:36 The patient or guardian reports cough, described as moderate. Onset: The [facility] symptoms/episode began/occurred gradually. 20:06 Associated signs and symptoms: Pertinent positives: chest pain, fever. This is an 88 jmm year old female with a history of dm, esrd, GERD that presents to the ED with cough, chest pain beginning 3 days ago. Family states the patient developed chest pain earlier today. Patient was recently admitted for similar symptoms. . Historical: - Allergies: 16:59 No Known Allergies; ch - Home Meds: 16:59 Fish Oil [place] 3-6-9 300-1,000 mg Oral cpDR [Active]; folic acid 0.8 mg Oral cap ch [Active]; levothyroxine 112 mcg tab 1 tab once daily [Active]; Plavix 75 mg Oral tab 1 tab once daily [Active]; ranitidine HCl 150 mg Oral cap 1 cap once daily [Active]; simvastatin 40 mg Oral tab 1 tab once daily [Active]; - PMHx: 16:59 CVA; Diabetes - IDDM; Dialysis; GERD; Hyperlipidemia; Hypertension; Hypothyroidism; ch Renal Disease; stomach cancer; - Immunization history:: Adult Immunizations up to date. - Social history:: Smoking status: Patient/guardian denies using tobacco. - Ebola Screening: : Patient negative for fever greater than or equal to 101.5 degrees Fahrenheit, and additional compatible Ebola Virus Disease symptoms Patient denies exposure to infectious person Patient denies travel to an Ebola-affected area in the 21 days before illness onset No symptoms or risks identified at this time. ROS: 20:06 Abdomen/GI: Negative for abdominal pain, nausea, vomiting, diarrhea, and constipation. jmm 20:06 Constitutional: Positive for fever. 20:06 Cardiovascular: Positive for chest pain. 20:06 Respiratory: Positive for shortness of breath. 20:06 All other systems are negative. Exam: 20:06 Head/Face: atraumatic. Eyes: EOMI, no conjunctival erythema appreciated ENT: Moist [facility] Mucus Membranes Neck: Trachea midline, Supple Chest/axilla: Normal chest wall appearance and motion. 20:06 Abdomen/GI: Non distended, soft Back: Normal ROM Skin: General appearance color normal MS/ Extremity: Moves all extremities, no obvious deformities appreciated, no edema noted to the lower extremities 20:06 Constitutional: The patient appears alert, anxious, uncomfortable. 20:06 Cardiovascular: Rate: normal, Rhythm: regular. 20:06 Respiratory: mild respiratory distress is noted, Respirations: normal, Breath sounds: wheezing: that is mild, is scattered. Vital Signs: 16:59 BP 94 / 74; Pulse 96; Resp 15; Temp 99.5; Pulse Ox 96% on R/A; Pain 0/10; ch 18:30 BP 113 / 87; Pulse 104; Resp 19; Temp 102.9; Pulse Ox 95% on R/A; rv 20:15 BP 146 / 63; Pulse 116; Resp 22; Pulse Ox 93% on R/A; rv 20:30 BP 103 / 55; Pulse 103; Resp 23 S; Pulse Ox 94% on R/A; rv 20:42 Temp 102.7(O); bb 21:00 BP 99 / 50; Pulse 101; Resp 21; Temp 100.7; Pulse Ox 96% on 2 lpm NC; rv MDM: 18:36 Patient medically screened. [facility] 21:23 Data reviewed: vital signs, nurses notes, lab test result(s), EKG, radiologic studies, [facility] plain films. Counseling: I had a detailed discussion with the patient and/or guardian regarding: the historical points, exam findings, and any diagnostic results supporting the discharge/admit diagnosis, lab results, radiology results, the need for further work-up and treatment in the hospital. ED course: I discussed the patient with Dr. Castro whom accepted admission. . 09/09 18:36 Order name: Basic Metabolic Panel; Complete Time: 21:00 [facility] 09/09 18:36 Order name: CBC with Diff [facility] 09/09 18:36 Order name: LFT's; Complete Time: 21:00 [facility] 09/09 18:36 Order name: Magnesium; Complete Time: 21:00 [facility] 09/09 18:36 Order name: NT PRO-BNP; Complete Time: 21:00 [facility] 09/09 18:36 Order name: PT-INR; Complete Time: 20:31 [facility] 09/09 18:36 Order name: Troponin (emerg Dept Use Only); Complete Time: 21:00 [facility] 09/09 18:36 Order name: Procalcitonin; Complete Time: 21:00 [facility] 09/09 18:36 Order name: Lactate; Complete Time: 20:31 [facility] 09/09 18:36 Order name: Blood Culture Adult (2) [facility] 09/09 18:36 Order name: Urine Culture [facility] 09/09 21:01 Order name: CBC with Automated Diff [facility] 09/09 21:01 Order name: CBC with Automated Diff [facility] 09/09 21:01 Order name: Comprehensive Metabolic Panel [facility] 09/09 17:59 Order name: EKG Electrocardiogram; Complete Time: 22:04 [facility] 09/09 18:01 Order name: Chest Single View XRAY; Complete Time: 19:29 [facility] 09/09 18:36 Order name: EKG; Complete Time: 18:38 [facility] 09/09 18:36 Order name: Cardiac monitoring; Complete Time: 21:29 [facility] 09/09 18:36 Order name: EKG - Nurse/Tech; Complete Time: 21:29 [facility] 09/09 18:36 Order name: IV Saline Lock; Complete Time: 21:29 [facility] 09/09 18:36 Order name: Labs collected and sent; Complete Time: 21:29 [facility] 09/09 18:36 Order name: O2 Per Protocol; Complete Time: 21:29 [facility] 09/09 18:36 Order name: O2 Sat Monitoring; Complete Time: 21:29 [facility] 09/09 21:01 Order name: CONS Pharmacy Consult [facility] 09/09 21:01 Order name: Renal [facility] 09/09 21:01 Order name: Comprehensive Metabolic Panel EDMO Administered Medications: 19:30 Drug: Tylenol 1000 mg Route: PO; rv 21:48 Follow up: Response: Temperature is decreased rv 19:30 Drug: Xopenex (3) 1.25 mg Route: Inhalation; rv 21:48 Follow up: Response: Wheezing diminished rv 21:30 Drug: Rocephin - (cefTRIAXone) 1 grams Route: IVPB; Infused Over: 30 mins; Site: right rv hand; 21:48 Follow up: IV Status: Completed infusion rv Disposition: 09/09/18 21:24 Hospitalization ordered by Haroon Castro for Observation. Preliminary diagnosis are Fever, unspecified, Hypoxia, Chest pain, unspecified. - Bed requested for Telemetry/MedSurg (observation). - Status is Observation. rv - Condition is Stable. - Problem is new. - Symptoms have improved. UTI on Admission? No Addendum: 09/16/2018 09:36 Co-signature as Attending Physician, Jose Antonio Griffin MD I agree with the assessment and k dr plan of care. Signatures: Dispatcher [employer] EDMS Izabel Fine, RN RN Jenny aWll RN RN Jose Antonio Griffin MD MD [facility] Lalo Tanner PA PA [facility] Timur Montemayor RN RN rv Corrections: (The following items were deleted from the chart) 09/09 20:07 18:36 The patient or guardian reports cough, described as moderate, [facility] 21:26 21:24 Hospitalization Ordered by Haroon Castro MD for Observation. Preliminary diagnosis is Fever, unspecified; Hypoxia; Chest pain, unspecified. Bed requested for Telemetry/MedSurg (observation). Status is Observation. Condition is Stable. Problem is new. Symptoms have improved. UTI on Admission? No. [facility] 22:27 21:26 09/09/2018 21:24 Hospitalization Ordered by Haroon Castro MD for Observation. rv Preliminary diagnosis is Fever, unspecified; Hypoxia; Chest pain, unspecified. Bed requested for Telemetry/MedSurg (observation). Status is Observation. Condition is Stable. Problem is new. Symptoms have improved. UTI on Admission? No. mw
--- NOTE | 2018-09-09 21:26 | ER ---
Nurse's Notes [facility] Name: Destinee Dickinson Age: 88 yrs Sex: Female : 1930 Arrival Date: 09/09/2018 Time: 16:40 Bed 30 Private MD: Diagnosis: Fever, unspecified;Hypoxia;Chest pain, unspecified Presentation: 09/09 16:53 Presenting complaint: EMS states: toned out from [facility], pt was discharged from [facility] today, and about 1540 started having a productive cough and chest pain when coughing. pt is normally oriented x2. Transition of care: patient was not received from another setting of care. Onset of symptoms was September 09, 2018 at 15:40. Risk Assessment: Do you want to hurt yourself or someone else?. Initial Sepsis Screen: Does the patient meet any 2 criteria? No. Patient's initial sepsis screen is negative. Does the patient have a suspected source of infection? Yes: Productive cough/pneumonia. Care prior to arrival: None. 16:53 Method Of Arrival: EMS: [facility] 16:53 Acuity: CLEMENT 3 Triage Assessment: 16:59 General: Appears in no apparent distress. comfortable, Behavior is cooperative, anxious. Historical: - Allergies: 16:59 No Known Allergies; - Home Meds: 16:59 Fish Oil [place] 3-6-9 300-1,000 mg Oral cpDR [Active]; folic acid 0.8 mg Oral cap ch [Active]; levothyroxine 112 mcg tab 1 tab once daily [Active]; Plavix 75 mg Oral tab 1 tab once daily [Active]; ranitidine HCl 150 mg Oral cap 1 cap once daily [Active]; simvastatin 40 mg Oral tab 1 tab once daily [Active]; - PMHx: 16:59 CVA; Diabetes - IDDM; Dialysis; GERD; Hyperlipidemia; Hypertension; Hypothyroidism; ch Renal Disease; stomach cancer; - Immunization history:: Adult Immunizations up to date. - Social history:: Smoking status: Patient/guardian denies using tobacco. - Ebola Screening: : Patient negative for fever greater than or equal to 101.5 degrees Fahrenheit, and additional compatible Ebola Virus Disease symptoms Patient denies exposure to infectious person Patient denies travel to an Ebola-affected area in the 21 days before illness onset No symptoms or risks identified at this time. Screenin:48 Abuse screen: Denies threats or abuse. Denies injuries from another. Nutritional rv screening: No deficits noted. Tuberculosis screening: No symptoms or risk factors identified. Fall Risk None identified. Assessment: 17:30 General: Appears in no apparent distress. uncomfortable, Behavior is calm, cooperative. rv 17:30 Pain: Complains of pain in face and chest Pain radiates to LEFT SIDE OF THE FACE. rv Neuro: Level of Consciousness is awake, alert, obeys commands, Oriented to person, place, time, situation. Cardiovascular: Capillary refill < 3 seconds. Respiratory: Airway is patent. Respiratory: Breath sounds with rhonchi bilaterally. GI: No signs and/or symptoms were reported involving the gastrointestinal system. : No signs and/or symptoms were reported regarding the genitourinary system. EENT: No signs and/or symptoms were reported regarding the EENT system. Derm: Skin is intact. Musculoskeletal: Reports pain in chest. 20:42 Reassessment: Patient appears in no apparent distress at this time. rv Vital Signs: 16:59 BP 94 / 74; Pulse 96; Resp 15; Temp 99.5; Pulse Ox 96% on R/A; Pain 0/10; ch 18:30 BP 113 / 87; Pulse 104; Resp 19; Temp 102.9; Pulse Ox 95% on R/A; rv 20:15 BP 146 / 63; Pulse 116; Resp 22; Pulse Ox 93% on R/A; rv 20:30 BP 103 / 55; Pulse 103; Resp 23 S; Pulse Ox 94% on R/A; rv 20:42 Temp 102.7(O); bb 21:00 BP 99 / 50; Pulse 101; Resp 21; Temp 100.7; Pulse Ox 96% on 2 lpm NC; rv ED Course: 16:40 Patient arrived in ED. ch 16:56 Triage completed. ch 16:59 Arm band placed on left wrist. Patient placed in an exam room, on a stretcher. ch 17:38 EKG done, by zone maintenance technician. dt2 17:40 Inserted saline lock: 22 gauge in right hand, using aseptic technique. rv 17:48 Patient has correct armband on for positive identification. Bed in low position. Call rv light in reach. Side rails up X2. Pulse ox on. NIBP on. 18:23 Mickail, Lalo, PA is PHCP. [facility] 18:23 Jose Antonio Griffin MD is Attending Physician. jmm 18:49 Chest Single View XRAY In Process Unspecified. EDMS 19:59 Inserted saline lock: 20 gauge in right upper arm, using aseptic technique. Blood bb collected. 21:24 Haroon Castro MD is Hospitalizing Provider. [facility] 22:04 No provider procedures requiring assistance completed. Patient admitted, IV remains in rv place. intact. Administered Medications: 19:30 Drug: Tylenol 1000 mg Route: PO; rv 21:48 Follow up: Response: Temperature is decreased rv 19:30 Drug: Xopenex (3) 1.25 mg Route: Inhalation; rv 21:48 Follow up: Response: Wheezing diminished rv 21:30 Drug: Rocephin - (cefTRIAXone) 1 grams Route: IVPB; Infused Over: 30 mins; Site: right rv hand; 21:48 Follow up: IV Status: Completed infusion rv Outcome: 21:24 Decision to Hospitalize by Provider. [facility] 22:04 Admitted to Tele accompanied by tech, via stretcher, room 401, with chart, Report rv called to RENE THOMAS 22:04 Condition: good 22:04 Instructed on the need for admit. 22:27 Patient left the ED. rv Signatures: Dispatcher [employer] EDMS Izabel Fine, RN RN Lalo Sotelo PA PA [facility] Laine Beckwith, WILLIAM RN Unique Blum dt2 Timur Montemayor RN RN rv
[2018-09-09] MEDS ORDERED: CEFTRIAXONE/SWI 1gm 1 GM/10 ML SYR ONE (21:37)
--- NOTE | 2018-09-10 05:23 | P.HP ---
Certification for Inpatient Patient admitted to: Observation With expected LOS: <2 Midnights Patient will require the following post-hospital care: None Practitioner: I am a practitioner with admitting privileges, knowledge of patient current condition, hospital course, and medical plan of care. Services: Services provided to patient in accordance with Admission requirements found in Title 42 Section 412.3 of the Code of Federal Regulations Patient History Date of Service: 09/09/18 Reason for admission: Shortness of breath History of Present Illness: Patient is 88yo who was admitted Was admitted to the hospital with shortness of breath. Patient was just discharged recently with a pneumonia. She comes in with similar complaints. Her white count was elevated. I am not able to get the results of the CBC at this time because labs are being sent to a different facility. Patient clinically looks to be fairly comfortable. Chest x-ray findings do indicate a mild pneumonia. Patient will be admitted to the hospital for observation. Allergies No Known Allergies Allergy (Verified 07/21/18 13:11) Home Medications: Atorvastatin Calcium [Lipitor] 20 mg PO BEDTIME 09/09/18 Clopidogrel Bisulfate [Plavix] 75 mg PO DAILY 09/09/18 Cranberry Fruit Extract [Cranberry] 400 mg PO BID 09/09/18 Epoetin [Procrit] 10,000 unit SQ AFTER EACH DIALYSIS 09/09/18 Ferrous Sulfate [Iron] 325 mg PO DAILY 09/09/18 Gabapentin 600 mg PO BID 09/09/18 Nepro Shake [Nepro*] 1 can PO BID 09/09/18 Polyethylene Glycol 3350 [Miralax] 17 gm PO DAILY 09/09/18 - Past Medical/Surgical History Has patient received pneumonia vaccine in the past: No Diabetic: No -: HTN -: Hyperlipidemia -: Hx of mild stroke -: ESRD -dialysis MWF -: CVA 2003 -: cecum cancer -: 3 strokes ([id number]) -: Anemia/bleeding ulcer, 2006 -: Hysterectomy, 1973 -: Tummy tuck (elective), 1998 -: Fistula(left arm) -: cholecystectomy -: broken hip Jun 2018 - Family History Mother Medical History: Diabetes Notes: dementia Father Medical History: Cancer - Social History Smoking Status: Never smoker Alcohol use: No CD- Drugs: No Caffeine use: Yes Place of Residence[place] [facility] Review of Systems 10-point ROS is otherwise unremarkable Physical Examination - Vital Signs Temperature: 98.1 F Blood Pressure: 93/51 Pulse: 77 Respirations: 20 Pulse Ox (%): 96 - Physical Exam General: Alert, In no apparent distress, Oriented x1 HEENT: Atraumatic, PERRLA, Mucous membr. moist/pink, EOMI, Sclerae nonicteric Neck: Supple, 2+ carotid pulse no bruit, No LAD, Without JVD or thyroid abnormality Respiratory: Expiratory wheezes, Rhonchi/gurgles Cardiovascular: Regular rate/rhythm, Normal S1 S2, Systolic murmur Gastrointestinal: Normal bowel sounds, Soft and benign, Non-distended, No tenderness Musculoskeletal: No clubbing, No swelling, No tenderness Integumentary: No rashes Neurological: Normal gait, Normal speech, Normal tone, Sensation intact, Cranial nerves 3-12 intact, Normal affect, Abnormal strength Lymphatics: No axilla or inguinal lymphadenopathy - Studies Laboratory Data (last 24 hrs) 09/09/18 19:50: PT 13.2 H, INR 1.12 09/09/18 19:50: Sodium 137, Potassium 3.7, BUN 21 H, Creatinine 3.62 H, Glucose 136 H, Magnesium 1.8, Total Bilirubin 0.5, AST 23, ALT 16, Alkaline Phosphatase 94 09/09/18 19:07: WBC 13.7 H D, Hgb MAIL HANDLER, Hct MAIL HANDLER, Plt Count MAIL HANDLER Assessment & Plan - Problems (Diagnosis) (1) Altered mental status Current Visit: No Status: Acute Qualifiers: Altered mental status type: unspecified Qualified Code(s): R41.82 - Altered mental status, unspecified (2) Hypertension Onset Date: 09/10/18 Current Visit: No Status: Acute (3) Hypoxia Current Visit: No Status: Acute (4) Renal failure Onset Date: 04/26/15 Current Visit: No Status: Acute Qualifiers: Renal failure chronicity: chronic Chronic kidney disease stage: on chronic dialysis Qualified Code(s): N18.6 - End stage renal disease; Z99.2 - Dependence on renal dialysis (5) CHF (congestive heart failure) Onset Date: 04/26/15 Current Visit: No Status: Chronic (6) ESRD (end stage renal disease) Current Visit: No Status: Chronic (7) GI malignancy Onset Date: 07/13/18 Current Visit: No Status: Chronic - Plan Plan: 1. Continue with IV antibiotics 2. Awaiting sputum and blood culture; procalcitonin level 3. Repeat chest x-ray in AM 4. Continue with nebs as needed 5. O2 per protocol 6. Continue with gentle hydration 7. Repeat labs including CBC and renal function in a.m. 8. Outpt follow-up with Pulmonary 9. GI and DVT prophylaxis - Advance Directives Does patient have a Living Will: Yes Does patient have a Durable POA for Healthcare: Yes - Code Status/Comfort Care Code Status Assessed: Yes Code Status: Full Code Critical Care: No Time Spent Managing PTS Care (In Minutes): 45
[2018-09-10 07:03] LABS: Albumin 2.6 g/dL (3.4-5.0); Bilirubin Total 0.4 mg/dL (0.2-1.0); Potassium 3.7 mmol/L (3.5-5.1); Protein, Total 6.4 g/dL (6.4-8.2)
[2018-09-10] MEDS ORDERED: MORPHINE 4 MG/ML SYR IV PRN (07:17)
[2018-09-10] MEDS ORDERED: PNEUMOCOCCAL VACCINE 0.5 ML IMVAC ONE (08:00)
[2018-09-10] MEDS ORDERED: INFLUENZA VACCINE (for 3y+) 0.5 ML DOSE IMVAC ONE (08:00)
--- NOTE | 2018-09-10 10:52 | P.CNS ---
Date of Consult: 09/10/18 Reason for Consult: ESRD to resume HD Chief Complaint: Shortness of breath History of Present Illness: pt is unable to provide detailed Hx, Hx obtained from chart An 88 Y.o woman with PMhx of ESRd on HD [facility] via [facility], HTN, hypothyrodism and Hx of colon ca pt presented with cough and chest discomfort pt was discharged on 09/09 as she was treated for pneumonia as per notes, pt had persistent cough and came to er again now no chest pain, palpitation , nausea or vomiting cultures -ve Allergies No Known Allergies Allergy (Verified 07/21/18 13:11) Home Medications: Atorvastatin Calcium [Lipitor] 20 mg PO BEDTIME 09/09/18 Clopidogrel Bisulfate [Plavix] 75 mg PO DAILY 09/09/18 Cranberry Fruit Extract [Cranberry] 400 mg PO BID 09/09/18 Epoetin [Procrit] 10,000 unit SQ AFTER EACH DIALYSIS 09/09/18 Ferrous Sulfate [Iron] 325 mg PO DAILY 09/09/18 Gabapentin 600 mg PO BID 09/09/18 Nepro Shake [Nepro*] 1 can PO BID 09/09/18 Polyethylene Glycol 3350 [Miralax] 17 gm PO DAILY 09/09/18 - Past Medical/Surgical History Diabetic: No -: HTN -: Hyperlipidemia -: Hx of mild stroke -: ESRD -dialysis MWF -: CVA 2003 -: cecum cancer -: 3 strokes ([id number]) -: Anemia/bleeding ulcer, 2006 -: Hysterectomy, 1973 -: Tummy tuck (elective), 1998 -: Fistula(left arm) -: cholecystectomy -: broken hip Jun 2018 - Family History Mother Medical History: Diabetes Notes: dementia Father Medical History: Cancer - Social History Smoking Status: Unknown if ever smoked Alcohol use: No CD- Drugs: No Caffeine use: Yes Place of Residence: [facility] Physical Examination Temp Pulse Resp BP Pulse Ox 98.2 F 89 17 107/59 L 96 09/10/18 08:00 09/10/18 08:00 09/10/18 08:00 09/10/18 08:00 09/10/18 08:00 General: Alert, In no apparent distress Neck: Supple, Without JVD or thyroid abnormality Respiratory: Clear to auscultation bilaterally Cardiovascular: No edema, Regular rate/rhythm, Normal S1 S2, No rubs, No murmurs Gastrointestinal: Normal bowel sounds Laboratory Data (last 24 hrs) 09/09/18 19:50: PT 13.2 H, INR 1.12 09/09/18 19:50: Sodium 137, Potassium 3.7, BUN 21 H, Creatinine 3.62 H, Glucose 136 H, Magnesium 1.8, Total Bilirubin 0.5, AST 23, ALT 16, Alkaline Phosphatase 94 09/09/18 19:07: WBC 13.7 H D, Hgb CHIEF DEPUTY CORONER, Hct CHIEF DEPUTY CORONER, Plt Count CHIEF DEPUTY CORONER - Problems (1) ESRD (end stage renal disease) Current Visit: No Status: Chronic Conclusions/Impression: End-stage renal disease from [facility] via Lt AVG HD MWF renal diet renal dose all meds Anemia in chronic kidney disease. Continue FANI. Pneumonia cont Abx Renal osteodystrophy. Continue renal diet and binders. Hypertension. bp on the low side at baseline now Hypothyrodism resume synthroid colon Ca followed by GI as an OP not candidate for chemo or surgical intervention
[2018-09-10] MEDS: PIPER/TAZO/NS 2.25gm 2.25 GM/50 ML BAG IVPB SCH ×2 (11:26→18:49)
[2018-09-10] MEDS: FERROUS SULFATE 325 MG TAB PO SCH (11:35)
[2018-09-10] MEDS: GABAPENTIN 300 MG CAP PO SCH ×2 (11:35→21:22)
[2018-09-10] MEDS: CLOPIDOGREL 75 MG TABLET PO SCH (11:35)
[2018-09-10] MEDS: ACETAMINOPHEN 500 MG TAB PO PRN (12:27)
[2018-09-10 13:09] LABS: Urine Appearance CLEAR; Urine Bilirubin NEGATIVE (NEG); Urine Blood NEGATIVE (NEG); Urine Color YELLOW; Urine Glucose NEGATIVE (NEG); Urine Protein NEGATIVE (NEG); Urine Specific Gravity 1.015 (1.005-1.030); Urine Urobilinogen 0.2 mg/dL (0.2-1.0); Urine pH 5.5 (5.0-7.0)
--- NOTE | 2018-09-10 13:16 | P.PN ---
Subjective Date of Service: 09/10/18 Chief Complaint: Shortness of breath Patient seen and examined at bedside with RN. Chart reviewed. Case discussed with pulmonology at this time. No complaints to offer overnight. Patient still complaining of having some shortness of breath. Currently alert and oriented x2 but at baseline. Review of Systems 10-point ROS is otherwise unremarkable Physical Examination - Vital Signs Temperature: 98.1 F Blood Pressure: 93/51 Pulse: 77 Respirations: 20 Pulse Ox (%): 96 - Physical Exam General: Alert, Oriented x2, Mild distress HEENT: Atraumatic, PERRLA, EOMI Neck: Supple, JVD not distended Respiratory: Normal air movement, Crackles/rales, Expiratory wheezes, Inspiratory wheezes Cardiovascular: Regular rate/rhythm, Normal S1 S2 Gastrointestinal: Normal bowel sounds, No tenderness Musculoskeletal: No tenderness Integumentary: No rashes Neurological: Normal speech, Normal tone, Normal affect Lymphatics: No axilla or inguinal lymphadenopathy - Studies Laboratory Data (last 24 hrs) 09/09/18 19:50: PT 13.2 H, INR 1.12 09/09/18 19:50: Sodium 137, Potassium 3.7, BUN 21 H, Creatinine 3.62 H, Glucose 136 H, Magnesium 1.8, Total Bilirubin 0.5, AST 23, ALT 16, Alkaline Phosphatase 94 09/09/18 19:07: WBC 13.7 H D, Hgb TRAVEL MED SURG RN, Hct TRAVEL MED SURG RN, Plt Count TRAVEL MED SURG RN Microbiology Data (last 24 hrs): 09/09/18 19:50 Blood - Blood Anaerobic Blood Culture - Final Medications List Reviewed: Yes Assessment And Plan - Current Problems (Diagnosis) (1) SOB (shortness of breath) Current Visit: No Status: Resolved Plan: Patient admitted with dyspnea recent admission with pneumonia. Currently with elevated temperature, heart rate and respiratory rate -pulmonology consulted. Appreciated recommendations at this time -currently patient on IV antibiotics along with nasal cannula for oxygen -CT scan of the chest ordered. Will follow up with results here shortly -influenza and strep throat cultures pending at this time. -UA pending at this time as well (2) Anemia of chronic disease Onset Date: 09/10/18 Current Visit: No Status: Chronic (3) Hypertension Onset Date: 09/10/18 Current Visit: No Status: Chronic Qualifiers: Hypertension type: essential hypertension Qualified Code(s): I10 - Essential (primary) hypertension (4) CHF (congestive heart failure) Onset Date: 09/10/18 Current Visit: Yes Status: Chronic (5) ESRD (end stage renal disease) Current Visit: No Status: Chronic Discharge Plan: Home Plan to discharge in: 48 Hours - Code Status/Comfort Care Code Status Assessed: Yes Critical Care: No
[2018-09-10 13:36] LABS: Urine Microscopic Reflex ORDER UMIC
[2018-09-10 13:42] LABS: Urine Bacteria <20 /HPF (<20); Urine RBC NONE SEEN /HPF (NONE SEEN)
[2018-09-10 13:43] LABS: Urine Culture Reflex Order NOT NEEDED
--- NOTE | 2018-09-10 14:03 | EKG ---
Test Date: 2018-09-09 Test Time: 17:08:16 School Counsellor: JONELLE MEASUREMENT RESULTS: Intervals: Rate: 99 MT: QRSD: 68 QT: 374 QTc: 479 [place]: P: MT: QRS: 62 T: 58 INTERPRETIVE STATEMENTS: Atrial fibrillation with premature ventricular or aberrantly conducted complexes Septal infarct, age undetermined Abnormal ECG Compared to ECG 09/06/2018 15:46:36 Ventricular premature complex(es) now present Myocardial infarct finding now present Sinus tachycardia no longer present Atrial premature complex(es) no longer present Aberrant conduction of supraventricular beat(s) no longer present Electronically Signed On 09-10-18 13:59:03 MEDICAL AND SCIENTIFIC ILLUSTRATOR by Will Garcia
[2018-09-10] MEDS ORDERED: ALBUMIN HUMAN 25% 50 ML IV SCH (15:00)
[2018-09-10] MEDS: EPOETIN ALFA 10,000 UNIT/ML VIAL SQ SCH (16:21)
[2018-09-10] MEDS: ATORVASTATIN 20 MG TAB PO SCH (21:22)
[2018-09-10] MEDS: NEPRO SHAKE 237 ML CAN PO SCH (21:30)
--- NOTE | 2018-09-10 21:50 | RAD REPORT ---
EXAM DESCRIPTION: CT - Thorax Wo Con - 09/10/2018 9:10 pm CLINICAL HISTORY: Chest pain, productive cough, dialysis patient COMPARISON: Chest film September 09, CT June 2018 TECHNIQUE: Axial 5 mm thick images of the chest were obtained without IV contrast. All CT scans are performed using dose optimization technique as appropriate and may include automated exposure control or mA/KV adjustment according to patient size. FINDINGS: Small bilateral pleural effusions. Interstitial markings are prominent from fibrosis, darius a or possibly interstitial infiltrate. In the posterior lower right lung field (image 39/58) there is a 15 millimeter rounded low-density mass. No large mass or consolidation. Patchy atelectasis changes are present in each lung base. Loculation of the fluid is not suspected. No pneumothorax. No abnormal mediastinal or hilar masses or lymphadenopathy seen. No gross aortic or pulmonary artery finding suspected. Assessment is limited in the absence of IV contrast. Minimal pericardial thickeni ng or pericardial effusion. No chest wall mass or abnormal axillary lymphadenopathy. IMPRESSION: Small bilateral pleural effusions are present. A 15 millimeter low-density mass posterior lower right lung field is identified and not significantly different back to July 12, 2018. With a history of colon carcinoma, a metastatic lesion is not excluded. Prominent interstitial markings throughout the lung rasmussen could be fibrosis, edema, infiltrate or a combination.
[2018-09-11] MEDS: PIPER/TAZO/NS 2.25gm 2.25 GM/50 ML BAG IVPB SCH ×2 (00:57→09:21)
[2018-09-11] MEDS: ACETAMINOPHEN 500 MG TAB PO PRN ×3 (05:33→20:59)
[2018-09-11 07:05] LABS: Absolute Lymphocytes (CBC) 1.2 K/uL (0.7-4.9); Absolute Neutrophil 7.9 K/uL (1.8-8.0); Basophils % 0.5 % (0-1.3); Eosinophils % 0.6 % (0-4.4); Hematocrit 28.9 % (36.0-45.0); Lymphocytes % 11.6 % (15.3-44.8); MPV 8.9 fL (7.6-11.3); Monocytes % 10.1 % (3.3-12.3); RBC Red Blood Cell Count 3.13 M/uL (3.86-4.86)
[2018-09-11 07:14] LABS: Albumin 2.4 g/dL (3.4-5.0); Bilirubin Total 0.5 mg/dL (0.2-1.0); Potassium 3.3 mmol/L (3.5-5.1); Protein, Total 6.2 g/dL (6.4-8.2)
[2018-09-11] MEDS: NEPRO SHAKE 237 ML CAN PO SCH ×2 (09:00→21:01)
[2018-09-11] MEDS: GABAPENTIN 300 MG CAP PO SCH ×2 (09:21→21:00)
[2018-09-11] MEDS: FERROUS SULFATE 325 MG TAB PO SCH (09:21)
[2018-09-11] MEDS: CLOPIDOGREL 75 MG TABLET PO SCH (09:21)
[2018-09-11] MEDS ORDERED: MIDODRINE HCL 5 MG TABLET PO PRN (10:57)
--- NOTE | 2018-09-11 10:59 | P.CNS ---
Date of Consult: 09/11/18 Chief Complaint: Shortness of breath abnormal chest x-ray History of Present Illness: Patient is 88 years of age history obtained from her daughter she has partial if his ear due to her prior stroke in problems for the past week complaining of chest congestion intermittent fever admission precipitated by shortness of breath chest discomfort quit smoking a long time ago a recent diagnosis of colon cancer family elected not to pursue any treatment also found to have a right lower lobe lung mass patient is also on dialysis recently fractured her hip and has had problem with mobility since then Allergies No Known Allergies Allergy (Verified 07/21/18 13:11) Home Medications: Atorvastatin Calcium [Lipitor] 20 mg PO BEDTIME 09/09/18 Clopidogrel Bisulfate [Plavix] 75 mg PO DAILY 09/09/18 Cranberry Fruit Extract [Cranberry] 400 mg PO BID 09/09/18 Epoetin [Procrit] 10,000 unit SQ AFTER EACH DIALYSIS 09/09/18 Ferrous Sulfate [Iron] 325 mg PO DAILY 09/09/18 Gabapentin 600 mg PO BID 09/09/18 Nepro Shake [Nepro*] 1 can PO BID 09/09/18 Polyethylene Glycol 3350 [Miralax] 17 gm PO DAILY 09/09/18 - Past Medical/Surgical History Diabetic: No -: HTN -: Hyperlipidemia -: Hx of mild stroke -: ESRD -dialysis MWF -: CVA 2003 -: cecum cancer -: 3 strokes ([id number]) -: Anemia/bleeding ulcer, 2006 -: Hysterectomy, 1973 -: Tummy tuck (elective), 1998 -: Fistula(left arm) -: cholecystectomy -: broken hip Jun 2018 - Family History Mother Medical History: Diabetes Notes: dementia Father Medical History: Cancer - Social History Smoking Status: Unknown if ever smoked Alcohol use: No CD- Drugs: No Caffeine use: Yes Place of Residence: [facility] Review of Systems is unable to be obtained Physical Examination Temp Pulse Resp BP Pulse Ox 99.9 F 80 22 H 96/53 L 91 09/11/18 08:00 09/11/18 08:00 09/11/18 08:00 09/11/18 08:00 09/11/18 08:00 General: Alert, Oriented x2, Cooperative Respiratory: Clear to auscultation bilaterally, Crackles/rales (Occasional crackles noted) Cardiovascular: No edema Gastrointestinal: Normal bowel sounds, Soft and benign, No ascites Musculoskeletal: No clubbing, No swelling, No contractures, No tenderness Integumentary: No rashes, No breakdown Laboratory Data (last 24 hrs) 09/11/18 06:33: Sodium 139, Potassium 3.3 L, BUN 19 H, Creatinine 2.77 H D, Glucose 100, Total Bilirubin 0.5, AST 12 L, ALT 10 L, Alkaline Phosphatase 69 09/11/18 06:33: WBC 10.2 D, Hgb 9.4 L, Hct 28.9 L, Plt Count 232 D - Problems (1) Pneumonia Current Visit: Yes Status: Acute Plan: Patient is 88 years of age admitted with some chest congestion shortness of breath fever patient febrile in the hospital mildly elevated white count prominent interstitial changes in addition patient has a right lower lobe lung mass that was present in June recent history of colonic cancer most likely mets to the lungs family members elected not to her purse you would treatment she is on hemodialysis blood pressure is slightly low oxygenation borderline low I recommend changing to p.o. levofloxacin continue to monitor patient quit smoking a very long time ago. She is not on any bronchodilators or oxygen at home history of a stroke which cause a partial HCTZ a patient has difficulty ambulating problems with cognition Qualifiers: Pneumonia type: due to unspecified organism
[2018-09-11] MEDS ORDERED: Levofloxacin500mg IV 500 MG/100 ML BAG IV SCH (12:00)
--- NOTE | 2018-09-11 12:46 | P.PN ---
Subjective Date of Service: 09/11/18 Primary Care Provider: senior living Chief Complaint: Shortness of breath abnormal chest x-ray Subjective: Other (Patient stable today. Increase sedation noted. Poor oral intake.) Physical Examination - Vital Signs Temperature: 99.9 F Blood Pressure: 96/53 Pulse: 80 Respirations: 22 Pulse Ox (%): 91 - Physical Exam General: Demented, Confused, Other (Increased sedation.) HEENT: Atraumatic Neck: Supple Respiratory: Clear to auscultation bilaterally Cardiovascular: Normal pulses, Regular rate/rhythm Gastrointestinal: Normal bowel sounds, Soft and benign, Non-distended Neurological: Dementia - Studies Laboratory Data (last 24 hrs) 09/11/18 06:33: Sodium 139, Potassium 3.3 L, BUN 19 H, Creatinine 2.77 H D, Glucose 100, Total Bilirubin 0.5, AST 12 L, ALT 10 L, Alkaline Phosphatase 69 09/11/18 06:33: WBC 10.2 D, Hgb 9.4 L, Hct 28.9 L, Plt Count 232 D Microbiology Data (last 24 hrs): 09/10/18 12:52 Blood - Blood Anaerobic Blood Culture - Final 09/09/18 19:50 Blood - Blood Anaerobic Blood Culture - Final 09/10/18 12:17 Nasopharnyx Influenza Type A Antigen Screen - Final 09/10/18 12:17 Nasopharnyx Influenza Type B Antigen Screen - Final 09/10/18 12:17 Throat Group A Streptococcus Rapid Screen - Final Medications List Reviewed: Yes Assessment & Plan Discharge Plan: [facility] Plan to discharge in: 48 Hours Physician Review Additional Text: Impression: Shortness of breast suspect bilateral pneumonia complicated with small bilateral pleural effusions and 15 mm low density mass to the posterior lower right lung field likely metastatic lesion History of colon cancer likely stage IV with metastasis to the lung Anemia of chronic disease End-stage renal disease Chronic diastolic CHF History of CVA Dementia recent left hip repair Plan: Shortness of breast suspect bilateral pneumonia complicated with small bilateral pleural effusions and 15 mm low density mass to the posterior lower right lung field likely metastatic lesion: Case discussed with pulmonology. Will wean off oxygen to maintain sats above 90%. Pulmonology to change IV antibiotic therapy to oral. Patient with likely stage IV colon cancer with metastasis to the lung. Patient with poor prognosis in the future. If her condition continues to decline patient may benefit with hospice. This was addressed in detail with the family. Advanced directives address in detail. Patient is do not resuscitate. Will continue to monitor patient closely. If no significant improvement then will consider hospice at discharge. If not patient may return to [facility]. Will discontinue IV pain medication. Monitor sedation. Will recheck x-ray tomorrow. History of colon cancer likely stage IV with metastasis to the lung: Prognosis is poor. Case discussed at length with family. Family to consider hospice if no significant improvement. Anemia of chronic disease: Will monitor closely. End-stage renal disease: Patient receives dialysis every Thursday, Wednesdays and Thursday. Case discussed at length with nephrology. Nephrology understands that the patient may require hospice in the near future. Chronic diastolic CHF: Will monitor closely. History of CVA: Will monitor closely. Dementia: Patient with dementia. This has been getting worse over time as per family. Will monitor closely. Continue as above. Time Spent Managing Pts Care (In Minutes): 55
[2018-09-11] MEDS ORDERED: MAGNESIUM SULFATE 1 gm IVPB 1 GM/100 ML BAG IV ONE (14:25)
[2018-09-11] MEDS: MIDODRINE HCL 5 MG TABLET PO SCH ×2 (14:33→21:00)
--- NOTE | 2018-09-11 15:15 | PN ---
Date of Progress Note: 09/11/2018 Chief Complaint: End-stage renal disease. The patient has multiple medical problems including history of end-stage renal disease, on dialysis. She received dialysis yesterday. The patient is complaining of productive cough. She denies chest pain, palpitation. She although is not a good historian, she has history of dementia. She had a CT scan done yesterday to evaluate for possible pneumonia and empyema. It showed prominent interstitial markings of the lung rasmussen. It could be due to fibrosis, edema, infiltrate, or combination of yip ges. The patient was found to have a 15 mm rounded low-density mass in the right lower field and pul monary eligibility consultant has evaluated the patient. She has known history of cecal mass, possible cancer. Review of Systems: Denies fever, chills. Physical Examination: Lungs: Coarse breath sounds bilaterally. Rhonchi present. Abdomen: Soft. Extremities: No edema. Impression And Plan: 1.End-stage renal disease. Dialysis was done yesterday. Monitor for an evidence of fluid overload. The patient has complicated history of possible neoplasm in the cecum as well as mass in the lungs. She is undergoing evaluation with Pulmonary. The patient has history of dementia, failure to thriv e and she currently tolerates p.o. intake. Albumin level is 2.4. The patient will increase p.o. pro tein intake as tolerated. 2.Anemia of chronic kidney disease, hemoglobin level is satisfactory. 3.Leukocytosis. WBC is improving from 13.7 to 10.2. Recommend antibiotics as per Pulmonary. EB/MODL Voice ID: [id number] Report ID: [id number]
[2018-09-11] MEDS: EPOETIN ALFA 10,000 UNIT/ML VIAL SQ SCH (18:26)
[2018-09-11] MEDS: BENZONATATE 100 MG CAP PO SCH (21:00)
[2018-09-11] MEDS: ATORVASTATIN 20 MG TAB PO SCH (21:01)
[2018-09-12 06:09] LABS: Absolute Lymphocytes (CBC) 1.1 K/uL (0.7-4.9); Absolute Monocytes 0.9 K/uL (0.1-1.3); Absolute Neutrophil 7.1 K/uL (1.8-8.0); Basophils % 0.4 % (0-1.3); Eosinophils % 4.5 % (0-4.4); Hematocrit 30.8 % (36.0-45.0); MPV 8.9 fL (7.6-11.3); Monocytes % 9.4 % (3.3-12.3)
[2018-09-12 06:25] LABS: Albumin 2.2 g/dL (3.4-5.0); Bilirubin Total 0.3 mg/dL (0.2-1.0); Magnesium 2.3 mg/dL (1.8-2.4); Potassium 3.8 mmol/L (3.5-5.1); Protein, Total 6.2 g/dL (6.4-8.2)
--- NOTE | 2018-09-12 07:38 | RAD REPORT ---
EXAM DESCRIPTION: RAD - Chest Single View - 09/12/2018 5:40 am CLINICAL HISTORY: Pleural effusions, pneumonia COMPARISON: September 09, September 06 chest films, September 10 CT chest TECHNIQUE: AP portable chest image was obtained [id number] hours . FINDINGS: Lungs are underinflated but not substantially different from comparison. Cardiac silhouett e has enlarged. Vasculature has increased slightly in prominence. Interstitial and alveolar opacities have increased. No one focal area of consolidation seen. Retrocardiac left base is limited. No pneum othorax. Small pleural effusions are probably still present. No acute bony abnormality seen. No acute aortic findings suspected. IMPRESSION: Heart, vasculature and lung markings have all increased. Pattern is diffuse rather than focal and probably reflects of failure or volume overload. Interstitial pneumonia would be possible. No focal consolidation is seen that is typical for a bacter ial pneumonia.
[2018-09-12] MEDS: MIDODRINE HCL 5 MG TABLET PO SCH ×3 (08:25→21:57)
[2018-09-12] MEDS: BENZONATATE 100 MG CAP PO SCH ×2 (08:25→21:56)
[2018-09-12] MEDS: CLOPIDOGREL 75 MG TABLET PO SCH (08:25)
[2018-09-12] MEDS: FERROUS SULFATE 325 MG TAB PO SCH (08:25)
[2018-09-12] MEDS: GABAPENTIN 300 MG CAP PO SCH ×2 (08:26→21:56)
[2018-09-12] MEDS: NEPRO SHAKE 237 ML CAN PO SCH ×2 (08:30→21:00)
--- NOTE | 2018-09-12 10:54 | P.PN ---
Subjective Date of Service: 09/12/18 Primary Care Provider: [facility] Chief Complaint: Shortness of breath abnormal chest x-ray Subjective: Demented, Other (Stable. Mentation better today.) Physical Examination - Vital Signs Temperature: 98.0 F Blood Pressure: 105/59 Pulse: 80 Respirations: 20 Pulse Ox (%): 100 - Physical Exam General: Alert, Demented, Other (Patient with better mentation. Patient with dementia.) HEENT: Atraumatic Neck: Supple Respiratory: Clear to auscultation bilaterally, Normal air movement Cardiovascular: Normal pulses, Regular rate/rhythm Gastrointestinal: Normal bowel sounds, Soft and benign, Non-distended, No masses , No rebound, No guarding Neurological: Dementia - Studies Microbiology Data (last 24 hrs): 09/10/18 12:17 Throat Culture & Sensitivity - Final 09/10/18 12:52 Blood - Blood Anaerobic Blood Culture - Final Medications List Reviewed: Yes Assessment & Plan Discharge Plan: Other ([facility]) Plan to discharge in: 24 Hours Physician Review Additional Text: Impression: Shortness of breast suspect bilateral pneumonia complicated with small bilateral pleural effusions and 15 mm low density mass to the posterior lower right lung field likely metastatic lesion History of colon cancer 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 Patient on antibiotic therapy. Patient's mentation improved. Patient with advanced dementia. Will continue to wean off oxygen. Blood cultures negative. Anticipate discharge back to assisted living facility tomorrow. Will have physical therapy assess ambulation. If stable anticipate discharge tomorrow back to assisted living facility or patient may require skilled placement prior to going back to the skilled facility. Patient with underlying colon cancer likely stage IV with metastasis to the lung. Prognosis is poor. Patient may benefit with hospice at discharge as well. Family to discuss in detail. They will consider hospice with dialysis. History of colon cancer likely stage IV with metastasis to the lung: Prognosis is poor. Case discussed at length with family. Family considering hospice with dialysis. Anemia of chronic disease: Will monitor closely. End-stage renal disease: Patient receives dialysis every Thursday, Wednesdays and Thursday. Case discussed at length with nephrology. Nephrology understands that the patient may require hospice in the near future. Chronic diastolic CHF: Will monitor closely. History of CVA: Will monitor closely. Dementia: Patient with dementia. Continue as above. Time Spent Managing Pts Care (In Minutes): 55
[2018-09-12] MEDS: ATORVASTATIN 20 MG TAB PO SCH (21:56)
[2018-09-12] MEDS: ACETAMINOPHEN 500 MG TAB PO PRN (21:56)
--- NOTE | 2018-09-13 02:17 | PN ---
Date of Progress Note: 09/12/2018 Chief Complaint: End-stage renal disease. The patient was found to have interstitial pulmonary darius a, received dialysis yesterday with ultrafiltration. She is feeling better today. She is more alert today. Physical Examination: Lungs: Clear to auscultation bilaterally. Heart: S1, S2. Abdomen: Soft, benign. Extremities: Minimal edema. Vital Signs: Blood pressure is 103/58, heart rate 81, respiratory rate 16, temperature 99.6. Laboratory Data: Hemoglobin 9.9, WBC 9.6, platelet count 242,000. Sodium 139, potassium 3.8, chlori de 102, CO2 31, BUN 14, creatinine 2.24, calcium 8.2, albumin 2.2. Impression And Plan: 1.End-stage renal disease. The patient received extra dialysis yesterday to obtain metabolic cleara nce and ultrafiltration. Next dialysis will be scheduled for tomorrow. Continue to monitor blood pr essure closely and advance midodrine for Intradialytic hypotension to prevent episodes of hypotensive condition during dialysis. 2.Anemia of chronic kidney disease. Monitor hemoglobin level. Continue FANI. 3.Hypoalbuminemia. Increase p.o. protein intake. 4.Possible cecal mass. The patient will follow up with primary team and Pulmonary. EB/MODL Voice ID: [id number] Report ID: [id number]
[2018-09-13 05:03] VITALS: BMI 20.5
[2018-09-13 05:14] LABS: Absolute Lymphocytes (CBC) 1.6 K/uL (0.7-4.9); Absolute Monocytes 0.9 K/uL (0.1-1.3); Absolute Neutrophil 6.6 K/uL (1.8-8.0); Basophils % 0.9 % (0-1.3); Eosinophils % 6.5 % (0-4.4); Hematocrit 32.1 % (36.0-45.0); MPV 9.2 fL (7.6-11.3); Monocytes % 9.1 % (3.3-12.3); RBC Red Blood Cell Count 3.48 M/uL (3.86-4.86)
[2018-09-13 05:18] LABS: Albumin 2.1 g/dL (3.4-5.0); Bilirubin Total 0.3 mg/dL (0.2-1.0); Magnesium 2.3 mg/dL (1.8-2.4); Protein, Total 6.2 g/dL (6.4-8.2)
[2018-09-13] MEDS: CLOPIDOGREL 75 MG TABLET PO SCH (09:00)
[2018-09-13] MEDS: NEPRO SHAKE 237 ML CAN PO SCH (09:00)
[2018-09-13] MEDS: BENZONATATE 100 MG CAP PO SCH (09:00)
[2018-09-13] MEDS: MIDODRINE HCL 5 MG TABLET PO SCH ×2 (09:00→14:00)
[2018-09-13] MEDS: FERROUS SULFATE 325 MG TAB PO SCH (09:00)
[2018-09-13] MEDS ORDERED: Levofloxacin 250mg IV 250 MG/50 ML BAG IV SCH (09:00)
[2018-09-13] MEDS: GABAPENTIN 300 MG CAP PO SCH (09:00)
[2018-09-13 09:58] VITALS: BP 108/56; TEMP 98.6
[2018-09-13 10:15] VITALS: O2SAT 100
--- NOTE | 2018-09-13 10:21 | P.DS ---
Admission Date: 09/11/18 Discharge Date: 09/13/18 Primary Care Provider: Assisted living facility director Disposition: TRANSFER TO [facility] Discharge Condition: GOOD Reason for Admission: Shortness of breath abnormal chest x-ray Consultations: Pulmonology-Dr. Valdez Nephrology-Dr. Gary Procedures: CT scan: COMPARISON: Chest film September 09, CT June 2018 TECHNIQUE: Axial 5 mm thick images of the chest were obtained without IV contrast. All CT scans are performed using dose optimization technique as appropriate and may include automated exposure control or mA/KV adjustment according to patient size. FINDINGS: Small bilateral pleural effusions. Interstitial markings are prominent from fibrosis, edema or possibly interstitial infiltrate. In the posterior lower right lung field (image 39/58) there is a 15 millimeter rounded low-density mass. No large mass or consolidation. Patchy atelectasis changes are present in each lung base. Loculation of the fluid is not suspected. No pneumothorax. No abnormal mediastinal or hilar masses or lymphadenopathy seen. No gross aortic or pulmonary artery finding suspected. Assessment is limited in the absence of IV contrast. Minimal pericardial thickening or pericardial effusion. No chest wall mass or abnormal axillary lymphadenopathy. IMPRESSION: Small bilateral pleural effusions are present. A 15 millimeter low-density mass posterior lower right lung field is identified and not significantly different back to July 12, 2018. With a history of colon carcinoma, a metastatic lesion is not excluded. Prominent interstitial markings throughout the lung rasmussen could be fibrosis, edema, infiltrate or a combination. Follow up CXR: COMPARISON: September 09, September 06 chest films, September 10 CT chest TECHNIQUE: AP portable chest image was obtained 0532 hours FINDINGS: Lungs are underinflated but not substantially different from comparison. Cardiac silhouette has enlarged. Vasculature has increased slightly in prominence. Interstitial and alveolar opacities have increased. No one focal area of consolidation seen. Retrocardiac left base is limited. No pneumothorax. Small pleural effusions are probably still present. No acute bony abnormality seen. No acute aortic findings suspected. IMPRESSION: Heart, vasculature and lung markings have all increased. Pattern is diffuse rather than focal and probably reflects of failure or volume overload. Interstitial pneumonia would be possible. No focal consolidation is seen that is typical for a bacterial pneumonia. Medical Problem List: Shortness of breast suspect bilateral pneumonia complicated with small bilateral pleural effusions and 15 mm low density mass to the posterior lower right lung field likely metastatic lesion History of colon cancer likely stage IV with metastasis to the lung Anemia of chronic disease End-stage renal disease Chronic diastolic CHF History of CVA Dementia Hyperlipidemia Chronic pain Low blood pressure requiring midodrine Brief History of Present Illness: 88-year-old female presented to emergency room with shortness of breath. Patient recently hospitalized for pneumonia. Patient appears to have pneumonia with bilateral pleural effusion. Patient admitted for further treatment. Patient with underlying end-stage renal disease on dialysis, dementia. Hospital Course: Patient presented with shortness of breath secondary to bilateral pneumonia complicated with small bilateral pleural effusions. Patient also found to have 15 mm low density mass to the posterior lower right lung field likely metastatic in nature since the patient has underlying colon cancer. Patient seen by nephrology and pulmonology. Patient started on antibiotic therapy and showed improvement. No intervention was required. Patient received dialysis during her stay. Repeat x-ray shows stability. Case discussed at length with family concerning her comorbidities and prognosis. Patient with underlying dementia, end-stage renal disease on dialysis and stage IV colon cancer. Family decided to continue to keep patient do not resuscitate. Family plans to start hospice at assisted living facility. This will be arranged through their current home health agency. Patient will continue with Levaquin 250 mg every 48 hr for 3 more doses. Recommend to recheck chest x-ray in 2-4 weeks to monitor stability. Patient may follow up with pulmonology in 1-2 weeks if needed. Patient with end-stage renal disease on hemodialysis. Patient receives dialysis every Thursday, Wednesdays and Thursday. Family to decide in the future on when to discontinue dialysis but this will be determined if her condition continues to decline on hospice. Currently the plan is to continue with hospice with dialysis. Patient has been requiring midodrine 5 mg 3 times a day and prior to dialysis. This can be continued. Patient with anemia of chronic disease. This remained stable. Patient also with underlying iron deficiency. Patient is getting Procrit after dialysis. Patient may continue with iron 325 mg daily. This can be followed as an outpatient. Patient with underlying chronic diastolic CHF. This remained stable. This can be further monitored by nephrology. Patient with dementia. Patient may continue with her medication. Patient at her baseline. 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 No further workup or intervention in the future. Patient is do not resuscitate. Family plans to start hospice at assisted living facility. Patient with history of CVA. Patient may continue with Plavix 75 mg daily. Patient with hyperlipidemia. Patient may continue with Lipitor 20 mg daily. Patient with chronic pain. Patient may continue with gabapentin 600 mg twice daily. Vital Signs/Physical Exam: Temp Pulse Resp BP Pulse Ox 98.6 F 78 16 108/56 L 100 09/13/18 08:00 09/13/18 08:00 09/13/18 08:00 09/13/18 08:00 09/13/18 08:00 General: Alert, In no apparent distress, Demented HEENT: Atraumatic Neck: Supple Respiratory: Clear to auscultation bilaterally, Normal air movement Cardiovascular: Normal pulses, Regular rate/rhythm Gastrointestinal: Normal bowel sounds, Soft and benign, Non-distended Integumentary: No erythema, No warmth, No cyanosis Neurological: Dementia Laboratory Data at Discharge: WBC 9.8 K/uL (4.3-10.9) 09/13/18 04:28 Hgb 10.3 g/dL (12.0-15.0) L 09/13/18 04:28 Hct 32.1 % (36.0-45.0) L 09/13/18 04:28 Plt Count 255 K/uL (152-406) 09/13/18 04:28 PT 13.2 SECONDS (9.5-12.5) H 09/09/18 19:50 INR 1.12 09/09/18 19:50 Sodium 140 mmol/L (136-145) 09/13/18 04:28 Potassium 4.0 mmol/L (3.5-5.1) 09/13/18 04:28 BUN 25 mg/dL (7-18) H 09/13/18 04:28 Creatinine 3.59 mg/dL (0.55-1.3) H D 09/13/18 04:28 Glucose 92 mg/dL (74-106) 09/13/18 04:28 Magnesium 2.3 mg/dL (1.8-2.4) 09/13/18 04:28 Total Bilirubin 0.3 mg/dL (0.2-1.0) 09/13/18 04:28 AST 21 U/L (15-37) 09/13/18 04:28 ALT 13 U/L (12-78) 09/13/18 04:28 Alkaline Phosphatase 66 U/L (45-117) 09/13/18 04:28 Home Medications: Atorvastatin Calcium [Lipitor*] 20 mg PO BEDTIME 09/09/18 Clopidogrel Bisulfate [Plavix*] 75 mg PO DAILY 09/09/18 Cranberry Fruit Extract [Cranberry] 400 mg PO BID 09/09/18 Epoetin [Procrit*] 10,000 unit SQ AFTER EACH DIALYSIS 09/09/18 Ferrous Sulfate [Iron] 325 mg PO DAILY 09/09/18 Gabapentin 600 mg PO BID 09/09/18 Nepro Shake [Nepro*] 1 can PO BID 09/09/18 Polyethylene Glycol 3350 [Miralax] 17 gm PO DAILY 09/09/18 Levofloxacin [Levaquin] 250 mg PO Q48H #3 tablet 09/13/18 Midodrine HCl [Proamatine*] 5 mg PO EVERY HD PRN #30 tab 09/13/18 Midodrine HCl [Proamatine*] 5 mg PO TID #90 tab 09/13/18 New Medications: Levofloxacin [Levaquin] 250 mg PO Q48H #3 tablet Midodrine HCl [Proamatine*] 5 mg PO EVERY HD PRN #30 tab PRN Reason: low bp Midodrine HCl [Proamatine*] 5 mg PO TID #90 tab Patient Discharge Instructions: 1. Patient may return to assisted living facility. 2. Patient presented with shortness of breath secondary to bilateral pneumonia complicated with small bilateral pleural effusions. Patient also found to have 15 mm low density mass to the posterior lower right lung field likely metastatic in nature since the patient has underlying colon cancer. Patient seen by nephrology and pulmonology. Patient started on antibiotic therapy and showed improvement. No intervention was required. Patient received dialysis during her stay. Repeat x-ray shows stability. Case discussed at length with family concerning her comorbidities and prognosis. Patient with underlying dementia, end-stage renal disease on dialysis and stage IV colon cancer. Family decided to continue to keep patient do not resuscitate. Family plans to start hospice at assisted living facility. This will be arranged through their current home health agency. Patient will continue with Levaquin 250 mg every 48 hr for 3 more doses. Recommend to recheck chest x-ray in 2-4 weeks to monitor stability. Patient may follow up with pulmonology in 1-2 weeks if needed. 3. Patient with end-stage renal disease on hemodialysis. Patient receives dialysis every Thursday, Wednesdays and Thursday. Family to decide in the future on when to discontinue dialysis but this will be determined if her condition continues to decline on hospice. Currently the plan is to continue with hospice with dialysis. Patient has been requiring midodrine 5 mg 3 times a day and prior to dialysis. This can be continued. 4. Patient with anemia of chronic disease. This remained stable. Patient also with underlying iron deficiency. Patient is getting Procrit after dialysis. Patient may continue with iron 325 mg daily. This can be followed as an outpatient. 5. Patient with underlying chronic diastolic CHF. This remained stable. This can be further monitored by nephrology. 6. Patient with dementia. Patient may continue with her medication. Patient at her baseline. 7. 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 No further workup or intervention in the future. Patient is do not resuscitate. Family plans to start hospice at assisted living facility. 8. Patient with history of CVA. Patient may continue with Plavix 75 mg daily. 9. Patient with hyperlipidemia. Patient may continue with Lipitor 20 mg daily. 10. Patient with chronic pain. Patient may continue with gabapentin 600 mg twice daily. Diet: Renal Activity: Fall precautions Time spent managing pt's care (in minutes): 55
[2018-09-13] MEDS: EPOETIN ALFA 10,000 UNIT/ML VIAL SQ SCH (10:25)
--- NOTE | 2018-09-14 02:31 | PN ---
Date of Progress Note: 09/13/2018 Chief Complaint: End-stage renal disease, on dialysis. History Of Present Illness: The patient was found to have interstitial pulmonary edema. She receive d extra dialysis treatment with ultrafiltration. The patient was feeling better today. She is under going dialysis for metabolic clearance and to obtain ultrafiltration. The patient has intradialytic hypotension. She received midodrine for blood pressure support. Review of Systems: Denies fever, chills. Denies syncope. Physical Examination: Lungs: Diminished breath sounds at bases. Crackles present bilaterally at bases. Heart: S1, S2. Abdomen: Soft, benign. Extremities: Minimal edema. Laboratory Data: Sodium 139, potassium 3.8, chloride 102, CO2 31, BUN 14, creatinine 2.24, albumin 2 .2. Impression And Plan: 1.End-stage renal disease. The patient is undergoing treatment for metabolic clearance and ultrafil tration. The patient is oliguric. Continue dialysis 3 times per week. 2.Dialysis will be done with ultrafiltration. Adjust ultrafiltration goal according to blood pressu re to prevent intradialytic hypotension. The patient will continue midodrine. 3.Anemia of chronic kidney disease. Hemoglobin level is satisfactory. Continue FANI. Monitor hemog lobin level. 4.Hypoalbuminemia. Increase p.o. protein intake. 5.Cecal mass, possible metastatic disease. The patient will continue workup with primary team. ONEAL/KJ Voice ID: [id number] Report ID: [id number]
[2018-09-15 05:53] LABS: HBsAG Nonreactive (Nonreactive)
== END 2018-09-13 15:25 | disposition home health service (06) | DRG 193 ==
LOC: ER 16:49 → ERHOLD 21:02 → 4TH 22:04 → OBSVTOIN 09-11 10:43
PROVIDERS: ADMIT Hospitalist; ATTEND Family Medicine
PROC: 5A1D70Z Performance of Urinary Filtration, Intermittent, Less than 6 Hours Per Day (ICD-10-PCS; principal; 2018-09-10)
PROC: 5A1D70Z Performance of Urinary Filtration, Intermittent, Less than 6 Hours Per Day (ICD-10-PCS; 2018-09-11)
PROC: 5A1D70Z Performance of Urinary Filtration, Intermittent, Less than 6 Hours Per Day (ICD-10-PCS; 2018-09-13)
DX: J18.9 Pneumonia, unspecified organism (principal); N18.6 End stage renal disease; I13.2 Hypertensive heart and chronic kidney disease with heart failure and with stage 5 chronic kidney disease, or end stage renal disease; J91.8 Pleural effusion in other conditions classified elsewhere; C18.9 Malignant neoplasm of colon, unspecified; C78.01 Secondary malignant neoplasm of right lung; I50.32 Chronic diastolic (congestive) heart failure; Z86.73 Personal history of transient ischemic attack (TIA), and cerebral infarction without residual deficits; F03.90 Unspecified dementia, unspecified severity, without behavioral disturbance, psychotic disturbance, mood disturbance, and anxiety; E78.5 Hyperlipidemia, unspecified; G89.29 Other chronic pain; E61.1 Iron deficiency; Z66 Do not resuscitate; Z99.2 Dependence on renal dialysis; K21.9 Gastro-esophageal reflux disease without esophagitis; E03.9 Hypothyroidism, unspecified; E11.22 Type 2 diabetes mellitus with diabetic chronic kidney disease; Z79.4 Long term (current) use of insulin; D63.1 Anemia in chronic kidney disease; N25.0 Renal osteodystrophy; R62.7 Adult failure to thrive; D72.829 Elevated white blood cell count, unspecified; I95.3 Hypotension of hemodialysis; E88.09 Other disorders of plasma-protein metabolism, not elsewhere classified
CPT/HCPCS: 36415; 71045; 71250; 80048; 80053; 80076; 81003; 81015; 83605; 83735; 83880; 84145; 84484; 85025; 85610; 86317; 86704; 86706; 87040; 87070; 87081; 87340; 87804; 90935; 93005; G0257; G0378; J0696; J1644; J3475; P9047; Q4081